=== PATIENT | female | born 1950 | race Caucasian/White ===

== ENCOUNTER 2018-11-09 07:08 | Day surgery (SDC) | payer MEDICARE, OTHER ==
[~2018-11-09 07:08] MED LIST: Bupivacaine 0.5% 30 ML SDV ONE
[2018-11-09] MEDS ORDERED: Sodium Chloride 0.9% 1,000 ML IV SCH (07:15)
[2018-11-09] MEDS ORDERED: fentaNYL 100 MCG/2 ML SDV ONE (07:29)
[2018-11-09] MEDS ORDERED: Midazolam 1 MG/ML 2 ML SDV ONE (07:29)
[2018-11-09] MEDS ORDERED: Propofol 200 MG/20 ML SDV ONE (07:29)
[2018-11-09] MEDS ORDERED: Lidocaine 0.5% 50 ML SDV ONE (07:31)
[2018-11-09] MEDS ORDERED: Ondansetron 4 MG/2 ML SDV ONE (07:42)
--- NOTE | 2018-11-09 23:54 | PCM.OPNOTE ---
- General Post-Op/Procedure Note Date of Surgery/Procedure: 11/09/18 Operative Procedure(s): Right 3rd finger trigger release (A-1 juan carlos) Findings: no tendon abnormality Pre Op Diagnosis: right 3rd finger trigger finger Post-Op Diagnosis: Same Anesthesia Technique: Regional Block ([place] block) Secondary Surgeon: Ike Jimenez Complications: None Condition: Good Free Text/Narrative:: Intake & Output 11/09/18 11/09/18 11/10/18 14:59 22:59 06:59 Intake Total 149 Balance 149 Indications: 67 year old right hand dominant female with seversl month hisstory of painful locking of right 3rd finger. Procedure: After adequate Britney block anesthesia a tyransfer incision was made inline with ths distal palmar flexion crease. Dissection carried down to the flexor tendons. The A-1 juan carlos was identified and a scissor was used to divide the juan carlos under direct visualization. Complete transection was confirmed and the tendons were inspected. No abnormalities were identified. The wound was irrigated and closed with 3-0 nylon in interrupted mattress fashion. A sterile dressing was applied. There were no complications and she was taken from the OR in stable condition.
== END 2018-11-09 11:35 | disposition home or self-care (01) ==
LOC: JP.SDS 07:08
PROVIDERS: ATTEND Specialist
DX: M65.331 Trigger finger, right middle finger (principal); I10 Essential (primary) hypertension; E11.9 Type 2 diabetes mellitus without complications; K21.9 Gastro-esophageal reflux disease without esophagitis; Z79.82 Long term (current) use of aspirin; Z79.84 Long term (current) use of oral hypoglycemic drugs; Z79.899 Other long term (current) drug therapy; Z88.5 Allergy status to narcotic agent; Z88.8 Allergy status to other drugs, medicaments and biological substances
CPT/HCPCS: 26055; J2250; J2405; J3010; J3490; J7030; J2704

== ENCOUNTER 2018-11-21 08:12 | Day surgery (SDC) | payer MEDICARE, OTHER ==
[2018-11-21] MEDS ORDERED: Sodium Chloride 0.9% 1,000 ML IV SCH (08:45)
[2018-11-21] MEDS ORDERED: Midazolam 1 MG/ML 2 ML SDV ONE (09:16)
[2018-11-21] MEDS ORDERED: Propofol 200 MG/20 ML SDV ONE (09:16)
[2018-11-21] MEDS ORDERED: fentaNYL 100 MCG/2 ML SDV ONE (09:16)
--- NOTE | 2018-11-21 10:53 | OR ---
DATE OF PROCEDURE: 11/21/2018 PROCEDURE: 1. EGD. 2. Cerda pH monitor placement. COMPLICATION: None. PRODUCTION HAND: None. FINDINGS: 1. Noted [place] wrap partially intact. 2. Hiatal hernia approximately 1 cm. ANESTHESIA: MAC. PREOPERATIVE DIAGNOSIS: Epigastric pain and dysphagia concerning for reflux disease. POSTOPERATIVE DIAGNOSIS: Epigastric pain and dysphagia concerning for reflux disease. RISKS: Risks, benefits, alternatives, and limitations including, but not limited to, infection, bleeding, and perforation were explained to the patient, who wished to proceed. PROCEDURE IN DETAIL: The patient was placed in left lateral decubitus position. The EGD scope was introduced and advanced atraumatically. This was advanced through the esophagus down into the duodenum. Within the duodenum itself, there was no evidence of duodenitis. No duodenal ulcers. The bulb was normal. In the stomach itself, there was no evidence of gastritis, ulceration, or any other abnormalities. On retroflex, the patient was noted to have a previous [place] wrap. This looks like it has unwrapped at time but still has a partial wrap to it. There was a small sliding hiatal hernia associated with this. The GE junction was inspected in white light and narrow band imaging. No concerns. No evidence of Brice's esophagus. This was measured to be at approximately 35 from the Z-line to the bite-block. The esophagus was inspected. The Cerda pH monitor was placed approximately 6 cm from the Z-line. This was placed in standard fashion by suction application waiting 30 seconds deploying, removing suction and removing the carrier. The EGD scope was reintroduced and the EGD scope showed good placement. The patient tolerated the procedure well. Henrique Tadeo MD /[id number]
[2018-11-21] MEDS ORDERED: Scopolamine 1.5 MG Transdermal Patch TOP ONE (11:19)
[2018-11-21] MEDS ORDERED: Ondansetron 4 MG Tab.DIS PO ONE (11:19)
== END 2018-11-21 12:29 | disposition home or self-care (01) ==
LOC: JP.SDS 08:12
PROVIDERS: ATTEND Surgery
DX: R10.13 Epigastric pain (principal); K21.9 Gastro-esophageal reflux disease without esophagitis; K44.9 Diaphragmatic hernia without obstruction or gangrene; I10 Essential (primary) hypertension; I25.10 Atherosclerotic heart disease of native coronary artery without angina pectoris; Z98.890 Other specified postprocedural states
CPT/HCPCS: 43235; A9270; J2250; J2704; J3010; J7030

== ENCOUNTER 2019-08-22 06:57 | Day surgery (SDC) | payer MEDICARE, OTHER ==
[2019-08-22] MEDS ORDERED: Lactated Ringers 1,000 ML IV SCH (07:30)
[2019-08-22] MEDS ORDERED: Propofol 200 MG/20 ML SDV ONE (08:25)
[2019-08-22] MEDS ORDERED: fentaNYL 100 MCG/2 ML SDV ONE (08:26)
[2019-08-22] MEDS ORDERED: Midazolam 1 MG/ML 2 ML SDV ONE (08:26)
[2019-08-22] MEDS ORDERED: Ondansetron 4 MG/2 ML SDV ONE (08:44)
--- NOTE | 2019-08-22 15:34 | OR ---
DATE OF PROCEDURE: 08/22/2019 SURGEON: Arthur Perea MD PREOPERATIVE DIAGNOSIS: Diarrhea POSTOPERATIVE DIAGNOSES: Diverticulosis, diarrhea. PROCEDURE: Colonoscopy to the cecum with random colon biopsies. ANESTHESIA: IV anesthesia with monitored anesthesia care. INDICATION: This 68-year-old white female is referred for a colonoscopy because of change in bowel habits manifested by diarrhea. She also noted some crampy discomfort. I counseled her for the procedure including risks and alternatives and she gave her informed consent to proceed. She says her last colonoscopic exam was done 5 years ago. PROCEDURE IN DETAIL: The patient was placed in the left lateral decubitus position. IV anesthesia was administered by the Anesthesia Service. Time-out was held. A rectal exam was performed, which was unremarkable. The flexible video Olympus colonoscope was introduced through her anus, up her rectum, out her colon all the way to the cecum. En route, we saw a few scattered left-sided diverticula. There was no bleeding or inflammation associated with any of them. Once the cecum was reached, the scope was slowly withdrawn examining the mucosa throughout. No additional mucosal abnormalities were noted. We did obtain random colonic biopsies throughout the entire colon. The scope was retroflexed in the rectum with the distal rectum appearing unremarkable. The scope was straightened and removed. She tolerated the procedure well. Arthur Perea MD /[id number]
== END 2019-08-22 10:15 | disposition home or self-care (01) ==
LOC: JP.SDS 06:57
PROVIDERS: ATTEND Surgery
DX: D12.6 Benign neoplasm of colon, unspecified (principal); K57.30 Diverticulosis of large intestine without perforation or abscess without bleeding; I25.10 Atherosclerotic heart disease of native coronary artery without angina pectoris; I10 Essential (primary) hypertension
CPT/HCPCS: 88305; 88341; 88342; J2250; J2405; J2704; J3010; J7120

== ENCOUNTER 2019-09-08 05:47 | Inpatient (IN) | payer MEDICARE, OTHER ==
[2019-09-08] MEDS ORDERED: Acetaminophen 500 MG Tab PO ONE (06:30)
[2019-09-08] MEDS ORDERED: Celecoxib 200 MG Cap PO ONE (06:30)
[2019-09-08] MEDS ORDERED: fentaNYL 250 MCG/5 ML SDV ONE (07:17)
[2019-09-08] MEDS ORDERED: Ondansetron 4 MG/2 ML SDV ONE (07:18)
[2019-09-08] MEDS ORDERED: Neostigmine Methylsulfate 1 MG/ML 5 ML Syringe ONE (07:18)
[2019-09-08] MEDS ORDERED: Rocuronium 50 MG/5 ML Vial ONE (07:18)
[2019-09-08] MEDS ORDERED: Dexamethasone 4 MG/ML SDV ONE (07:18)
[2019-09-08] MEDS ORDERED: Propofol 200 MG/20 ML SDV ONE (07:18)
[2019-09-08] MEDS ORDERED: Glycopyrrolate 0.2 MG/ML 5 ML MDV ONE (07:18)
[2019-09-08] MEDS ORDERED: cefOXitin 2 GM in Sodium Chloride 0.9% 50 ML IV ONE (07:30)
[2019-09-08] MEDS ORDERED: Droperidol 5 MG/2 ML SDV ONE (07:43)
[2019-09-08] MEDS ORDERED: Ketamine 500 MG/5 ML MDV IV SCH (07:45)
[2019-09-08] MEDS: Bupivacaine 0.5%/EPINEPHrine 1:200,000 50 ML MDV ONE ×2 (09:03→09:15)
[2019-09-08] MEDS ORDERED: Glucagon,Human Recombinant 1 MG Vial IM PRN (09:57)
[2019-09-08] MEDS ORDERED: Naloxone 0.4 MG/ML SDV IV PRN (09:57)
[2019-09-08] MEDS ORDERED: HYDROmorphone/Normal Saline 15 MG/30 ML PCA IV PRN (09:57)
[2019-09-08] MEDS ORDERED: Glucose Gel 15 GM in 37.5 GM Tube PO PRN (09:57)
[2019-09-08] MEDS ORDERED: 50% Dextrose in Water 50 ML Syringe IVPUSH PRN (09:57)
[2019-09-08] MEDS: Ondansetron 4 MG/2 ML SDV IVPUSH PRN ×2 (10:28→14:56)
[2019-09-08] MEDS: Dextrose 5%-Lactated Ringers 1,000 ML IV SCH (10:33)
[2019-09-08] MEDS: Metoclopramide 10 MG/2 ML SDV IV PRN ×2 (12:14→18:16)
[2019-09-08] MEDS ORDERED: Scopolamine 1.5 MG Transdermal Patch TOP SCH (12:15)
[2019-09-08] MEDS: metFORMIN 500 MG Tab PO SCH ×2 (12:56→17:04)
[2019-09-08] MEDS: Insulin Lispro 100 Unit/ML 3 ML KwikPen SUBCUT PRN ×3 (13:06→21:39)
[2019-09-08] MEDS: cefOXitin 2 GM in Sodium Chloride 0.9% 50 ML IV SCH ×2 (13:08→20:12)
[2019-09-08] MEDS ORDERED: LORazepam 2 MG/ML SDV IVPUSH PRN (19:50)
[2019-09-08] MEDS: Celecoxib 100 MG Cap PO SCH (20:14)
[2019-09-08] MEDS: Propranolol 80 MG Cap.ER PO SCH (20:14)
[2019-09-08] MEDS: Famotidine 20 MG Tab PO SCH (20:14)
[2019-09-09] MEDS: cefOXitin 2 GM in Sodium Chloride 0.9% 50 ML IV SCH ×4 (02:44→19:47)
[2019-09-09] MEDS: Metoclopramide 10 MG/2 ML SDV IV PRN (07:32)
[2019-09-09] MEDS: Dextrose 5%-Lactated Ringers 1,000 ML IV SCH ×2 (07:39→18:16)
[2019-09-09] MEDS: Insulin Lispro 100 Unit/ML 3 ML KwikPen SUBCUT PRN ×2 (07:42→12:16)
[2019-09-09] MEDS ORDERED: amLODIPine 5 MG Tab PO SCH ×2 (09:00→21:00)
[2019-09-09] MEDS ORDERED: atorvaSTATin 20 MG Tab PO SCH ×2 (09:00→21:00)
[2019-09-09] MEDS ORDERED: Aspirin 81 MG Tab.EC PO SCH ×2 (09:00→21:00)
[2019-09-09] MEDS: metFORMIN 500 MG Tab PO SCH ×2 (09:41→17:17)
[2019-09-09] MEDS: Bisacodyl 5 MG Tab PO SCH ×2 (09:43→20:00)
[2019-09-09] MEDS: Docusate Sodium 100 MG Cap PO SCH ×2 (09:43→20:00)
[2019-09-09] MEDS: Famotidine 20 MG Tab PO SCH ×2 (09:43→20:15)
[2019-09-09] MEDS: Celecoxib 100 MG Cap PO SCH ×2 (09:43→20:00)
[2019-09-09] MEDS: SCOPOLAMINE PATCH CHECK TOP SCH (09:44)
[2019-09-09] MEDS: Ondansetron 4 MG/2 ML SDV IVPUSH PRN (12:16)
[2019-09-09] MEDS: Acetaminophen/HYDROcodone 325-5 MG Tab PO PRN (19:57)
[2019-09-09] MEDS: Propranolol 80 MG Cap.ER PO SCH (20:00)
[2019-09-10] MEDS: cefOXitin 2 GM in Sodium Chloride 0.9% 50 ML IV SCH ×2 (02:41→07:36)
[2019-09-10] MEDS: Dextrose 5%-Lactated Ringers 1,000 ML IV SCH (07:15)
[2019-09-10] MEDS: metFORMIN 500 MG Tab PO SCH (08:06)
[2019-09-10] MEDS: Acetaminophen/HYDROcodone 325-5 MG Tab PO PRN (08:37)
[2019-09-10] MEDS: Celecoxib 100 MG Cap PO SCH (08:38)
[2019-09-10] MEDS: Docusate Sodium 100 MG Cap PO SCH (08:39)
[2019-09-10] MEDS: SCOPOLAMINE PATCH CHECK TOP SCH (08:39)
[2019-09-10] MEDS: Famotidine 20 MG Tab PO SCH (08:39)
[2019-09-10] MEDS: Bisacodyl 5 MG Tab PO SCH (08:39)
--- NOTE | 2019-09-10 08:54 | DISCH ---
ADMISSION DIAGNOSES: 1. Right upper quadrant abdominal pain. 2. Osteoporosis. 3. Impaired glucose function. 4. Atypical chest pain. 5. Coronary artery disease. 6. Gastroesophageal reflux disease with esophagitis. 7. Essential hypertension. 8. Dyslipidemia. 9. Osteoarthritis. DISCHARGE DIAGNOSES: Diagnostic laparoscopy with: 1. Cholecystectomy converted to mini laparotomy with near total omentectomy for chronic cholecystitis and sclerotic thickened omentum. Pathology report pending. Date of surgery: 09/08/2019. Surgeon: Enmanuel Gomez MD. HISTORY: Genoveva Claudio is a pleasant 68-year-old female with chronic constant right upper quadrant abdominal pain. After preoperative evaluation and discussion of possible risks and possible complications, she wished to proceed with surgical procedure. HOSPITAL COURSE: Genoveva had her surgery on 09/08/2019. She had no operative complications. On postoperative day #1, she was changed to inpatient due to pain control and changing from laparoscopic to laparotomy. Her vital signs were stable, her activity was good, and she was started on bowel stimulation. On postoperative day #2, she was able to be discharged to home. Vital signs were stable. Activity, she was walking 6 times a day. Oral intake 420, urine output 2825. JOVAN drain put out 55 mL of a light pink drainage. She was able to be discharged to home on postoperative day #2, without any complications. Pain was well managed and activity was good. OBJECTIVE: GENERAL: Genoveva Claudio is a 68-year-old female. She is alert and orientated. VITAL SIGNS: Height is 4 feet 11 inches, weight 128, 98,9, 77, 16, blood pressure is 133/69. HEENT: Negative. NECK: Supple. HEART: Regular rate and rhythm. LUNGS: Clear. ABDOMEN: Dressings dry and intact. JOVAN drain intact. EXTREMITIES: Without peripheral edema. DISPOSITION: Discharged to home. CONDITION: Stable and improving. FOLLOWUP: A followup appointment with Vero Garcia PA-C, on 09/18/2019 at 9 a.m. HOME MEDICATIONS: 1. [place] 5/325 mg 1 tablet every 6 hours p.r.n. pain, #28. 2. Aspirin 81 mg oral daily. 3. Calcium 600 mg oral twice daily. 4. Celebrex 100 mg oral twice daily. 5. Vitamin D3 2000 International Units oral daily. 6. Boniva 150 mg oral as directed. 7. Multivitamin 1 tablet oral daily. 8. Inderal LA 80 mg daily. 9. Zantac 150 mg oral twice daily. 10.Amlodipine 2.5 mg oral daily. 11.Lipitor 40 mg oral at bedtime. 12.Metformin 500 mg oral daily. DIET: Diabetic diet. Drink 8 to 10 glasses of water a day. ACTIVITY: No lifting greater than 10 pounds for 2 weeks. Walk at least 6 times daily inside your home. Driving: Do not drive for 1 week and while on pain medication. Shower/bathing: May shower. DISCHARGE INSTRUCTIONS: Notify provider if any fever, increased pain, swelling, redness, nausea, or vomiting. Wound incision care, keep site clean and dry. Wear abdominal binder for 2 weeks and as tolerated. Use incentive spirometer 10 times every hour while awake.
--- NOTE | 2019-09-10 13:05 | OR ---
DATE OF PROCEDURE: 09/08/2019 SURGEON: Enmanuel Gomez MD PREOPERATIVE DIAGNOSIS: Chronic cholecystitis. POSTOPERATIVE DIAGNOSES: 1. Chronic cholecystitis with gallbladder sludge. 2. Sclerotic, fibrotic, and thickened omentum of uncertain etiology. OPERATIVE PROCEDURES: Diagnostic laparoscopy with: 1. Cholecystectomy (75512). 2. Conversion to limited laparotomy with near-total omentectomy (17405). ANESTHESIA: General. INDICATION FOR PROCEDURE: A 68-year-old female presenting with a picture of right upper quadrant pain. This is becoming progressively worse. Ultrasound did show somewhat thickened gallbladder wall with the patient tender over the gallbladder and should undergo a cholecystectomy at this time. Potential risks of the procedure including bleeding, infection, injury to underlying viscera, problems with persistence of symptoms postoperatively were all reviewed, and the patient wishes to proceed. DETAILS OF PROCEDURE: The patient was taken to the operating room and placed in a supine position. After general endotracheal anesthesia was induced, the abdomen was prepped and draped. Transverse epigastric incision was made and carried down through the skin and subcutaneous tissue, and the peritoneal cavity was entered under direct vision with an Optiview trocar, inflated to 15 mmHg pressure with CO2. No underlying trocar insertion site injuries were seen. Following this, a 12-mm subumbilical trocar was placed, along with a 5- mm right subcostal trocar. Bilateral transversus abdominis plane blocks were then placed. The striking finding, in addition to somewhat edematous and distended gallbladder, was much of the omentum located in the epigastrium and right upper quadrant, was strikingly sclerotic and thickened and had more or less a diffuse white thickened and fibrotic consistency. There was no focal mass and otherwise there was no evidence of peritoneal seeding. The underlying transverse colon was unremarkable, and there was no evidence of any mesenteric panniculitis, i.e., small bowel and large bowel mesentry all appeared to be normal. Apart from the abnormal omental findings and the gallbladder edema, no additional abnormalities were evident with the general examination of the abdomen. At this point, the attention was taken to the gallbladder. The gallbladder was retracted anterolaterally and dissection began on the gallbladder neck and continued around the gallbladder neck/cystic duct junction. Once that area was well delineated, along with the adjacent cystic artery, both structures were clipped 3 times proximally and once distally, and gallbladder neck/cystic duct junction readily divided, and the gallbladder was dissected off the gallbladder bed using Harmonic scalpel and delivered through the epigastric trocar site. The patient was noted to have some gallbladder sludge in the lumen of the gallbladder and grossly evident cholesterolosis of the gallbladder mucosa. At this point, attention was taken to the omentum. It was felt that the patient's symptoms may in fact be primarily related to the omental findings, and we then proceeded with a near- total omentectomy. A 12-mm trocar was then placed in the left subcostal area to facilitate dissection. This was later opened up as a mini-laparotomy in order to deliver the omentum specimen. The omentum was then excised more or less flush with the transverse colon and greater curvature of the stomach using a combination of Harmonic scalpel and stapled dissection. All of the grossly evident disease omentum which amounted to 80% to 90% of the omental substance was removed. This was then taken out through the now small laparotomy in the left subcostal area and delivered from the field. Again, general exploration revealed no additional abnormalities. A Harshad-Vasques drain was then taken through the right lateral trocar site and placed in the area of the gallbladder bed. The incision in the left subcostal area was closed with 2 layers of #1 Vicryl stitch and the fascia at the 12 mm trocar sites were closed with 0 Vicryl stitch, and the skin with 4-0 Vicryl skin stitch, which was also used to fix the drain. The patient was taken to the recovery room in satisfactory condition. There were no evident complications. Enmanuel Gomez MD /[id number]
--- NOTE | 2019-09-10 13:11 | PN ---
DATE OF SERVICE: 09/09/2019 The patient has been afebrile with stable vital signs. She was somewhat nauseated overnight, this appears to be clearing, and she will begin taking food orally. The patient will need to be converted to an inpatient stay an extra day here to establish adequate oral intake and to confirm that the pain management is satisfactory when she switches to oral. She did have a significant operation with cholecystectomy with near-total omentectomy being completed as well for this sclerotic-appearing omentum. Otherwise, will maximize activity and work with pulmonary toilet, and then will switch over to oral pain medicine as tolerated today. Enmanuel Gomez MD /[id number]
== END 2019-09-10 09:30 | disposition home or self-care (01) | DRG 419 ==
LOC: JP.SDS 05:47 → JP.MS 09:55 → JP.SDS 09-09 07:44 → JP.MS 09-09 07:45
PROVIDERS: ADMIT Surgery; ATTEND Surgery
PROC: 0FT44ZZ Resection of Gallbladder, Percutaneous Endoscopic Approach (ICD-10-PCS; principal; 2019-09-09)
PROC: 0DBU0ZZ Excision of Omentum, Open Approach (ICD-10-PCS; 2019-09-09)
DX: K81.1 Chronic cholecystitis (principal); K66.8 Other specified disorders of peritoneum; Z53.31 Laparoscopic surgical procedure converted to open procedure; I25.10 Atherosclerotic heart disease of native coronary artery without angina pectoris; K21.9 Gastro-esophageal reflux disease without esophagitis; I10 Essential (primary) hypertension; E78.5 Hyperlipidemia, unspecified; Z79.84 Long term (current) use of oral hypoglycemic drugs; M19.90 Unspecified osteoarthritis, unspecified site; R32 Unspecified urinary incontinence; M81.0 Age-related osteoporosis without current pathological fracture; R73.02 Impaired glucose tolerance (oral); R07.89 Other chest pain; Z79.82 Long term (current) use of aspirin; Z79.899 Other long term (current) drug therapy
CPT/HCPCS: 36415 ×2; 47562; 49255; 80053; 82247; 82962 ×2; 83735; 84075; 84100; 85025; 85027; 94762; A9270 ×6; J0171; J0694 ×5; J1100 ×2; J1170; J1790; J1815; J2060; J2405 ×3; J2704; J2710; J2765 ×3; J2795; J3010; J3490 ×2; J7050 ×6; J7121 ×2

== ENCOUNTER 2019-11-26 07:05 | Day surgery (SDC) | payer MEDICARE, OTHER ==
[2019-11-26] MEDS ORDERED: Midazolam 1 MG/ML 2 ML SDV ONE (07:07)
[2019-11-26] MEDS ORDERED: fentaNYL 100 MCG/2 ML SDV ONE (07:07)
[2019-11-26] MEDS ORDERED: Propofol 200 MG/20 ML SDV ONE (07:07)
[2019-11-26] MEDS ORDERED: Dextrose 5%-Lactated Ringers 1,000 ML IV SCH (08:00)
[2019-11-26] MEDS ORDERED: Glycopyrrolate 0.2 MG/ML 2 ML SDV IVPUSH ONE (08:15)
--- NOTE | 2019-12-05 13:21 | OR ---
DATE OF PROCEDURE: 11/26/2019 SURGEON: Enmanuel Gomez MD PREOPERATIVE DIAGNOSIS: Mid abdominal pain. POSTOPERATIVE DIAGNOSIS: Mid abdominal pain associated with erosive antral gastritis and mild proximal duodenitis. OPERATIVE PROCEDURE: Esophagogastroduodenoscopy with antral biopsies for CLOtest. ANESTHESIA: IV sedation. INDICATION FOR PROCEDURE: A 68-year-old female presenting with some mid abdominal pain. She has also some right flank pain. She is status post laparoscopic procedure in August in which case some sclerotic omentum was removed along with a cholecystectomy. She did quite well for a period of time and now has redeveloped the pain. Again, this is located across the midabdomen, but also radiating somewhat toward the right flank and back. The plan is to proceed with upper GI endoscopy for evaluation of the stomach and duodenum to see if there is anything correctable in that area. Potential risks of the procedure including bleeding and perforation were discussed, and the patient wishes to proceed. DETAILS OF PROCEDURE: The patient was taken to the operating room and placed in a left lateral decubitus position. IV sedation was administered after which the upper GI endoscope was passed orally through the length of the esophagus into the stomach with retroflexion view of the fundus, and thereafter, through the pyloric channel to the junction of the 3rd and 4th portions of the duodenum. The findings included normal esophagus and EG junction. Within the stomach, there were some antral erosions present which were covered with some fibrinous exudate. As one passed through the pyloric channel and the duodenum, the duodenal bulb was involved with some patchy reddened and edematous mucosa, but without erosions or ulcers, and beyond that, the duodenal findings normalized. At this point, biopsies were obtained from the antrum and sent for CLOtest for H pylori. No bleeding from the biopsy sites was seen, and the procedure was then concluded. The patient is essentially allergic to all proton pump inhibitors. She has not presently been on any H2 blockers as she took herself off Zantac as it has been recalled. At this point, we will start her on Pepcid 40 mg daily. We will give Pepcid 40 mg IV in the recovery room to get things started and see her back in 2 weeks. If she continues to have the significant pain on the right side, the next step would probably be a laparoscopy or possible laparotomy to see if there is additional sclerotic omentum present as removal of the previously noted sclerotic omentum did result in a period she was asymptomatic. We will see her back in 2 weeks for recheck. Enmanuel Gomez MD /[id number]
== END 2019-11-26 10:21 | disposition home or self-care (01) ==
LOC: JP.SDS 07:05
PROVIDERS: ATTEND Surgery
DX: K29.80 Duodenitis without bleeding (principal); K29.70 Gastritis, unspecified, without bleeding; K25.9 Gastric ulcer, unspecified as acute or chronic, without hemorrhage or perforation; B96.81 Helicobacter pylori [H. pylori] as the cause of diseases classified elsewhere; I10 Essential (primary) hypertension; E78.5 Hyperlipidemia, unspecified; I25.10 Atherosclerotic heart disease of native coronary artery without angina pectoris; K21.9 Gastro-esophageal reflux disease without esophagitis; E11.9 Type 2 diabetes mellitus without complications
CPT/HCPCS: 43239; 87081; J2250; J2704; J3010; J3490; J7121

== ENCOUNTER 2019-12-10 06:51 | Inpatient (IN) | payer MEDICARE, OTHER ==
[~2019-12-10 06:51] MED LIST changes: -Bupivacaine 0.5% 30 ML SDV ONE; +Bupivacaine 0.5% 50 ML MDV ONE; +Lidocaine 1% with EPINEPHrine 1:100,000 50 ML MDV ONE; +Meropenem 500 MG SDV ONE
[2019-12-10] MEDS ORDERED: Celecoxib 200 MG Cap PO ONE (07:00)
[2019-12-10] MEDS ORDERED: Scopolamine 1.5 MG Transdermal Patch TOP SCH (07:00)
[2019-12-10] MEDS ORDERED: Acetaminophen 500 MG Tab PO ONE (07:00)
[2019-12-10] MEDS ORDERED: Dextrose 5%-Lactated Ringers 1,000 ML IV SCH (07:30)
[2019-12-10] MEDS ORDERED: cefOXitin 2 GM in Sodium Chloride 0.9% 50 ML IV ONE (07:30)
[2019-12-10] MEDS ORDERED: Ketamine 50 MG in Sodium Chloride 0.9% 49.5 ML IV SCH (08:30)
[2019-12-10] MEDS ORDERED: Ketamine 500 MG/5 ML MDV IV SCH (08:30)
[2019-12-10] MEDS ORDERED: Succinylcholine 200 MG/10 ML MDV ONE (08:55)
[2019-12-10] MEDS ORDERED: fentaNYL 250 MCG/5 ML SDV ONE ×2 (08:55→09:55)
[2019-12-10] MEDS ORDERED: Propofol 200 MG/20 ML SDV ONE (08:55)
[2019-12-10] MEDS ORDERED: Rocuronium 50 MG/5 ML Vial ONE (08:55)
[2019-12-10] MEDS ORDERED: Ondansetron 4 MG/2 ML SDV ONE (08:55)
[2019-12-10] MEDS ORDERED: Glycopyrrolate 0.2 MG/ML 5 ML MDV ONE (08:55)
[2019-12-10] MEDS ORDERED: Dexamethasone 4 MG/ML SDV ONE (08:55)
[2019-12-10] MEDS ORDERED: Neostigmine Methylsulfate 1 MG/ML 5 ML Syringe ONE (08:55)
[2019-12-10] MEDS ORDERED: Lactated Ringers 1,000 ML ONE (10:05)
[2019-12-10] MEDS ORDERED: Naloxone 0.4 MG/ML SDV IVPUSH PRN (10:21)
[2019-12-10] MEDS ORDERED: fentaNYL/Normal Saline 600 MCG/30 ML PCA Vial IV PRN (10:21)
[2019-12-10] MEDS ORDERED: Naloxone 0.4 MG/ML SDV IV PRN (10:27)
[2019-12-10] MEDS ORDERED: hydrOXYzine HCL 100 MG/2 ML SDV IM PRN (12:06)
[2019-12-10] MEDS ORDERED: Ondansetron 4 MG/2 ML SDV IVPUSH PRN (12:07)
[2019-12-10] MEDS ORDERED: Cyclobenzaprine 10 MG Tab PO PRN (12:07)
[2019-12-10] MEDS: cefOXitin 2 GM in Sodium Chloride 0.9% 50 ML IV SCH ×2 (14:18→20:28)
[2019-12-10] MEDS: Famotidine 20 MG/2 ML SDV IV SCH (14:22)
[2019-12-10] MEDS: SCOPOLAMINE PATCH CHECK TOP SCH (14:24)
[2019-12-10] MEDS: amLODIPine 5 MG Tab PO SCH (14:27)
[2019-12-10] MEDS: Docusate Sodium 100 MG Cap PO SCH ×2 (14:34→20:29)
[2019-12-10] MEDS: Acetaminophen 325 MG Tab PO SCH ×2 (14:34→20:29)
[2019-12-10] MEDS: Dextrose 5%-Lactated Ringers 1,000 ML IV SCH (17:19)
[2019-12-10] MEDS: Metoclopramide 10 MG/2 ML SDV IVPUSH SCH ×2 (17:29→23:36)
[2019-12-10] MEDS: Propranolol 80 MG Cap.ER PO SCH (20:30)
[2019-12-10] MEDS: Celecoxib 200 MG Cap PO SCH (20:30)
[2019-12-11] MEDS: Dextrose 5%-Lactated Ringers 1,000 ML IV SCH (00:18)
[2019-12-11] MEDS: Acetaminophen 325 MG Tab PO SCH ×4 (02:25→20:04)
[2019-12-11] MEDS: cefOXitin 2 GM in Sodium Chloride 0.9% 50 ML IV SCH ×2 (02:25→07:26)
[2019-12-11] MEDS: Metoclopramide 10 MG/2 ML SDV IVPUSH SCH ×4 (05:00→23:28)
[2019-12-11] MEDS: Lactated Ringers 1,000 ML IV SCH ×2 (07:20→17:33)
--- NOTE | 2019-12-11 08:27 | PN ---
DATE OF SERVICE: 12/11/2019 SUBJECTIVE: Genoveva's vital signs have been stable. Her pain has been controlled. She has not used any of her pain medication, has remained to be quite sleepy. She did have 2 doses of tranexamic acid for bleeding. Labs this morning, hemoglobin was 14, glucose 238, magnesium is 1.7. Oral intake, zero recorded. Urine output 3385 via Matthews catheter. JOVAN drain 1 put out 275 of a light pink drainage, and JOVAN drain put out 55. REVIEW OF SYSTEMS: Remainder of review of systems negative for any pertinent positives and negatives. OBJECTIVE: GENERAL: Genoveva Claudio is a pleasant 68-year-old female. VITAL SIGNS: TPR at 0300, 100.2, 85, 15, blood pressure 143/73. HEENT: Negative. NECK: Supple. HEART: Regular rate and rhythm. LUNGS: Clear. ABDOMEN: Dressing is dry and intact. JOVAN drains as above. EXTREMITIES: Without peripheral edema, and SCDs are on. ASSESSMENT: 1. Diagnostic laparoscopy. 2. Exploratory laparotomy with. a. Total omentectomy. b. Right colectomy. c. Resection of nodular omentum to right lobe of the liver. d. Repair of incarcerated incisional hernia. e. Placement of Interceed mesh. POSTOPERATIVE DIAGNOSES: 1. Recurrent sclerotic omentum adherent to transverse colon and gastric antrum. 2. Separate nodular lesion 1 cm to the right lobe of liver. 3. Incarcerated trocar incisional hernia. 4. Date of surgery, 12/10/2019. Surgeon, Enmanuel Gomez MD. PLAN: 1. Schedule and have consent signed for delayed primary closure with IV/local/TAP block, 12/12/2019, at 07:15. Surgeon: Enmanuel Gomez MD. N.p.o. after midnight. 2. Change IV to lactated Ringer 100 mL/h. 3. Full liquid diet. 4. Magnesium 2 g IV q.6 hours x72 hours. 5. N.p.o. after midnight. 6. Check CBC, phos, and CMP in a.m. 7. Matthews catheter will be left in for accurate intake and output. 8. Good pulmonary toilet. 9. We will evaluate p.r.n. or in a.m. Vero Garcia PA-C /[id number]
[2019-12-11] MEDS: Magnesium Sulfate/Water 2 GM in Premix Bag 1 BAG IV SCH ×3 (09:07→20:05)
[2019-12-11] MEDS: Celecoxib 200 MG Cap PO SCH ×2 (09:13→20:13)
[2019-12-11] MEDS: amLODIPine 5 MG Tab PO SCH (09:13)
[2019-12-11] MEDS: SCOPOLAMINE PATCH CHECK TOP SCH (09:14)
[2019-12-11] MEDS: Aspirin 81 MG Tab.EC PO SCH (09:14)
[2019-12-11] MEDS: Docusate Sodium 100 MG Cap PO SCH ×2 (09:14→20:04)
[2019-12-11] MEDS: Famotidine 20 MG/2 ML SDV IV SCH (13:41)
[2019-12-11] MEDS: Propranolol 80 MG Cap.ER PO SCH (20:04)
[2019-12-12] MEDS: Magnesium Sulfate/Water 2 GM in Premix Bag 1 BAG IV SCH ×4 (02:05→19:38)
[2019-12-12] MEDS: Acetaminophen 325 MG Tab PO SCH ×4 (02:06→20:36)
[2019-12-12] MEDS: Lactated Ringers 1,000 ML IV SCH (03:32)
[2019-12-12] MEDS: Metoclopramide 10 MG/2 ML SDV IVPUSH SCH ×4 (05:54→23:08)
[2019-12-12] MEDS ORDERED: Lidocaine 1% with EPINEPHrine 1:100,000 50 ML MDV ONE (06:35)
[2019-12-12] MEDS ORDERED: Bupivacaine 0.5% 50 ML MDV ONE (06:35)
[2019-12-12] MEDS ORDERED: Meropenem 500 MG SDV IV ONE (06:35)
[2019-12-12] MEDS ORDERED: Meropenem 500 MG SDV ONE (06:35)
[2019-12-12] MEDS ORDERED: Midazolam 1 MG/ML 2 ML SDV ONE (07:03)
[2019-12-12] MEDS ORDERED: fentaNYL 100 MCG/2 ML SDV ONE (07:03)
[2019-12-12] MEDS ORDERED: Propofol 200 MG/20 ML SDV ONE (07:03)
--- NOTE | 2019-12-12 07:46 | PN ---
DATE OF SERVICE: 12/12/2019 SUBJECTIVE: Genoveva is n.p.o. She will be having her delayed primary closure today. Pain has been controlled. She has been up, ambulating. Vital signs stable, afebrile. Oral intake 1250. Urine output 2800. LABORATORY DATA: Today, hemoglobin 11.7, potassium 3.5, phosphorus 1.7, glucose 135. OBJECTIVE: GENERAL: Genoveva Claudio is a pleasant 68-year-old female. VITAL SIGNS: TPR is 99.3, 76, 16, blood pressure 127/59. HEENT: Negative. NECK: Supple. HEART: Regular rate and rhythm. LUNGS: Clear. ABDOMEN: Dressings dry and intact. JOVAN drains have drained 115 and 30 of a serosanguineous drainage bilaterally. EXTREMITIES: Without peripheral edema. ASSESSMENT: 1. Diagnostic laparoscopy. 2. Exploratory laparotomy with: a. Total omentectomy .. b. Right colectomy. c. Resection of nodular omentum to right lobe of liver. d. Repair of incarcerated incisional hernia. e. Repair of Interceed mesh. POSTOPERATIVE DIAGNOSES: 1. Recurrent sclerotic omentum adherent to transverse colon and gastric antrum. 2. Separate nodular lesion 1 cm to the right lobe of liver. 3. Incarcerated trocar incisional hernia. 4. Date of surgery: 12/10/2019. Surgeon: Enmanuel Gomez MD. Orders to be written by Enmanuel Gomez MD after delayed primary closure. Matthews will be discontinued. JOVAN drains will be discontinued. She will be given K-Phos. Continue to use incentive spirometer. We will evaluate p.r.n. or in a.m. Vero Garcia PA-C /[id number]
[2019-12-12] MEDS ORDERED: Lactated Ringers 1,000 ML IV SCH (09:15)
[2019-12-12] MEDS: Bisacodyl 5 MG Tab PO SCH ×2 (10:32→20:37)
[2019-12-12] MEDS: amLODIPine 5 MG Tab PO SCH (10:32)
[2019-12-12] MEDS: Celecoxib 200 MG Cap PO SCH ×2 (10:32→20:36)
[2019-12-12] MEDS: Aspirin 81 MG Tab.EC PO SCH (10:32)
[2019-12-12] MEDS: Docusate Sodium 100 MG Cap PO SCH ×2 (10:32→20:37)
[2019-12-12] MEDS: SCOPOLAMINE PATCH CHECK TOP SCH (10:34)
[2019-12-12] MEDS: Potassium Phos in 0.9 % NaCl 15 MMOL in Premix Bag 1 BAG IV SCH ×6 (11:12→19:37)
[2019-12-12] MEDS: traMADol 50 MG Tab PO PRN ×3 (12:33→23:18)
[2019-12-12] MEDS: Famotidine 20 MG/2 ML SDV IV SCH (14:07)
--- NOTE | 2019-12-12 14:46 | PN ---
DATE OF SERVICE: 12/12/2019 The patient has been afebrile with stable vital signs. Pain control appears to be fairly good. She had the delayed primary closure along with TAP block today. We will continue the WIRE COATER for another day and then restart regular diet. Her urine output is quite adequate. We will back down on the IV rate. Her potassium and phosphate are marginally low, and these will be supplemented today. JOVAN drains and Matthews are coming out today. Recheck some labs in the morning and then continue to maximize activity and work with pulmonary toilet. We will continue with bowel stimulation. Enmanuel Gomez MD /[id number]
[2019-12-12] MEDS: Propranolol 80 MG Cap.ER PO SCH (20:36)
[2019-12-13] MEDS: Magnesium Sulfate/Water 2 GM in Premix Bag 1 BAG IV SCH ×2 (02:45→08:32)
[2019-12-13] MEDS: Acetaminophen 325 MG Tab PO SCH ×2 (02:45→08:32)
[2019-12-13] MEDS: Metoclopramide 10 MG/2 ML SDV IVPUSH SCH (05:01)
--- NOTE | 2019-12-13 07:56 | PN ---
DATE OF SERVICE: 12/13/2019 SUBJECTIVE: Genoveva just had a bowel movement. She has been having some cramping and nausea, which she thinks will improve after the bowel movement. Temperature max 99.8. She has been up, ambulating. Oral intake 1999. Urine output is 2360. Hemoglobin was 11.8. REVIEW OF SYSTEMS: Remainder of review of systems negative for any pertinent positives and negatives. OBJECTIVE: GENERAL: Genoveva Claudio is a pleasant 68-year-old female. She is alert and orientated. VITAL SIGNS: Temperature at 05:52, 99.8. The rest of the vitals are from 02:52, 74, 18, blood pressure 120/68. HEENT: Negative. NECK: Supple. HEART: Regular rate and rhythm. LUNGS: Clear. ABDOMEN: Aquacel dressing dry and intact. Abdominal binder is on. EXTREMITIES: Without peripheral edema. ASSESSMENT: 1. Diagnostic laparoscopy. 2. Exploratory laparotomy with: a. Total omentectomy. b. Right colectomy. c. Resection of nodular omentum to right lobe of liver. d. Repair of incarcerated incisional hernia. e. Repair of Interceed mesh. POSTOPERATIVE DIAGNOSES: 1. Recurrent sclerotic omentum adherent to transverse colon and gastric antrum. 2. Separate nodular lesion 1 cm to the right lobe of liver. 3. Incarcerated trocar incisional hernia. 4. Date of surgery: 12/10/2019. Surgeon: Enmanuel Gomez MD. PLAN: 1. Saline lock IV. 2. K-Phos 30 millimoles IV. 3. Continue use of IS and ambulation. 4. We will evaluate p.r.n. or in a.m. 5. Plan discharge in a.m. Vero Garcia PA-C /[id number]
[2019-12-13] MEDS: Aspirin 81 MG Tab.EC PO SCH (08:32)
[2019-12-13] MEDS: Docusate Sodium 100 MG Cap PO SCH (08:32)
[2019-12-13] MEDS: Bisacodyl 5 MG Tab PO SCH (08:33)
[2019-12-13] MEDS: SCOPOLAMINE PATCH CHECK TOP SCH (08:33)
[2019-12-13] MEDS: Celecoxib 200 MG Cap PO SCH (08:33)
[2019-12-13] MEDS: amLODIPine 5 MG Tab PO SCH (08:33)
[2019-12-13] MEDS ORDERED: Famotidine 20 MG Tab PO SCH (09:00)
[2019-12-13] MEDS ORDERED: Potassium Phos in 0.9 % NaCl 15 MMOL in Premix Bag 1 BAG IV SCH ×2 (09:00)
--- NOTE | 2019-12-14 22:27 | DISCH ---
ADMISSION DIAGNOSES: Persistent abdominal pain; hypertension, controlled; diabetes mellitus, controlled. DISCHARGE DIAGNOSES: 1. Diagnostic laparoscopy. 2. Exploratory laparotomy with: a. Total omentectomy. b. Right colectomy. c. Resection of nodular omentum to right lobe of the liver. 3. Repair of incarcerated incisional hernia. 4. Repair of Interceed mesh. POSTOPERATIVE DIAGNOSES: 1. Recurrent sclerotic omentum adherent to transverse colon and gastric antrum. 2. Separate nodular lesion 1 cm to the right lobe of the liver. 3. Incarcerated trocar incisional hernia. DATE OF SURGERY: 12/10/2019. Enmanuel Gomez MD. HISTORY: Genoveva Claudio is a pleasant 68-year-old female with chronic abdominal pain and prior omentectomy. After preoperative evaluation of chronic abdominal pain and discussion of the possible risks and complication, the patient wishes to proceed with surgical procedure. HOSPITAL COURSE: Genoveva had her surgery on 12/10/2019. She had no operative complications. On postoperative day #1, she was started on full liquid diet. Magnesium was replaced and labs were ordered for the morning. On 12/12/2019, Genoveva was stable, pain controlled, vital signs stable, and she had delayed primary closure. On 12/13/2019, vital signs were stable, ambulation was good, pain controlled. She had a bowel movement and was able to be discharged to home. PHYSICAL EXAMINATION: GENERAL: Genoveva Claudio is a 68-year-old female. VITAL SIGNS: Height is 4 feet 11.84 inches, weight is 126 pounds. TPR at 0700 on 12/13/2019, 98.8, 75, 16, blood pressure 127/68. HEENT: Negative. NECK: Supple. HEART: Regular rate and rhythm. LUNGS: Clear. ABDOMEN: Aquacel dressings on and abdominal binder is on. EXTREMITIES: Without peripheral edema. DISPOSITION: Discharged to home. CONDITION: Stable and improving. FOLLOWUP APPOINTMENTS: Followup with Enmanuel Gomez MD, on 12/26/2019 at 9 a.m. MEDICATIONS: New prescriptions: 1. Celebrex 200 mg p.o. b.i.d. #14. 2. Tramadol 50 mg q.6 hours #28 p.r.n. pain. 3. Zofran ODT 4 mg every 6 hours p.r.n. nausea #30. She is to resume home medications: 1. Norvasc 2.5 mg daily. 2. Aspirin 81 mg p.o. daily. 3. Atorvastatin. 4. Lipitor 40 mg at bedtime. 5. Calcium carbonate 600 mg p.o. b.i.d. 6. Vitamin D3 at 0.125 mcg/mL once daily. 7. Famotidine (Pepcid) 40 mg daily. 8. Boniva 150 mg oral as directed. 9. Multivitamin with minerals one daily. 10.Propranolol (Inderal LA) 80 mg at bedtime. DIET: Usual diet as tolerated drink 8 to 10 glasses of water a day. ACTIVITY: Walk at least 6 times daily inside your home. No lifting more than 10 pounds for 6 weeks. Driving: Do not drive for 1 week and while on narcotic pain medication. Shower/bathing: May shower. Wound/incision Care: Keep site clean and dry. Take off Aquacel dressing on Tuesday12/15/2019. Wear abdominal binder for 6 weeks if tolerated. DISCHARGE INSTRUCTIONS: Notify provider if any fever, increased pain, nausea, or vomiting and use incentive spirometer 10 times every hour while awake.
--- NOTE | 2019-12-16 13:03 | OR ---
DATE OF PROCEDURE: 12/12/2019 SURGEON: Enmanuel Gomez MD PREOPERATIVE DIAGNOSIS: Open abdominal incision. POSTOPERATIVE DIAGNOSIS: Open abdominal incision. PROCEDURE PERFORMED: Delayed primary closure of open abdominal incision. ANESTHESIA: Local plus IV sedation. INDICATION FOR PROCEDURE: A 68-year-old status post right colectomy. At that time, the skin and subcutaneous tissue were left open to avoid otherwise high-risk of wound infection and the plan is to proceed with delayed primary closure at this time. Potential risks of the procedure including bleeding and infection were reviewed, and the patient wishes to proceed. DETAILS OF PROCEDURE: The patient was taken to the operating room and placed in a semi- sitting position. IV sedation was administered, after which the operative dressing was taken down, the incision was found to be clean. The wound was then prepped and draped, anesthetized with 1% lidocaine mixed with Marcaine and irrigated with meropenem-containing saline solution. With ultrasound guidance, bilateral transversus abdominis plane blocks were then placed and the incision was then closed with two layers of 3-0 and 4-0 Vicryl stitch deep and rock for the skin. Dressing was applied. The patient was taken to the recovery room in satisfactory condition. Enmanuel Gomez MD /[id number]
--- NOTE | 2019-12-17 10:21 | OR ---
DATE OF PROCEDURE: 12/10/2019 SURGEON: Enmanuel Gomez MD PREOPERATIVE DIAGNOSIS: Right upper quadrant and flank pain likely associated with recurrent sclerotic omentum. POSTOPERATIVE DIAGNOSES: 1. 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 2. Separate nodular lesion (1 cm posterior to right lobe of liver). 3. Incarcerated trocar site incisional hernia. OPERATIVE PROCEDURES: 1. Diagnostic laparoscopy (67515). 2. Exploratory laparotomy with: a. Total omentectomy (52198). b. Right colectomy (22028). c. Resection of nodular lesion on the posterior aspect of right lobe of liver (44953). d. Repair of incarcerated incisional hernia (82027). e. Placement of Interceed mesh to limit recurrent adhesion formation between the pelvic and abdominal wall and the underlying viscera (98529). ANESTHESIA: General. [employer]: Vero Garcia PA-C INDICATIONS FOR PROCEDURE: The patient is status post a partial omentectomy, along with cholecystectomy in August. At that time, she had quite a bit of pain. In retrospect, this appeared to be primarily more related to the sclerotic omentum, rather than the gallbladder. The patient did well for several weeks and now has developed some persistent quite severe pain in the right upper quadrant and right flank area, and suspicion is that the sclerotic omentum has now spread to the remaining portion of the omentum on the right side of the abdomen. We did try a course of oral steroids, which were minimally helpful and were causing some untoward side effects. At this point, the plan will be to proceed with initial diagnostic laparoscopy for assessment of the pathology, and if feasible, laparoscopic omentectomy, assuming that problem is confirmed. Otherwise, open laparotomy may be required to satisfactorily complete the omentectomy. Plan would be to remove all of the omentum as much as possible, so as to avoid recurrent problems, assuming again that we reconfirm that there is additional sclerotic omentum that has developed. Potential risks of the procedure including bleeding, infection, injury to underlying viscera, possible need for bowel resection, as well as the possibility of cardiopulmonary, septic, or hemorrhagic complications leading to were discussed, and lastly the possibility of incomplete resolution of symptoms were gone over, and the patient wishes to proceed. DETAILS OF PROCEDURE: The patient was taken to the operating room, and after general endotracheal anesthesia was induced, was placed in a lithotomy position and a Matthews catheter inserted. The abdomen was then prepped and draped. Additionally in the area just right and slightly inferior to the umbilicus, a transverse incision was made and the peritoneal cavity entered under direct vision and inflated to 15 mmHg pressure with CO2. Laparoscope was then reinserted. No underlying trocar insertion site injuries were seen. The upper abdomen was then visualized. The patient was noted, as expected, to have some recurrent sclerotic omentum. Of note, this was densely adherent to the proximal transverse colon and to a lesser extent the ascending colon, and it was felt that, in order to obtain adequate removal of all of that omentum, a right colectomy would be required. Given this finding, the laparoscope was removed, and we then converted to an open laparotomy. After removal of the trocar, a midline incision from the xiphoid to the umbilicus was made and carried down through the skin, subcutaneous tissue, fascia and peritoneum for its length. Upon entering the peritoneal cavity, the area of sclerosis of the omentum was confirmed to be quite adherent to the area lateral to the right lobe of the liver, i.e. into the right upper quadrant and right flank peritoneum, accounting for the patient's symptoms in that area. This area was dissected free from the areas of adhesions. There was a separate nodular lesion around 1 cm posterior to the right lobe of liver, which was separately resected using electrocautery and rock. Of note, the omentum to the left of midline was in entirely normal appearance, however, I did elect to resect that as well. 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 At this point, then, the right colon was divided more or less just to the right of the middle colic vessels and the distal small bowel divided, both of these with JIMBO rock. The cecum and ascending colon were mobilized away from the retroperitoneal attachments, and the mesentery between the 2 divided portions of the bowel was divided with JIMBO mesenteric loads and the specimen delivered from the field. This then involved removal of all of the sclerotic omentum. Attention was then taken to removal of the omentum to the left of the midline. Initially, the omentum was divided off the main transverse colon and splenic flexure. This was then divided flush with the stomach with JIMBO rock, and then there were some adhesions between the omentum and the spleen, which were taken down and this omentum divided with JIMBO rock, and the main omentum was then delivered from the field. At this point, there was no discernible omentum of any significance left in the abdomen. The ileocolic anastomosis was then accomplished with 2 internal firings of the Endo-JIMBO 60 mm stapler. Common opening was then closed transversely with the JIMBO rock as well and the angles of anastomosis and mesenteric defect approximated with some 3-0 Vicryl stitch. At this point, no further problems were noted. Two Harshad-Vasques drains were placed, one running up over the right lobe of the liver and the other down towards the pelvic and the right paracolic gutter area. During initial incision, the patient was noted to have incarcerated trocar site hernia containing some preperitoneal fat. This hernia content had been excised and sent as a specimen. The patient had no omentum to cover up the abdominal and pelvic kennedy, so Interceed mesh was then placed underneath those surfaces. The midline fascia was then approximated with #2 Vicryl stitch, which included repair of the incisional hernia. The subcutaneous tissue was then packed open with Iodoform gauze for planned delayed primary closure in 48 hours. Prior to closure, bilateral transversus abdominis plane blocks were placed, and the incision was anesthetized with 1% lidocaine mixed with Marcaine and the patient taken to the recovery room in satisfactory condition. Physician hotel assistant general manager, Vero Garcia, played an essential role in assisting in this case helping to position the patient, retract structures as needed, as well as suturing and cutting sutures when indicated. Her presence improved patient safety and decreased operative time. Enmanuel Gomez MD /[id number]
== END 2019-12-13 11:02 | disposition home or self-care (01) | DRG 330 ==
LOC: JP.SDSSCHI 06:51 → JP.SDS 06:51 → EDSTATUS 09:10 → JP.MS 10:50
PROVIDERS: ADMIT Surgery; ATTEND Surgery
PROC: 0DTU0ZZ Resection of Omentum, Open Approach (ICD-10-PCS; principal; 2019-12-10)
PROC: 0DTF0ZZ Resection of Right Large Intestine, Open Approach (ICD-10-PCS; 2019-12-10)
PROC: 0FB10ZZ Excision of Right Lobe Liver, Open Approach (ICD-10-PCS; 2019-12-10)
PROC: 0WQF0ZZ Repair Abdominal Wall, Open Approach (ICD-10-PCS; 2019-12-10)
PROC: 3E0M05Z Introduction of Adhesion Barrier into Peritoneal Cavity, Open Approach (ICD-10-PCS; 2019-12-10)
DX: K66.0 Peritoneal adhesions (postprocedural) (postinfection) (principal); K43.0 Incisional hernia with obstruction, without gangrene; E87.0 Hyperosmolality and hypernatremia; K76.9 Liver disease, unspecified; E78.00 Pure hypercholesterolemia, unspecified; I10 Essential (primary) hypertension; M81.0 Age-related osteoporosis without current pathological fracture; K21.9 Gastro-esophageal reflux disease without esophagitis; D72.819 Decreased white blood cell count, unspecified; Z79.82 Long term (current) use of aspirin; Z79.899 Other long term (current) drug therapy; Z88.5 Allergy status to narcotic agent
CPT/HCPCS: 36415; 80053; 83735; 84100; 85025; 85027; 88302; 88305; 88307; 94762; A9270-GY; J0171; J0330; J0694; J1100; J2185; J2250; J2405; J2704; J2710; J2765; J2795; J3010; J3410; J3475; J3490; J7050; J7120; J7121

== ENCOUNTER 2019-12-15 00:17 | Inpatient (IN) | payer MEDICARE, OTHER ==
[2019-12-15] MEDS ORDERED: Lactated Ringers 1,000 ML IV ONE ×2 (01:03→02:25)
[2019-12-15] MEDS ORDERED: Ondansetron 4 MG/2 ML SDV IVPUSH ONE (01:04)
[2019-12-15] MEDS ORDERED: fentaNYL 100 MCG/2 ML SDV IVPUSH ONE (01:05)
--- NOTE | 2019-12-15 01:07 | EDM.PDOC ---
ED HPI GENERAL MEDICAL PROBLEM - General Chief Complaint: Abdominal Pain Stated Complaint: ADB PAIN Time Seen by Provider: 12/15/19 00:42 Source of Information: Reports: Patient History Limitations: Reports: No Limitations - History of Present Illness INITIAL COMMENTS - FREE TEXT/NARRATIVE: Patient presents from home describing increased abdominal pain since being discharged from the hospital on November following omentum adhesion surgery. She underwent a cholecystectomy in August and had had some abdominal pain since then. Her surgeon felt that it was due to adhesions and operated on November to remove the adherent tissue. The patient also thinks that part of her colon was removed. She did okay in the hospital and was discharged less than 48 hours ago. She has been using tramadol 25 mg up to 3 times a day for pain but has not had good pain relief with that. She does not tolerate opiates well and that was the reason for her choosing tramadol. After going home , she did not do any vigorous physical activity. Her pain gradually increased and is at its worst in the epigastric region all the way to the right flank and to a lesser extent in the left flank region. She has nausea but no vomiting secondary to prior [place]. She has had 5 or so diarrheal stools in the last 4 hours or so but feels bloated. Onset: Gradual Duration: Day(s): (1) Location: Reports: Abdomen Quality: Reports: Ache, Burning Severity: Moderate Improves with: Reports: None Worsens with: Reports: Movement Context: Reports: Other (Recent surgery.) Associated Symptoms: Reports: No Other Symptoms abd Pain Score (Numeric/FACES): 9 - Related Data Allergies Allergy/AdvReac Type Severity Reaction Status Date / Time codeine Allergy Rash Verified 12/15/19 00:39 esomeprazole magnesium AdvReac Headache; Verified 12/15/19 00:39 [From Nexium] nausea hydromorphone [From Dilaudid] AdvReac Nausea Verified 12/15/19 00:39 lansoprazole [From Prevacid] AdvReac Headache; Verified 12/15/19 00:39 Nausea morphine AdvReac Nausea Verified 12/15/19 00:39 omeprazole AdvReac Headache; Verified 12/15/19 00:39 Nausea pantoprazole sodium AdvReac Headache; Verified 12/15/19 00:39 [From Protonix] nausea rabeprazole [From Aciphex] AdvReac Nausea; Verified 12/15/19 00:39 Headache Home Meds: Home Meds Aspirin [Adult Low Dose Aspirin EC] 81 mg PO DAILY 12/24/13 [History] Calcium Carbonate [Calcium] 600 mg PO BID 12/24/13 [History] Multivitamin with Minerals [Multiple Vitamin] 1 tab PO DAILY 12/24/13 [History] Propranolol [Inderal LA] 80 mg PO BEDTIME 12/24/13 [History] Ibandronate [Boniva] 150 mg PO ASDIRECTED 11/09/18 [History] amLODIPine [Norvasc] 2.5 mg PO DAILY 11/09/18 [History] atorvaSTATin [Lipitor] 40 mg PO BEDTIME 11/09/18 [History] Cholecalciferol (Vitamin D3) [Vitamin D3] 2,000 unit PO DAILY 08/17/19 [History] Famotidine [Pepcid] 40 mg PO DAILY 11/22/19 [History] Celecoxib [CeleBREX] 200 mg PO BID #28 cap 12/13/19 [Rx] Ondansetron [Zofran ODT] 4 mg PO Q6H PRN #30 tab.dis 12/13/19 [Rx] Acetaminophen [Tylenol] 650 mg PO Q6H PRN 12/15/19 [History] traMADol [Ultram] 25 mg PO Q6H PRN 12/15/19 [History] Past Medical History HEENT History: Reports: Impaired Vision Cardiovascular History: Reports: High Cholesterol, Hypertension Respiratory History: Reports: None Gastrointestinal History: Reports: GERD, Hiatal Hernia Genitourinary History: Reports: None [employer] History: Reports: Musculoskeletal History: Reports: Other (See Below) Other Musculoskeletal History: right hand middle finger trigger finger Neurological History: Reports: Migraines Psychiatric History: Reports: None Endocrine/Metabolic History: Reports: Diabetes, Type II Hematologic History: Reports: None Immunologic History: Reports: None Oncologic (Cancer) History: Reports: None Dermatologic History: Reports: None - Infectious Disease History Infectious Disease History: Reports: Measles - Past Surgical History Head Surgeries/Procedures: Reports: None HEENT Surgical History: Reports: None Cardiovascular Surgical History: Reports: None Respiratory Surgical History: Reports: None GI Surgical History: Reports: Colonoscopy, EGD, Hernia, Abdominal, B[place] Fundoplication, Other (See Below) Other GI Surgeries/Procedures: omentumectomy Female Surgical History: Reports: Breast Biopsy, Cervical Conization Endocrine Surgical History: Reports: None Neurological Surgical History: Reports: Laminectomy Musculoskeletal Surgical History: Reports: None, Carpal Tunnel Dermatological Surgical History: Reports: Skin Biopsy Social & Family History - Family History Family Medical History: Noncontributory - Tobacco Use Smoking Status *Q: Never Smoker - Caffeine Use Caffeine Use: Reports: Soda, Tea - Recreational Drug Use Recreational Drug Use: No ED ROS GENERAL - Review of Systems Review Of Systems: See Below Constitutional: Reports: Weakness, Decreased Appetite. Denies: Fever, Chills Respiratory: Reports: No Symptoms Cardiovascular: Reports: No Symptoms GI/Abdominal: Reports: Abdominal Pain, Diarrhea, Nausea. Denies: Vomiting Skin: Reports: Other (Midline incision covered with dressing.) ED EXAM, GI/ABD - Physical Exam Exam: See Below Text/Narrative:: This is an uncomfortable appearing female lying on the bed in room 5 with hips and knees flexed. Exam Limited By: Other (Limited by pain.) General Appearance: Moderate Distress Throat/Mouth: Normal Inspection Respiratory/Chest: Lungs Clear Cardiovascular: Regular Rate, Rhythm GI/Abdominal Exam: No Organomegaly, Distended, Guarding, Tender, Abnormal Bowel Sounds (Decreased). No: Rigid Back Exam: Normal Inspection Extremities: Normal Inspection Course - Vital Signs Last Recorded V/S: Last Vital Signs Temp 36.9 C 12/15/19 03:04 Pulse 81 12/15/19 03:04 Resp 18 12/15/19 03:04 BP 140/71 12/15/19 03:04 Pulse Ox 97 12/15/19 03:04 - Orders/Labs/Meds Orders: Active Orders 24 hr Category Date Time Status Abdomen 1V Upright [CR] Stat Exams 12/15/19 01:06 Taken Sodium Chloride 0.9% [Saline Flush] Med 12/15/19 01:03 Active 10 ml FLUSH ASDIRECTED PRN Nasogastric Orogastric Tube Insertion [OM.PC] Routine Oth 12/15/19 02:06 Ordered Saline Lock Insert [OM.PC] Routine Oth 12/15/19 01:03 Ordered Medication Orders Fentanyl (Sublimaze) 25 - 50 mcg IVPUSH Q1H PRN PRN Reason: Pain Last Admin: 12/15/19 05:47 Dose: 50 mcg Admin: 12/15/19 03:10 Dose: 50 mcg Dextrose/Lactated Ringer's (Dextrose 5%-Lactated Ringers) 1,000 mls @ 100 mls/ hr IV ASDIRECTED TADEO Sodium Chloride (Normal Saline) 80 mls @ 3 mls/sec IV ASDIRECTED TADEO Last Admin: 12/15/19 05:57 Dose: 3 mls/sec Iopamidol (Isovue-300 (61%)) 100 ml IV . DIRECTED TADEO Last Admin: 12/15/19 05:57 Dose: 100 ml Ondansetron HCl (Zofran) 4 mg IVPUSH Q4H PRN PRN Reason: Nausea/Vomiting Sodium Chloride (Saline Flush) 10 ml FLUSH ASDIRECTED PRN PRN Reason: Keep Vein Open Last Admin: 12/15/19 05:57 Dose: 10 ml Admin: 12/15/19 01:23 Dose: 10 ml Labs: Laboratory Tests 12/15/19 12/15/19 Range/Units 01:15 01:15 WBC 8.5 (4.5-11.0) K/uL RBC 3.99 (3.30-5.50) M/uL Hgb 12.4 (12.0-15.0) g/dL Hct 37.5 (36.0-48.0) % MCV 94 (80-98) fL MCH 31 (27-31) pg MCHC 33 (32-36) % Plt Count 201 (150-400) K/uL Add Manual Diff Yes Neutrophils % (Manual) 88 H (36-66) % Band Neutrophils % 5 (5-11) % Lymphocytes % (Manual) 3 L (24-44) % Monocytes % (Manual) 4 (2-6) % Sodium 137 L (140-148) mmol/L Potassium 4.5 (3.6-5.2) mmol/L Chloride 103 (100-108) mmol/L Carbon Dioxide 22 (21-32) mmol/L Anion Gap 16.5 H (5.0-14.0) mmol/L BUN 10 (7-18) mg/dL Creatinine 0.6 (0.6-1.0) mg/dL Est Cr Clr Drug Dosing 63.56 mL/min Estimated GFR (MDRD) > 60 (>60) Glucose 133 H (74-106) mg/dL Calcium 8.6 (8.5-10.1) mg/dL Total Bilirubin 2.2 H D (0.2-1.0) mg/dL AST 43 H (15-37) U/L ALT 95 H (12-78) U/L Alkaline Phosphatase 223 H D (46-116) U/L Total Protein 6.5 (6.4-8.2) g/dL Albumin 2.7 L (3.4-5.0) g/dL Globulin 3.8 H (2.3-3.5) g/dL Albumin/Globulin Ratio 0.7 L (1.2-2.2) Lipase 31 L (73-393) U/L Meds: Medications Generic Name Dose Route Start Last Admin Trade Name Freq PRN Reason Stop Dose Admin Fentanyl 25 - 50 mcg 12/15/19 02:27 12/15/19 05:47 Sublimaze IVPUSH 50 mcg Q1H PRN Administration Pain Dextrose/Lactated Ringer's 1,000 mls @ 100 mls/hr 12/15/19 07:00 Dextrose 5%-Lactated Ringers IV ASDIRECTED TADEO Sodium Chloride 80 mls @ 3 mls/sec 12/15/19 05:45 12/15/19 05:57 Normal Saline IV 3 mls/sec ASDIRECTED TADEO Administration Iopamidol 100 ml 12/15/19 05:45 12/15/19 05:57 Isovue-300 (61%) IV 100 ml . DIRECTED TADEO Administration Ondansetron HCl 4 mg 12/15/19 02:27 Zofran IVPUSH Q4H PRN Nausea/Vomiting Sodium Chloride 10 ml 12/15/19 01:03 12/15/19 05:57 Saline Flush FLUSH 10 ml ASDIRECTED PRN Administration Keep Vein Open Discontinued Medications Generic Name Dose Route Start Last Admin Trade Name Freq PRN Reason Stop Dose Admin Fentanyl 50 mcg 12/15/19 01:05 12/15/19 01:16 Sublimaze IVPUSH 12/15/19 01:06 50 mcg ONETIME ONE Administration Lactated Ringer's 1,000 mls @ 500 mls/hr 12/15/19 01:03 12/15/19 01:14 Ringers, Lactated IV 12/15/19 03:02 500 mls/hr BOLUS ONE Administration Lactated Ringer's 1,000 mls @ 250 mls/hr 12/15/19 02:25 12/15/19 03:10 Ringers, Lactated IV 12/15/19 06:24 250 mls/hr BOLUS ONE Administration Lidocaine HCl 10 ml 12/15/19 02:06 12/15/19 02:16 Xylocaine 2% Jelly MUCMEM 12/15/19 02:07 10 ml ONETIME ONE Administration Ondansetron HCl 4 mg 12/15/19 01:04 12/15/19 01:17 Zofran IVPUSH 12/15/19 01:05 4 mg ONETIME ONE Administration - Re-Assessments/Exams Free Text/Narrative Re-Assessment/Exam: 12/15/19 01:20 Patient will be given 1 L of lactated Ringer's over 2 hours along with fentanyl 50 g and ondansetron 4 mg both as IV doses. We will get an upright abdomen plain film to look for any bowel distention. 12/15/19 01:53 The upright abdomen x-ray shows multiple air-fluid levels along with bowel distention. I reviewed her findings with Dr. Gomez, her surgeon, by telephone. She'll be admitted after NG tube placement to intermittent suction, continuation of IV fluids, fentanyl for pain. 12/15/19 02:09 Departure - Departure Time of Disposition: 02:10 Disposition: Admitted As Inpatient 65 Condition: Fair Clinical Impression: Small bowel obstruction - Discharge Information Sepsis Event Note - Evaluation Sepsis Screening Result: No Definite Risk - Focused Exam Vital Signs: Vital Signs Temp Pulse Resp BP Pulse Ox 12/15/19 01:24 78 16 142/71 H 90 L 12/15/19 00:32 36.6 C 77 20 147/76 H 98 Date Exam was Performed: 12/15/19 Time Exam was Performed: 06:38 - My Orders Last 24 Hours: My Active Orders 12/15/19 01:03 Sodium Chloride 0.9% [Saline Flush] 10 ml FLUSH ASDIRECTED PRN Saline Lock Insert [OM.PC] Routine 12/15/19 01:06 Abdomen 1V Upright [CR] Stat 12/15/19 02:06 Nasogastric Orogastric Tube Insertion [OM.PC] Routine - Assessment/Plan Last 24 Hours: My Active Orders 12/15/19 01:03 Sodium Chloride 0.9% [Saline Flush] 10 ml FLUSH ASDIRECTED PRN Saline Lock Insert [OM.PC] Routine 12/15/19 01:06 Abdomen 1V Upright [CR] Stat 12/15/19 02:06 Nasogastric Orogastric Tube Insertion [OM.PC] Routine
[2019-12-15] MEDS: Sodium Chloride 0.9% 10 ML Syringe FLUSH PRN ×2 (01:23→05:57)
[2019-12-15] MEDS ORDERED: Lidocaine 2% Jelly 10 ML Urojet MUCMEM ONE (02:06)
[2019-12-15] MEDS ORDERED: Ondansetron 4 MG/2 ML SDV IVPUSH PRN (02:27)
[2019-12-15] MEDS: fentaNYL 100 MCG/2 ML SDV IVPUSH PRN ×3 (03:10→07:46)
[2019-12-15] MEDS ORDERED: Iopamidol 612 MG/ML 100 ML Bottle IV SCH (05:45)
[2019-12-15] MEDS ORDERED: Sodium Chloride 0.9% 80 ML IV SCH (05:45)
--- NOTE | 2019-12-15 07:07 | CRLCT ---
INDICATION: Abdominal pain TECHNIQUE: CT abdomen and pelvis acquired with IV contrast. 100 mL of Isovue-300 administered. COMPARISON: 10/08/2019 FINDINGS: Lower chest: Mild subsegmental atelectasis. A nasogastric tube with the tip in the stomach. Liver: Unremarkable. Spleen: A well-demarcated nonenhancing area in the lateral aspect of the spleen consistent with a splenic infarct. A postsurgical traction injury is not excluded. Pancreas: Unremarkable. Gallbladder and bile ducts: Cholecystectomy. The previously noted cholecystectomy clips are not identified. Small fluid within the gallbladder fossa. Mild central biliary dilatation could be related to the postcholecystectomy state. Adrenal glands: A thickened, nodular left adrenal again seen. Kidneys: Bilateral renal parapelvic cysts and small parenchymal cysts again seen. GI tract: Interval postsurgical changes in the upper abdomen with right hemicolectomy and multiple bowel and mesenteric sutures. Post fundoplication changes again seen. Thickening of the posterior gastric antral wall. Apparent mild proximal duodenal wall thickening. A transverse duodenal diverticulum again seen. Multiple dilated fluid and gas-filled small bowel segments, consistent with bowel obstruction, extending to the level of the enterocolic anastomosis in the left upper abdomen. Swirling of the central mesentery noted. Mild wall thickening in some decompressed small bowel segments. Liquid stool in the left colon. Vascular structures: Atherosclerotic changes. 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 Mild prominence and asymmetrical opacification of the left gonadal vein which could represent unilateral pelvic congestion syndrome. Lymph nodes: Unremarkable. Miscellaneous: Small to moderate abdominal and pelvic free fluid. Mildly increased attenuation in the pelvic free fluid could represent blood products. Pneumoperitoneum. Abdominal wall skin rock. Pelvic Organs: A 2.1 x 1.9 x 2.4 cm ovoid heterogeneous high density lesion again seen in the proximal periurethral region on image 133, nonspecific. Small gas in the urinary bladder. No discrete uterine abnormality seen. Bones: No significant change. IMPRESSION: Postsurgical changes status post right hemicolectomy. Pneumoperitoneum could be residual postsurgical, however anastomotic leak or perforation cannot be excluded. Dilated fluid and gas-filled small bowel segments suggestive of mechanical obstruction, rather than postsurgical ileus, extending to the and enterocolic anastomosis. Swirling of the central mesentery could represent partial volvulus. Mild wall thickening of some decompressed small bowel segments suggestive of enteritis. Moderate free fluid. Mildly increased attenuation in the pelvic free fluid suggestive of blood products. A segmental infarct in the lateral spleen. Posterior gastric antral wall thickening and apparent mild wall thickening in the proximal duodenum could be reactive postsurgical or inflammatory. A 2.4 cm heterogeneous high attenuation mass in the proximal periurethral region, nonspecific. Recommend further urological evaluation. Small gas in the urinary bladder could be related to recent instrumentation. Correlate with urinalysis to exclude a UTI. The pertinent findings were discussed with Dr. Gomez, by phone, on 12/15/2019 at 6:55 a.m.. Dictated by Amrit Mendez MD @ 12/15/2019 7:06:27 AM Please note that all CT scans at this facility use dose modulation, iterative reconstruction, and/or weight-based dosing when appropriate to reduce radiation dose to as low as reasonably achievable. Dictated by: Amrit Mendez MD @ 12/15/2019 07:06:39 (Electronically Signed)
[2019-12-15] MEDS ORDERED: Benzocaine/Cetylpyridinium/Menthol Lozenge MUCMEM PRN (07:39)
[2019-12-15] MEDS ORDERED: Naloxone 0.4 MG/ML SDV IV PRN (07:42)
[2019-12-15] MEDS: Dextrose 5%-Lactated Ringers 1,000 ML IV SCH ×2 (07:52→16:13)
[2019-12-15] MEDS: fentaNYL/Normal Saline 600 MCG/30 ML PCA Vial IV PRN (08:50)
[2019-12-15] MEDS: Meropenem 500 MG in Sodium Chloride 0.9% 50 ML IV SCH ×3 (10:56→21:19)
[2019-12-15] MEDS: Famotidine 20 MG/2 ML SDV IV SCH ×2 (10:57→21:04)
[2019-12-15] MEDS ORDERED: Acetaminophen 1,000 MG in Premix Bag 1 BAG IV ONE (12:00)
[2019-12-15] MEDS ORDERED: Acetaminophen 650 MG Supp RECTAL PRN (18:00)
[2019-12-15] MEDS: Propranolol 80 MG Cap.ER PO SCH (21:04)
[2019-12-16] MEDS: Meropenem 500 MG in Sodium Chloride 0.9% 50 ML IV SCH ×4 (03:08→20:56)
[2019-12-16] MEDS: Dextrose 5%-Lactated Ringers 1,000 ML IV SCH ×2 (03:29→18:54)
[2019-12-16] MEDS ORDERED: Azithromycin 125 MG in Sodium Chloride 0.9% 100 ML IV SCH (09:00)
[2019-12-16] MEDS: Famotidine 20 MG/2 ML SDV IV SCH ×2 (09:41→20:56)
[2019-12-16] MEDS: Bisacodyl 10 MG Supp RECTAL SCH ×2 (09:51→15:36)
[2019-12-16] MEDS: Azithromycin 125 MG in Sodium Chloride 0.9% 100 ML IV SCH ×2 (11:15→22:00)
[2019-12-16] MEDS: Magnesium Sulfate/Water 2 GM in Premix Bag 1 BAG IV SCH ×3 (12:14→23:08)
--- NOTE | 2019-12-16 13:18 | PN ---
DATE OF SERVICE: 12/16/2019 The patient has been running temp in the 99 range. Vital signs have otherwise been stable. This was in fact low retention related to some atelectasis. Vital signs otherwise unremarkable. White count is 6.4. Otherwise, does not report passing any flatus as of yet. Abdominal x-ray shows quite a bit in the way of air in the small bowel, but there is clearly some air in the colon beyond the ileocolic anastomosis, so I think at this point the partial obstruction is opening up or postoperative ileus. The NG output has been relatively scant, so I will leave that in place for today. I would recheck some abdominal x-rays tomorrow as well as a chest x-ray. We will add Zithromax IV to augment GI tract motility, and we will begin dulcolax suppositories as well magnesium marginal level that will be supplemented today as well. Enmanuel Gomez MD /[id number]
[2019-12-16] MEDS: Propranolol 80 MG Cap.ER PO SCH (20:56)
[2019-12-16] MEDS: fentaNYL/Normal Saline 600 MCG/30 ML PCA Vial IV PRN (22:21)
[2019-12-17] MEDS: Meropenem 500 MG in Sodium Chloride 0.9% 50 ML IV SCH ×4 (03:15→20:18)
[2019-12-17] MEDS: Magnesium Sulfate/Water 2 GM in Premix Bag 1 BAG IV SCH ×4 (05:13→22:10)
[2019-12-17] MEDS: Azithromycin 125 MG in Sodium Chloride 0.9% 100 ML IV SCH ×2 (09:47→20:59)
[2019-12-17] MEDS: Potassium Phos in 0.9 % NaCl 15 MMOL in Premix Bag 1 BAG IV SCH ×4 (09:47→14:10)
--- NOTE | 2019-12-17 09:57 | PN ---
DATE OF SERVICE: 12/15/2019 The patient has been afebrile with stable vital signs. Complaining of some abdominal discomfort that is probably primarily incisional. The CT scan obtained early this morning showed some degree of possible obstruction at the ileocolic anastomosis versus ileus. There was some free intraperitoneal air, but this is probably postoperatively. As far as a free perforation, that would appear to be unlikely clinically. Her white count is normal and vital signs are completely normal as well and should likely be some residual air from the laparotomy. The plan will be to switch over to COPY CHIEF today, which would give a little bit better pain control. We will repeat abdominal x-ray tomorrow morning. I believe that there is some degree of localized infection at the anastomosis, and we will also started her on some meropenem. I will just leave the NG tube in place and maintain adequate IV hydration. Enmanuel Gomez MD /[id number]
[2019-12-17] MEDS: Famotidine 20 MG/2 ML SDV IV SCH ×2 (10:04→20:21)
--- NOTE | 2019-12-17 10:07 | CR ---
Abdomen 1V Upright CLINICAL HISTORY: Increased postoperative pain FINDINGS: Patient is status post recent abdominal surgery. There is some free intraperitoneal air. There is moderate small bowel distention with scattered air-fluid levels Impression: Recent abdominal surgery Moderate small bowel distention with scattered air-fluid levels. This likely represents postoperative ileus but distal small bowel obstruction is not excluded
--- NOTE | 2019-12-17 10:22 | CR ---
Abdomen 2V AP Flat Upright CLINICAL HISTORY: Postop SBO FINDINGS: NG tube has been placed. There is persistent distention of small bowel with scattered air-fluid levels. No significant gas is seen in the colon at this time. IMPRESSION: Persistent small bowel distention suggesting distal SBO NG tube has been placed
--- NOTE | 2019-12-17 10:57 | PN ---
DATE OF SERVICE: 12/17/2019 SUBJECTIVE: Genoveva was admitted for a postoperative ileus. Vital signs have been stable. Laboratories reveal a potassium of 3.5 and phosphorus 2.8, hemoglobin 9. She reports her pain is better. She had a large bowel movement. NG put out 50 mL. REVIEW OF SYSTEMS: Remainder of review of systems negative for any pertinent positives and negatives. OBJECTIVE: GENERAL: Genoveva Claudio is a pleasant 69-year-old female. She is alert and orientated. VITAL SIGNS: TPR 98.9, 82, 18, and blood pressure 120/62. HEENT: Negative. NECK: Supple. HEART: Regular rate and rhythm. LUNGS: Clear. ABDOMEN: Soft, minimally tender. EXTREMITIES: Without peripheral edema. ASSESSMENT: Postoperative ileus. PLAN: 1. Discontinue NG. 2. Full liquid diet starting at noon. 3. K-Phos 30 millimoles IV 1 time today. 4. Abdominal x-rays flat and upright at 0400 daily x4. 5. May shower. 6. We will evaluate p.r.n. or in a.m. Vero Garcia PA-C /[id number]
--- NOTE | 2019-12-17 11:24 | CR ---
CHEST: 2 view CLINICAL HISTORY:Fever COMPARISON:None FINDINGS: Patient has an NG tube in the stomach. There is patchy airspace disease in the right infrahilar region which appears to be subsegmental atelectasis. There is a left pleural effusion and left lower lobe airspace disease which may be atelectasis and/or some consolidation. Impression: Moderate left lower lobe density is felt to represent a combination of pleural effusion and airspace disease which may be atelectasis and or pneumonia Right infrahilar density is most likely some subsegmental atelectasis but, infiltrate cannot be excluded
--- NOTE | 2019-12-17 11:28 | CR ---
Abdomen 2V AP Flat Upright CLINICAL HISTORY: Ileus COMPARISON: 12/16/2019 FINDINGS: NG tube remains in place. There is persistent small bowel distention. This may be increased since prior study. There now appears to be some gas in the transverse colon. There is some air density seen under the right hemidiaphragm. This is also seen on the current chest. This may simply represent postoperative air or possibly some interposed bowel loop. IMPRESSION: Slight increase in small bowel distention with scattered air-fluid levels. There is now some air in the transverse colon. Bibasal airspace disease described on current chest x-ray Postop free intraperitoneal air or interposed bowel loops under the right hemidiaphragm
[2019-12-17] MEDS: Propranolol 80 MG Cap.ER PO SCH (20:22)
[2019-12-18] MEDS: Dextrose 5%-Lactated Ringers 1,000 ML IV SCH (02:17)
[2019-12-18] MEDS: Meropenem 500 MG in Sodium Chloride 0.9% 50 ML IV SCH ×2 (02:18→08:20)
[2019-12-18] MEDS: Magnesium Sulfate/Water 2 GM in Premix Bag 1 BAG IV SCH (04:40)
[2019-12-18] MEDS: Famotidine 20 MG/2 ML SDV IV SCH (08:23)
[2019-12-18] MEDS ORDERED: Azithromycin 250 MG Tab PO SCH (09:00)
--- NOTE | 2019-12-18 09:34 | DISCH ---
ADMISSION DIAGNOSES: 1. Postoperative ileus. 2. Status post laparotomy for sclerotic omentum. 3. Hypercholesterolemia. 4. Hypertension. 5. Osteoporosis. 6. Diabetes, type 2. 7. Migraine headaches. DISCHARGE DIAGNOSES: Postoperative ileus, resolved. HISTORY: Genoveva Claudio is a pleasant 69-year-old female, who had a diagnostic laparoscopy turned to exploratory laparotomy with total omentectomy, right colectomy, resection of a nodular lesion on the posterior aspect of right lobe of the liver, repair of incarcerated incisional hernia and placement of Interceed mesh to limit recurrent adhesive formation between the pelvic and abdominal wall and underlying viscera. Date of surgery was 12/10/2019. She was discharged on 12/14/2019, after having a bowel movement and vital signs were stable. She was tolerating a full liquid diet, and she was up independently. She presented back through the emergency room with severe abdominal pain, nausea, vomiting, and an abdominal x-ray in the emergency room showed moderate small bowel distention with scattered air-fluid levels representing postop ileus, but distal small bowel obstruction is not excluded. She was admitted to the hospital n.p.o. with an NG. A CT scan was also obtained and impression did show dilated, fluid and gas-filled small bowel segments suggestive of mechanical obstruction. She remained to be afebrile. Vital signs were stable, white count normal, and she was started on a TRANSFER COORDINATOR for pain control. On 12/16/2019, temperature was in the 99s. Vital signs were otherwise stable. She did have atelectasis in the lungs. Abdominal x-ray continued to show quite a bit of air in the small bowel. She was started on Zithromax IV to augment GI tract motility and started on Dulcolax suppositories. Magnesium IV replaced due to low magnesium level. On 12/17/2019, the abdominal x-ray showed improvement. NG was discontinued. She was started on a full liquid diet at noon approximately 5 hours after NG was discontinued, and she tolerated that well. K-Phos was replaced. Pain was much less. She looked more comfortable, and on 12/18/2019, Genoveva was able to be discharged to home. Vital signs were stable. Temperature max was 100.4 on 12/17/2019 at 1900. Her last temperature was 97.6. LAB VALUES: White count 11.3, hemoglobin is 9.4. Glucose is 157, alkaline phosphatase is down to 296, total protein 5.3, albumin 2.6. REVIEW OF SYSTEMS: HEENT: Negative. NECK: Negative. CHEST: No chest pain, shortness of breath, fast or irregular heartbeat. LUNGS: No cough. ABDOMEN: Pain is 0 to 1 on a pain scale of 1 to 10. Passing flatus. Had large bowel movement. : No UTI signs and symptoms. EXTREMITIES: No joint pain or swelling. SKIN: No rash. NEUROLOGIC: No headache, dizziness, loss of coordination, but does feel weak. PSYCHIATRIC: Mood and affect appropriate. PHYSICAL EXAMINATION: GENERAL: Genoveva Claudio is a 69-year-old female. VIAL SIGNS: Height is 4 feet, 11.84 inches. Weight is 126 pounds. TPR is 97.6, 78, 16. Blood pressure 145/71. HEENT: Negative. NECK: Supple. HEART: Regular rate and rhythm. LUNGS: Clear. ABDOMEN: Thorofare midline. Soft, minimally tender in all 4 quadrants. Abdominal binder has been on. EXTREMITIES: Without peripheral edema. DISPOSITION: Discharged to home. CONDITION: Stable and improving. FOLLOWUP: Followup appointment with Vero Garcia PA-C, on Tuesday12/21/2019 at 9:00 a.m. NEW PRESCRIPTIONS: Zithromax 250 mg oral daily, #5. HOME MEDICATIONS: To resume; 1. Tylenol 650 mg every 6 hours p.r.n. pain. 2. Aspirin 81 mg daily. 3. Calcium carbonate 600 mg oral twice daily. 4. Celebrex 200 mg oral twice daily, use until gone. 5. Vitamin D3 2000 International Units daily. 6. Pepcid 40 mg oral daily. 7. Boniva 150 mg oral as directed. 8. Multivitamin 1 tablet oral daily. 9. Zofran ODT 4 mg every 6 hours. 10.Propranolol 80 mg oral at bedtime. 11.Norvasc 2.5 mg oral daily. 12.Lipitor 40 mg oral at bedtime. 13.Tramadol 25 mg oral q.6 hours. DIET: Full liquid diet for 1 week. Drink 8 to 10 glasses of water a day. ACTIVITY: No lifting greater than 10 pounds for 5 weeks. Other activity, walk at least 6 times daily inside your home. Shower/bathing, may shower. Keep operative site clean and dry. Wear abdominal binder as tolerated for 5 more weeks. DISCHARGE INSTRUCTIONS: Notify provider if any fever, increased pain, nausea, or vomiting. Other instructions; use incentive spirometer 10 times every hour while awake. Total time of discharge, greater than 10 minutes.
--- NOTE | 2019-12-18 10:14 | CR ---
Abdomen 2V AP Flat Upright CLINICAL HISTORY: Postoperative ileus FINDINGS: There is moderate diffuse small bowel distention with scattered air-fluid levels. Distention has increased slightly since prior study. There is some free air which is likely postoperative. There is some gas in the transverse colon and rectum.There is persistent left lower lobe airspace disease and left effusion. IMPRESSION: Slight increase in small bowel distention. Persistent left lower lobe atelectasis and/or consolidation with left pleural effusion
== END 2019-12-18 11:04 | disposition home or self-care (01) | DRG 394 ==
LOC: JP.ED 00:17 → JP.MS 02:13
PROVIDERS: ADMIT Surgery; ATTEND Surgery
DX: K56.609 Unspecified intestinal obstruction, unspecified as to partial versus complete obstruction (principal); K91.89 Other postprocedural complications and disorders of digestive system; K56.7 Ileus, unspecified; I10 Essential (primary) hypertension; E78.5 Hyperlipidemia, unspecified; K44.9 Diaphragmatic hernia without obstruction or gangrene; K21.9 Gastro-esophageal reflux disease without esophagitis; Z90.49 Acquired absence of other specified parts of digestive tract; Z98.890 Other specified postprocedural states; Z88.5 Allergy status to narcotic agent; Z88.8 Allergy status to other drugs, medicaments and biological substances; G43.909 Migraine, unspecified, not intractable, without status migrainosus; E78.00 Pure hypercholesterolemia, unspecified; H54.7 Unspecified visual loss; Z79.82 Long term (current) use of aspirin; M89.00 Algoneurodystrophy, unspecified site; E11.9 Type 2 diabetes mellitus without complications; Z79.899 Other long term (current) drug therapy
CPT/HCPCS: 36415; 74018 ×2; 80053; 83690; 85025; 96361; 96374; 96375; 99284; 99285; J2405; J3010; J7120; 71046; 71046-26; 74019; 74019-26; 74177; 83735; 84100; 85027; 94762; A9270-GY; J0131; J0456; J2185; J3475; J3490; J7050; J7121; P9047; Q9967

== ENCOUNTER 2020-07-17 21:52 | Emergency (ER) | payer MEDICARE, OTHER ==
[2020-07-17] MEDS ORDERED: Ketorolac 30 MG/ML SDV IM ONE (23:00)
--- NOTE | 2020-07-17 23:07 | EDM.PDOC ---
ED HPI GENERAL MEDICAL PROBLEM - General Chief Complaint: Lower Extremity Injury/Pain Stated Complaint: HIP PAIN ON LEFT SIDE Time Seen by Provider: 07/17/20 22:40 Source of Information: Reports: Patient, RN Notes Reviewed History Limitations: Reports: No Limitations - History of Present Illness INITIAL COMMENTS - FREE TEXT/NARRATIVE: 6-year-old female presents emergency department today with complaint of left hip pain she has been dealing with this for some time she is currently being evaluated by orthopedics for hip replacement underwent MRI today pain control has been switched to hydrocodone 1 tablet every 8 hours she states initially it helps but then it wears off. She takes Celebrex and Tylenol in between left hip pain Pain Score (Numeric/FACES): 10 - Related Data Allergies Allergy/AdvReac Type Severity Reaction Status Date / Time codeine Allergy Rash Verified 07/17/20 22:24 esomeprazole magnesium AdvReac Headache; Verified 07/17/20 22:24 [From Nexium] nausea hydromorphone [From Dilaudid] AdvReac Nausea Verified 07/17/20 22:24 lansoprazole [From Prevacid] AdvReac Headache; Verified 07/17/20 22:24 Nausea morphine AdvReac Nausea Verified 07/17/20 22:24 omeprazole AdvReac Headache; Verified 07/17/20 22:24 Nausea pantoprazole sodium AdvReac Headache; Verified 07/17/20 22:24 [From Protonix] nausea rabeprazole [From Aciphex] AdvReac Nausea; Verified 07/17/20 22:24 Headache Home Meds: Home Meds Aspirin [Adult Low Dose Aspirin EC] 81 mg PO BEDTIME 12/24/13 [History] Calcium Carbonate [Calcium] 600 mg PO BID 12/24/13 [History] Multivitamin with Minerals [Multiple Vitamin] 1 tab PO DAILY 12/24/13 [History] Propranolol [Inderal LA] 80 mg PO BEDTIME 12/24/13 [History] Ibandronate [Boniva] 150 mg PO ASDIRECTED 11/09/18 [History] amLODIPine [Norvasc] 2.5 mg PO BEDTIME 11/09/18 [History] atorvaSTATin [Lipitor] 40 mg PO BEDTIME 11/09/18 [History] Cholecalciferol (Vitamin D3) [Vitamin D3] 2,000 unit PO DAILY 08/17/19 [History] Famotidine [Pepcid] 40 mg PO BID 11/22/19 [History] Celecoxib [CeleBREX] 200 mg PO BID #28 cap 12/13/19 [Rx] Ondansetron [Zofran ODT] 4 mg PO Q6H PRN #30 tab.dis 12/13/19 [Rx] Acetaminophen [Tylenol] 650 mg PO Q6H PRN 12/15/19 [History] Hydrocodone/Acetaminophen [Hydrocodon-Acetaminophen 5-325] 1 tab PO Q8H 07/17/20 [History] Past Medical History HEENT History: Reports: Impaired Vision Cardiovascular History: Reports: High Cholesterol, Hypertension Gastrointestinal History: Reports: GERD, Hiatal Hernia MEDICAL TRANSCRIPTION EDITOR History: Reports: Musculoskeletal History: Reports: Osteoarthritis, Other (See Below) Other Musculoskeletal History: right hand middle finger trigger finger. in need of a left hip replacement, dr batista Neurological History: Reports: Migraines Endocrine/Metabolic History: Reports: Diabetes, Type II - Infectious Disease History Infectious Disease History: Reports: Measles, Mumps - Past Surgical History Head Surgeries/Procedures: Reports: None HEENT Surgical History: Reports: None Cardiovascular Surgical History: Reports: None Respiratory Surgical History: Reports: None GI Surgical History: Reports: Appendectomy, Cholecystectomy, Colonoscopy, EGD, Hernia, Abdominal, [place] Fundoplication, Other (See Below) Other GI Surgeries/Procedures: omentumectomy Female Surgical History: Reports: Breast Biopsy, Cervical Conization Endocrine Surgical History: Reports: None Neurological Surgical History: Reports: Laminectomy Musculoskeletal Surgical History: Reports: None, Carpal Tunnel Oncologic Surgical History: Reports: Biopsy of Breast Dermatological Surgical History: Reports: Skin Biopsy Social & Family History - Family History Family Medical History: Noncontributory - Tobacco Use Tobacco Use Status *Q: Never Tobacco User - Caffeine Use Caffeine Use: Reports: Soda, Tea Review of Systems - Review of Systems Review Of Systems: See Below Musculoskeletal: Reports: Joint Pain (Hip pain) ED EXAM, GENERAL - Physical Exam Exam: See Below Free Text/Narrative:: Examination of the left hip she is tender to palpation anywhere around the joint she has tenderness with both flexion extension and rotation of the hip Exam Limited By: No Limitations General Appearance: Alert, WD/WN, No Apparent Distress Course - Vital Signs Last Recorded V/S: Last Vital Signs Temp 99.9 F 07/17/20 22:38 Pulse 104 H 07/17/20 22:38 Resp 21 H 07/17/20 22:38 BP 146/93 H 07/17/20 22:38 Pulse Ox 96 07/17/20 22:38 - Orders/Labs/Meds Meds: Medications Discontinued Medications Generic Name Dose Route Start Last Admin Trade Name Cameron PRN Reason Stop Dose Admin Ketorolac Tromethamine 30 mg 07/17/20 23:00 07/17/20 23:15 Toradol IM 07/17/20 23:01 30 mg ONETIME ONE Administration Departure - Departure Time of Disposition: 23:53 Disposition: Home, Self-Care 01 Condition: Fair Clinical Impression: Left hip pain - Discharge Information Instructions: Hip Pain Referrals: PCP,None [Primary Care Provider] - Forms: ED Department Discharge Additional Instructions: Try ibuprofen for baseline pain control, use Percocet as needed for breakthrough pain, please call orthopedics tomorrow for further evaluation and treatment Sepsis Event Note (ED) - Evaluation Sepsis Screening Result: No Definite Risk - Focused Exam Vital Signs: Vital Signs Temp Pulse Resp BP Pulse Ox 07/17/20 22:38 99.9 F 104 H 21 H 146/93 H 96 07/17/20 22:37 99.9 F 104 H 21 H 146/93 H 96 - Assessment/Plan Plan: Assessment Acuity = acute Site and laterality = left hip pain Etiology = probable osteoarthritis and degenerative joint disease Manifestations = none Location of injury = Home Lab values = none Plan Good relief with Toradol 30 mg, prescription written for oxycodone 5/325 1 tab p.o. every 4 hours as needed total #20 she will contact orthopedics tomorrow for further evaluation This note was dictated using [employer] recognition software please call with any questions on syntax or grammar.
== END 2020-07-18 00:46 | disposition home or self-care (01) ==
LOC: JP.ED 21:52
DX: M25.552 Pain in left hip (principal); E78.00 Pure hypercholesterolemia, unspecified; I10 Essential (primary) hypertension; K21.9 Gastro-esophageal reflux disease without esophagitis; M19.90 Unspecified osteoarthritis, unspecified site; E11.9 Type 2 diabetes mellitus without complications; Z88.5 Allergy status to narcotic agent; Z88.8 Allergy status to other drugs, medicaments and biological substances; Z79.82 Long term (current) use of aspirin; Z79.899 Other long term (current) drug therapy
CPT/HCPCS: 96372; 99283; J1885

== ENCOUNTER 2020-08-04 14:58 | Inpatient (IN) | payer MEDICARE, OTHER ==
[2020-08-04] MEDS ORDERED: Magnesium Hydroxide 400 MG/5 ML Susp 30 ML Cup PO PRN (16:14)
[2020-08-04] MEDS ORDERED: Polyethylene Glycol 3350 Powder 17 GM Packet PO PRN (16:14)
[2020-08-04] MEDS ORDERED: Sodium Chloride 0.9% 10 ML Syringe FLUSH PRN (16:21)
--- NOTE | 2020-08-04 16:22 | PCM.HP.2 ---
H&P History of Present Illness - General Date of Service: 08/04/20 Admit Problem/Dx: Admission Diagnosis/Problem Admission Diagnosis/Problem Pathologic fracture Source of Information: Patient, Family, Provider History Limitations: Reports: No Limitations - History of Present Illness Initial Comments - Free Text/Narative: CC: My hip hurts so bad HPI: Genoveva presents to the hospital as a direct admission from the clinic. She has been struggling with severe left hip pain for several weeks. The pain is so bad that she cannot function and requested admission to the hospital for pain control. She describes several weeks of progressive pain in the left hip area. This is a achy and throbbing pain with some sharp shooting pain when she tries to move. Pain is severe with any sort of activity. She is up able to get the pain down to a bearable level if she lays still long enough but then has a return of severe pain with any movement. The pain does not radiate from the left hip area. She has been taking up to 8 tabs of oxycodone daily with only minimal improvement. Pain has steadily been getting worse. She does report some constipation with all of her pain meds. She has fair amount of nausea and has to take ondansetron prior to taking any of her pain pills just so she can keep them down. She does not feel short of breath. She has not had any fevers. She has lost 25 pounds or so since last November. She has had progression of weakness and fatigue. She is not able to function at home because of her severe pain. She did have a recent work-up including CT scans of both hips as well as a CT scan of the chest abdomen and pelvis. She has a lytic lesion on the right pelvis as well as a lytic lesion in the left pelvis involving the acetabulum with pathologic fracture. She has multiple lung nodules noted. No obvious primary cancer is noted but metastatic cancer is suspected. She did have a bone marrow biopsy but does not have any results yet. - Related Data Allergies/Adverse Reactions: Allergies Allergy/AdvReac Type Severity Reaction Status Date / Time codeine Allergy Rash Verified 07/17/20 22:24 esomeprazole magnesium AdvReac Headache; Verified 07/17/20 22:24 [From Nexium] nausea hydromorphone [From Dilaudid] AdvReac Nausea Verified 07/17/20 22:24 lansoprazole [From Prevacid] AdvReac Headache; Verified 07/17/20 22:24 Nausea morphine AdvReac Nausea Verified 07/17/20 22:24 omeprazole AdvReac Headache; Verified 07/17/20 22:24 Nausea pantoprazole sodium AdvReac Headache; Verified 07/17/20 22:24 [From Protonix] nausea rabeprazole [From Aciphex] AdvReac Nausea; Verified 07/17/20 22:24 Headache Home Medications: Home Meds Aspirin [Adult Low Dose Aspirin EC] 81 mg PO BEDTIME 12/24/13 [History] Calcium Carbonate [Calcium] 600 mg PO BID 12/24/13 [History] Multivitamin with Minerals [Multiple Vitamin] 1 tab PO DAILY 12/24/13 [History] Propranolol [Inderal LA] 80 mg PO BEDTIME 12/24/13 [History] Ibandronate [Boniva] 150 mg PO ASDIRECTED 11/09/18 [History] amLODIPine [Norvasc] 2.5 mg PO BEDTIME 11/09/18 [History] atorvaSTATin [Lipitor] 40 mg PO BEDTIME 11/09/18 [History] Cholecalciferol (Vitamin D3) [Vitamin D3] 2,000 unit PO DAILY 08/17/19 [History] Famotidine [Pepcid] 40 mg PO BID 11/22/19 [History] Celecoxib [CeleBREX] 100 mg PO BID 08/04/20 [History] oxyCODONE HCl/Acetaminophen [Oxycodon-Acetaminophen 7.5-300] 10 - 500 mg PO Q3H 08/04/20 [History] Past Medical History HEENT History: Reports: Impaired Vision Cardiovascular History: Reports: High Cholesterol, Hypertension Respiratory History: Reports: None Gastrointestinal History: Reports: GERD, Hiatal Hernia Genitourinary History: Reports: None 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 in need of a left hip replacement, dr batista Neurological History: Reports: Migraines Psychiatric History: Reports: None Endocrine/Metabolic History: Reports: Diabetes, Type II Hematologic History: Reports: None Immunologic History: Reports: None Oncologic (Cancer) History: Reports: None Dermatologic History: Reports: None - Infectious Disease History Infectious Disease History: Reports: Measles, Mumps - Past Surgical History Head Surgeries/Procedures: Reports: None HEENT Surgical History: Reports: None Cardiovascular Surgical History: Reports: None Respiratory Surgical History: Reports: None GI Surgical History: Reports: Appendectomy, Cholecystectomy, Colonoscopy, EGD, Hernia, Abdominal, [place] Fundoplication, Other (See Below) Other GI Surgeries/Procedures: omentumectomy Female Surgical History: Reports: Breast Biopsy, Cervical Conization Endocrine Surgical History: Reports: None Neurological Surgical History: Reports: Laminectomy Musculoskeletal Surgical History: Reports: None, Carpal Tunnel Oncologic Surgical History: Reports: Biopsy of Breast Dermatological Surgical History: Reports: Skin Biopsy Social & Family History - Family History Family Medical History: No Pertinent Family History - Caffeine Use Caffeine Use: Reports: Soda, Tea - Alcohol Use Alcohol Use History: No H&P Review of Systems - Review of Systems: Review Of Systems: See Below Free Text/Narrative: A complete 12 point review of systems was obtained. Pertinent positives and negatives are noted in the history of present illness. All other systems were reviewed and were negative except as noted. Exam - Exam Exam: See Below - Vital Signs Vital Signs: Last Vital Signs Temp 36.7 C 08/04/20 15:47 Pulse 86 08/04/20 15:47 Resp 18 08/04/20 15:47 BP 135/75 08/04/20 15:47 Pulse Ox 98 08/04/20 15:47 Weight: 49.442 kg - Exam Quality Assessment: No: Supplemental Oxygen General: Alert, Oriented, Cooperative, Mild Distress HEENT: Conjunctiva Clear. No: Mucosa Moist & [place] (dry) Neck: Supple, Trachea Midline. No: Lymphadenopathy Lungs: Clear to Auscultation, Normal Respiratory Effort Cardiovascular: Regular Rhythm, Tachycardia. No: Systolic Murmur GI/Abdominal Exam: Normal Bowel Sounds, Soft, No Distention, Tender (Left side and left lower quadrant) Extremities: No Pedal Edema, Other (Tender to palpation over the greater trochanter area of the left hip.). No: Increased Warmth Peripheral Pulses: 2+: Dorsalis Pedis (L), Dorsalis Pedis (R) Skin: Warm, Dry. No: Rash Neuro Extensive - Mental Status: Alert, Oriented x3, Nl Response to Commands Neuro Extensive - Motor, Sensory, Reflexes: No: Dysarthria, Abnormal Motor, Tremor Psychiatric: Alert, Normal Affect - Patient Data Result Diagrams: 08/04/20 16:36 08/04/20 16:36 Sepsis Event Note - Focused Exam Vital Signs: Vital Signs Temp Pulse Resp BP Pulse Ox 08/04/20 15:47 36.7 C 86 18 135/75 98 *Q Meaningful Use (ADM) - VTE Risk Assess *Q Each Risk Factor Represents 1 Point: None Total Score 1 Point Risk Factors: 0 Each Risk Factor Represents 2 Points: Age 60 - 74 Years, Malignancy (present or previous) Total Score 2 Point Risk Factors: 4 Each Risk Factor Represents 3 Points: None Total Score 3 Point Risk Factors: 0 Each Risk Factor Represents 5 Points: None Total Score 5 Point Risk Factors: 0 Venous Thromboembolism Risk Factor Score *Q: 4 - Problem List (1) Pathologic fracture of acetabulum SNOMED Code(s): 451161955, 291694023 ICD Code: M84.454A - PATHOLOGICAL FRACTURE, PELVIS, INIT ENCNTR FOR FRACTURE Status: Acute Current Visit: Yes Qualifiers: Encounter type: initial encounter Laterality: left Qualified Code(s): M84.454A - Pathological fracture, pelvis, initial encounter for fracture (2) Lung nodule, multiple Status: Acute Current Visit: Yes (3) Dehydration SNOMED Code(s): 44850488 ICD Code: E86.0 - DEHYDRATION Status: Acute Current Visit: Yes (4) Hypokalemia SNOMED Code(s): 90926979 ICD Code: E87.6 - HYPOKALEMIA Status: Acute Current Visit: Yes Problem List Initiated/Reviewed/Updated: Yes Orders Last 24hrs: Active Orders 24 hr Category Date Time Status Patient Status [ADT] Routine ADT 08/04/20 16:14 Ordered Antiembolic Devices [RC] .Routine Care 08/04/20 16:14 Ordered Intake and Output [RC] QSHIFT Care 08/04/20 16:14 Ordered Notify Provider Vital Signs [RC] ASDIRECTED Care 08/04/20 16:14 Ordered Oxygen Therapy [RC] PRN Care 08/04/20 16:14 Ordered Peripheral IV Care [RC] . DIRECTED Care 08/04/20 16:21 Ordered Up With Assistance [RC] ASDIRECTED Care 08/04/20 16:14 Ordered VTE/DVT Education [RC] Per Unit Routine Care 08/04/20 16:14 Ordered Vital Signs [RC] Q4H Care 08/04/20 16:14 Ordered Regular Diet [DIET] Diet 08/04/20 Dinner Ordered CBC WITH AUTO DIFF [HEME] Routine Lab 08/04/20 16:14 Ordered COMPREHENSIVE METABOLIC PN,CMP [CHEM] Routine Lab 08/04/20 16:14 Ordered Acetaminophen [TylenoL] Med 08/04/20 16:14 Ordered 650 mg PO Q4H PRN Aspirin [Halfprin] Med 08/04/20 21:00 Ordered 81 mg PO BEDTIME Calcium Carbonate [Calcium] Med 08/04/20 21:00 Ordered 600 mg PO BID Celecoxib [CeleBREX] Med 08/04/20 21:00 Ordered 100 mg PO BID Cholecalciferol (Vitamin D3) [Vitamin D3] Med 08/05/20 09:00 Ordered 2,000 unit PO DAILY Docusate Sodium/Sennosides [Senna Plus] Med 08/04/20 16:14 Ordered 1 tab PO BID PRN Famotidine [Pepcid] Med 08/04/20 21:00 Ordered 40 mg PO BID LORazepam [Ativan] Med 08/04/20 16:14 Ordered 0.5 mg IVPUSH Q4H PRN Magnesium Hydroxide [Milk of Magnesia] Med 08/04/20 16:14 Ordered 30 ml PO Q12H PRN Methadone Med 08/04/20 16:30 Ordered 10 mg PO TID Ondansetron [Zofran ODT] Med 08/04/20 16:14 Ordered 4 mg PO Q6H PRN Ondansetron [Zofran] Med 08/04/20 16:14 Ordered 4 mg IV Q6H PRN Propranolol [Inderal LA] Med 08/04/20 21:00 Ordered 80 mg PO BEDTIME Sodium Chloride 0.9% @ 125 MLS/HR (1000ml) Med 08/04/20 16:15 Ordered Sodium Chloride 0.9% [Normal Saline] 1,000 ml IV ASDIRECTED Sodium Chloride 0.9% [Saline Flush] Med 08/04/20 16:21 Ordered 10 ml FLUSH ASDIRECTED PRN amLODIPine [Norvasc] Med 08/04/20 21:00 Ordered 2.5 mg PO BEDTIME atorvaSTATin [Lipitor] Med 08/04/20 21:00 Ordered 40 mg PO BEDTIME fentaNYL [Sublimaze] Med 08/04/20 16:14 Ordered 25 mcg IVPUSH Q2H PRN oxyCODONE Med 08/04/20 16:14 Ordered 10 mg PO Q4H PRN polyethylene glycoL 3350 [MiraLAX] Med 08/04/20 16:14 Ordered 17 gm PO DAILY PRN Peripheral IV Insertion Adult [OM.PC] Routine Oth 08/04/20 16:21 Ordered Sequential Compression Device [OM.PC] Routine Oth 08/04/20 16:14 Ordered Resuscitation Status Routine Resus Stat 08/04/20 16:14 Ordered Assessment/Plan Comment:: ASSESSMENT AND PLAN - Pathologic fracture of left acetabulum-severe pain. Large lytic lesion noted in this area. Similar lesion noted on the right but no pathologic fracture yet. Not able to function at home despite very aggressive pain management measures. Widely metastatic cancer suspected with lung nodules as well as the bone metastases but the primary cancer is not obviously identified as of yet. Bone marrow biopsy results are pending. -Trial of methadone 10 mg 3 times a day -Continue oxycodone for breakthrough pain -Follow-up with [facility] orthopedic team reviewing her case tomorrow -Physical therapy -Partial weightbearing as tolerated -Outpatient oncology follow-up Dehydration and mild hypokalemia-poor intake in recent days secondary to pain and nausea. -IV fluids -Supplement potassium -Symptomatic management of nausea Maintenance issues - - DVT prophylaxis -SCDs - GI prophylaxis -H2 radha - Nutrition -regular - Matthews catheter -not indicated CODE STATUS -full Admission justification -this patient will be admitted for inpatient services and is medically appropriate meeting medical necessity for inpatient admission as outlined in my documentation. I reasonably expect the patient will require inpatient services that span a period time over 2 midnights. I reasonably expect this patient to be discharged or transferred within 96 hours [facility]. Disposition -I would anticipate discharge home after the hospital stay Primary care physician - Nanci Mena M.D. - Mortality Measure Prognosis:: Poor
[2020-08-04] MEDS: Sodium Chloride 0.9% 1,000 ML IV SCH (16:51)
[2020-08-04] MEDS: Ondansetron 4 MG/2 ML SDV IV PRN (16:52)
[2020-08-04] MEDS: Methadone 10 MG Tab PO SCH ×2 (16:56→21:03)
[2020-08-04] MEDS: LORazepam 2 MG/ML SDV IVPUSH PRN (16:59)
[2020-08-04] MEDS: fentaNYL 100 MCG/2 ML SDV IVPUSH PRN ×3 (17:08→21:35)
[2020-08-04] MEDS ORDERED: Potassium Chloride 20 MEQ, Lidocaine 1% 2 ML in Sodium Chloride 0.9% 100 ML IV SCH (17:45)
[2020-08-04] MEDS: oxyCODONE 5 MG Tab PO PRN ×2 (18:45→23:55)
[2020-08-04] MEDS: Acetaminophen 325 MG Tab PO PRN (18:46)
[2020-08-04] MEDS: Potassium Chloride 20 MEQ in Premix Bag 1 BAG IV SCH ×2 (18:48→20:56)
[2020-08-04] MEDS: Celecoxib 100 MG Cap PO SCH (21:03)
[2020-08-04] MEDS: atorvaSTATin 20 MG Tab PO SCH (21:04)
[2020-08-04] MEDS: amLODIPine 5 MG Tab PO SCH (21:04)
[2020-08-04] MEDS: Aspirin 81 MG Tab.EC PO SCH (21:04)
[2020-08-04] MEDS: Propranolol 80 MG Cap.ER PO SCH (21:04)
[2020-08-04] MEDS: Famotidine 20 MG Tab PO SCH (21:05)
[2020-08-04] MEDS: Calcium Carbonate 500 MG Tab.Chew PO SCH (21:05)
[2020-08-05] MEDS: Sodium Chloride 0.9% 1,000 ML IV SCH ×2 (00:54→08:54)
[2020-08-05] MEDS: fentaNYL 100 MCG/2 ML SDV IVPUSH PRN (03:10)
[2020-08-05] MEDS: oxyCODONE 5 MG Tab PO PRN (07:43)
[2020-08-05] MEDS: Acetaminophen 325 MG Tab PO PRN (07:44)
[2020-08-05] MEDS: Ondansetron 4 MG/2 ML SDV IV PRN (07:51)
[2020-08-05] MEDS: Methadone 10 MG Tab PO SCH (08:55)
[2020-08-05] MEDS: Calcium Carbonate 500 MG Tab.Chew PO SCH ×2 (08:56→21:57)
[2020-08-05] MEDS: Famotidine 20 MG Tab PO SCH ×2 (08:56→21:57)
[2020-08-05] MEDS: Cholecalciferol (Vitamin D3) 25 MCG Tab PO SCH (08:56)
[2020-08-05] MEDS: Celecoxib 100 MG Cap PO SCH ×2 (08:56→21:57)
[2020-08-05] MEDS: LORazepam 2 MG/ML SDV IVPUSH PRN (11:05)
--- NOTE | 2020-08-05 12:12 | PCM.PN ---
- General Info Date of Service: 08/05/20 Subjective Update: There were no acute events overnight. She says her pain is a little better today but still reports her pain is moderately severe. She is moving a little better today. Pain is still mostly located in the left hip area. Still has some nausea and has not had very good intake. No complaints of shortness of breath. No fevers. She is able to do some pivot transferring at the bedside. No good bowel movement as of yet. - Patient Data Vitals - Most Recent: Last Vital Signs Temp 35.8 C L 08/05/20 12:05 Pulse 64 08/05/20 12:05 Resp 16 08/05/20 12:05 BP 109/59 L 08/05/20 12:05 Pulse Ox 96 08/05/20 12:05 Weight - Most Recent: 49.442 kg I&O - Last 24 Hours: Intake & Output 08/04/20 08/05/20 08/05/20 22:59 06:59 14:59 Intake Total 250 1534 Balance 250 1534 Lab Results Last 24 Hours: Laboratory Results - last 24 hr 08/04/20 08/04/20 Range/Units 16:36 16:36 WBC 12.5 H (4.5-11.0) K/uL RBC 3.66 (3.30-5.50) M/uL Hgb 10.1 L (12.0-15.0) g/dL Hct 33.0 L (36.0-48.0) % MCV 90 (80-98) fL MCH 28 (27-31) pg MCHC 31 L (32-36) % Plt Count 432 H (150-400) K/uL Neut % (Auto) 86 H (36-66) % Lymph % (Auto) 7 L (24-44) % [place] % (Auto) 7 H (2-6) % Eos % (Auto) 1 L (2-4) % Baso % (Auto) 0 (0-1) % Sodium 138 L (140-148) mmol/L Potassium 3.2 L (3.6-5.2) mmol/L Chloride 100 (100-108) mmol/L Carbon Dioxide 30 (21-32) mmol/L Anion Gap 11.2 (5.0-14.0) mmol/L BUN 8 (7-18) mg/dL Creatinine 0.7 (0.6-1.0) mg/dL Est Cr Clr Drug Dosing 53.71 mL/min Estimated GFR (MDRD) > 60 (>60) Glucose 137 H (74-106) mg/dL Calcium 9.9 D (8.5-10.1) mg/dL Total Bilirubin 0.4 D (0.2-1.0) mg/dL AST 19 (15-37) U/L ALT 31 (12-78) U/L Alkaline Phosphatase 187 H (46-116) U/L Total Protein 6.4 (6.4-8.2) g/dL Albumin 1.8 L (3.4-5.0) g/dL Globulin 4.6 H (2.3-3.5) g/dL Albumin/Globulin Ratio 0.4 L (1.2-2.2) Med Orders - Current: Current Medications Acetaminophen (Tylenol) 650 mg PO Q4H PRN PRN Reason: Pain (Mild 1-3)/fever Last Admin: 08/05/20 07:44 Dose: 650 mg Documented by: Amlodipine Besylate (Norvasc) 2.5 mg PO BEDTIME [facility] Last Admin: 08/04/20 21:04 Dose: 2.5 mg Documented by: Aspirin (Halfprin) 81 mg PO BEDTIME [facility] Last Admin: 08/04/20 21:04 Dose: 81 mg Documented by: Atorvastatin Calcium (Lipitor) 40 mg PO BEDTIME [facility] Last Admin: 08/04/20 21:04 Dose: 40 mg Documented by: Calcium Carbonate/Glycine (Tums) 500 mg PO BID [facility] Last Admin: 08/05/20 08:56 Dose: 500 mg Documented by: Celecoxib (Celebrex) 100 mg PO BID [facility] Last Admin: 08/05/20 08:56 Dose: 100 mg Documented by: Cholecalciferol (Vitamin D3) 50 mcg PO DAILY [facility] Last Admin: 08/05/20 08:56 Dose: 50 mcg Documented by: Famotidine (Pepcid) 40 mg PO BID [facility] Last Admin: 08/05/20 08:56 Dose: 40 mg Documented by: Fentanyl (Sublimaze) 25 mcg IVPUSH Q2H PRN PRN Reason: Pain (severe 7-10) Last Admin: 08/05/20 03:10 Dose: 25 mcg Documented by: Sodium Chloride (Normal Saline) 1,000 mls @ 125 mls/hr IV ASDIRECTED [facility] Last Admin: 08/05/20 08:54 Dose: 125 mls/hr Documented by: Lorazepam (Ativan) 0.5 mg IVPUSH Q4H PRN PRN Reason: Nausea/Vomiting Last Admin: 08/05/20 11:05 Dose: 0.5 mg Documented by: Magnesium Hydroxide (Milk Of Magnesia) 30 ml PO Q12H PRN PRN Reason: Constipation Methadone HCl (Methadone) 10 mg PO TID [facility] Last Admin: 08/05/20 08:55 Dose: 10 mg Documented by: Ondansetron HCl (Zofran) 4 mg IV Q6H PRN PRN Reason: Nausea/Vomiting Last Admin: 08/05/20 07:51 Dose: 4 mg Documented by: Ondansetron HCl (Zofran Odt) 4 mg PO Q6H PRN PRN Reason: Nausea able to take PO Oxycodone HCl (Oxycodone) 10 mg PO Q4H PRN PRN Reason: Pain (moderate 4-6) Last Admin: 08/05/20 07:43 Dose: 10 mg Documented by: Polyethylene Glycol (Miralax) 17 gm PO DAILY PRN PRN Reason: Constipation Propranolol HCl (Inderal La) 80 mg PO BEDTIME [facility] Last Admin: 08/04/20 21:04 Dose: 80 mg Documented by: Senna/Docusate Sodium (Senna Plus) 1 tab PO BID PRN PRN Reason: Constipation Sodium Chloride (Saline Flush) 10 ml FLUSH ASDIRECTED PRN PRN Reason: Keep Vein Open Discontinued Medications Potassium Chloride 20 meq/ (Premix) 100 mls @ 50 mls/hr IV Q2H [facility] Stop: 08/04/20 21:59 Last Admin: 08/04/20 20:56 Dose: 50 mls/hr Documented by: Lidocaine HCl (Xylocaine-Mpf 1%) 2 ml INJECT ONETIME PRN PRN Reason: Other Last Admin: 08/04/20 18:48 Dose: 2 ml Documented by: Lidocaine HCl (Xylocaine-Mpf 1%) Confirm Administered Dose 5 ml .ROUTE .STK-MED ONE Stop: 08/04/20 20:53 Last Admin: 08/04/20 20:59 Dose: 5 ml Documented by: - Exam Quality Assessment: No: Supplemental Oxygen General: Alert, Oriented, Cooperative, No Acute Distress, Sedated (Mild) Lungs: Normal Respiratory Effort Cardiovascular: Regular Rate, Regular Rhythm GI/Abdominal Exam: Soft, No Distention Extremities: No Pedal Edema Skin: Warm, Dry Psy/Mental Status: Alert, Normal Affect Sepsis Event Note - Evaluation Sepsis Screening Result: No Definite Risk - Focused Exam Vital Signs: Vital Signs Temp Pulse Resp BP Pulse Ox 08/05/20 12:05 35.8 C L 64 16 109/59 L 96 08/05/20 11:00 36.3 C 71 16 132/76 94 L 08/05/20 07:31 37.2 C 80 18 116/65 96 08/05/20 03:00 37.0 C 85 18 124/65 96 - Problem List & Annotations (1) Pathologic fracture of acetabulum SNOMED Code(s): 922172858, 323575516 Code(s): M84.454A - PATHOLOGICAL FRACTURE, PELVIS, INIT ENCNTR FOR FRACTURE Status: Acute Current Visit: Yes Qualifiers: Encounter type: initial encounter Laterality: left Qualified Code(s): M84.454A - Pathological fracture, pelvis, initial encounter for fracture (2) Lung nodule, multiple Status: Acute Current Visit: Yes (3) Dehydration SNOMED Code(s): 76655274 Code(s): E86.0 - DEHYDRATION Status: Acute Current Visit: Yes (4) Hypokalemia SNOMED Code(s): 90807143 Code(s): E87.6 - HYPOKALEMIA Status: Acute Current Visit: Yes - Problem List Review Problem List Initiated/Reviewed/Updated: Yes - My Orders Last 24 Hours: My Active Orders 08/04/20 16:14 Patient Status [ADT] Routine Antiembolic Devices [RC] .Routine Intake and Output [RC] QSHIFT Notify Provider Vital Signs [RC] ASDIRECTED Oxygen Therapy [RC] PRN Up With Assistance [RC] ASDIRECTED VTE/DVT Education [RC] Per Unit Routine Vital Signs [RC] Q4H Acetaminophen [TylenoL] 650 mg PO Q4H PRN Docusate Sodium/Sennosides [Senna Plus] 1 tab PO BID PRN LORazepam [Ativan] 0.5 mg IVPUSH Q4H PRN Magnesium Hydroxide [Milk of Magnesia] 30 ml PO Q12H PRN Ondansetron [Zofran ODT] 4 mg PO Q6H PRN Ondansetron [Zofran] 4 mg IV Q6H PRN fentaNYL [Sublimaze] 25 mcg IVPUSH Q2H PRN oxyCODONE 10 mg PO Q4H PRN polyethylene glycoL 3350 [MiraLAX] 17 gm PO DAILY PRN Sequential Compression Device [OM.PC] Routine Resuscitation Status Routine 08/04/20 16:21 Peripheral IV Care [RC] . DIRECTED Sodium Chloride 0.9% [Saline Flush] 10 ml FLUSH ASDIRECTED PRN Peripheral IV Insertion Adult [OM.PC] Routine 08/04/20 Dinner Regular Diet [DIET] 08/04/20 21:00 Aspirin [Halfprin] 81 mg PO BEDTIME Calcium Carbonate [Tums] 500 mg PO BID Celecoxib [CeleBREX] 100 mg PO BID Famotidine [Pepcid] 40 mg PO BID Propranolol [Inderal LA] 80 mg PO BEDTIME amLODIPine [Norvasc] 2.5 mg PO BEDTIME atorvaSTATin [Lipitor] 40 mg PO BEDTIME 08/05/20 09:00 Cholecalciferol (Vitamin D3) [Vitamin D3] 50 mcg PO DAILY 08/05/20 12:11 Prochlorperazine [Compazine] 10 mg PO Q6H PRN Convert IV to Saline Lock [OM.PC] Routine 08/05/20 14:00 Methadone 12.5 mg PO TID - Plan Plan:: ASSESSMENT AND PLAN - Pathologic fracture of left acetabulum-severe pain. Large lytic lesion noted in this area. Similar lesion noted on the right but no pathologic fracture yet. Pain seems to be a little better controlled today but still suboptimally controlled. Doing a little better with pivot transfers today. She continues to rate her pain at moderately severe. -Trial of methadone 12.5 mg 3 times a day -Continue oxycodone for breakthrough pain -Follow-up with [facility] [place] orthopedic team reviewing her case as time allows -Physical therapy -Partial weightbearing as tolerated -Outpatient oncology follow-up Dehydration and mild hypokalemia-improved with hydration. -Saline lock IV -Symptomatic management of nausea Maintenance issues - - DVT prophylaxis -SCDs - GI prophylaxis -H2 radha - Nutrition -regular Disposition -I would anticipate discharge home after the hospital stay Primary care physician - Nanci Mena M.D.
[2020-08-05] MEDS: Methadone 5 MG Tab PO SCH ×2 (16:14→22:03)
[2020-08-05] MEDS: atorvaSTATin 20 MG Tab PO SCH (21:57)
[2020-08-05] MEDS: Aspirin 81 MG Tab.EC PO SCH (21:57)
[2020-08-05] MEDS: amLODIPine 5 MG Tab PO SCH (21:58)
[2020-08-05] MEDS: Propranolol 80 MG Cap.ER PO SCH (22:02)
[2020-08-06] MEDS: Ondansetron 4 MG Tab.DIS PO PRN (04:58)
[2020-08-06] MEDS: Prochlorperazine 10 MG Tab PO PRN (07:27)
[2020-08-06] MEDS: LORazepam 2 MG/ML SDV IVPUSH PRN (09:01)
[2020-08-06] MEDS: Scopolamine 1.5 MG Transdermal Patch TRDERM SCH (10:12)
[2020-08-06] MEDS: Cholecalciferol (Vitamin D3) 25 MCG Tab PO SCH (10:13)
[2020-08-06] MEDS: Calcium Carbonate 500 MG Tab.Chew PO SCH ×2 (10:13→22:42)
[2020-08-06] MEDS: Famotidine 20 MG Tab PO SCH ×2 (10:13→22:25)
[2020-08-06] MEDS: Methadone 5 MG Tab PO SCH (10:43)
[2020-08-06] MEDS: Celecoxib 100 MG Cap PO SCH ×2 (10:44→23:11)
[2020-08-06] MEDS: Dextrose 5%-Lact Ringers w/KCl 1,000 ML IV SCH (15:34)
--- NOTE | 2020-08-06 15:36 | PCM.PN ---
- General Info Date of Service: 08/06/20 Subjective Update: Pain control seems a little better today. She is able to bear partial weight for only a short while on the left leg. Still having a fair amount of nausea, especially in the morning and lunchtime. Intake has been fairly poor. Family is adamant that she be transferred down to the [facility] for further work-up and treatment. Functional Status: Reports: Pain Controlled - Patient Data Vitals - Most Recent: Last Vital Signs Temp 36.3 C 08/06/20 12:00 Pulse 82 08/06/20 12:00 Resp 20 08/06/20 12:00 BP 128/62 08/06/20 12:00 Pulse Ox 97 08/06/20 12:00 Weight - Most Recent: 49.442 kg I&O - Last 24 Hours: Intake & Output 08/06/20 08/06/20 08/06/20 06:59 14:59 22:59 Intake Total 1384 Balance 1384 Med Orders - Current: Current Medications Acetaminophen (Tylenol) 650 mg PO Q4H PRN PRN Reason: Pain (Mild 1-3)/fever Last Admin: 08/05/20 07:44 Dose: 650 mg Documented by: Amlodipine Besylate (Norvasc) 2.5 mg PO BEDTIME [facility] Last Admin: 08/05/20 21:58 Dose: 2.5 mg Documented by: Aspirin (Halfprin) 81 mg PO BEDTIME [facility] Last Admin: 08/05/20 21:57 Dose: 81 mg Documented by: Atorvastatin Calcium (Lipitor) 40 mg PO BEDTIME [facility] Last Admin: 08/05/20 21:57 Dose: 40 mg Documented by: Calcium Carbonate/Glycine (Tums) 500 mg PO BID [facility] Last Admin: 08/06/20 10:13 Dose: 500 mg Documented by: Celecoxib (Celebrex) 100 mg PO BID [facility] Last Admin: 08/06/20 10:44 Dose: 100 mg Documented by: Cholecalciferol (Vitamin D3) 50 mcg PO DAILY [facility] Last Admin: 08/06/20 10:13 Dose: 50 mcg Documented by: Famotidine (Pepcid) 40 mg PO BID [facility] Last Admin: 08/06/20 10:13 Dose: 40 mg Documented by: Fentanyl (Sublimaze) 25 mcg IVPUSH Q2H PRN PRN Reason: Pain (severe 7-10) Last Admin: 08/05/20 03:10 Dose: 25 mcg Documented by: Potassium Cl/Dextrose/Lact Ringer's (D5 Lr With 20 Meq Kcl) 1,000 mls @ 100 mls/hr IV ASDIRECTED [facility] Magnesium Hydroxide (Milk Of Magnesia) 30 ml PO Q12H PRN PRN Reason: Constipation Methadone HCl 10 mg/ Methadone (HCl 2.5 mg) 12.5 mg PO TID [facility] Verify Scop Patch 0 each TOP DAILY [facility] Ondansetron HCl (Zofran) 4 mg IV Q6H PRN PRN Reason: Nausea/Vomiting Last Admin: 08/05/20 07:51 Dose: 4 mg Documented by: Ondansetron HCl (Zofran Odt) 4 mg PO Q6H PRN PRN Reason: Nausea able to take PO Last Admin: 08/06/20 04:58 Dose: 4 mg Documented by: Oxycodone HCl (Oxycodone) 10 mg PO Q4H PRN PRN Reason: Pain (moderate 4-6) Last Admin: 08/05/20 07:43 Dose: 10 mg Documented by: Polyethylene Glycol (Miralax) 17 gm PO DAILY PRN PRN Reason: Constipation Prochlorperazine Maleate (Compazine) 10 mg PO Q6H PRN PRN Reason: Nausea/Vomiting Last Admin: 08/06/20 07:27 Dose: 10 mg Documented by: Propranolol HCl (Inderal La) 80 mg PO BEDTIME [facility] Last Admin: 08/05/20 22:02 Dose: 80 mg Documented by: Scopolamine (Transderm-Scop) 1.5 mg TRDERM Q72H [facility] Last Admin: 08/06/20 10:12 Dose: 1.5 mg Documented by: Senna/Docusate Sodium (Senna Plus) 1 tab PO BID PRN PRN Reason: Constipation Sodium Chloride (Saline Flush) 10 ml FLUSH ASDIRECTED PRN PRN Reason: Keep Vein Open Discontinued Medications Sodium Chloride (Normal Saline) 1,000 mls @ 125 mls/hr IV ASDIRECTED [facility] Last Admin: 08/05/20 08:54 Dose: 125 mls/hr Documented by: Potassium Chloride 20 meq/ (Premix) 100 mls @ 50 mls/hr IV Q2H [facility] Stop: 08/04/20 21:59 Last Admin: 08/04/20 20:56 Dose: 50 mls/hr Documented by: Lidocaine HCl (Xylocaine-Mpf 1%) 2 ml INJECT ONETIME PRN PRN Reason: Other Last Admin: 08/04/20 18:48 Dose: 2 ml Documented by: Lidocaine HCl (Xylocaine-Mpf 1%) Confirm Administered Dose 5 ml .ROUTE .STK-MED ONE Stop: 08/04/20 20:53 Last Admin: 08/04/20 20:59 Dose: 5 ml Documented by: Lorazepam (Ativan) 0.5 mg IVPUSH Q4H PRN PRN Reason: Nausea/Vomiting Last Admin: 08/06/20 09:01 Dose: 0.5 mg Documented by: Methadone HCl (Methadone) 10 mg PO TID [facility] Last Admin: 08/05/20 08:55 Dose: 10 mg Documented by: Methadone HCl (Methadone) 12.5 mg PO TID [facility] Last Admin: 08/06/20 10:43 Dose: 12.5 mg Documented by: - Exam Quality Assessment: No: Supplemental Oxygen General: Alert, Oriented, Cooperative, No Acute Distress, Sedated Lungs: Normal Respiratory Effort Cardiovascular: Regular Rate, Regular Rhythm GI/Abdominal Exam: Soft, No Distention Skin: Warm, Dry Psy/Mental Status: Alert, Normal Affect Sepsis Event Note - Evaluation Sepsis Screening Result: No Definite Risk - Focused Exam Vital Signs: Vital Signs Temp Pulse Resp BP Pulse Ox 08/06/20 12:00 36.3 C 82 20 128/62 97 08/06/20 07:28 36.3 C 87 20 147/66 H 93 L 08/06/20 04:00 36.8 C 86 16 153/89 H 95 - Problem List & Annotations (1) Pathologic fracture of acetabulum SNOMED Code(s): 213291515, 642230823 Code(s): M84.454A - PATHOLOGICAL FRACTURE, PELVIS, INIT ENCNTR FOR FRACTURE Status: Acute Current Visit: Yes Qualifiers: Encounter type: initial encounter Laterality: left Qualified Code(s): M84.454A - Pathological fracture, pelvis, initial encounter for fracture (2) Lung nodule, multiple Status: Acute Current Visit: Yes (3) Dehydration SNOMED Code(s): 62585037 Code(s): E86.0 - DEHYDRATION Status: Acute Current Visit: Yes (4) Hypokalemia SNOMED Code(s): 78967776 Code(s): E87.6 - HYPOKALEMIA Status: Acute Current Visit: Yes - Problem List Review Problem List Initiated/Reviewed/Updated: Yes - My Orders Last 24 Hours: My Active Orders 08/06/20 10:00 Scopolamine [Transderm-Scop] 1.5 mg TRDERM Q72H 08/06/20 14:00 Methadone 12.5 mg PO TID 08/06/20 14:30 Dextrose 5%-Lact Ringers w/KCl [D5 LR with 20 mEq KCl] 1,000 ml IV ASDIRECTED 08/07/20 05:00 BASIC METABOLIC PANEL,BMP [CHEM] Timed CBC W/O DIFF,HEMOGRAM [HEME] Timed (1) 08/07/20 09:00 Non-Formulary Medication [NF Drug] 0 each TOP DAILY - Plan Plan:: ASSESSMENT AND PLAN - Pathologic fracture of left acetabulum-severe pain. Large lytic lesion noted in this area. Similar lesion noted on the right but no pathologic fracture yet. Pain control seems a little better today but she still rates her pain at severe despite being quite sleepy. Minimal weightbearing possible at this time. 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 Bone marrow biopsy was completed last week but results are still pending. She is experiencing significant nausea and intake has been quite poor. She has significant pain as discussed above. Family would like her to be transferred to the [facility] for expedited work-up and additional management. Dehydration and mild hypokalemia-improved with hydration. Intake still poor so ongoing to restart fluids today. Scopolamine patch placed today. -Gentle IV fluids overnight -Recheck potassium in the morning -Symptomatic management of nausea Maintenance issues - - DVT prophylaxis -SCDs - GI prophylaxis -H2 radha - Nutrition -regular Disposition -I would anticipate discharge home versus transfer to the [facility] after the hospital stay Primary care physician - Nanci Mena M.D.
[2020-08-06] MEDS: METHADONE PO SCH ×4 (15:38→22:27)
[2020-08-06] MEDS: Aspirin 81 MG Tab.EC PO SCH (22:25)
[2020-08-06] MEDS: atorvaSTATin 20 MG Tab PO SCH (22:25)
[2020-08-06] MEDS: amLODIPine 5 MG Tab PO SCH (22:29)
[2020-08-06] MEDS: Propranolol 80 MG Cap.ER PO SCH (23:11)
[2020-08-07] MEDS: Dextrose 5%-Lact Ringers w/KCl 1,000 ML IV SCH ×3 (01:40→21:44)
[2020-08-07] MEDS: VERIFY SCOP PATCH TOP SCH (10:05)
[2020-08-07] MEDS: Calcium Carbonate 500 MG Tab.Chew PO SCH ×2 (10:12→21:47)
[2020-08-07] MEDS: Famotidine 20 MG Tab PO SCH ×2 (10:13→21:47)
[2020-08-07] MEDS: Cholecalciferol (Vitamin D3) 25 MCG Tab PO SCH (10:14)
[2020-08-07] MEDS: Celecoxib 100 MG Cap PO SCH ×2 (10:22→21:49)
[2020-08-07] MEDS ORDERED: Methadone 10 MG Tab PO SCH (14:00)
--- NOTE | 2020-08-07 15:28 | PCM.PN ---
- General Info Date of Service: 08/07/20 Subjective Update: No acute events overnight. Patient was a little lethargic again today. Still has some nausea. Intake has been quite poor. She is moving a little better. She is able to get from the bed to the bedside commode. She is comfortable at rest. I did talk to the oncology folks at the [facility] and they felt that she would be more appropriate for outpatient management with the significant number of Covid cases at their hospital. Functional Status: Reports: Pain Controlled - Patient Data Vitals - Most Recent: Last Vital Signs Temp 35.9 C L 08/07/20 15:16 Pulse 77 08/07/20 15:16 Resp 16 08/07/20 15:16 BP 126/72 08/07/20 15:16 Pulse Ox 97 08/07/20 15:16 Weight - Most Recent: 49.442 kg I&O - Last 24 Hours: Intake & Output 08/07/20 08/07/20 08/07/20 06:59 14:59 22:59 Intake Total 255 Output Total 625 1060 Balance -625 -890 Lab Results Last 24 Hours: Laboratory Results - last 24 hr 08/07/20 08/07/20 Range/Units 05:10 05:10 WBC 7.6 (4.5-11.0) K/uL RBC 3.50 (3.30-5.50) M/uL Hgb 9.4 L (12.0-15.0) g/dL Hct 31.8 L (36.0-48.0) % MCV 91 (80-98) fL MCH 27 (27-31) pg MCHC 30 L (32-36) % Plt Count 424 H (150-400) K/uL Sodium 135 L (140-148) mmol/L Potassium 3.9 (3.6-5.2) mmol/L Chloride 100 (100-108) mmol/L Carbon Dioxide 32 (21-32) mmol/L Anion Gap 6.9 (5.0-14.0) mmol/L BUN 4 L (7-18) mg/dL Creatinine 0.5 L (0.6-1.0) mg/dL Est Cr Clr Drug Dosing 75.20 mL/min Estimated GFR (MDRD) > 60 (>60) Glucose 190 H (74-106) mg/dL Calcium 9.8 (8.5-10.1) mg/dL Med Orders - Current: Current Medications Acetaminophen (Tylenol) 650 mg PO Q4H PRN PRN Reason: Pain (Mild 1-3)/fever Last Admin: 08/05/20 07:44 Dose: 650 mg Documented by: Amlodipine Besylate (Norvasc) 2.5 mg PO BEDTIME [facility] Last Admin: 08/06/20 22:29 Dose: 2.5 mg Documented by: Aspirin (Halfprin) 81 mg PO BEDTIME [facility] Last Admin: 08/06/20 22:25 Dose: 81 mg Documented by: Atorvastatin Calcium (Lipitor) 40 mg PO BEDTIME [facility] Last Admin: 08/06/20 22:25 Dose: 40 mg Documented by: Calcium Carbonate/Glycine (Tums) 500 mg PO BID [facility] Last Admin: 08/07/20 10:12 Dose: 500 mg Documented by: Celecoxib (Celebrex) 100 mg PO BID [facility] Last Admin: 08/07/20 10:22 Dose: 100 mg Documented by: Cholecalciferol (Vitamin D3) 50 mcg PO DAILY [facility] Last Admin: 08/07/20 10:14 Dose: 50 mcg Documented by: Famotidine (Pepcid) 40 mg PO BID [facility] Last Admin: 08/07/20 10:13 Dose: 40 mg Documented by: Fentanyl (Sublimaze) 25 mcg IVPUSH Q2H PRN PRN Reason: Pain (severe 7-10) Last Admin: 08/05/20 03:10 Dose: 25 mcg Documented by: Potassium Cl/Dextrose/Lact Ringer's (D5 Lr With 20 Meq Kcl) 1,000 mls @ 100 mls/hr IV ASDIRECTED [facility] Last Admin: 08/07/20 12:04 Dose: 100 mls/hr Documented by: Magnesium Hydroxide (Milk Of Magnesia) 30 ml PO Q12H PRN PRN Reason: Constipation Methadone HCl (Methadone) 10 mg PO TID [facility] Last Admin: 08/07/20 15:13 Dose: 10 mg Documented by: Verify Scop Patch 0 each TOP DAILY [facility] Last Admin: 08/07/20 10:05 Dose: Not Given Documented by: Ondansetron HCl (Zofran) 4 mg IV Q6H PRN PRN Reason: Nausea/Vomiting Last Admin: 08/05/20 07:51 Dose: 4 mg Documented by: Ondansetron HCl (Zofran Odt) 4 mg PO Q6H PRN PRN Reason: Nausea able to take PO Last Admin: 08/06/20 04:58 Dose: 4 mg Documented by: Oxycodone HCl (Oxycodone) 10 mg PO Q4H PRN PRN Reason: Pain (moderate 4-6) Last Admin: 08/05/20 07:43 Dose: 10 mg Documented by: Polyethylene Glycol (Miralax) 17 gm PO DAILY PRN PRN Reason: Constipation Prochlorperazine Maleate (Compazine) 10 mg PO Q6H PRN PRN Reason: Nausea/Vomiting Last Admin: 08/06/20 07:27 Dose: 10 mg Documented by: Propranolol HCl (Inderal La) 80 mg PO BEDTIME [facility] Last Admin: 08/06/20 23:11 Dose: 80 mg Documented by: Scopolamine (Transderm-Scop) 1.5 mg TRDERM Q72H [facility] Last Admin: 08/06/20 10:12 Dose: 1.5 mg Documented by: Senna/Docusate Sodium (Senna Plus) 1 tab PO BID PRN PRN Reason: Constipation Sodium Chloride (Saline Flush) 10 ml FLUSH ASDIRECTED PRN PRN Reason: Keep Vein Open Discontinued Medications Sodium Chloride (Normal Saline) 1,000 mls @ 125 mls/hr IV ASDIRECTED [facility] Last Admin: 08/05/20 08:54 Dose: 125 mls/hr Documented by: Potassium Chloride 20 meq/ (Premix) 100 mls @ 50 mls/hr IV Q2H [facility] Stop: 08/04/20 21:59 Last Admin: 08/04/20 20:56 Dose: 50 mls/hr Documented by: Lidocaine HCl (Xylocaine-Mpf 1%) 2 ml INJECT ONETIME PRN PRN Reason: Other Last Admin: 08/04/20 18:48 Dose: 2 ml Documented by: Lidocaine HCl (Xylocaine-Mpf 1%) Confirm Administered Dose 5 ml .ROUTE .STK-MED ONE Stop: 08/04/20 20:53 Last Admin: 08/04/20 20:59 Dose: 5 ml Documented by: Lorazepam (Ativan) 0.5 mg IVPUSH Q4H PRN PRN Reason: Nausea/Vomiting Last Admin: 08/06/20 09:01 Dose: 0.5 mg Documented by: Methadone HCl (Methadone) 10 mg PO TID [facility] Last Admin: 08/05/20 08:55 Dose: 10 mg Documented by: Methadone HCl (Methadone) 12.5 mg PO TID [facility] Last Admin: 08/06/20 10:43 Dose: 12.5 mg Documented by: Methadone HCl 10 mg/ Methadone (HCl 2.5 mg) 12.5 mg PO TID [facility] Last Admin: 08/06/20 22:27 Dose: 12.5 mg Documented by: - Exam Quality Assessment: Supplemental Oxygen General: Alert, Oriented, Cooperative, No Acute Distress, Sedated Lungs: Normal Respiratory Effort Cardiovascular: Regular Rate, Regular Rhythm GI/Abdominal Exam: Soft, No Distention Extremities: No Pedal Edema Psy/Mental Status: Alert Sepsis Event Note - Evaluation Sepsis Screening Result: No Definite Risk - Focused Exam Vital Signs: Vital Signs Temp Pulse Resp BP BP Pulse Ox 08/07/20 15:16 35.9 C L 77 16 126/72 97 08/07/20 13:28 98 08/07/20 10:46 35.9 C L 61 106/45 L 95 08/07/20 08:15 7 L 90 L 08/07/20 07:42 93 L 08/07/20 07:30 7 L 96 08/07/20 07:00 36.4 C 74 91/61 94 L - Problem List & Annotations (1) Pathologic fracture of acetabulum SNOMED Code(s): 710029659, 593922390 Code(s): M84.454A - PATHOLOGICAL FRACTURE, PELVIS, INIT ENCNTR FOR FRACTURE Status: Acute Current Visit: Yes Qualifiers: Encounter type: initial encounter Laterality: left Qualified Code(s): M84.454A - Pathological fracture, pelvis, initial encounter for fracture (2) Lung nodule, multiple Status: Acute Current Visit: Yes (3) Dehydration SNOMED Code(s): 15357336 Code(s): E86.0 - DEHYDRATION Status: Acute Current Visit: Yes (4) Hypokalemia SNOMED Code(s): 58569208 Code(s): E87.6 - HYPOKALEMIA Status: Acute Current Visit: Yes - Problem List Review Problem List Initiated/Reviewed/Updated: Yes - My Orders Last 24 Hours: My Active Orders 08/06/20 14:30 Dextrose 5%-Lact Ringers w/KCl [D5 LR with 20 mEq KCl] 1,000 ml IV ASDIRECTED 08/07/20 09:00 Non-Formulary Medication [NF Drug] 0 each TOP DAILY 08/07/20 14:00 Methadone 10 mg PO TID 08/07/20 14:32 Consult to Dietary [Consult to Women'S Studies Professor] [CONS] Routine - Plan Plan:: ASSESSMENT AND PLAN - Pathologic fracture of left acetabulum-severe pain. Large lytic lesion noted in this area. Similar lesion noted on the right but no pathologic fracture yet. Pain control seems acceptable but she is a little bit somnolent. 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 -Outpatient follow-up Dehydration and mild hypokalemia-improved with hydration. Intake still poor and she is receiving IV fluids. -Continue gentle IV fluids overnight -Recheck potassium in the morning -Symptomatic management of nausea Maintenance issues - - DVT prophylaxis -SCDs - GI prophylaxis -H2 radha - Nutrition -regular Disposition -I would anticipate discharge home after the hospital stay Primary care physician - Nanci Mena M.D.
[2020-08-07] MEDS ORDERED: Saliva Substitute Oral Spray 120 ML Bottle MUCMEM PRN (16:08)
[2020-08-07] MEDS: amLODIPine 5 MG Tab PO SCH (21:47)
[2020-08-07] MEDS: atorvaSTATin 20 MG Tab PO SCH (21:48)
[2020-08-07] MEDS: Aspirin 81 MG Tab.EC PO SCH (21:49)
[2020-08-07] MEDS: Propranolol 80 MG Cap.ER PO SCH (21:49)
[2020-08-07] MEDS: Methadone 5 MG Tab PO SCH (21:52)
--- NOTE | 2020-08-08 04:18 | PCM.SN.2 ---
- Free Text/Narrative Note: time: 0400 call from Nursing staff 2nd floor. O: Mrs. Claudio had a fall getting out of bed. She does not have any injuries and does not appear to be in any distress A: fall in hospital room P: assisted back to bed, no injuries noted. advise to continue present plan of care.
[2020-08-08] MEDS: Dextrose 5%-Lact Ringers w/KCl 1,000 ML IV SCH (07:49)
[2020-08-08] MEDS: Famotidine 20 MG Tab PO SCH ×2 (09:02→20:28)
[2020-08-08] MEDS: Celecoxib 100 MG Cap PO SCH ×2 (09:03→20:27)
[2020-08-08] MEDS: Cholecalciferol (Vitamin D3) 25 MCG Tab PO SCH (09:03)
[2020-08-08] MEDS: Calcium Carbonate 500 MG Tab.Chew PO SCH ×2 (09:04→20:28)
[2020-08-08] MEDS: Ondansetron 4 MG Tab.DIS PO PRN (09:04)
[2020-08-08] MEDS: Methadone 5 MG Tab PO SCH ×3 (09:05→20:27)
[2020-08-08] MEDS: VERIFY SCOP PATCH TOP SCH (09:10)
[2020-08-08] MEDS: Prochlorperazine 10 MG Tab PO PRN (09:51)
--- NOTE | 2020-08-08 10:05 | CR ---
CHEST: Portable 08/08/2020 at 9:42 AM CLINICAL HISTORY:Hypoxia COMPARISON:CT chest 07/21/2020 FINDINGS: There are scattered nodular densities in both lung hoover which are seen on prior CT. Heart size and pulmonary vascularity is normal. There are atherosclerotic changes in the aorta. IMPRESSION: Known multiple pulmonary nodules No acute cardiopulmonary process
--- NOTE | 2020-08-08 11:51 | CT ---
Head wo Cont CLINICAL HISTORY: Delirium COMPARISON: None TECHNIQUE: Transverse scans were obtained from the base of the skull through the vertex without IV contrast on a multislice, multidetector CT scanner. Auto dosage reduction and iterative reconstruction techniques employed. FINDINGS: No focal abnormal parenchymal density is identified.. There is no mass effect, hemorrhage, or extraaxial collection. The basal cisterns and sulci over the convexities are mildly prominent. The ventricles are normal for age. There is some low-attenuation areas in the periventricular region. IMPRESSION: Mild age-related atrophy. Mild chronic ischemic microvascular changes No acute intracranial findings
[2020-08-08] MEDS ORDERED: Promethazine 25 MG Tab PO PRN (13:21)
--- NOTE | 2020-08-08 13:23 | PCM.PN ---
- General Info Date of Service: 08/08/20 Subjective Update: There were no acute events overnight. She is a little bit sleepy this morning but is able to wake up to chat. She is mildly confused. She does report that her pain is under better control and she has been moving a little better. She continues to have nausea though this is a little better today. Appetite has been very poor. She has not had any fevers. Functional Status: Reports: Pain Controlled - Review of Systems General: Denies: Fever Gastrointestinal: Reports: Nausea Neurological: Reports: Confusion - Patient Data Vitals - Most Recent: Last Vital Signs Temp 36.2 C 08/08/20 12:03 Pulse 80 08/08/20 12:03 Resp 16 08/08/20 12:03 BP 122/69 08/08/20 12:03 Pulse Ox 98 08/08/20 12:03 Weight - Most Recent: 49.442 kg I&O - Last 24 Hours: Intake & Output 08/07/20 08/08/20 08/08/20 22:59 06:59 14:59 Intake Total 200 300 50 Output Total 1650 Balance 200 -1350 50 Med Orders - Current: Current Medications Acetaminophen (Tylenol) 650 mg PO Q4H PRN PRN Reason: Pain (Mild 1-3)/fever Last Admin: 08/05/20 07:44 Dose: 650 mg Documented by: Amlodipine Besylate (Norvasc) 2.5 mg PO BEDTIME [facility] Last Admin: 08/07/20 21:47 Dose: 2.5 mg Documented by: Aspirin (Halfprin) 81 mg PO BEDTIME [facility] Last Admin: 08/07/20 21:49 Dose: 81 mg Documented by: Atorvastatin Calcium (Lipitor) 40 mg PO BEDTIME [facility] Last Admin: 08/07/20 21:48 Dose: 40 mg Documented by: Calcium Carbonate/Glycine (Tums) 500 mg PO BID [facility] Last Admin: 08/08/20 09:04 Dose: 500 mg Documented by: Celecoxib (Celebrex) 100 mg PO BID [facility] Last Admin: 08/08/20 09:03 Dose: 100 mg Documented by: Cholecalciferol (Vitamin D3) 50 mcg PO DAILY [facility] Last Admin: 08/08/20 09:03 Dose: 50 mcg Documented by: Famotidine (Pepcid) 40 mg PO BID [facility] Last Admin: 08/08/20 09:02 Dose: 40 mg Documented by: Fentanyl (Sublimaze) 25 mcg IVPUSH Q2H PRN PRN Reason: Pain (severe 7-10) Last Admin: 08/05/20 03:10 Dose: 25 mcg Documented by: Potassium Cl/Dextrose/Lact Ringer's (D5 Lr With 20 Meq Kcl) 1,000 mls @ 50 mls/hr IV ASDIRECTED [facility] Magnesium Hydroxide (Milk Of Magnesia) 30 ml PO Q12H PRN PRN Reason: Constipation Methadone HCl (Methadone) 5 mg PO TID [facility] Last Admin: 08/08/20 09:05 Dose: 5 mg Documented by: Verify Scop Patch 0 each TOP DAILY [facility] Last Admin: 08/08/20 09:10 Dose: Not Given Documented by: Ondansetron HCl (Zofran) 4 mg IV Q6H PRN PRN Reason: Nausea/Vomiting Last Admin: 08/05/20 07:51 Dose: 4 mg Documented by: Ondansetron HCl (Zofran Odt) 4 mg PO Q4H PRN PRN Reason: Nausea able to take PO Oxycodone HCl (Oxycodone) 10 mg PO Q4H PRN PRN Reason: Pain (moderate 4-6) Last Admin: 08/05/20 07:43 Dose: 10 mg Documented by: Polyethylene Glycol (Miralax) 17 gm PO DAILY PRN PRN Reason: Constipation Prochlorperazine Maleate (Compazine) 10 mg PO Q6H PRN PRN Reason: Nausea/Vomiting Last Admin: 08/08/20 09:51 Dose: 10 mg Documented by: Promethazine HCl (Phenergan) 25 mg PO Q4H PRN PRN Reason: Nausea/Vomiting Propranolol HCl (Inderal La) 80 mg PO BEDTIME [facility] Last Admin: 08/07/20 21:49 Dose: 80 mg Documented by: Saliva Substitute (Harman-Stir Oral Walden) 0 ml MUCMEM ASDIRECTED PRN PRN Reason: DRY MOUTH Senna/Docusate Sodium (Senna Plus) 1 tab PO BID PRN PRN Reason: Constipation Last Admin: 08/08/20 09:51 Dose: 1 tab Documented by: Sodium Chloride (Saline Flush) 10 ml FLUSH ASDIRECTED PRN PRN Reason: Keep Vein Open Discontinued Medications Sodium Chloride (Normal Saline) 1,000 mls @ 125 mls/hr IV ASDIRECTED [facility] Last Admin: 08/05/20 08:54 Dose: 125 mls/hr Documented by: Potassium Chloride 20 meq/ (Premix) 100 mls @ 50 mls/hr IV Q2H [facility] Stop: 08/04/20 21:59 Last Admin: 08/04/20 20:56 Dose: 50 mls/hr Documented by: Potassium Cl/Dextrose/Lact Ringer's (D5 Lr With 20 Meq Kcl) 1,000 mls @ 100 mls/hr IV ASDIRECTED [facility] Last Admin: 08/08/20 07:49 Dose: 100 mls/hr Documented by: Lidocaine HCl (Xylocaine-Mpf 1%) 2 ml INJECT ONETIME PRN PRN Reason: Other Last Admin: 08/04/20 18:48 Dose: 2 ml Documented by: Lidocaine HCl (Xylocaine-Mpf 1%) Confirm Administered Dose 5 ml .ROUTE .STK-MED ONE Stop: 08/04/20 20:53 Last Admin: 08/04/20 20:59 Dose: 5 ml Documented by: Lorazepam (Ativan) 0.5 mg IVPUSH Q4H PRN PRN Reason: Nausea/Vomiting Last Admin: 08/06/20 09:01 Dose: 0.5 mg Documented by: Methadone HCl (Methadone) 10 mg PO TID [facility] Last Admin: 08/05/20 08:55 Dose: 10 mg Documented by: Methadone HCl (Methadone) 12.5 mg PO TID [facility] Last Admin: 08/06/20 10:43 Dose: 12.5 mg Documented by: Methadone HCl 10 mg/ Methadone (HCl 2.5 mg) 12.5 mg PO TID [facility] Last Admin: 08/06/20 22:27 Dose: 12.5 mg Documented by: Methadone HCl (Methadone) 10 mg PO TID [facility] Last Admin: 08/07/20 15:13 Dose: 10 mg Documented by: Ondansetron HCl (Zofran Odt) 4 mg PO Q6H PRN PRN Reason: Nausea able to take PO Last Admin: 08/08/20 09:04 Dose: 4 mg Documented by: Scopolamine (Transderm-Scop) 1.5 mg TRDERM Q72H [facility] Last Admin: 08/06/20 10:12 Dose: 1.5 mg Documented by: - Exam Quality Assessment: Supplemental Oxygen General: Alert, Cooperative, No Acute Distress, Sedated HEENT: Pupils Equal Lungs: Clear to Auscultation, Normal Respiratory Effort, Decreased Breath Sounds (diminished at the bases) Cardiovascular: Regular Rate, Regular Rhythm GI/Abdominal Exam: Soft, No Distention Extremities: No Pedal Edema. No: Increased Warmth Skin: Warm, Dry Psy/Mental Status: Alert, Normal Affect Sepsis Event Note - Evaluation Sepsis Screening Result: No Definite Risk - Focused Exam Vital Signs: Vital Signs Temp Pulse Resp BP BP Pulse Ox 08/08/20 12:03 36.2 C 80 16 122/69 98 08/08/20 09:44 36.1 C 78 15 130/64 100 08/08/20 07:16 36.1 C 82 16 131/72 97 08/08/20 03:00 36 C L 72 16 119/64 97 - Problem List & Annotations (1) Pathologic fracture of acetabulum SNOMED Code(s): 774485152, 296842022 Code(s): M84.454A - PATHOLOGICAL FRACTURE, PELVIS, INIT ENCNTR FOR FRACTURE Status: Acute Current Visit: Yes Qualifiers: Encounter type: initial encounter Laterality: left Qualified Code(s): M84.454A - Pathological fracture, pelvis, initial encounter for fracture (2) Lung nodule, multiple Status: Acute Current Visit: Yes (3) Dehydration SNOMED Code(s): 42966429 Code(s): E86.0 - DEHYDRATION Status: Acute Current Visit: Yes (4) Hypokalemia SNOMED Code(s): 65776633 Code(s): E87.6 - HYPOKALEMIA Status: Acute Current Visit: Yes - Problem List Review Problem List Initiated/Reviewed/Updated: Yes - My Orders Last 24 Hours: My Active Orders 08/07/20 14:32 Consult to Dietary [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 Large lytic lesion noted in this area. Similar lesion noted on the right but no pathologic fracture yet. Pain control acceptable but pain meds seem to make her a little bit somnolent. -Decrease methadone to 5 mg 3 times a day -Continue oxycodone for breakthrough pain -Continue Toradol -Physical therapy -Partial weightbearing as tolerated -Outpatient orthopedic and oncology follow-up Malignancy with lung nodules and metastases to the bone-no obvious source at this time. 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 -Outpatient follow-up at the [facility] Dehydration and mild hypokalemia-improved with hydration. Intake still poor and she is receiving IV fluids. Persistent but somewhat improved nausea. I am worried the scopolamine patch is making her confused. -Continue gentle IV fluids with decrease in the rate -Discontinue scopolamine patch -Symptomatic management of nausea Maintenance issues - - DVT prophylaxis -SCDs - GI prophylaxis -H2 radha - Nutrition -regular Disposition -I would anticipate discharge home after the hospital stay Primary care physician - Nanci Mena M.D. Face to Face Encounter 08/08/20 I believe that Genoveva would benefit from a hospital bed. This would allow for her to make changes in her position that she is not able to achieve with a regular bed. These position changes will help to alleviate pain from her pathologic left hip fracture. Allowing her to have the head of the bed elevated to 30 degrees or more would help to reduce aspiration with her persistent nausea. The hospital bed would also help her to transfer more safely between her hospital bed and a wheelchair. She is currently requiring a wheelchair to get around because of her fracture and severe left hip pain. She will need this hospital bed for the remainder of her life. Jeff Mena MD
[2020-08-08] MEDS ORDERED: Ondansetron 4 MG Tab.DIS PO PRN (13:30)
[2020-08-08] MEDS ORDERED: Dextrose 5%-Lact Ringers w/KCl 1,000 ML IV SCH (13:30)
[2020-08-08] MEDS ORDERED: Dexamethasone 4 MG/ML SDV IVPUSH ONE (16:00)
[2020-08-08] MEDS: Aspirin 81 MG Tab.EC PO SCH (20:27)
[2020-08-08] MEDS: atorvaSTATin 20 MG Tab PO SCH (20:27)
[2020-08-08] MEDS: Propranolol 80 MG Cap.ER PO SCH (20:27)
[2020-08-08] MEDS: amLODIPine 5 MG Tab PO SCH (20:27)
[2020-08-09] MEDS: Famotidine 20 MG Tab PO SCH ×2 (08:37→20:45)
[2020-08-09] MEDS: Cholecalciferol (Vitamin D3) 25 MCG Tab PO SCH (08:37)
[2020-08-09] MEDS: Celecoxib 100 MG Cap PO SCH ×2 (08:37→20:45)
[2020-08-09] MEDS: Calcium Carbonate 500 MG Tab.Chew PO SCH ×2 (08:37→20:45)
[2020-08-09] MEDS: VERIFY SCOP PATCH TOP SCH (09:10)
--- NOTE | 2020-08-09 11:52 | PCM.PN ---
- General Info Date of Service: 08/09/20 Subjective Update: No acute events overnight though at one point the patient was quite somnolent. She is more alert and interactive today. She has been up in the chair. She had her best breakfast so far during the hospital stay. She reports that her pain is fairly well controlled. She still has what she describes as moderate nausea but has not had any vomiting. She continues to require supplemental oxygen with her shallow breathing. She has not had any methadone since yesterday morning. Functional Status: Reports: Pain Controlled, Tolerating Diet - Review of Systems Pulmonary: Reports: Shortness of Breath Gastrointestinal: Reports: Nausea - Patient Data Vitals - Most Recent: Last Vital Signs Temp 36.3 C 08/09/20 11:25 Pulse 92 08/09/20 11:25 Resp 18 08/09/20 11:25 BP 127/68 08/09/20 11:25 Pulse Ox 94 L 08/09/20 11:25 Weight - Most Recent: 49.442 kg I&O - Last 24 Hours: Intake & Output 08/08/20 08/09/20 08/09/20 22:59 06:59 14:59 Intake Total 1853 852 250 Output Total 400 400 550 Balance 1453 452 -300 Lab Results Last 24 Hours: Laboratory Results - last 24 hr 08/09/20 Range/Units 04:10 Sodium 136 L (140-148) mmol/L Potassium 4.5 (3.6-5.2) mmol/L Chloride 99 L (100-108) mmol/L Carbon Dioxide 32 (21-32) mmol/L Anion Gap 9.5 (5.0-14.0) mmol/L BUN 8 D (7-18) mg/dL Creatinine 0.6 (0.6-1.0) mg/dL Est Cr Clr Drug Dosing 62.67 mL/min Estimated GFR (MDRD) > 60 (>60) Glucose 200 H (74-106) mg/dL Calcium 10.4 H (8.5-10.1) mg/dL Magnesium 1.8 (1.8-2.4) mg/dL Med Orders - Current: Current Medications Acetaminophen (Tylenol) 650 mg PO Q4H PRN PRN Reason: Pain (Mild 1-3)/fever Last Admin: 08/05/20 07:44 Dose: 650 mg Documented by: Amlodipine Besylate (Norvasc) 2.5 mg PO BEDTIME [facility] Last Admin: 08/08/20 20:27 Dose: Not Given Documented by: Aspirin (Halfprin) 81 mg PO BEDTIME [facility] Last Admin: 08/08/20 20:27 Dose: Not Given Documented by: Atorvastatin Calcium (Lipitor) 40 mg PO BEDTIME [facility] Last Admin: 08/08/20 20:27 Dose: Not Given Documented by: Calcium Carbonate/Glycine (Tums) 500 mg PO BID [facility] Last Admin: 08/09/20 08:37 Dose: 500 mg Documented by: Celecoxib (Celebrex) 100 mg PO BID [facility] Last Admin: 08/09/20 08:37 Dose: 100 mg Documented by: Cholecalciferol (Vitamin D3) 50 mcg PO DAILY [facility] Last Admin: 08/09/20 08:37 Dose: 50 mcg Documented by: Famotidine (Pepcid) 40 mg PO BID [facility] Last Admin: 08/09/20 08:37 Dose: 40 mg Documented by: Fentanyl (Sublimaze) 25 mcg IVPUSH Q2H PRN PRN Reason: Pain (severe 7-10) Last Admin: 08/05/20 03:10 Dose: 25 mcg Documented by: Potassium Cl/Dextrose/Lact Ringer's (D5 Lr With 20 Meq Kcl) 1,000 mls @ 50 mls/hr IV ASDIRECTED [facility] Last Admin: 08/08/20 18:30 Dose: 50 mls/hr Documented by: Magnesium Hydroxide (Milk Of Magnesia) 30 ml PO Q12H PRN PRN Reason: Constipation Verify Scop Patch 0 each TOP DAILY [facility] Last Admin: 08/08/20 09:10 Dose: Not Given Documented by: Ondansetron HCl (Zofran) 4 mg IV Q6H PRN PRN Reason: Nausea/Vomiting Last Admin: 08/05/20 07:51 Dose: 4 mg Documented by: Ondansetron HCl (Zofran Odt) 4 mg PO Q4H PRN PRN Reason: Nausea able to take PO Last Admin: 08/08/20 13:47 Dose: 4 mg Documented by: Oxycodone HCl (Oxycodone) 10 mg PO Q4H PRN PRN Reason: Pain (moderate 4-6) Last Admin: 08/05/20 07:43 Dose: 10 mg Documented by: Polyethylene Glycol (Miralax) 17 gm PO DAILY PRN PRN Reason: Constipation Prochlorperazine Maleate (Compazine) 10 mg PO Q6H PRN PRN Reason: Nausea/Vomiting Last Admin: 08/08/20 09:51 Dose: 10 mg Documented by: Promethazine HCl (Phenergan) 25 mg PO Q4H PRN PRN Reason: Nausea/Vomiting Propranolol HCl (Inderal La) 80 mg PO BEDTIME [facility] Last Admin: 08/08/20 20:27 Dose: Not Given Documented by: Saliva Substitute (Harman-Stir Oral Ferriday) 0 ml MUCMEM ASDIRECTED PRN PRN Reason: DRY MOUTH Senna/Docusate Sodium (Senna Plus) 1 tab PO BID PRN PRN Reason: Constipation Last Admin: 08/08/20 09:51 Dose: 1 tab Documented by: Sodium Chloride (Saline Flush) 10 ml FLUSH ASDIRECTED PRN PRN Reason: Keep Vein Open Discontinued Medications Dexamethasone (Decadron) 4 mg IVPUSH ONETIME ONE Stop: 08/08/20 16:01 Last Admin: 08/08/20 17:28 Dose: 4 mg Documented by: Sodium Chloride (Normal Saline) 1,000 mls @ 125 mls/hr IV ASDIRECTED [facility] Last Admin: 08/05/20 08:54 Dose: 125 mls/hr Documented by: Potassium Chloride 20 meq/ (Premix) 100 mls @ 50 mls/hr IV Q2H [facility] Stop: 08/04/20 21:59 Last Admin: 08/04/20 20:56 Dose: 50 mls/hr Documented by: Potassium Cl/Dextrose/Lact Ringer's (D5 Lr With 20 Meq Kcl) 1,000 mls @ 100 mls/hr IV ASDIRECTED [facility] Last Admin: 08/08/20 07:49 Dose: 100 mls/hr Documented by: Lidocaine HCl (Xylocaine-Mpf 1%) 2 ml INJECT ONETIME PRN PRN Reason: Other Last Admin: 08/04/20 18:48 Dose: 2 ml Documented by: Lidocaine HCl (Xylocaine-Mpf 1%) Confirm Administered Dose 5 ml .ROUTE .STK-MED ONE Stop: 08/04/20 20:53 Last Admin: 08/04/20 20:59 Dose: 5 ml Documented by: Lorazepam (Ativan) 0.5 mg IVPUSH Q4H PRN PRN Reason: Nausea/Vomiting Last Admin: 08/06/20 09:01 Dose: 0.5 mg Documented by: Methadone HCl (Methadone) 10 mg PO TID [facility] Last Admin: 08/05/20 08:55 Dose: 10 mg Documented by: Methadone HCl (Methadone) 12.5 mg PO TID [facility] Last Admin: 08/06/20 10:43 Dose: 12.5 mg Documented by: Methadone HCl 10 mg/ Methadone (HCl 2.5 mg) 12.5 mg PO TID [facility] Last Admin: 08/06/20 22:27 Dose: 12.5 mg Documented by: Methadone HCl (Methadone) 10 mg PO TID [facility] Last Admin: 08/07/20 15:13 Dose: 10 mg Documented by: Methadone HCl (Methadone) 5 mg PO TID [facility] Last Admin: 08/08/20 20:27 Dose: Not Given Documented by: Ondansetron HCl (Zofran Odt) 4 mg PO Q6H PRN PRN Reason: Nausea able to take PO Last Admin: 08/08/20 09:04 Dose: 4 mg Documented by: Scopolamine (Transderm-Scop) 1.5 mg TRDERM Q72H [facility] Last Admin: 08/06/20 10:12 Dose: 1.5 mg Documented by: - Exam Quality Assessment: Supplemental Oxygen General: Alert, Cooperative, No Acute Distress Lungs: Normal Respiratory Effort, Decreased Breath Sounds (mild both bases). No: Crackles Cardiovascular: Regular Rate, Regular Rhythm GI/Abdominal Exam: Normal Bowel Sounds, Soft, No Distention Extremities: No Pedal Edema. No: Increased Warmth Skin: Warm, Dry Psy/Mental Status: Alert, Normal Affect Sepsis Event Note - Evaluation Sepsis Screening Result: No Definite Risk - Focused Exam Vital Signs: Vital Signs Temp Pulse Resp BP BP Pulse Ox 08/09/20 11:25 36.3 C 92 18 127/68 94 L 08/09/20 07:29 96 08/09/20 07:18 36.0 C L 85 16 142/66 H 97 08/09/20 03:00 35.5 C L 88 18 158/77 H 98 08/09/20 00:46 94 L - Problem List & Annotations (1) Pathologic fracture of acetabulum SNOMED Code(s): 318950324, 048200537 Code(s): M84.454A - PATHOLOGICAL FRACTURE, PELVIS, INIT ENCNTR FOR FRACTURE Status: Acute Current Visit: Yes Qualifiers: Encounter type: initial encounter Laterality: left Qualified Code(s): M84.454A - Pathological fracture, pelvis, initial encounter for fracture (2) Lung nodule, multiple Status: Acute Current Visit: Yes (3) Dehydration SNOMED Code(s): 82059523 Code(s): E86.0 - DEHYDRATION Status: Acute Current Visit: Yes (4) Hypokalemia SNOMED Code(s): 75743989 Code(s): E87.6 - HYPOKALEMIA Status: Acute Current Visit: Yes - Problem List Review Problem List Initiated/Reviewed/Updated: Yes - My Orders Last 24 Hours: My Active Orders 08/08/20 13:21 Promethazine [Phenergan] 25 mg PO Q4H PRN 08/08/20 13:30 Dextrose 5%-Lact Ringers w/KCl [D5 LR with 20 mEq KCl] 1,000 ml IV ASDIRECTED Ondansetron [Zofran ODT] 4 mg PO Q4H PRN 08/09/20 11:51 Convert IV to Saline Lock [OM.PC] Routine 08/09/20 12:00 dexAMETHasone 4 mg PO DAILY fentaNYL [Duragesic] 12 mcg TRDERM Q72H - Plan Plan:: ASSESSMENT AND PLAN - Pathologic fracture of left acetabulum-severe pain. Large lytic lesion noted in this area. Similar lesion noted on the right but no pathologic fracture yet. Pain control acceptable. Less somnolent today. -Trial of low-dose fentanyl patch -Dexamethasone 4 mg daily -Continue oxycodone for breakthrough pain -Continue Celebrex -Physical therapy -Partial weightbearing as tolerated -Outpatient orthopedic and oncology follow-up Malignancy with lung nodules and metastases to the bone-no obvious source at this time. 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 -Outpatient follow[facility]up at [facility] Dehydration and mild hypokalemia-improved with hydration. Intake is a little better today. Still having some nausea. Potassium level is better. -Saline lock IV -Trial of dexamethasone to help with the nausea -Symptomatic management of nausea Maintenance issues - - DVT prophylaxis -SCDs - GI prophylaxis -H2 radha - Nutrition -regular Disposition -I would anticipate discharge home after the hospital stay Primary care physician - Nanci Mena M.D.
[2020-08-09] MEDS ORDERED: fentaNYL 12 MCG/HR Transdermal Patch TRDERM SCH (13:00)
[2020-08-09] MEDS: oxyCODONE 5 MG Tab PO PRN (13:36)
[2020-08-09] MEDS: Dexamethasone 2 MG Tab PO SCH (14:36)
[2020-08-09] MEDS: fentaNYL 100 MCG/2 ML SDV IVPUSH PRN ×2 (16:12→19:35)
[2020-08-09] MEDS: atorvaSTATin 20 MG Tab PO SCH (20:45)
[2020-08-09] MEDS: amLODIPine 5 MG Tab PO SCH (20:45)
[2020-08-09] MEDS: Aspirin 81 MG Tab.EC PO SCH (20:46)
[2020-08-09] MEDS: Propranolol 80 MG Cap.ER PO SCH (20:46)
[2020-08-10] MEDS: Celecoxib 100 MG Cap PO SCH ×2 (09:08→20:38)
[2020-08-10] MEDS: Famotidine 20 MG Tab PO SCH ×2 (09:08→20:38)
[2020-08-10] MEDS: Cholecalciferol (Vitamin D3) 25 MCG Tab PO SCH (09:08)
[2020-08-10] MEDS: Dexamethasone 2 MG Tab PO SCH (09:08)
[2020-08-10] MEDS: Calcium Carbonate 500 MG Tab.Chew PO SCH ×2 (09:08→20:38)
[2020-08-10] MEDS: VERIFY SCOP PATCH TOP SCH (09:12)
[2020-08-10] MEDS ORDERED: Scopolamine 1.5 MG Transdermal Patch TRDERM SCH (09:45)
[2020-08-10] MEDS: Scopolamine 1.5 MG Transdermal Patch TRDERM SCH (10:55)
--- NOTE | 2020-08-10 11:21 | PCM.PN ---
- General Info Date of Service: 08/10/20 Subjective Update: No acute events overnight. Feeling better today. Nausea is better. Pain is better. She is able to get from the bed to the commode without significant difficulty. She has been eating better in the past 2 days then she has in the past couple weeks. No fevers. Overall feeling better. Off oxygen. Functional Status: Reports: Pain Controlled, Tolerating Diet - Review of Systems General: Denies: Fever - Patient Data Vitals - Most Recent: Last Vital Signs Temp 36.3 C 08/10/20 07:29 Pulse 79 08/10/20 07:29 Resp 16 08/10/20 07:29 BP 123/69 08/10/20 07:29 Pulse Ox 96 08/10/20 07:29 Weight - Most Recent: 49.442 kg I&O - Last 24 Hours: Intake & Output 08/09/20 08/10/20 08/10/20 22:59 06:59 14:59 Intake Total 480 240 Output Total 500 100 Balance -20 140 Med Orders - Current: Current Medications Acetaminophen (Tylenol) 650 mg PO Q4H PRN PRN Reason: Pain (Mild 1-3)/fever Last Admin: 08/05/20 07:44 Dose: 650 mg Documented by: Amlodipine Besylate (Norvasc) 2.5 mg PO BEDTIME [facility] Last Admin: 08/09/20 20:45 Dose: 2.5 mg Documented by: Aspirin (Halfprin) 81 mg PO BEDTIME [facility] Last Admin: 08/09/20 20:46 Dose: 81 mg Documented by: Atorvastatin Calcium (Lipitor) 40 mg PO BEDTIME [facility] Last Admin: 08/09/20 20:45 Dose: 40 mg Documented by: Calcium Carbonate/Glycine (Tums) 500 mg PO BID [facility] Last Admin: 08/10/20 09:08 Dose: 500 mg Documented by: Celecoxib (Celebrex) 100 mg PO BID [facility] Last Admin: 08/10/20 09:08 Dose: 100 mg Documented by: Cholecalciferol (Vitamin D3) 50 mcg PO DAILY [facility] Last Admin: 08/10/20 09:08 Dose: 50 mcg Documented by: Dexamethasone (Dexamethasone) 4 mg PO DAILY [facility] Last Admin: 08/10/20 09:08 Dose: 4 mg Documented by: Famotidine (Pepcid) 40 mg PO BID [facility] Last Admin: 08/10/20 09:08 Dose: 40 mg Documented by: Fentanyl (Sublimaze) 25 mcg IVPUSH Q2H PRN PRN Reason: Pain (severe 7-10) Last Admin: 08/09/20 19:35 Dose: 25 mcg Documented by: Fentanyl (Duragesic) 12 mcg TRDERM Q72H [facility] Last Admin: 08/09/20 14:27 Dose: 12 mcg Documented by: Magnesium Hydroxide (Milk Of Magnesia) 30 ml PO Q12H PRN PRN Reason: Constipation Ondansetron HCl (Zofran) 4 mg IV Q6H PRN PRN Reason: Nausea/Vomiting Last Admin: 08/05/20 07:51 Dose: 4 mg Documented by: Ondansetron HCl (Zofran Odt) 4 mg PO Q4H PRN PRN Reason: Nausea able to take PO Last Admin: 08/08/20 13:47 Dose: 4 mg Documented by: Oxycodone HCl (Oxycodone) 10 mg PO Q4H PRN PRN Reason: Pain (moderate 4-6) Last Admin: 08/09/20 13:36 Dose: 10 mg Documented by: Polyethylene Glycol (Miralax) 17 gm PO DAILY PRN PRN Reason: Constipation Prochlorperazine Maleate (Compazine) 10 mg PO Q6H PRN PRN Reason: Nausea/Vomiting Last Admin: 08/08/20 09:51 Dose: 10 mg Documented by: Promethazine HCl (Phenergan) 25 mg PO Q4H PRN PRN Reason: Nausea/Vomiting Propranolol HCl (Inderal La) 80 mg PO BEDTIME [facility] Last Admin: 08/09/20 20:46 Dose: 80 mg Documented by: Saliva Substitute (Harman-Stir Oral Arboles) 0 ml MUCMEM ASDIRECTED PRN PRN Reason: DRY MOUTH Senna/Docusate Sodium (Senna Plus) 1 tab PO BID PRN PRN Reason: Constipation Last Admin: 08/08/20 09:51 Dose: 1 tab Documented by: Sodium Chloride (Saline Flush) 10 ml FLUSH ASDIRECTED PRN PRN Reason: Keep Vein Open Discontinued Medications Dexamethasone (Decadron) 4 mg IVPUSH ONETIME ONE Stop: 08/08/20 16:01 Last Admin: 08/08/20 17:28 Dose: 4 mg Documented by: Sodium Chloride (Normal Saline) 1,000 mls @ 125 mls/hr IV ASDIRECTED [facility] Last Admin: 08/05/20 08:54 Dose: 125 mls/hr Documented by: Potassium Chloride 20 meq/ (Premix) 100 mls @ 50 mls/hr IV Q2H [facility] Stop: 08/04/20 21:59 Last Admin: 08/04/20 20:56 Dose: 50 mls/hr Documented by: Potassium Cl/Dextrose/Lact Ringer's (D5 Lr With 20 Meq Kcl) 1,000 mls @ 100 mls/hr IV ASDIRECTED [facility] Last Admin: 08/08/20 07:49 Dose: 100 mls/hr Documented by: Potassium Cl/Dextrose/Lact Ringer's (D5 Lr With 20 Meq Kcl) 1,000 mls @ 50 mls/hr IV ASDIRECTED [facility] Last Admin: 08/08/20 18:30 Dose: 50 mls/hr Documented by: Lidocaine HCl (Xylocaine-Mpf 1%) 2 ml INJECT ONETIME PRN PRN Reason: Other Last Admin: 08/04/20 18:48 Dose: 2 ml Documented by: Lidocaine HCl (Xylocaine-Mpf 1%) Confirm Administered Dose 5 ml .ROUTE .STK-MED ONE Stop: 08/04/20 20:53 Last Admin: 08/04/20 20:59 Dose: 5 ml Documented by: Lorazepam (Ativan) 0.5 mg IVPUSH Q4H PRN PRN Reason: Nausea/Vomiting Last Admin: 08/06/20 09:01 Dose: 0.5 mg Documented by: Methadone HCl (Methadone) 10 mg PO TID [facility] Last Admin: 08/05/20 08:55 Dose: 10 mg Documented by: Methadone HCl (Methadone) 12.5 mg PO TID [facility] Last Admin: 08/06/20 10:43 Dose: 12.5 mg Documented by: Methadone HCl 10 mg/ Methadone (HCl 2.5 mg) 12.5 mg PO TID [facility] Last Admin: 08/06/20 22:27 Dose: 12.5 mg Documented by: Methadone HCl (Methadone) 10 mg PO TID [facility] Last Admin: 08/07/20 15:13 Dose: 10 mg Documented by: Methadone HCl (Methadone) 5 mg PO TID [facility] Last Admin: 11/20/20 20:27 Dose: Not Given Documented by: Verify Scop Patch 0 each TOP DAILY [facility] Stop: 08/10/20 09:30 Last Admin: 08/10/20 09:12 Dose: Not Given Documented by: Ondansetron HCl (Zofran Odt) 4 mg PO Q6H PRN PRN Reason: Nausea able to take PO Last Admin: 08/08/20 09:04 Dose: 4 mg Documented by: Scopolamine (Transderm-Scop) 1.5 mg TRDERM Q72H [facility] Stop: 08/10/20 09:30 Last Admin: 08/10/20 10:55 Dose: Not Given Documented by: Scopolamine (Transderm-Scop) 1.5 mg TRDERM Q72H [facility] - Exam Quality Assessment: No: Supplemental Oxygen General: Alert, Oriented, Cooperative, No Acute Distress Lungs: Normal Respiratory Effort Cardiovascular: Regular Rate, Regular Rhythm GI/Abdominal Exam: Soft, No Distention Extremities: No Pedal Edema Psy/Mental Status: Alert, Normal Affect Sepsis Event Note - Evaluation Sepsis Screening Result: No Definite Risk - Focused Exam Vital Signs: Vital Signs Temp Pulse Resp BP Pulse Ox 08/10/20 07:29 36.3 C 79 16 123/69 96 08/10/20 03:24 36.2 C 84 16 132/76 92 L - Problem List & Annotations (1) Pathologic fracture of acetabulum SNOMED Code(s): 957960533, 413508800 Code(s): M84.454A - PATHOLOGICAL FRACTURE, PELVIS, INIT ENCNTR FOR FRACTURE Status: Acute Current Visit: Yes Qualifiers: Encounter type: initial encounter Laterality: left Qualified Code(s): M84.454A - Pathological fracture, pelvis, initial encounter for fracture (2) Lung nodule, multiple Status: Acute Current Visit: Yes (3) Dehydration SNOMED Code(s): 84916702 Code(s): E86.0 - DEHYDRATION Status: Acute Current Visit: Yes (4) Hypokalemia SNOMED Code(s): 93741472 Code(s): E87.6 - HYPOKALEMIA Status: Acute Current Visit: Yes - Problem List Review Problem List Initiated/Reviewed/Updated: Yes - My Orders Last 24 Hours: My Active Orders 08/09/20 11:51 Convert IV to Saline Lock [OM.PC] Routine 08/09/20 13:00 fentaNYL [Duragesic] 12 mcg TRDERM Q72H 08/09/20 14:00 dexAMETHasone 4 mg PO DAILY 08/11/20 05:00 BASIC METABOLIC PANEL,BMP [CHEM] Timed CBC W/O DIFF,HEMOGRAM [HEME] Timed (1) - Plan Plan:: ASSESSMENT AND PLAN - Pathologic fracture of left acetabulum-severe pain. Large lytic lesion noted in this area. Similar lesion noted on the right but no pathologic fracture yet. Pain control acceptable. Doing well today. 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 -Outpatient follow-up at the [facility] Dehydration and mild hypokalemia-improved with hydration. Intake has improved quite a bit in the past 48 hours. -Saline lock IV -Trial of dexamethasone to help with the nausea -Symptomatic management of nausea Maintenance issues - - DVT prophylaxis -SCDs - GI prophylaxis -H2 radha - Nutrition -regular Disposition -I would anticipate discharge home after the hospital stay. The hospital bed is on order and will be arriving on Tuesday. Primary care physician - Nanci Mena M.D.
[2020-08-10] MEDS: atorvaSTATin 20 MG Tab PO SCH (20:38)
[2020-08-10] MEDS: amLODIPine 5 MG Tab PO SCH (20:38)
[2020-08-10] MEDS: Aspirin 81 MG Tab.EC PO SCH (20:38)
[2020-08-10] MEDS: Propranolol 80 MG Cap.ER PO SCH (20:39)
[2020-08-11] MEDS: Acetaminophen 325 MG Tab PO PRN (04:28)
[2020-08-11] MEDS: Dexamethasone 2 MG Tab PO SCH (08:03)
[2020-08-11] MEDS: Cholecalciferol (Vitamin D3) 25 MCG Tab PO SCH (08:03)
[2020-08-11] MEDS: Calcium Carbonate 500 MG Tab.Chew PO SCH (08:04)
[2020-08-11] MEDS: Famotidine 20 MG Tab PO SCH (08:04)
[2020-08-11] MEDS: Celecoxib 100 MG Cap PO SCH (08:04)
[2020-08-11] MEDS ORDERED: VERIFY SCOP PATCH TOP SCH (09:00)
--- NOTE | 2020-08-11 14:24 | PCM.DCSUM1 ---
Discharge Summary - Hospital Course Brief History: Ms. Claudio is a 69-year-old woman who was admitted by Dr. Mena with severe hip pain secondary to a pathologic fracture, with underlying poorly differentiated carcinoma, origin unknown. - Discharge Data Discharge Date: 08/11/20 Discharge Disposition: Home, Self-Care 01 Condition: Poor - Referral to Home Health Primary Care Physician: Ashley Lobato CNM - Discharge Diagnosis/Problem(s) (1) Carcinoma SNOMED Code(s): 836959472, 582026638 ICD Code: C80.1 - MALIGNANT (PRIMARY) NEOPLASM, UNSPECIFIED Status: Acute Priority: High Current Visit: Yes (2) Pathologic fracture of acetabulum SNOMED Code(s): 794672144, 352174263 ICD Code: M84.454A - PATHOLOGICAL FRACTURE, PELVIS, INIT ENCNTR FOR FRACTURE Status: Acute Current Visit: Yes Qualifiers: Encounter type: initial encounter Laterality: left Qualified Code(s): M84.454A - Pathological fracture, pelvis, initial encounter for fracture (3) Dehydration SNOMED Code(s): 18319598 ICD Code: E86.0 - DEHYDRATION Status: Acute Current Visit: Yes (4) Hypokalemia SNOMED Code(s): 94509532 ICD Code: E87.6 - HYPOKALEMIA Status: Acute Current Visit: Yes - Patient Summary/Data Consults: Consultations 08/07/20 14:32 Consult to Dietary [Consult to [place]] [CONS] Routine Comment: Physician Instructions: Quantity: Reason for Consult: ca with mets Special Instructions: no appetite, n/v- would like protein shakes 08/11/20 10:40 PT Evaluation and Treatment [CONS] Routine Please Evaluate and Treat. PT Reason for Consult: Strengthening Pending Discharge: Yes Discharge Disposition: Home Special Instructions: Dr. Ramos would like okay from PT to discharge to home This query below is only for informational purposes and is not editable. Admission Diagnosis/Problem: Pathologic fracture Hospital Course: Ms. Claudio presented to the hospital as a direct admission from the clinic. She had been struggling with severe left hip pain for several weeks. The pain is so bad that she cannot function and requested admission to the hospital for pain control. She describes several weeks of progressive pain in the left hip area. The pain does not radiate from the left hip area. She has been taking up to 8 tabs of oxycodone daily with only minimal improvement. Pain has steadily been getting worse. She does report some constipation with all of her pain meds. She has fair amount of nausea and has to take ondansetron prior to taking any of her pain pills just so she can keep them down. She is not able to function at home because of her severe pain. She did have a recent work-up including CT scans of both hips as well as a CT scan of the chest abdomen and pelvis. She has a lytic lesion on the right pelvis as well as a lytic lesion in the left pelvis involving the acetabulum with pathologic fracture. She has multiple lung nodules noted. No obvious primary cancer is noted but metastatic cancer is suspected. Bone marrow biopsy had been obtained as an outpatient and showed poorly differentiated carcinoma, primary unknown. She was admitted to the hospital and given IV fluids for hydration. She was given a trial of methadone but became overly sedated with this and so it was discontinued. She was then given a trial of fentanyl patch 12 mcg which worked well to control her pain and she was able to ambulate fairly independently with use of a walker by the time of discharge. [facility] in [place] had been contacted concerning a possible transfer for further evaluation and management. Because of the current pandemic they had no available hospital beds but recommended that an outpatient appointment with oncology be established. The arrangement of that appointment is still pending at the time of this discharge. She will be discharged home with fentanyl patch and oxycodone for ongoing pain control. Activity will be as tolerated and she will resume her usual diet. Follow-up appointment will be scheduled with her primary care provider in 1 to 2 weeks. - Patient Instructions Diet: Usual Diet as Tolerated Activity: As Tolerated Other/Special Instructions: [facility] in [facility] will contact the patient to schedule outpatient appointment in oncology. - Discharge Plan *PRESCRIPTION DRUG MONITORING PROGRAM REVIEWED*: Not Applicable *COPY OF PRESCRIPTION DRUG MONITORING REPORT IN PATIENT SULAIMAN: Not Applicable Prescriptions/Med Rec: fentaNYL [Duragesic] 12 mcg TRDERM Q72H #10 patch oxyCODONE 10 mg PO Q4H #60 tab Home Medications: Home Meds Aspirin [Adult Low Dose Aspirin EC] 81 mg PO BEDTIME 12/24/13 [History] Calcium Carbonate [Calcium] 600 mg PO BID 12/24/13 [History] Multivitamin with Minerals [Multiple Vitamin] 1 tab PO DAILY 12/24/13 [History] Propranolol [Inderal LA] 80 mg PO BEDTIME 12/24/13 [History] Ibandronate [Boniva] 150 mg PO ASDIRECTED 11/09/18 [History] amLODIPine [Norvasc] 2.5 mg PO BEDTIME 11/09/18 [History] atorvaSTATin [Lipitor] 40 mg PO BEDTIME 11/09/18 [History] Cholecalciferol (Vitamin D3) [Vitamin D3] 2,000 unit PO DAILY 08/17/19 [History] Famotidine [Pepcid] 40 mg PO BID 11/22/19 [History] Celecoxib [CeleBREX] 100 mg PO BID 08/04/20 [History] fentaNYL [Duragesic] 12 mcg TRDERM Q72H #10 patch 08/11/20 [Rx] oxyCODONE 10 mg PO Q4H #60 tab 08/11/20 [Rx] Patient Handouts: Oxycodone tablets or capsules, Fentanyl skin patch Referrals: Ashley Lobato CNM [Primary Care Provider] - 08/20/20 1:30 pm (Please arrive 15 minutes early to register for your appointment.) - Discharge Summary/Plan Comment DC Time >30 min.: No - Patient Data Vitals - Most Recent: Last Vital Signs Temp 97.4 F 08/11/20 11:00 Pulse 74 08/11/20 11:00 Resp 16 08/11/20 11:00 BP 117/60 08/11/20 11:00 Pulse Ox 93 L 08/11/20 11:00 Weight - Most Recent: 109 lb 0.015 oz I&O - Last 24 hours: Intake & Output 08/10/20 08/11/20 08/11/20 22:59 06:59 14:59 Intake Total 800 800 680 Balance 800 800 680 Lab Results - Last 24 hrs: Laboratory Results - last 24 hr 08/11/20 08/11/20 Range/Units 04:00 04:00 WBC 6.5 (4.5-11.0) K/uL RBC 3.52 (3.30-5.50) M/uL Hgb 9.5 L (12.0-15.0) g/dL Hct 31.6 L (36.0-48.0) % MCV 90 (80-98) fL MCH 27 (27-31) pg MCHC 30 L (32-36) % Plt Count 497 H (150-400) K/uL Sodium 136 L (140-148) mmol/L Potassium 4.1 (3.6-5.2) mmol/L Chloride 99 L (100-108) mmol/L Carbon Dioxide 32 (21-32) mmol/L Anion Gap 9.1 (5.0-14.0) mmol/L BUN 11 (7-18) mg/dL Creatinine 0.6 (0.6-1.0) mg/dL Est Cr Clr Drug Dosing 62.67 mL/min Estimated GFR (MDRD) > 60 (>60) Glucose 134 H (74-106) mg/dL Calcium 9.9 (8.5-10.1) mg/dL Med Orders - Current: Current Medications Acetaminophen (Tylenol) 650 mg PO Q4H PRN PRN Reason: Pain (Mild 1-3)/fever Last Admin: 08/11/20 04:28 Dose: 650 mg Documented by: Amlodipine Besylate (Norvasc) 2.5 mg PO BEDTIME [facility] Last Admin: 08/10/20 20:38 Dose: 2.5 mg Documented by: Aspirin (Halfprin) 81 mg PO BEDTIME [facility] Last Admin: 08/10/20 20:38 Dose: 81 mg Documented by: Atorvastatin Calcium (Lipitor) 40 mg PO BEDTIME [facility] Last Admin: 08/10/20 20:38 Dose: 40 mg Documented by: Calcium Carbonate/Glycine (Tums) 500 mg PO BID [facility] Last Admin: 08/11/20 08:04 Dose: 500 mg Documented by: Celecoxib (Celebrex) 100 mg PO BID [facility] Last Admin: 08/11/20 08:04 Dose: 100 mg Documented by: Cholecalciferol (Vitamin D3) 50 mcg PO DAILY [facility] Last Admin: 08/11/20 08:03 Dose: 50 mcg Documented by: Dexamethasone (Dexamethasone) 4 mg PO DAILY [facility] Last Admin: 08/11/20 08:03 Dose: 4 mg Documented by: Famotidine (Pepcid) 40 mg PO BID [facility] Last Admin: 08/11/20 08:04 Dose: 40 mg Documented by: Fentanyl (Sublimaze) 25 mcg IVPUSH Q2H PRN PRN Reason: Pain (severe 7-10) Last Admin: 08/09/20 19:35 Dose: 25 mcg Documented by: Fentanyl (Duragesic) 12 mcg TRDERM Q72H [facility] Last Admin: 08/09/20 14:27 Dose: 12 mcg Documented by: Magnesium Hydroxide (Milk Of Magnesia) 30 ml PO Q12H PRN PRN Reason: Constipation Last Admin: 08/11/20 09:54 Dose: 30 ml Documented by: Ondansetron HCl (Zofran) 4 mg IV Q6H PRN PRN Reason: Nausea/Vomiting Last Admin: 08/05/20 07:51 Dose: 4 mg Documented by: Ondansetron HCl (Zofran Odt) 4 mg PO Q4H PRN PRN Reason: Nausea able to take PO Last Admin: 08/08/20 13:47 Dose: 4 mg Documented by: Oxycodone HCl (Oxycodone) 10 mg PO Q4H PRN PRN Reason: Pain (moderate 4-6) Last Admin: 08/09/20 13:36 Dose: 10 mg Documented by: Polyethylene Glycol (Miralax) 17 gm PO DAILY PRN PRN Reason: Constipation Prochlorperazine Maleate (Compazine) 10 mg PO Q6H PRN PRN Reason: Nausea/Vomiting Last Admin: 08/08/20 09:51 Dose: 10 mg Documented by: Promethazine HCl (Phenergan) 25 mg PO Q4H PRN PRN Reason: Nausea/Vomiting Propranolol HCl (Inderal La) 80 mg PO BEDTIME [facility] Last Admin: 08/10/20 20:39 Dose: 80 mg Documented by: Saliva Substitute (Harman-Stir Oral Ryegate) 0 ml MUCMEM ASDIRECTED PRN PRN Reason: DRY MOUTH Senna/Docusate Sodium (Senna Plus) 1 tab PO BID PRN PRN Reason: Constipation Last Admin: 08/08/20 09:51 Dose: 1 tab Documented by: Sodium Chloride (Saline Flush) 10 ml FLUSH ASDIRECTED PRN PRN Reason: Keep Vein Open Discontinued Medications Dexamethasone (Decadron) 4 mg IVPUSH ONETIME ONE Stop: 08/08/20 16:01 Last Admin: 08/08/20 17:28 Dose: 4 mg Documented by: Sodium Chloride (Normal Saline) 1,000 mls @ 125 mls/hr IV ASDIRECTED [facility] Last Admin: 08/05/20 08:54 Dose: 125 mls/hr Documented by: Potassium Chloride 20 meq/ (Premix) 100 mls @ 50 mls/hr IV Q2H [facility] Stop: 08/04/20 21:59 Last Admin: 08/04/20 20:56 Dose: 50 mls/hr Documented by: Potassium Cl/Dextrose/Lact Ringer's (D5 Lr With 20 Meq Kcl) 1,000 mls @ 100 mls/hr IV ASDIRECTED [facility] Last Admin: 08/08/20 07:49 Dose: 100 mls/hr Documented by: Potassium Cl/Dextrose/Lact Ringer's (D5 Lr With 20 Meq Kcl) 1,000 mls @ 50 mls/hr IV ASDIRECTED [facility] Last Admin: 08/08/20 18:30 Dose: 50 mls/hr Documented by: Lidocaine HCl (Xylocaine-Mpf 1%) 2 ml INJECT ONETIME PRN PRN Reason: Other Last Admin: 08/04/20 18:48 Dose: 2 ml Documented by: Lidocaine HCl (Xylocaine-Mpf 1%) Confirm Administered Dose 5 ml .ROUTE .STK-MED ONE Stop: 08/04/20 20:53 Last Admin: 08/04/20 20:59 Dose: 5 ml Documented by: Lorazepam (Ativan) 0.5 mg IVPUSH Q4H PRN PRN Reason: Nausea/Vomiting Last Admin: 08/06/20 09:01 Dose: 0.5 mg Documented by: Methadone HCl (Methadone) 10 mg PO TID [facility] Last Admin: 08/05/20 08:55 Dose: 10 mg Documented by: Methadone HCl (Methadone) 12.5 mg PO TID [facility] Last Admin: 08/06/20 10:43 Dose: 12.5 mg Documented by: Methadone HCl 10 mg/ Methadone (HCl 2.5 mg) 12.5 mg PO TID [facility] Last Admin: 08/06/20 22:27 Dose: 12.5 mg Documented by: Methadone HCl (Methadone) 10 mg PO TID [facility] Last Admin: 08/07/20 15:13 Dose: 10 mg Documented by: Methadone HCl (Methadone) 5 mg PO TID [facility] Last Admin: 08/08/20 20:27 Dose: Not Given Documented by: Verify Scop Patch 0 each TOP DAILY [facility] Stop: 08/10/20 09:30 Last Admin: 08/10/20 09:12 Dose: Not Given Documented by: Ondansetron HCl (Zofran Odt) 4 mg PO Q6H PRN PRN Reason: Nausea able to take PO Last Admin: 08/08/20 09:04 Dose: 4 mg Documented by: Scopolamine (Transderm-Scop) 1.5 mg TRDERM Q72H [facility] Stop: 08/10/20 09:30 Last Admin: 08/10/20 10:55 Dose: Not Given Documented by: Scopolamine (Transderm-Scop) 1.5 mg TRDERM Q72H [facility] - Exam Quality Assessment: Reports: DVT Prophylaxis General: Reports: Alert, Oriented, Cooperative, Mild Distress Lungs: Reports: Clear to Auscultation, Normal Respiratory Effort Cardiovascular: Reports: Regular Rate, Regular Rhythm, No Murmurs GI/Abdominal Exam: Soft, Non-Tender, No Organomegaly, No Distention
== END 2020-08-11 15:15 | disposition home or self-care (01) | DRG 543 ==
LOC: JP.MS 14:58
PROVIDERS: ADMIT Internal Medicine; ATTEND Internal Medicine
DX: M84.454A Pathological fracture, pelvis, initial encounter for fracture (principal); C79.52 Secondary malignant neoplasm of bone marrow; E86.0 Dehydration; E87.6 Hypokalemia; R91.1 Solitary pulmonary nodule; C80.1 Malignant (primary) neoplasm, unspecified; H54.7 Unspecified visual loss; E78.00 Pure hypercholesterolemia, unspecified; I10 Essential (primary) hypertension; K21.9 Gastro-esophageal reflux disease without esophagitis; M19.90 Unspecified osteoarthritis, unspecified site; K44.9 Diaphragmatic hernia without obstruction or gangrene; E11.9 Type 2 diabetes mellitus without complications; Z88.5 Allergy status to narcotic agent; Z88.8 Allergy status to other drugs, medicaments and biological substances; Z79.82 Long term (current) use of aspirin; Z79.899 Other long term (current) drug therapy; Z90.49 Acquired absence of other specified parts of digestive tract
CPT/HCPCS: 36415; 70450; 70450-26; 71045; 71045-26; 80048; 80053; 83735; 85025; 85027; 94762; 99222; 99231; 99232; 99238; A9270-GY; J1100; J2001; J2060; J2405; J3010; J3480; J7030; J8540; Q0164

== ENCOUNTER 2020-08-18 22:45 | Emergency (ER) | payer MEDICARE, OTHER ==
[2020-08-18] MEDS ORDERED: Ketorolac 30 MG/ML SDV IVPUSH ONE (23:06)
[2020-08-18] MEDS ORDERED: HYDROmorphone 0.5 MG/0.5 ML Syringe IVPUSH ONE (23:06)
[2020-08-18] MEDS ORDERED: Dexamethasone 4 MG/ML SDV IVPUSH ONE (23:09)
[2020-08-18] MEDS ORDERED: Ondansetron 4 MG/2 ML SDV IVPUSH ONE (23:18)
--- NOTE | 2020-08-19 00:15 | EDM.PDOC ---
ED HPI GENERAL MEDICAL PROBLEM - General Chief Complaint: General Stated Complaint: MEDICAL Time Seen by Provider: 08/18/20 23:25 Source of Information: Reports: Patient, Family History Limitations: Reports: No Limitations - History of Present Illness INITIAL COMMENTS - FREE TEXT/NARRATIVE: 69-year-old female with metastatic cancer is having significant pain again in her hips and pelvis area. She was hospitalized for 5 days for pain control, discharged and was doing well but now has slowly regressed. She is on fentanyl and oxycodone. No fevers or chills. Is especially difficult when she tries to stand or move. Onset: Gradual - Related Data Allergies Allergy/AdvReac Type Severity Reaction Status Date / Time codeine Allergy Rash Verified 08/18/20 23:15 morphine AdvReac Severe Anaphylactic Verified 08/18/20 23:15 Shock esomeprazole magnesium AdvReac Headache; Verified 08/18/20 23:15 [From Nexium] nausea hydromorphone [From Dilaudid] AdvReac Nausea Verified 08/18/20 23:15 lansoprazole [From Prevacid] AdvReac Headache; Verified 08/18/20 23:15 Nausea omeprazole AdvReac Headache; Verified 08/18/20 23:15 Nausea pantoprazole sodium AdvReac Headache; Verified 08/18/20 23:15 [From Protonix] nausea rabeprazole [From Aciphex] AdvReac Nausea; Verified 08/18/20 23:15 Headache Home Meds: Home Meds Aspirin [Adult Low Dose Aspirin EC] 81 mg PO BEDTIME 12/24/13 [History] Calcium Carbonate [Calcium] 600 mg PO BID 12/24/13 [History] Multivitamin with Minerals [Multiple Vitamin] 1 tab PO DAILY 12/24/13 [History] Propranolol [Inderal LA] 80 mg PO BEDTIME 12/24/13 [History] Ibandronate [Boniva] 150 mg PO ASDIRECTED 11/09/18 [History] amLODIPine [Norvasc] 2.5 mg PO BEDTIME 11/09/18 [History] atorvaSTATin [Lipitor] 40 mg PO BEDTIME 11/09/18 [History] Cholecalciferol (Vitamin D3) [Vitamin D3] 2,000 unit PO DAILY 08/17/19 [History] Famotidine [Pepcid] 40 mg PO BID 11/22/19 [History] Celecoxib [CeleBREX] 100 mg PO BID 08/04/20 [History] fentaNYL [Duragesic] 25 mcg TRDERM Q72H 08/18/20 [History] oxyCODONE 10 mg PO Q3H 08/18/20 [History] Past Medical History HEENT History: Reports: Impaired Vision Cardiovascular History: Reports: High Cholesterol, Hypertension Respiratory History: Reports: None Gastrointestinal History: Reports: GERD, Hiatal Hernia Genitourinary History: Reports: None 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 in need of a left hip replacement, dr batista Neurological History: Reports: Migraines Psychiatric History: Reports: None Endocrine/Metabolic History: Reports: Diabetes, Type II Hematologic History: Reports: None Immunologic History: Reports: None Oncologic (Cancer) History: Reports: None, Other (See Below) Other Oncologic History: pt has been told she has cancer but they do not know where yet Dermatologic History: Reports: None - Infectious Disease History Infectious Disease History: Reports: Measles, Mumps - Past Surgical History Head Surgeries/Procedures: Reports: None HEENT Surgical History: Reports: None Cardiovascular Surgical History: Reports: None Respiratory Surgical History: Reports: None GI Surgical History: Reports: Appendectomy, Cholecystectomy, Colonoscopy, EGD, Hernia, Abdominal, Bismark Fundoplication, Other (See Below) Other GI Surgeries/Procedures: omentumectomy Female Surgical History: Reports: Breast Biopsy, Cervical Conization Endocrine Surgical History: Reports: None Neurological Surgical History: Reports: Laminectomy Musculoskeletal Surgical History: Reports: None, Carpal Tunnel Oncologic Surgical History: Reports: Biopsy of Breast Dermatological Surgical History: Reports: Skin Biopsy Social & Family History - Family History Family Medical History: No Pertinent Family History - Tobacco Use Tobacco Use Status *Q: Never Tobacco User - Caffeine Use Caffeine Use: Reports: Soda, Tea ED ROS GENERAL - Review of Systems Review Of Systems: See Below Constitutional: Denies: Fever, Chills Respiratory: Denies: Shortness of Breath Cardiovascular: Denies: Chest Pain GI/Abdominal: Reports: Constipation, Nausea. Denies: Abdominal Pain, Vomiting Musculoskeletal: Reports: Back Pain, Leg Pain, Other (Left hip pain) Skin: Reports: Pallor Neurological: Denies: Paresthesia ED EXAM, GENERAL - Physical Exam Exam: See Below Exam Limited By: No Limitations General Appearance: Alert, Mild Distress Head: Atraumatic Neck: Supple, Non-Tender Respiratory/Chest: Lungs Clear Extremities: Other (Extremely tender when bearing weight on the left hip or with internal or external rotation passively) Neurological: Alert, Oriented Course - Vital Signs Last Recorded V/S: Last Vital Signs Temp 98.7 F 08/18/20 23:33 Pulse 111 H 08/18/20 23:33 Resp 16 08/18/20 23:33 BP 142/71 H 08/18/20 23:33 Pulse Ox 92 L 08/18/20 23:33 - Orders/Labs/Meds Meds: Medications Discontinued Medications Generic Name Dose Route Start Last Admin Trade Name Cameron PRN Reason Stop Dose Admin Dexamethasone 4 mg 08/18/20 23:09 08/18/20 23:25 Decadron IVPUSH 08/18/20 23:10 4 mg ONETIME ONE Administration Hydromorphone HCl 0.5 mg 08/18/20 23:06 08/18/20 23:25 Dilaudid IVPUSH 08/18/20 23:07 0.5 mg ONETIME ONE Administration Ketorolac Tromethamine 30 mg 08/18/20 23:06 08/18/20 23:25 Toradol IVPUSH 08/18/20 23:07 30 mg ONETIME ONE Administration Ondansetron HCl 4 mg 08/18/20 23:18 08/18/20 23:25 Zofran IVPUSH 08/18/20 23:19 4 mg ONETIME ONE Administration - Re-Assessments/Exams Free Text/Narrative Re-Assessment/Exam: 08/19/20 05:38 An IV was started, patient was given 6 mg of Decadron, 30 mg of IV Toradol and 0.5 mg of IV Dilaudid. This was followed by 4 mg of IV Zofran after she became somewhat nauseated. Within 30 minutes the pain was markedly improved, she was able to move with little pain and stand with moderate discomfort. She was discharged home with 10 additional doses of Toradol. Departure - Departure Time of Disposition: 00:39 Disposition: Home, Self-Care 01 Clinical Impression: Hip pain, left, Carcinoma Pathologic fracture of acetabulum Qualifiers: Encounter type: subsequent encounter Laterality: left - Discharge Information Instructions: Musculoskeletal Pain Referrals: Ashley Lobato CNM [Primary Care Provider] - Forms: ED Department Discharge Care Plan Goals: Continue your current pain medications, adding a ketorolac every 6 hours for the next 3 to 4 days. Return if not improving satisfactorily. Sepsis Event Note (ED) - Evaluation Sepsis Screening Result: No Definite Risk - Focused Exam Vital Signs: Vital Signs Temp Pulse Resp BP Pulse Ox 08/18/20 23:33 98.7 F 111 H 16 142/71 H 92 L 08/18/20 23:09 98.7 F 111 H 16 142/71 H 92 L
== END 2020-08-19 00:39 | disposition home or self-care (01) ==
LOC: JP.ED 22:45
DX: M25.552 Pain in left hip (principal); C80.1 Malignant (primary) neoplasm, unspecified; M84.459A Pathological fracture, hip, unspecified, initial encounter for fracture; E11.9 Type 2 diabetes mellitus without complications; E78.00 Pure hypercholesterolemia, unspecified; I10 Essential (primary) hypertension; K21.9 Gastro-esophageal reflux disease without esophagitis; M19.90 Unspecified osteoarthritis, unspecified site; Z88.5 Allergy status to narcotic agent; Z88.8 Allergy status to other drugs, medicaments and biological substances; Z79.82 Long term (current) use of aspirin; Z79.899 Other long term (current) drug therapy
CPT/HCPCS: 96374; 96375; 99283; J1100; J1170; J1885; J2405

== ENCOUNTER 2020-08-20 22:30 | Emergency (ER) | payer MEDICARE, OTHER ==
[2020-08-20] MEDS ORDERED: Dexamethasone 4 MG/ML SDV IVPUSH ONE (22:53)
[2020-08-20] MEDS ORDERED: HYDROmorphone 0.5 MG/0.5 ML Syringe IVPUSH ONE (22:53)
[2020-08-20] MEDS ORDERED: Ondansetron 4 MG/2 ML SDV IVPUSH ONE (22:53)
[2020-08-20] MEDS ORDERED: Ketorolac 30 MG/ML SDV IVPUSH ONE (22:53)
--- NOTE | 2020-08-20 23:23 | EDM.PDOC ---
ED HPI GENERAL MEDICAL PROBLEM - General Chief Complaint: Lower Extremity Injury/Pain Stated Complaint: LT HIP PAIN Time Seen by Provider: 08/20/20 23:00 Source of Information: Reports: Patient, Family History Limitations: Reports: No Limitations - History of Present Illness INITIAL COMMENTS - FREE TEXT/NARRATIVE: 69-year-old female with intractable pain due to metastatic cancer to the pelvis. I saw her 2 nights ago when she responded for 24 to 48 hours with IV steroid, Toradol, and IV Dilaudid and was given some oral Toradol. She seemed better for 36 hours but the last 12 hours has been extremely painful again. Toradol is no longer helping. Her feels he cannot care for her at home anymore and would like to consider transferring her to oncology. They are hoping they can get their care in [place] instead of having to go down to [place] which she has an outpatient appointment set up for in 1 week. Onset: Gradual Duration: Week(s): (Several weeks of symptoms) Associated Symptoms: Reports: Malaise, Weakness. Denies: Nausea/Vomiting, Shortness of Breath left hip Pain Score (Numeric/FACES): 10 - Related Data Allergies Allergy/AdvReac Type Severity Reaction Status Date / Time codeine Allergy Rash Verified 08/20/20 22:43 morphine AdvReac Severe Anaphylactic Verified 08/20/20 22:43 Shock esomeprazole magnesium AdvReac Headache; Verified 08/20/20 22:43 [From Nexium] nausea hydromorphone [From Dilaudid] AdvReac Nausea Verified 08/20/20 22:43 lansoprazole [From Prevacid] AdvReac Headache; Verified 08/20/20 22:43 Nausea omeprazole AdvReac Headache; Verified 08/20/20 22:43 Nausea pantoprazole sodium AdvReac Headache; Verified 08/20/20 22:43 [From Protonix] nausea rabeprazole [From Aciphex] AdvReac Nausea; Verified 08/20/20 22:43 Headache Home Meds: Home Meds Aspirin [Adult Low Dose Aspirin EC] 81 mg PO BEDTIME 12/24/13 [History] Calcium Carbonate [Calcium] 600 mg PO BID 12/24/13 [History] Multivitamin with Minerals [Multiple Vitamin] 1 tab PO DAILY 12/24/13 [History] Propranolol [Inderal LA] 80 mg PO BEDTIME 12/24/13 [History] Ibandronate [Boniva] 150 mg PO ASDIRECTED 11/09/18 [History] amLODIPine [Norvasc] 2.5 mg PO BEDTIME 11/09/18 [History] atorvaSTATin [Lipitor] 40 mg PO BEDTIME 11/09/18 [History] Cholecalciferol (Vitamin D3) [Vitamin D3] 2,000 unit PO DAILY 08/17/19 [History] Famotidine [Pepcid] 40 mg PO BID 11/22/19 [History] Celecoxib [CeleBREX] 100 mg PO BID 08/04/20 [History] fentaNYL [Duragesic] 25 mcg TRDERM Q72H 08/18/20 [History] oxyCODONE 10 mg PO Q3H 08/18/20 [History] Past Medical History HEENT History: Reports: Impaired Vision Cardiovascular History: Reports: High Cholesterol, Hypertension Respiratory History: Reports: None Gastrointestinal History: Reports: GERD, Hiatal Hernia Genitourinary History: Reports: None 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 in need of a left hip replacement, dr batista Neurological History: Reports: Migraines Psychiatric History: Reports: None Endocrine/Metabolic History: Reports: Diabetes, Type II Hematologic History: Reports: None Immunologic History: Reports: None Oncologic (Cancer) History: Reports: Bone, Other (See Below) Other Oncologic History: pt has been told she has cancer but they do not know where yet Dermatologic History: Reports: None - Infectious Disease History Infectious Disease History: Reports: Measles, Mumps - Past Surgical History Head Surgeries/Procedures: Reports: None HEENT Surgical History: Reports: None Cardiovascular Surgical History: Reports: None GI Surgical History: Reports: Appendectomy, Cholecystectomy, Colonoscopy, EGD, Hernia, Abdominal, Bismark Fundoplication, Other (See Below) Other GI Surgeries/Procedures: omentumectomy Female Surgical History: Reports: Breast Biopsy, Cervical Conization Endocrine Surgical History: Reports: None Neurological Surgical History: Reports: Laminectomy Musculoskeletal Surgical History: Reports: None, Carpal Tunnel Oncologic Surgical History: Reports: Biopsy of Breast Dermatological Surgical History: Reports: Skin Biopsy Social & Family History - Family History Family Medical History: No Pertinent Family History - Tobacco Use Tobacco Use Status *Q: Never Tobacco User - Caffeine Use Caffeine Use: Reports: Soda - Recreational Drug Use Recreational Drug Use: No Review of Systems - Review of Systems Review Of Systems: See Below Constitutional: Denies: Fever Respiratory: Denies: Shortness of Breath Cardiovascular: Denies: Chest Pain Musculoskeletal: Reports: Back Pain, Other (Bilateral pelvic pain especially on the left side) Skin: Reports: Pallor ED EXAM, GENERAL - Physical Exam Exam: See Below Exam Limited By: No Limitations General Appearance: Alert, Moderate Distress (Tearful, very uncomfortable) Head: Atraumatic Neck: Supple, Non-Tender Respiratory/Chest: Lungs Clear Extremities: Other (Any passive range of motion of her the lower extremities at the hips, especially on the left side is exquisitely painful) Neurological: Alert, Oriented Psychiatric: Anxious Skin Exam: Warm, Dry Course - Vital Signs Last Recorded V/S: Last Vital Signs Temp 98.8 F 08/20/20 23:41 Pulse 119 H 08/20/20 23:41 Resp 16 08/20/20 23:41 BP 129/71 08/20/20 23:41 Pulse Ox 95 08/20/20 23:41 - Orders/Labs/Meds Meds: Medications Discontinued Medications Generic Name Dose Route Start Last Admin Trade Name Frankieq PRN Reason Stop Dose Admin Dexamethasone 6 mg 08/20/20 22:53 08/20/20 23:03 Decadron IVPUSH 08/20/20 22:54 6 mg ONETIME ONE Administration Hydromorphone HCl 0.5 mg 08/20/20 22:53 08/20/20 22:58 Dilaudid IVPUSH 08/20/20 22:54 0.5 mg ONETIME ONE Administration Ketorolac Tromethamine 30 mg 08/20/20 22:53 08/20/20 22:59 Toradol IVPUSH 08/20/20 22:54 30 mg ONETIME ONE Administration Ondansetron HCl 4 mg 08/20/20 22:53 08/20/20 23:01 Zofran IVPUSH 08/20/20 22:54 4 mg ONETIME ONE Administration - Re-Assessments/Exams Free Text/Narrative Re-Assessment/Exam: 08/20/20 23:21 And IV was started, IV treatment was repeated with 0.5 of Dilaudid, 6 of Decadron, 30 of Toradol and 4 of Zofran. I placed a call to [facility] in [place] and Dr. Christopher Lai kindly accepted the patient for inpatient control of intractable pain and oncology consultation for further treatment. Departure - Departure Time of Disposition: 23:39 Disposition: DC/Tfer to Other 70 Clinical Impression: Metastatic cancer to pelvis, Intractable pain - Discharge Information Referrals: Ashley Lobato CNM [Primary Care Provider] - Forms: ED Department Discharge Care Plan Goals: Patient is to going to be transferred to [facility] for oncology consultation and symptom control of metastatic cancer to the pelvis. Previous imaging done here will be pushed through to [place] if not already sent. Sepsis Event Note (ED) - Evaluation Sepsis Screening Result: No Definite Risk - Focused Exam Vital Signs: Vital Signs Temp Pulse Resp BP Pulse Ox 08/20/20 23:41 98.8 F 119 H 16 129/71 95 08/20/20 22:38 98.4 F 126 H 20 151/83 H 97 08/20/20 22:36 98.4 F 126 H 20 151/83 H 97
== END 2020-08-20 23:52 | disposition other institution (70) ==
LOC: JP.ED 22:30
DX: C76.3 Malignant neoplasm of pelvis (principal); I10 Essential (primary) hypertension; E78.00 Pure hypercholesterolemia, unspecified; E11.9 Type 2 diabetes mellitus without complications; K21.9 Gastro-esophageal reflux disease without esophagitis; Z90.49 Acquired absence of other specified parts of digestive tract; Z88.5 Allergy status to narcotic agent; Z88.8 Allergy status to other drugs, medicaments and biological substances; Z79.82 Long term (current) use of aspirin; Z79.899 Other long term (current) drug therapy
CPT/HCPCS: 96374; 96375; 99285; J1100; J1170; J1885; J2405

== ENCOUNTER 2020-09-05 07:33 | Day surgery (SDC) | payer MEDICARE, OTHER ==
[~2020-09-05 07:33] MED LIST changes: -Meropenem 500 MG SDV ONE
[2020-09-05] MEDS ORDERED: fentaNYL 100 MCG/2 ML SDV ONE (07:39)
[2020-09-05] MEDS ORDERED: Midazolam 1 MG/ML 2 ML SDV ONE (07:39)
[2020-09-05] MEDS ORDERED: Propofol 200 MG/20 ML SDV ONE (07:39)
[2020-09-05] MEDS ORDERED: Sodium Chloride 0.9% 1,000 ML IV SCH (08:00)
--- NOTE | 2020-09-05 11:22 | CR ---
CHEST: Portable 09/05/2020 at 10:08 AM CLINICAL HISTORY:Port-A-Cath insertion COMPARISON:08/08/2020 FINDINGS: There is been placement of a left subclavian [id number] catheter. The tip is at the junction of the superior vena cava and brachycephalic vein. There is a paucity of lung markings in both apices but, no pleural line. The heart size and pulmonary vascular normal. No infiltrates or effusions seen. IMPRESSION: Placement of a left subclavian [id number] catheter No acute cardiopulmonary process
--- NOTE | 2020-09-05 13:21 | OR ---
DATE OF PROCEDURE: 09/05/2020 SURGEON: Henrique Tadeo MD PROCEDURE PERFORMED: Port-A-Cath placement, left subclavian vein. COMPLICATIONS: None. LOW VOLTAGE TECHNICIAN: None. ANESTHESIA: MAC/local. RISKS: Risks, benefits, alternatives, and limitations including, but not limited to infection, bleeding, seroma, hematoma, pneumothorax, injury to vessels, and other risks not listed here were explained to the patient and family, and they wished to proceed. PROCEDURE IN DETAIL: The patient was placed in supine position. The left subclavian vein was accessed on the 1st pass. This was then exchanged for a 35,000th wire, which was then exchanged for a sheath. Subsequently, a dilator. A micropuncture needle kit had been used primarily. This had been exchanged for the standard sheath and wire. The tubing was then introduced in the superior vena cava. This was then cut to size. Of note, this was performed through the dilator, which was then split away. This was then sutured into place in 3 locations. Checked the Marquis needle again. Good flush, good return. The wound was closed with 3-0 Vicryl and 4-0 Vicryl in interrupted running fashion. The patient tolerated the procedure well. Henrique Tadeo MD /[id number]
== END 2020-09-05 11:45 | disposition home or self-care (01) ==
LOC: JP.SDS 07:33
PROVIDERS: ATTEND Surgery
DX: C79.51 Secondary malignant neoplasm of bone (principal); C80.1 Malignant (primary) neoplasm, unspecified; I10 Essential (primary) hypertension; Z01.812 Encounter for preprocedural laboratory examination; Z20.828 Contact with and (suspected) exposure to other viral communicable diseases
CPT/HCPCS: 36561; 71045; 77001; C1788; C1894; J0690; J1642; J2250; J2704; J3010; J3490; J7030; J7060; U0002

== ENCOUNTER 2021-04-28 14:25 | Emergency (ER) | payer MEDICARE, OTHER ==
[2021-04-28] MEDS ORDERED: Sodium Chloride 0.9% 1,000 ML IV SCH (15:30)
--- NOTE | 2021-04-28 15:30 | EDM.PDOC ---
<Arcaeli Dominguez - Last Filed: 04/28/21 17:05> ED HPI GENERAL MEDICAL PROBLEM - General Chief Complaint: Gastrointestinal Problem Stated Complaint: NAUSEA, DEHYDRATION Time Seen by Provider: 04/28/21 15:20 Source of Information: Reports: Patient History Limitations: Reports: No Limitations - History of Present Illness INITIAL COMMENTS - FREE TEXT/NARRATIVE: 70 year old female with history of carcinoma arrives with due to nausea and vomiting. She reports that she was diagnosed with cancer in June 2020 and has had 6 rounds of chemo and 1 round of radiation up until October 2020. Has not had chemo since October, was doing well, had a follow up with oncology on March 25 2021 and was determined that she is "stable". Patient reports that she has struggled with nausea intermittently since cancer diagnosis but woke this AM with uncontrolled nausea and vomiting. Attempted oral Zofran at home without relief. She is feeling weak. Denies hematemesis, black stool, abdominal pain, fever, cough, shortness of breath, chest pain or other symptoms. She is having a "scope" May 05 to assess for mets in her upper GI tract. . Onset: Today Onset Date: 04/28/21 Duration: Hour(s): Location: Reports: Abdomen Quality: Reports: Other (nausea) Severity: Moderate Improves with: Reports: Eating, Movement Worsens with: Reports: None Context: Reports: Other (chronic but worse since waking this AM) Associated Symptoms: Reports: Nausea/Vomiting, Weakness. Denies: Chest Pain, Cough, Diaphoresis, Fever/Chills, Headaches - Related Data Allergies Allergy/AdvReac Type Severity Reaction Status Date / Time codeine Allergy Rash Verified 04/28/21 14:52 morphine AdvReac Severe Anaphylactic Verified 04/28/21 14:52 Shock esomeprazole magnesium AdvReac Headache; Verified 04/28/21 14:52 [From Nexium] nausea hydromorphone [From Dilaudid] AdvReac Nausea Verified 04/28/21 14:52 lansoprazole [From Prevacid] AdvReac Headache; Verified 04/28/21 14:52 Nausea omeprazole AdvReac Headache; Verified 04/28/21 14:52 Nausea pantoprazole sodium AdvReac Headache; Verified 04/28/21 14:52 [From Protonix] nausea rabeprazole [From Aciphex] AdvReac Nausea; Verified 04/28/21 14:52 Headache Home Meds: Home Meds Calcium Carbonate [Calcium] 600 mg PO BID 12/24/13 [History] Multivitamin with Minerals [Multiple Vitamin] 1 tab PO DAILY 12/24/13 [History] Propranolol [Inderal LA] 80 mg PO BEDTIME 12/24/13 [History] amLODIPine [Norvasc] 2.5 mg PO BEDTIME 11/09/18 [History] atorvaSTATin [Lipitor] 40 mg PO BEDTIME 11/09/18 [History] Cholecalciferol (Vitamin D3) [Vitamin D3] 2,000 unit PO DAILY 08/17/19 [History] Famotidine [Pepcid] 40 mg PO BID 11/22/19 [History] fentaNYL [Duragesic] 100 mcg TRDERM Q72H 08/18/20 [History] oxyCODONE 15 mg PO Q6H PRN 08/18/20 [History] Ketorolac [Toradol] 10 mg PO Q4H PRN 09/03/20 [History] Ondansetron [Zofran ODT] 4 mg PO Q8H PRN 09/03/20 [History] metFORMIN [Glucophage] 500 mg PO BIDMEALS 09/03/20 [History] Past Medical History HEENT History: Reports: Impaired Vision Cardiovascular History: Reports: High Cholesterol, Hypertension Respiratory History: Reports: None Gastrointestinal History: Reports: GERD, Hiatal Hernia Genitourinary History: Reports: None SENIOR SOUS CHEF History: Reports: Musculoskeletal History: Reports: Osteoarthritis, Other (See Below) Other Musculoskeletal History: right hand middle finger trigger finger. in need of a left hip replacement, dr batista Neurological History: Reports: Migraines Psychiatric History: Reports: None Endocrine/Metabolic History: Reports: Diabetes, Type II Hematologic History: Reports: None Immunologic History: Reports: None Oncologic (Cancer) History: Reports: Bone, Lung, Other (See Below) Other Oncologic History: pt has been told she has cancer but they do not know where yet Dermatologic History: Reports: None - Infectious Disease History Infectious Disease History: Reports: Chicken Pox, Measles, Mumps - Past Surgical History Head Surgeries/Procedures: Reports: None HEENT Surgical History: Reports: None Cardiovascular Surgical History: Reports: None Respiratory Surgical History: Reports: None GI Surgical History: Reports: Appendectomy, Cholecystectomy, Colonoscopy, EGD, Hernia, Abdominal, Bismark Fundoplication, Other (See Below) Other GI Surgeries/Procedures: omentumectomy Female Surgical History: Reports: Breast Biopsy, Cervical Conization Endocrine Surgical History: Reports: None Neurological Surgical History: Reports: Laminectomy Musculoskeletal Surgical History: Reports: None, Carpal Tunnel Oncologic Surgical History: Reports: Biopsy of Breast Dermatological Surgical History: Reports: Skin Biopsy Social & Family History - Family History Family Medical History: No Pertinent Family History - Tobacco Use Tobacco Use Status *Q: Never Tobacco User Second Hand Smoke Exposure: No - Caffeine Use Caffeine Use: Reports: Soda, Tea - Recreational Drug Use Recreational Drug Use: No ED ROS GENERAL - Review of Systems Review Of Systems: See Below Constitutional: Reports: Weakness, Fatigue, Decreased Appetite. Denies: Fever, Weight Gain HEENT: Reports: No Symptoms Respiratory: Denies: Shortness of Breath, Wheezing, Cough Cardiovascular: Denies: Chest Pain, Edema, Palpitations, Syncope Endocrine: Reports: No Symptoms GI/Abdominal: Reports: Nausea, Vomiting. Denies: Abdominal Pain, Diarrhea, Hematemesis, Hematochezia : Reports: No Symptoms. Denies: Flank Pain, Frequency, Hematuria Musculoskeletal: Reports: No Symptoms Skin: Reports: No Symptoms Neurological: Reports: No Symptoms. Denies: Confusion, Dizziness, Headache, Numbness, Tremors, Weakness Psychiatric: Reports: No Symptoms Hematologic/Lymphatic: Reports: No Symptoms Immunologic: Reports: No Symptoms ED EXAM, GI/ABD - Physical Exam Exam: See Below Text/Narrative:: Genoveva is a pale, frail appearing female resting on cart with at the bedside. She is tremulous and has difficulty speaking due to her being so nauseous. She is alert and oriented. skin is warm and dry. Respirations are regular and non labored. abdomen is non tender, non distended. She has clear lung sounds. No pedal edema or other obvious abnormalities on exam. Mucous membranes are moist. Exam Limited By: No Limitations General Appearance: Alert, WD/WN, Mild Distress Ears: Normal External Exam Nose: Normal Inspection, No Blood Throat/Mouth: Normal Inspection, Normal Teeth Head: Atraumatic ( ) Neck: Normal Inspection, Non-Tender Respiratory/Chest: No Respiratory Distress, Lungs Clear, Normal Breath Sounds, Chest Non-Tender. No: Respiratory Distress, Wheezing Cardiovascular: Normal Peripheral Pulses, No Edema GI/Abdominal Exam: Normal Bowel Sounds, Soft, Non-Tender (Female) Exam: Deferred Rectal (Female) Exam: Deferred Back Exam: Normal Inspection, Full Range of Motion Extremities: Normal Inspection, Normal Range of Motion, Non-Tender Neurological: Alert, Oriented, Normal Cognition, Normal Gait. No: Confused, Disoriented, Unresponsive Psychiatric: Normal Affect, Normal Mood Skin Exam: Warm, Dry, Intact, No Rash Lymphatic: No Adenopathy Course - Vital Signs Text/Narrative:: Port accessed and CBC, CMP, fluids and droperidol ordered. Patient and family member agree with plan of care. - Re-Assessments/Exams Free Text/Narrative Re-Assessment/Exam: 04/28/21 16:09 Patient reports mild relief with first dose of droperidol. Second dose ordered. Departure - Departure Disposition: Home, Self-Care 01 Condition: Good Clinical Impression: Vomiting - Discharge Information Instructions: Nausea and Vomiting, Adult, [id number] Referrals: Ashley Lobato CNM [Primary Care Provider] - Forms: ED Department Discharge Care Plan Goals: All of your lab work today came back appearing stable. Please use the Zofran prescription that goes under your tongue for your nausea. Attend your planned appointment for you scope and return to the ER if you develop more uncontrolled vomiting, fever, increased weakness, chest pain, shortness of breath, or any other concerning symptoms. Try to stay hydrated with small amounts of oral fluids and advance diet as tolerated. Sepsis Event Note (ED) - Evaluation Sepsis Screening Result: No Definite Risk <Reji Martinez - Last Filed: 04/28/21 18:53> Course - Vital Signs Last Recorded V/S: Last Vital Signs Temp 96.4 F L 04/28/21 14:55 Pulse 70 04/28/21 14:55 Resp 17 04/28/21 14:55 BP 148/71 H 04/28/21 14:55 Pulse Ox 100 04/28/21 14:55 - Orders/Labs/Meds Labs: Laboratory Tests 04/28/21 04/28/21 04/28/21 Range/Units 15:28 15:28 15:28 WBC 9.9 (4.5-11.0) K/uL RBC 4.34 (3.30-5.50) M/uL Hgb 13.3 D (12.0-15.0) g/dL Hct 39.9 (36.0-48.0) % MCV 92 (80-98) fL MCH 31 (27-31) pg MCHC 33 (32-36) % Plt Count 243 (150-400) K/uL Neut % (Auto) 83.2 H (36-66) % Lymph % (Auto) 14.6 L (24-44) % [place] % (Auto) 2.1 (2-6) % Eos % (Auto) 0.0 L (2-4) % Baso % (Auto) 0.1 (0-1) % Sodium 137 L (140-148) mmol/L Potassium 3.7 (3.6-5.2) mmol/L Chloride 99 L (100-108) mmol/L Carbon Dioxide 20 L (21-32) mmol/L Anion Gap 21.7 H (5.0-14.0) mmol/L BUN 11 (7-18) mg/dL Creatinine 0.9 (0.6-1.0) mg/dL Est Cr Clr Drug Dosing 41.18 mL/min Estimated GFR (MDRD) > 60 (>60) Glucose 252 H (74-106) mg/dL Calcium 9.4 (8.5-10.1) mg/dL Total Bilirubin 0.9 D (0.2-1.0) mg/dL AST 18 (15-37) U/L ALT 25 (12-78) U/L Alkaline Phosphatase 74 (46-116) U/L Total Protein 7.4 (6.4-8.2) g/dL Albumin 3.7 (3.4-5.0) g/dL Globulin 3.7 H (2.3-3.5) g/dL Albumin/Globulin Ratio 1.0 L (1.2-2.2) Lipase 30 L (73-393) U/L Meds: Medications Discontinued Medications Generic Name Dose Route Start Last Admin Trade Name Freq PRN Reason Stop Dose Admin Droperidol 1.25 mg 04/28/21 15:24 04/28/21 15:42 Droperidol 5 Mg/2 Ml Sdv IVPUSH 04/28/21 15:25 1.25 mg ONETIME ONE Administration Droperidol 1.25 mg 04/28/21 16:08 04/28/21 16:17 Droperidol 5 Mg/2 Ml Sdv IVPUSH 04/28/21 16:09 1.25 mg ONETIME ONE Administration Heparin Sodium (Porcine) 300 units 04/28/21 17:39 04/28/21 18:14 Heparin Sodium 100 Units/Ml 5 Ml Syringe FLUSH 300 units ASDIRECTED PRN Administration port flush Sodium Chloride 1,000 mls @ 999 mls/hr 04/28/21 15:30 04/28/21 15:44 Normal Saline IV 999 mls/hr ASDIRECTED TADEO Administration Departure - Departure Time of Disposition: 17:48 Sepsis Event Note (ED) - Focused Exam Vital Signs: Vital Signs Temp Pulse Resp BP Pulse Ox 04/28/21 14:55 96.4 F L 70 17 148/71 H 100 04/28/21 14:54 96.4 F L 70 17 148/71 H 100 Attestation - Student - Attestation Statement Attestation Statement: I personally performed or re-performed the physical examination and medical decision making. I have verified all student documentation or findings, including history, physical exam and/or medical decision making.
== END 2021-04-28 18:15 | disposition home or self-care (01) ==
LOC: JP.ED 14:25
DX: R11.2 Nausea with vomiting, unspecified (principal); E78.00 Pure hypercholesterolemia, unspecified; I10 Essential (primary) hypertension; K21.9 Gastro-esophageal reflux disease without esophagitis; M19.90 Unspecified osteoarthritis, unspecified site; E11.9 Type 2 diabetes mellitus without complications; Z88.5 Allergy status to narcotic agent; Z88.8 Allergy status to other drugs, medicaments and biological substances; Z79.899 Other long term (current) drug therapy
CPT/HCPCS: 36415; 80053; 83690; 85025; 96374; 96376; 99284; J1642; J1790; J7030

== ENCOUNTER 2021-04-29 12:23 | Inpatient (IN) | payer MEDICARE, OTHER ==
[2021-04-29] MEDS ORDERED: Sodium Chloride 0.9% 1,000 ML IV SCH (13:00)
--- NOTE | 2021-04-29 13:02 | EDM.PDOC ---
ED HPI GENERAL MEDICAL PROBLEM - General Chief Complaint: Gastrointestinal Problem Stated Complaint: NAUSEA,VOMITING Time Seen by Provider: 04/29/21 12:45 Source of Information: Reports: Patient, Family History Limitations: Reports: No Limitations - History of Present Illness INITIAL COMMENTS - FREE TEXT/NARRATIVE: 70-year-old female was in yesterday with intractable nausea and vomiting, actually responded fairly well to IV droperidol 2 separate doses and IV fluids. She was discharged with sublingual Zofran, she had a reasonable evening last night but this morning after awakening she got dizzy and lightheaded and again developed nausea and vomiting and is worse than yesterday. He tried several doses of sublingual Zofran and it did not work so he brought her in. Duration: Day(s): (Several days of nausea and vomiting) Associated Symptoms: Reports: Malaise, Nausea/Vomiting, Weakness. Denies: Chest Pain, Cough Abdomen Pain Score (Numeric/FACES): 0 - Related Data Allergies Allergy/AdvReac Type Severity Reaction Status Date / Time carboplatin Allergy Muscle Verified 04/29/21 07:35 Aches codeine Allergy Rash Verified 04/28/21 14:52 morphine AdvReac Severe Anaphylactic Verified 04/28/21 14:52 Shock esomeprazole magnesium AdvReac Headache; Verified 04/28/21 14:52 [From Nexium] nausea hydromorphone [From Dilaudid] AdvReac Nausea Verified 04/28/21 14:52 lansoprazole [From Prevacid] AdvReac Headache; Verified 04/28/21 14:52 Nausea omeprazole AdvReac Headache; Verified 04/28/21 14:52 Nausea pantoprazole sodium AdvReac Headache; Verified 04/28/21 14:52 [From Protonix] nausea rabeprazole [From Aciphex] AdvReac Nausea; Verified 04/28/21 14:52 Headache Home Meds: Home Meds Calcium Carbonate [Calcium] 600 mg PO BID 12/24/13 [History] Multivitamin with Minerals [Multiple Vitamin] 1 tab PO DAILY 12/24/13 [History] Propranolol [Inderal LA] 80 mg PO BEDTIME 12/24/13 [History] amLODIPine [Norvasc] 2.5 mg PO BEDTIME 11/09/18 [History] atorvaSTATin [Lipitor] 40 mg PO BEDTIME 11/09/18 [History] Cholecalciferol (Vitamin D3) [Vitamin D3] 2,000 unit PO DAILY 08/17/19 [History] Famotidine [Pepcid] 40 mg PO BID 11/22/19 [History] fentaNYL [Duragesic] 100 mcg TRDERM Q72H 08/18/20 [History] oxyCODONE 15 mg PO Q6H PRN 08/18/20 [History] Ondansetron [Zofran ODT] 4 mg PO Q8H PRN 09/03/20 [History] metFORMIN [Glucophage] 500 mg PO BIDMEALS 09/03/20 [History] Prochlorperazine [Compazine] 10 mg PO Q6H PRN 04/29/21 [History] Sertraline HCl 25 mg PO DAILY 04/29/21 [History] Past Medical History HEENT History: Reports: Impaired Vision Cardiovascular History: Reports: High Cholesterol, Hypertension Respiratory History: Reports: None Gastrointestinal History: Reports: GERD, Hiatal Hernia Genitourinary History: Reports: None [employer] History: Reports: Musculoskeletal History: Reports: Osteoarthritis, Other (See Below) Other Musculoskeletal History: right hand middle finger trigger finger. in need of a left hip replacement, dr batista Neurological History: Reports: Migraines Psychiatric History: Reports: None Endocrine/Metabolic History: Reports: Diabetes, Type II Hematologic History: Reports: None Immunologic History: Reports: None Oncologic (Cancer) History: Reports: Bone, Lung, Other (See Below) Other Oncologic History: pt has been told she has cancer but they do not know where yet Dermatologic History: Reports: None - Infectious Disease History Infectious Disease History: Reports: Chicken Pox, Measles, Mumps - Past Surgical History Head Surgeries/Procedures: Reports: None HEENT Surgical History: Reports: None Cardiovascular Surgical History: Reports: None Respiratory Surgical History: Reports: None GI Surgical History: Reports: Appendectomy, Cholecystectomy, Colonoscopy, EGD, Hernia, Abdominal, Bismark Fundoplication, Other (See Below) Other GI Surgeries/Procedures: omentumectomy Female Surgical History: Reports: Breast Biopsy, Cervical Conization Endocrine Surgical History: Reports: None Neurological Surgical History: Reports: Laminectomy Musculoskeletal Surgical History: Reports: None, Carpal Tunnel Oncologic Surgical History: Reports: Biopsy of Breast Dermatological Surgical History: Reports: Skin Biopsy Social & Family History - Family History Family Medical History: No Pertinent Family History - Tobacco Use Tobacco Use Status *Q: Never Tobacco User - Caffeine Use Caffeine Use: Reports: None - Recreational Drug Use Recreational Drug Use: No ED ROS GENERAL - Review of Systems Review Of Systems: See Below Constitutional: Reports: Malaise, Decreased Appetite. Denies: Fever, Chills HEENT: Denies: Vision Change Respiratory: Denies: Shortness of Breath Endocrine: Reports: Fatigue GI/Abdominal: Reports: Nausea, Vomiting. Denies: Diarrhea Musculoskeletal: Reports: Other (Known metastatic bone cancer) Skin: Denies: Pallor Neurological: Denies: Headache ED EXAM, GI/ABD - Physical Exam Exam: See Below Exam Limited By: No Limitations General Appearance: Alert, Anxious, Mild Distress, Other (Looks very uncomfortable, persistent emesis) Eyes: Bilateral: Normal Appearance (No jaundice, hydration appears normal) Head: Atraumatic Respiratory/Chest: No Respiratory Distress, Lungs Clear, Other (Port is in place in the upper chest) Cardiovascular: Regular Rate, Rhythm. No: Tachycardia GI/Abdominal Exam: Soft Neurological: Alert, Oriented Psychiatric: Flat Affect Skin Exam: Warm, Dry Course - Vital Signs Last Recorded V/S: Last Vital Signs Temp 99.3 F 04/29/21 15:46 Pulse 74 04/29/21 15:46 Resp 16 04/29/21 15:46 BP 154/74 H 04/29/21 15:46 Pulse Ox 100 04/29/21 15:46 - Orders/Labs/Meds Orders: Active Orders 24 hr Category Date Time Status Scopolamine [Transderm-Scop] Med 04/29/21 15:00 Active 1.5 mg TRDERM Q72H Sodium Chloride 0.9% [Saline Flush] Med 04/29/21 13:08 Active 10 ml FLUSH ONETIME PRN Medication Orders Acetaminophen (Acetaminophen 325 Mg Tab) 650 mg PO Q4H PRN PRN Reason: Pain (Mild 1-3)/fever Droperidol (Droperidol 5 Mg/2 Ml Sdv) 1.25 mg IVPUSH Q6H PRN PRN Reason: Nausea/Vomiting Famotidine (Famotidine 20 Mg/2 Ml Sdv) 20 mg IVPUSH BID TADEO Fentanyl (Fentanyl 25 Mcg/Hr Transdermal Patch) 25 mcg TRDERM Q72H TADEO Hydromorphone HCl (Hydromorphone 1 Mg/Ml Syringe) 0.5 mg IVPUSH Q2H PRN PRN Reason: Pain (severe 7-10) Sodium Chloride (Normal Saline) 1,000 mls @ 125 mls/hr IV ASDIRECTED [facility] Potassium Chloride 20 meq/Lidocaine HCl 2 ml/ Sodium Chloride 112 mls @ 50 mls/hr IV Q2H [facility] Stop: 04/29/21 20:29 Last Admin: 04/29/21 17:12 Dose: 50 mls/hr Documented by: CHLOE Insulin Human Lispro (Insulin Lispro 100 Unit/Ml 3 Ml Kwikpen) 0 unit SUBCUT QIDACANDBED [facility]; Protocol Last Admin: 04/29/21 17:11 Dose: 2 units Documented by: CHLOE Cosigned by: SAMY Lorazepam (Lorazepam 2 Mg/Ml Sdv) 0.5 mg IVPUSH Q4H PRN PRN Reason: Nausea/Vomiting Melatonin (Melatonin 3 Mg Tab) 9 mg PO BEDTIME PRN PRN Reason: Sleep Metoclopramide HCl (Metoclopramide 10 Mg/2 Ml Sdv) 10 mg IVPUSH Q8H PRN PRN Reason: Nausea/Vomiting Last Admin: 04/29/21 16:12 Dose: 10 mg Documented by: CHLOE Ondansetron HCl (Ondansetron 4 Mg/2 Ml Sdv) 4 mg IV Q6H PRN PRN Reason: Nausea/Vomiting Ondansetron HCl (Ondansetron 4 Mg Tab.Dis) 4 mg PO Q6H PRN PRN Reason: Nausea able to take PO Oxycodone HCl (Oxycodone 5 Mg Tab) 7.5 mg PO Q4H PRN PRN Reason: Pain (moderate 4-6) Prochlorperazine Maleate (Prochlorperazine 10 Mg Tab) 10 mg PO Q6H PRN PRN Reason: Nausea Propranolol HCl (Propranolol 80 Mg Cap.Er) 80 mg PO BEDTIME [facility] Scopolamine (Scopolamine 1.5 Mg Transdermal Patch) 1.5 mg TRDERM Q72H [facility] Last Admin: 04/29/21 14:56 Dose: 1.5 mg Documented by: LUIS Senna/Docusate Sodium (Docusate Sodium/Sennosides 50-8.6 Mg Tab) 1 tab PO BID PRN PRN Reason: Constipation Sertraline HCl (Sertraline 25 Mg Tab) 25 mg PO DAILY TADEO Sodium Chloride (Sodium Chloride 0.9% 10 Ml Syringe) 10 ml FLUSH ONETIME PRN PRN Reason: PER RADIOLOGY PROTOCOL Last Admin: 04/29/21 13:37 Dose: 10 ml Documented by: ANDREW Labs: Laboratory Tests 04/29/21 04/29/21 Range/Units 12:55 12:55 WBC 13.1 H (4.5-11.0) K/uL RBC 4.40 (3.30-5.50) M/uL Hgb 13.7 (12.0-15.0) g/dL Hct 40.1 (36.0-48.0) % MCV 91 (80-98) fL MCH 31 (27-31) pg MCHC 34 (32-36) % Plt Count 253 (150-400) K/uL Neut % (Auto) 84.2 H (36-66) % Lymph % (Auto) 11.2 L (24-44) % [place] % (Auto) 4.5 (2-6) % Eos % (Auto) 0.0 L (2-4) % Baso % (Auto) 0.1 (0-1) % Sodium 139 L (140-148) mmol/L Potassium 3.3 L (3.6-5.2) mmol/L Chloride 99 L (100-108) mmol/L Carbon Dioxide 21 (21-32) mmol/L Anion Gap 22.3 H (5.0-14.0) mmol/L BUN 13 (7-18) mg/dL Creatinine 1.1 H (0.6-1.0) mg/dL Est Cr Clr Drug Dosing 33.69 mL/min Estimated GFR (MDRD) 49 L (>60) Glucose 219 H (74-106) mg/dL Calcium 9.4 (8.5-10.1) mg/dL Meds: Medications Generic Name Dose Route Start Last Admin Trade Name Freq PRN Reason Stop Dose Admin Acetaminophen 650 mg 04/29/21 15:51 Acetaminophen 325 Mg Tab PO Q4H PRN Pain (Mild 1-3)/fever Droperidol 1.25 mg 04/29/21 15:51 Droperidol 5 Mg/2 Ml Sdv IVPUSH Q6H PRN Nausea/Vomiting Famotidine 20 mg 04/29/21 21:00 Famotidine 20 Mg/2 Ml Sdv IVPUSH BID [facility] Fentanyl 25 mcg 04/30/21 21:00 Fentanyl 25 Mcg/Hr Transdermal Patch TRDERM Q72H [facility] Hydromorphone HCl 0.5 mg 04/29/21 15:51 Hydromorphone 1 Mg/Ml Syringe IVPUSH Q2H PRN Pain (severe 7-10) Sodium Chloride 1,000 mls @ 125 mls/hr 04/29/21 15:51 Normal Saline IV ASDIRECTED [facility] Potassium Chloride 20 meq/ 112 mls @ 50 mls/hr 04/29/21 16:30 04/29/21 17:12 Lidocaine HCl 2 ml/ Sodium IV 04/29/21 20:29 50 mls/hr Chloride Q2H TADEO Administration Insulin Human Lispro 0 unit 04/29/21 17:00 04/29/21 17:11 Insulin Lispro 100 Unit/Ml 3 Ml Kwikpen SUBCUT 2 units QIDACANDBED [facility] Administration Protocol Lorazepam 0.5 mg 04/29/21 15:51 Lorazepam 2 Mg/Ml Sdv IVPUSH Q4H PRN Nausea/Vomiting Melatonin 9 mg 04/29/21 15:51 Melatonin 3 Mg Tab PO BEDTIME PRN Sleep Metoclopramide HCl 10 mg 04/29/21 15:51 04/29/21 16:12 Metoclopramide 10 Mg/2 Ml Sdv IVPUSH 10 mg Q8H PRN Administration Nausea/Vomiting Ondansetron HCl 4 mg 04/29/21 15:51 Ondansetron 4 Mg/2 Ml Sdv IV Q6H PRN Nausea/Vomiting Ondansetron HCl 4 mg 04/29/21 15:51 Ondansetron 4 Mg Tab.Dis PO Q6H PRN Nausea able to take PO Oxycodone HCl 7.5 mg 04/29/21 15:51 Oxycodone 5 Mg Tab PO Q4H PRN Pain (moderate 4-6) Prochlorperazine Maleate 10 mg 04/29/21 15:51 Prochlorperazine 10 Mg Tab PO Q6H PRN Nausea Propranolol HCl 80 mg 04/29/21 21:00 Propranolol 80 Mg Cap.Er PO BEDTIME TADEO Scopolamine 1.5 mg 04/29/21 15:00 04/29/21 14:56 Scopolamine 1.5 Mg Transdermal Patch TRDERM 1.5 mg Q72H TADEO Administration Senna/Docusate Sodium 1 tab 04/29/21 15:51 Docusate Sodium/Sennosides 50-8.6 Mg Tab PO BID PRN Constipation Sertraline HCl 25 mg 04/30/21 09:00 Sertraline 25 Mg Tab PO DAILY TADEO Sodium Chloride 10 ml 04/29/21 13:08 04/29/21 13:37 Sodium Chloride 0.9% 10 Ml Syringe FLUSH 10 ml ONETIME PRN Administration PER RADIOLOGY PROTOCOL Discontinued Medications Generic Name Dose Route Start Last Admin Trade Name Freq PRN Reason Stop Dose Admin Droperidol 1.25 mg 04/29/21 12:47 04/29/21 12:54 Droperidol 5 Mg/2 Ml Sdv IVPUSH 04/29/21 12:48 1.25 mg ONETIME ONE Administration Sodium Chloride 1,000 mls @ 999 mls/hr 04/29/21 13:00 04/29/21 13:45 Normal Saline IV 999 mls/hr ASDIRECTED TADEO Administration Sodium Chloride 70 mls @ 3 mls/sec 04/29/21 13:08 04/29/21 13:37 Normal Saline IV 04/29/21 13:09 3 mls/sec ONETIME ONE Administration Iopamidol 74 ml 04/29/21 13:08 04/29/21 13:37 Iopamidol 612 Mg/Ml 100 Ml Bottle IV 74 ml . DIRECTED PRN Administration RADIOLOGY EXAM Lorazepam 0.5 mg 04/29/21 14:52 04/29/21 14:57 Lorazepam 2 Mg/Ml Sdv IVPUSH 04/29/21 14:53 0.5 mg ONETIME ONE Administration - Re-Assessments/Exams Free Text/Narrative Re-Assessment/Exam: 04/29/21 13:05 Patient was given 1.25 mg of IV droperidol and a liter bolus of normal saline started. CT of the abdomen pelvis with IV contrast was ordered. 04/29/21 18:23 Droperidol again helped the patient's nausea, she felt somewhat better after the IV bolus and CT of the abdomen and pelvis was nonspecific and labs were stable. She was admitted to the hospitalist service for intractable nausea and vomiting. Departure - Departure Time of Disposition: 15:35 Disposition: Admitted As Inpatient 65 Condition: Fair Clinical Impression: Intractable nausea and vomiting, Metastatic malignant neoplasm of unknown primary site - Discharge Information Sepsis Event Note (ED) - Focused Exam Vital Signs: Vital Signs Temp Pulse Resp BP Pulse Ox 04/29/21 13:29 98.2 F 77 22 H 161/81 H 100 04/29/21 12:38 98.2 F 77 22 H 161/81 H 100 - My Orders Last 24 Hours: My Active Orders 04/29/21 13:08 Sodium Chloride 0.9% [Saline Flush] 10 ml FLUSH ONETIME PRN - Assessment/Plan Last 24 Hours: My Active Orders 04/29/21 13:08 Sodium Chloride 0.9% [Saline Flush] 10 ml FLUSH ONETIME PRN
[2021-04-29] MEDS ORDERED: Sodium Chloride 0.9% 10 ML Syringe FLUSH PRN (13:08)
[2021-04-29] MEDS ORDERED: Iopamidol 612 MG/ML 100 ML Bottle IV PRN (13:08)
--- NOTE | 2021-04-29 14:14 | CT ---
Abdomen Pelvis w Cont CLINICAL HISTORY: Nausea and vomiting COMPARISON: 2019. TECHNIQUE: Transverse scans were obtained from the base of the lungs to the pubic symphysis following oral contrast and IV infusion of contrast.Auto dosage reduction and iterative reconstructiontechniques employed. FINDINGS: The lung bases show some pleural parenchymal scarring. There is a hiatal hernia. The liver shows no mass or biliary dilatation. The gallbladder is not identified. The spleen has a normal size and shape. The pancreas shows no mass or inflammatory change. The left adrenal gland is enlarged and has increased in size since the 2019 study. The kidneys contain multiple parapelvic cysts bilaterally. There is no stones or hydronephrosis. The ureters have a normal course and caliber is seen. The bladder has a normal contour. The uterus is to the left of midline. It is a postmenopausal appearance. The aorta shows atheromatous plaque without aneurysm. There is no suspicious retroperitoneal adenopathy. The small intestinal configuration is nonspecific. There is gas and feces throughout the colon. There is some mild sclerosis in the left ilium above the acetabulum. IMPRESSION: Enlargement of the left adrenal gland since prior study is suspicious for metastatic disease There is mottled sclerosis in the left ilium above the acetabulum suspect for metastasis
[2021-04-29] MEDS ORDERED: LORazepam 2 MG/ML SDV IVPUSH ONE (14:52)
[2021-04-29] MEDS: Scopolamine 1.5 MG Transdermal Patch TRDERM SCH (14:56)
--- NOTE | 2021-04-29 15:09 | PCM.HP.2 ---
H&P History of Present Illness - General Date of Service: 04/29/21 Admit Problem/Dx: Admission Diagnosis/Problem Admission Diagnosis/Problem Nausea and vomiting in adult patient Source of Information: Patient, Family, Provider History Limitations: Reports: No Limitations - History of Present Illness Initial Comments - Free Text/Narative: CC: I keep throwing up HPI: Genoveva presents to the emergency room today with persistent nausea as well as vomiting. She had recent dose escalations of antiemetics and was seen in the emergency room yesterday and received additional antiemetic therapy. Despite these adjustments she has had ongoing nausea with vomiting. She has not been able to keep down any food or fluid in 24 hours. She reports very mild upper abdominal discomfort that she does not call pain. Emesis is greenish fluid. She has not had any fevers. She has loose bowel movements but has not had what she would call diarrhea. She does not feel short of breath and does not have any urinary symptoms such as dysuria or increased urinary frequency. Her chronic pain in the left hip is stable. No obvious sick contacts though she does report that her daughter had a fever and "the flu" today. She is getting worse despite several attempts at outpatient management. She was last seen in oncology 1 week ago. Last chemotherapy was several months ago. Work-up in the emergency room included laboratory studies and a CT scan of the abdomen and pelvis. There is evidence for dehydration, hypokalemia and mild leukocytosis. CT scan did not show any acute pathology. She will be admitted for symptomatic management as well as upper endoscopy. - Related Data Allergies/Adverse Reactions: Allergies Allergy/AdvReac Type Severity Reaction Status Date / Time carboplatin Allergy Muscle Verified 04/29/21 07:35 Aches codeine Allergy Rash Verified 04/28/21 14:52 morphine AdvReac Severe Anaphylactic Verified 04/28/21 14:52 Shock esomeprazole magnesium AdvReac Headache; Verified 04/28/21 14:52 [From Nexium] nausea hydromorphone [From Dilaudid] AdvReac Nausea Verified 04/28/21 14:52 lansoprazole [From Prevacid] AdvReac Headache; Verified 04/28/21 14:52 Nausea omeprazole AdvReac Headache; Verified 04/28/21 14:52 Nausea pantoprazole sodium AdvReac Headache; Verified 04/28/21 14:52 [From Protonix] nausea rabeprazole [From Aciphex] AdvReac Nausea; Verified 04/28/21 14:52 Headache Home Medications: Home Meds Calcium Carbonate [Calcium] 600 mg PO BID 12/24/13 [History] Multivitamin with Minerals [Multiple Vitamin] 1 tab PO DAILY 12/24/13 [History] Propranolol [Inderal LA] 80 mg PO BEDTIME 12/24/13 [History] amLODIPine [Norvasc] 2.5 mg PO BEDTIME 11/09/18 [History] atorvaSTATin [Lipitor] 40 mg PO BEDTIME 11/09/18 [History] Cholecalciferol (Vitamin D3) [Vitamin D3] 2,000 unit PO DAILY 08/17/19 [History] Famotidine [Pepcid] 40 mg PO BID 11/22/19 [History] fentaNYL [Duragesic] 100 mcg TRDERM Q72H 08/18/20 [History] oxyCODONE 15 mg PO Q6H PRN 08/18/20 [History] Ondansetron [Zofran ODT] 4 mg PO Q8H PRN 09/03/20 [History] metFORMIN [Glucophage] 500 mg PO BIDMEALS 09/03/20 [History] Prochlorperazine [Compazine] 10 mg PO Q6H PRN 04/29/21 [History] Sertraline HCl 25 mg PO DAILY 04/29/21 [History] Past Medical History HEENT History: Reports: Impaired Vision Cardiovascular History: Reports: High Cholesterol, Hypertension Respiratory History: Reports: None Gastrointestinal History: Reports: GERD, Hiatal Hernia Genitourinary History: Reports: None [employer] History: Reports: Musculoskeletal History: Reports: Osteoarthritis, Other (See Below) Other Musculoskeletal History: right hand middle finger trigger finger. in need of a left hip replacement, dr batista Neurological History: Reports: Migraines Psychiatric History: Reports: None Endocrine/Metabolic History: Reports: Diabetes, Type II Hematologic History: Reports: None Immunologic History: Reports: None Oncologic (Cancer) History: Reports: Bone, Lung, Other (See Below) Other Oncologic History: pt has been told she has cancer but they do not know where yet Dermatologic History: Reports: None - Infectious Disease History Infectious Disease History: Reports: Chicken Pox, Measles, Mumps - Past Surgical History Head Surgeries/Procedures: Reports: None HEENT Surgical History: Reports: None Cardiovascular Surgical History: Reports: None Respiratory Surgical History: Reports: None GI Surgical History: Reports: Appendectomy, Cholecystectomy, Colonoscopy, EGD, Hernia, Abdominal, [place] Fundoplication, Other (See Below) Other GI Surgeries/Procedures: omentumectomy Female Surgical History: Reports: Breast Biopsy, Cervical Conization Endocrine Surgical History: Reports: None Neurological Surgical History: Reports: Laminectomy Musculoskeletal Surgical History: Reports: None, Carpal Tunnel Oncologic Surgical History: Reports: Biopsy of Breast Dermatological Surgical History: Reports: Skin Biopsy Social & Family History - Family History Family Medical History: No Pertinent Family History - Tobacco Use Tobacco Use Status *Q: Never Tobacco User - Caffeine Use Caffeine Use: Reports: None - Alcohol Use Alcohol Use History: No - Recreational Drug Use Recreational Drug Use: No H&P Review of Systems - Review of Systems: Review Of Systems: See Below Free Text/Narrative: A complete 12 point review of systems was obtained. Pertinent positives and negatives are noted in the history of present illness. All other systems were reviewed and were negative except as noted. Exam - Exam Exam: See Below - Vital Signs Vital Signs: Last Vital Signs Temp 36.8 C 04/29/21 13:29 Pulse 83 04/29/21 15:07 Resp 22 H 04/29/21 13:29 BP 159/78 H 04/29/21 15:07 Pulse Ox 98 04/29/21 15:07 Weight: 49 kg - Exam Quality Assessment: No: Supplemental Oxygen General: Alert, Oriented, Cooperative, Mild Distress, Other (Actively vomiting in the emergency room) HEENT: Conjunctiva Clear. No: Mucosa Moist & Car[place] (Dry), Scleral Icterus Neck: Supple, Trachea Midline Lungs: Clear to Auscultation, Normal Respiratory Effort Cardiovascular: Regular Rate, Regular Rhythm. No: Systolic Murmur GI/Abdominal Exam: Soft, No Distention, Tender (Mild epigastric). No: Normal Bowel Sounds (Hypoactive) Back Exam: Normal Inspection, Full Range of Motion Extremities: No Pedal Edema. No: Increased Warmth Peripheral Pulses: 1+: Dorsalis Pedis (L), Dorsalis Pedis (R) Skin: Warm, Dry Neuro Extensive - Mental Status: Alert, Oriented x3, Nl Response to Commands Neuro Extensive - Motor, Sensory, Reflexes: Tremor (Right hand). No: Dysarthria, Abnormal Motor Psychiatric: Alert, Normal Affect - Patient Data Lab Results Last 24 hrs: Laboratory Results - last 24 hr 04/29/21 04/29/21 Range/Units 12:55 12:55 WBC 13.1 H (4.5-11.0) K/uL RBC 4.40 (3.30-5.50) M/uL Hgb 13.7 (12.0-15.0) g/dL Hct 40.1 (36.0-48.0) % MCV 91 (80-98) fL MCH 31 (27-31) pg MCHC 34 (32-36) % Plt Count 253 (150-400) K/uL Neut % (Auto) 84.2 H (36-66) % Lymph % (Auto) 11.2 L (24-44) % Pepin % (Auto) 4.5 (2-6) % Eos % (Auto) 0.0 L (2-4) % Baso % (Auto) 0.1 (0-1) % Sodium 139 L (140-148) mmol/L Potassium 3.3 L (3.6-5.2) mmol/L Chloride 99 L (100-108) mmol/L Carbon Dioxide 21 (21-32) mmol/L Anion Gap 22.3 H (5.0-14.0) mmol/L BUN 13 (7-18) mg/dL Creatinine 1.1 H (0.6-1.0) mg/dL Est Cr Clr Drug Dosing 33.69 mL/min Estimated GFR (MDRD) 49 L (>60) Glucose 219 H (74-106) mg/dL Calcium 9.4 (8.5-10.1) mg/dL Result Diagrams: 04/29/21 12:55 04/29/21 12:55 Imaging Impressions Last 24 hrs: CT scan of the abdomen and pelvis-these images were personally reviewed and the radiologist interpretation is noted-no evidence for obstruction and there are no obvious masses noted though the left adrenal gland is larger in size than on most recent imaging and is concerning for metastatic disease. Gallbladder surgically absent. She does have a few kidney cysts. There is some mottled sclerosis around the left acetabulum in the area of the known metastatic lesion. Sepsis Event Note - Evaluation Sepsis Screening Result: No Definite Risk - Focused Exam Vital Signs: Vital Signs Temp Pulse Resp BP Pulse Ox 04/29/21 15:07 83 159/78 H 98 04/29/21 13:29 36.8 C 77 22 H 161/81 H 100 04/29/21 12:38 36.8 C 77 22 H 161/81 H 100 *Q Meaningful Use (ADM) - VTE Risk Assess *Q Each Risk Factor Represents 1 Point: Minor Surgery Planned Total Score 1 Point Risk Factors: 1 Each Risk Factor Represents 2 Points: Age 60 - 74 Years, Malignancy (present or previous) Total Score 2 Point Risk Factors: 4 Each Risk Factor Represents 3 Points: None Total Score 3 Point Risk Factors: 0 Each Risk Factor Represents 5 Points: None Total Score 5 Point Risk Factors: 0 Venous Thromboembolism Risk Factor Score *Q: 5 - Problem List (1) Intractable nausea and vomiting SNOMED Code(s): 191278084 ICD Code: R11.2 - NAUSEA WITH VOMITING, UNSPECIFIED Status: Acute Current Visit: Yes (2) Dehydration SNOMED Code(s): 89655268 ICD Code: E86.0 - DEHYDRATION Status: Acute Current Visit: No (3) Hypokalemia SNOMED Code(s): 60749700 ICD Code: E87.6 - HYPOKALEMIA Status: Acute Current Visit: No (4) Metastatic malignant neoplasm of unknown primary site SNOMED Code(s): 134979027 ICD Code: C79.9 - SECONDARY MALIGNANT NEOPLASM OF UNSPECIFIED SITE; C80.1 - MALIGNANT (PRIMARY) NEOPLASM, UNSPECIFIED Status: Chronic Current Visit: Yes Problem Details: Unknown primary with metastases to the lung and multiple bony sites Problem List Initiated/Reviewed/Updated: Yes Orders Last 24hrs: Active Orders 24 hr Category Date Time Status Patient Status Manage Transfer [TRANSFER] Routine ADT 04/29/21 14:54 Ordered Scopolamine [Transderm-Scop] Med 04/29/21 15:00 Active 1.5 mg TRDERM Q72H Sodium Chloride 0.9% [Normal Saline] 1,000 ml Med 04/29/21 13:00 Active IV ASDIRECTED Sodium Chloride 0.9% [Saline Flush] Med 04/29/21 13:08 Active 10 ml FLUSH ONETIME PRN Resuscitation Status Routine Resus Stat 04/29/21 14:57 Ordered Medication Orders Sodium Chloride (Normal Saline) 1,000 mls @ 999 mls/hr IV ASDIRECTED TADEO Last Admin: 04/29/21 13:45 Dose: 999 mls/hr Documented by: LUIS Scopolamine (Scopolamine 1.5 Mg Transdermal Patch) 1.5 mg TRDERM Q72H [facility] Last Admin: 04/29/21 14:56 Dose: 1.5 mg Documented by: LUIS Sodium Chloride (Sodium Chloride 0.9% 10 Ml Syringe) 10 ml FLUSH ONETIME PRN PRN Reason: PER RADIOLOGY PROTOCOL Last Admin: 04/29/21 13:37 Dose: 10 ml Documented by: ANDREW Assessment/Plan Comment:: ASSESSMENT AND PLAN - Intractable nausea with vomiting-worsening despite several attempts for outpatient management. Unable to keep anything down. There is evidence for moderate dehydration as well as hypokalemia. Exact cause for this nausea and vomiting is unclear. Patient has had intermittent difficulties over the last several months but nothing this severe. CT scan did not show obvious cause. Could be mechanical outlet obstruction versus less likely a viral gastritis versus other? -Symptomatic management of pain and nausea -IV fluids for hydration -EGD in the morning Metastatic cancer with unknown primary-metastases to multiple bone sites as well as the lung. Most recent chemotherapy was in October, 6 months ago. Most recent follow-up was about 1 week ago. -Outpatient oncology follow-up Type 2 diabetes mellitus-normally takes Metformin. Will place this on hold till she is able to take oral medications. -Sliding scale insulin -Hold Metformin Maintenance issues - -DVT prophylaxis-mechanical -GI prophylaxis-H2 radha -Nutrition-nothing by mouth with ice chips -Matthews catheter-not indicated CODE STATUS -full code Admission justification -this patient will be admitted for inpatient services and is medically appropriate meeting medical necessity for inpatient admission as outlined in my documentation. I reasonably expect the patient will require inpatient services that span a period time over 2 midnights. I reasonably expect this patient to be discharged or transferred within 96 hours [facility] Worsening despite treatment attempts as an outpatient. Disposition -I anticipate discharge home after the hospital stay Primary care physician -Dr. Gila Mena M.D. - Mortality Measure Prognosis:: Poor
[2021-04-29] MEDS ORDERED: Melatonin 3 MG Tab PO PRN (15:51)
[2021-04-29] MEDS ORDERED: Acetaminophen 325 MG Tab PO PRN (15:51)
[2021-04-29] MEDS ORDERED: Ondansetron 4 MG/2 ML SDV IV PRN (15:51)
[2021-04-29] MEDS: Metoclopramide 10 MG/2 ML SDV IVPUSH PRN (16:12)
[2021-04-29] MEDS: Insulin Lispro 100 Unit/ML 3 ML KwikPen SUBCUT SCH ×2 (17:11→21:23)
[2021-04-29] MEDS: Potassium Chloride 20 MEQ, Lidocaine 1% 2 ML in Sodium Chloride 0.9% 100 ML IV SCH ×2 (17:12→19:28)
[2021-04-29] MEDS: Ondansetron 4 MG Tab.DIS PO PRN (19:37)
[2021-04-29] MEDS: Prochlorperazine 10 MG Tab PO PRN (20:21)
[2021-04-29] MEDS: Famotidine 20 MG/2 ML SDV IVPUSH SCH (20:22)
[2021-04-29] MEDS: LORazepam 2 MG/ML SDV IVPUSH PRN (21:33)
[2021-04-29] MEDS: Propranolol 80 MG Cap.ER PO SCH (21:36)
[2021-04-29] MEDS: Sodium Chloride 0.9% 1,000 ML IV SCH (23:27)
[2021-04-30] MEDS: Ondansetron 4 MG Tab.DIS PO PRN ×2 (03:48→15:38)
[2021-04-30] MEDS: Prochlorperazine 10 MG Tab PO PRN (03:48)
[2021-04-30] MEDS: Metoclopramide 10 MG/2 ML SDV IVPUSH PRN ×2 (06:45→23:46)
[2021-04-30] MEDS: Sodium Chloride 0.9% 1,000 ML IV SCH ×4 (06:46→21:20)
--- NOTE | 2021-04-30 08:04 | PCM.CONS ---
H&P History of Present Illness - General Date of Service: 04/30/21 Admit Problem/Dx: Admission Diagnosis/Problem Admission Diagnosis/Problem Nausea and vomiting in adult patient Source of Information: Patient - History of Present Illness Initial Comments - Free Text/Narative: Genoveva states that she has had severe nausea and vomiting for several day and nothing is helping. Improves with: Reports: None Worsens with: Reports: None Associated Symptoms: Reports: Malaise, Nausea/Vomiting, Weakness Abdomen Pain Score (Numeric/FACES): 0 - Related Data Allergies/Adverse Reactions: Allergies Allergy/AdvReac Type Severity Reaction Status Date / Time carboplatin Allergy Muscle Verified 04/29/21 07:35 Aches codeine Allergy Rash Verified 04/28/21 14:52 morphine AdvReac Severe Anaphylactic Verified 04/28/21 14:52 Shock esomeprazole magnesium AdvReac Headache; Verified 04/28/21 14:52 [From Nexium] nausea hydromorphone [From Dilaudid] AdvReac Nausea Verified 04/28/21 14:52 lansoprazole [From Prevacid] AdvReac Headache; Verified 04/28/21 14:52 Nausea omeprazole AdvReac Headache; Verified 04/28/21 14:52 Nausea pantoprazole sodium AdvReac Headache; Verified 04/28/21 14:52 [From Protonix] nausea rabeprazole [From Aciphex] AdvReac Nausea; Verified 04/28/21 14:52 Headache Home Medications: Home Meds Calcium Carbonate [Calcium] 600 mg PO BID 12/24/13 [History] Multivitamin with Minerals [Multiple Vitamin] 1 tab PO DAILY 12/24/13 [History] Propranolol [Inderal LA] 80 mg PO BEDTIME 12/24/13 [History] amLODIPine [Norvasc] 2.5 mg PO BEDTIME 11/09/18 [History] atorvaSTATin [Lipitor] 40 mg PO BEDTIME 11/09/18 [History] Cholecalciferol (Vitamin D3) [Vitamin D3] 2,000 unit PO DAILY 08/17/19 [History] Famotidine [Pepcid] 40 mg PO BID 11/22/19 [History] fentaNYL [Duragesic] 100 mcg TRDERM Q72H 08/18/20 [History] oxyCODONE 15 mg PO Q6H PRN 08/18/20 [History] Ondansetron [Zofran ODT] 4 mg PO Q8H PRN 09/03/20 [History] metFORMIN [Glucophage] 500 mg PO BIDMEALS 09/03/20 [History] Prochlorperazine [Compazine] 10 mg PO Q6H PRN 04/29/21 [History] Sertraline HCl 25 mg PO DAILY 04/29/21 [History] Past Medical History HEENT History: Reports: Impaired Vision Cardiovascular History: Reports: High Cholesterol, Hypertension Respiratory History: Reports: None Gastrointestinal History: Reports: GERD, Hiatal Hernia Genitourinary History: Reports: None [employer] History: Reports: Musculoskeletal History: Reports: Osteoarthritis, Other (See Below) Other Musculoskeletal History: right hand middle finger trigger finger. in need of a left hip replacement, dr batista Neurological History: Reports: Migraines Psychiatric History: Reports: None Endocrine/Metabolic History: Reports: Diabetes, Type II Hematologic History: Reports: None Immunologic History: Reports: None Oncologic (Cancer) History: Reports: Bone, Lung, Other (See Below) Other Oncologic History: pt has been told she has cancer but they do not know where yet Dermatologic History: Reports: None - Infectious Disease History Infectious Disease History: Reports: Chicken Pox, Measles, Mumps - Past Surgical History Head Surgeries/Procedures: Reports: None HEENT Surgical History: Reports: None Cardiovascular Surgical History: Reports: None Respiratory Surgical History: Reports: None GI Surgical History: Reports: Appendectomy, Cholecystectomy, Colonoscopy, EGD, Hernia, Abdominal, [place] Fundoplication, Other (See Below) Other GI Surgeries/Procedures: omentumectomy Female Surgical History: Reports: Breast Biopsy, Cervical Conization Endocrine Surgical History: Reports: None Neurological Surgical History: Reports: Laminectomy Musculoskeletal Surgical History: Reports: None, Carpal Tunnel, Other (See Below) Other Musculoskeletal Surgeries/Procedures:: left hip CA Oncologic Surgical History: Reports: Biopsy of Breast Dermatological Surgical History: Reports: Skin Biopsy Social & Family History - Family History Family Medical History: No Pertinent Family History - Tobacco Use Tobacco Use Status *Q: Never Tobacco User Second Hand Smoke Exposure: No - Caffeine Use Caffeine Use: Reports: Soda, Tea - Recreational Drug Use Recreational Drug Use: No H&P Review of Systems - Review of Systems: Review Of Systems: See Below General: Reports: Malaise, Weakness, Fatigue, Decreased Appetite, Weight Loss HEENT: Reports: No Symptoms Pulmonary: Reports: No Symptoms Cardiovascular: Reports: No Symptoms Gastrointestinal: Reports: Decreased Appetite, Nausea, Vomiting Genitourinary: Reports: No Symptoms Musculoskeletal: Reports: No Symptoms Skin: Reports: No Symptoms Psychiatric: Reports: No Symptoms Neurological: Reports: No Symptoms Hematologic/Lymphatic: Reports: No Symptoms Immunologic: Reports: No Symptoms Exam - Exam Exam: See Below - Vital Signs Vital Signs: Last Vital Signs Temp 99.1 F 04/30/21 03:51 Pulse 78 04/30/21 03:51 Resp 16 04/30/21 03:51 BP 145/75 H 04/30/21 03:51 Pulse Ox 99 04/30/21 03:51 Weight: 110 lb 3.698 oz - Exam Quality Assessment: DVT Prophylaxis General: Severe Distress HEENT: Hearing Intact Neck: Supple, Trachea Midline Lungs: Clear to Auscultation, Normal Respiratory Effort Cardiovascular: Regular Rate, Regular Rhythm GI/Abdominal Exam: Other (difficult to exam patient is very nauseated ) (Female) Exam: Deferred Rectal (Female) Exam: Deferred Back Exam: Normal Inspection Extremities: Normal Inspection Skin: Warm, Dry, Intact Neurological: Cranial Nerves Intact, Normal Speech Neuro Extensive - Mental Status: Alert, Oriented x3, Normal Mood/Affect, Normal Cognition, Memory Intact Neuro Extensive - Motor, Sensory, Reflexes: CN II-XII Intact Psychiatric: Labile Mood - Patient Data Lab Results Last 24 hrs: Laboratory Results - last 24 hr 04/29/21 04/29/21 04/29/21 Range/Units 12:55 12:55 16:19 WBC 13.1 H (4.5-11.0) K/uL RBC 4.40 (3.30-5.50) M/uL Hgb 13.7 (12.0-15.0) g/dL Hct 40.1 (36.0-48.0) % MCV 91 (80-98) fL MCH 31 (27-31) pg MCHC 34 (32-36) % Plt Count 253 (150-400) K/uL Neut % (Auto) 84.2 H (36-66) % Lymph % (Auto) 11.2 L (24-44) % [place] % (Auto) 4.5 (2-6) % Eos % (Auto) 0.0 L (2-4) % Baso % (Auto) 0.1 (0-1) % Sodium 139 L (140-148) mmol/L Potassium 3.3 L (3.6-5.2) mmol/L Chloride 99 L (100-108) mmol/L Carbon Dioxide 21 (21-32) mmol/L Anion Gap 22.3 H (5.0-14.0) mmol/L BUN 13 (7-18) mg/dL Creatinine 1.1 H (0.6-1.0) mg/dL Est Cr Clr Drug Dosing 33.69 mL/min Estimated GFR (MDRD) 49 L (>60) Glucose 219 H (74-106) mg/dL POC Glucose 170 H (74-106) mg/dL Calcium 9.4 (8.5-10.1) mg/dL Magnesium (1.8-2.4) mg/dL SARS-CoV-2 RNA (SUSAN) (NEGATIVE) 04/29/21 04/29/21 04/30/21 Range/Units 17:22 21:00 05:05 WBC 13.4 H (4.5-11.0) K/uL RBC 4.11 (3.30-5.50) M/uL Hgb 12.6 (12.0-15.0) g/dL Hct 37.7 (36.0-48.0) % MCV 92 (80-98) fL MCH 31 (27-31) pg MCHC 33 (32-36) % Plt Count 231 (150-400) K/uL Neut % (Auto) (36-66) % Lymph % (Auto) (24-44) % [place] % (Auto) (2-6) % Eos % (Auto) (2-4) % Baso % (Auto) (0-1) % Sodium (140-148) mmol/L Potassium (3.6-5.2) mmol/L Chloride (100-108) mmol/L Carbon Dioxide (21-32) mmol/L Anion Gap (5.0-14.0) mmol/L BUN (7-18) mg/dL Creatinine (0.6-1.0) mg/dL Est Cr Clr Drug Dosing mL/min Estimated GFR (MDRD) (>60) Glucose (74-106) mg/dL POC Glucose 130 H (74-106) mg/dL Calcium (8.5-10.1) mg/dL Magnesium (1.8-2.4) mg/dL SARS-CoV-2 RNA (SUSAN) Negative (NEGATIVE) 04/30/21 04/30/21 Range/Units 05:05 07:30 WBC (4.5-11.0) K/uL RBC (3.30-5.50) M/uL Hgb (12.0-15.0) g/dL Hct (36.0-48.0) % MCV (80-98) fL MCH (27-31) pg MCHC (32-36) % Plt Count (150-400) K/uL Neut % (Auto) (36-66) % Lymph % (Auto) (24-44) % [place] % (Auto) (2-6) % Eos % (Auto) (2-4) % Baso % (Auto) (0-1) % Sodium 137 L (140-148) mmol/L Potassium 3.4 L (3.6-5.2) mmol/L Chloride 100 (100-108) mmol/L Carbon Dioxide 21 (21-32) mmol/L Anion Gap 19.4 H (5.0-14.0) mmol/L BUN 9 (7-18) mg/dL Creatinine 0.8 (0.6-1.0) mg/dL Est Cr Clr Drug Dosing 46.33 mL/min Estimated GFR (MDRD) > 60 (>60) Glucose 150 H (74-106) mg/dL POC Glucose 139 H (74-106) mg/dL Calcium 8.1 L (8.5-10.1) mg/dL Magnesium 1.7 L (1.8-2.4) mg/dL SARS-CoV-2 RNA (SUSAN) (NEGATIVE) Result Diagrams: 04/30/21 05:05 04/30/21 05:05 Sepsis Event Note - Evaluation Sepsis Screening Result: No Definite Risk - Focused Exam Vital Signs: Vital Signs Temp Pulse Resp BP Pulse Ox 04/30/21 03:51 99.1 F 78 16 145/75 H 99 04/29/21 23:52 99.7 F 83 16 144/64 H 100 Consult PN Assessment/Plan Procedures: Procedures ASSAY ALKALINE PHOSPHATASE (09/09/19) ASSAY OF CREATININE (04/13/21) ASSAY OF LIPASE (12/15/19) ASSAY OF MAGNESIUM (08/04/20) ASSAY OF PHOSPHORUS (12/15/19) BILIRUBIN TOTAL (09/09/19) BLOOD TRANSFUSION SERVICE (09/09/20) BLOOD TYPING SEROLOGIC ABO (09/09/20) BLOOD TYPING SEROLOGIC RH(D) (09/09/20) BONE IMAGING WHOLE BODY (04/17/21) BREAST TOMOSYNTHESIS BI (05/19/20) CARDIOVASCULAR STRESS TEST (05/26/16) CARDIOVASCULAR STRESS TEST (05/26/16) COLONOSCOPY AND BIOPSY (08/22/19) COMP SCREEN MAMMOGRAM ADD-ON (04/13/16) COMPATIBILITY TEST ANTIGLOB (09/09/20) COMPATIBILITY TEST SPIN (09/09/20) COMPLETE CBC AUTOMATED (08/04/20) COMPLETE CBC W/AUTO DIFF WBC (08/04/20) COMPREHEN METABOLIC PANEL (11/18/20) CT ABD & PELV W/CONTRAST (11/13/20) CT HEAD/BRAIN W/O DYE (08/04/20) CT LOWER EXTREMITY W/O DYE (07/21/20) CT THORAX DX C+ (04/13/21) CULTURE SCREEN ONLY (11/26/19) DRAIN/INJ JOINT/BURSA W/O US (06/09/20) ECHO EXAM OF ABDOMEN (09/04/19) EGD BIOPSY SINGLE/MULTIPLE (11/26/19) EGD DIAGNOSTIC BRUSH WASH (11/21/18) EMERGENCY DEPT VISIT (08/20/20) EMERGENCY DEPT VISIT (08/18/20) EMERGENCY DEPT VISIT (12/15/19) EMERGENCY DEPT VISIT (12/15/19) FLUOROGUIDE FOR VEIN DEVICE (09/05/20) GLUCOSE BLOOD TEST (09/09/19) HT MUSCLE IMAGE SPECT MULT (05/26/16) HYDRATE IV INFUSION ADD-ON (12/15/19) INCISE FINGER TENDON SHEATH (11/09/18) INSERT TUNNELED CV CATH (09/05/20) LAPAROSCOPIC CHOLECYSTECTOMY (09/09/19) MEASURE BLOOD OXYGEN LEVEL (08/04/20) METABOLIC PANEL TOTAL CA (08/04/20) MRI BRAIN STEM W/O & W/DYE (04/15/21) NEEDLE LOCALIZATION BY XRAY (06/09/20) RBC ANTIBODY SCREEN (09/09/20) REMOVAL OF OMENTUM (09/09/19) ROUTINE VENIPUNCTURE (04/13/21) SCR MAMMO BI INCL CAD (05/19/20) THER/PROPH/DIAG INJ IV PUSH (08/20/20) THER/PROPH/DIAG INJ SC/IM (07/17/20) TISSUE EXAM BY PATHOLOGIST (09/09/19) TISSUE EXAM BY PATHOLOGIST (09/09/19) TTE W/DOPPLER COMPLETE (08/26/16) TX/PRO/DX INJ NEW DRUG ADDON (08/20/20) X-RAY EXAM ABDOMEN 1 VIEW (12/15/19) X-RAY EXAM ABDOMEN 2 VIEWS (12/15/19) X-RAY EXAM CHEST 1 VIEW (09/05/20) X-RAY EXAM CHEST 2 VIEWS (12/15/19) Problem List Initiated/Reviewed/Updated: Yes My Orders Last 24 Hours: My Active Orders 04/30/21 07:38 Verify Patient Consent Obtain [RC] ASDIRECTED Plan: Assessment: Nausea and Vomiting Plan: Scheduled EGD with possible biopsies with IV/Local Sedation - 04/30/2021 Case to Follow Enmanuel Gomez MD Thank you for this consultation Vero Bangura 04/30/2021
[2021-04-30] MEDS: Sertraline 25 MG Tab PO SCH (08:12)
[2021-04-30] MEDS: Insulin Lispro 100 Unit/ML 3 ML KwikPen SUBCUT SCH ×4 (08:12→21:20)
[2021-04-30] MEDS: Famotidine 20 MG/2 ML SDV IVPUSH SCH (08:54)
[2021-04-30] MEDS ORDERED: Magnesium Sulfate/Water 2 GM in Premix Bag 1 BAG IV ONE (09:00)
--- NOTE | 2021-04-30 09:38 | PCM.PN ---
- General Info Date of Service: 04/30/21 Subjective Update: No acute events overnight. Patient does not report abdominal pain today but continues to have nausea. She does feel her nausea is less intense than yesterday but does persist. No vomiting since last night. No fevers. White count is mildly elevated but stable. Potassium still slightly low. EGD showed erosive gastritis. Functional Status: Reports: Pain Controlled - Review of Systems General: Reports: Weakness. Denies: Fever Gastrointestinal: Reports: Nausea. Denies: Abdominal Pain - Patient Data Vitals - Most Recent: Last Vital Signs Temp 36.6 C 04/30/21 07:00 Pulse 71 04/30/21 07:00 Resp 16 04/30/21 07:00 BP 154/78 H 04/30/21 07:00 Pulse Ox 98 04/30/21 07:00 Weight - Most Recent: 50 kg I&O - Last 24 Hours: Intake & Output 04/29/21 04/30/21 04/30/21 22:59 06:59 14:59 Intake Total 100 Output Total 700 1450 600 Balance -600 -1450 -600 Lab Results Last 24 Hours: Laboratory Results - last 24 hr 04/29/21 04/29/21 04/29/21 Range/Units 12:55 12:55 16:19 WBC 13.1 H (4.5-11.0) K/uL RBC 4.40 (3.30-5.50) M/uL Hgb 13.7 (12.0-15.0) g/dL Hct 40.1 (36.0-48.0) % MCV 91 (80-98) fL MCH 31 (27-31) pg MCHC 34 (32-36) % Plt Count 253 (150-400) K/uL Neut % (Auto) 84.2 H (36-66) % Lymph % (Auto) 11.2 L (24-44) % [place] % (Auto) 4.5 (2-6) % Eos % (Auto) 0.0 L (2-4) % Baso % (Auto) 0.1 (0-1) % Sodium 139 L (140-148) mmol/L Potassium 3.3 L (3.6-5.2) mmol/L Chloride 99 L (100-108) mmol/L Carbon Dioxide 21 (21-32) mmol/L Anion Gap 22.3 H (5.0-14.0) mmol/L BUN 13 (7-18) mg/dL Creatinine 1.1 H (0.6-1.0) mg/dL Est Cr Clr Drug Dosing 33.69 mL/min Estimated GFR (MDRD) 49 L (>60) Glucose 219 H (74-106) mg/dL POC Glucose 170 H (74-106) mg/dL Calcium 9.4 (8.5-10.1) mg/dL Magnesium (1.8-2.4) mg/dL SARS-CoV-2 RNA (SUSAN) (NEGATIVE) 04/29/21 04/29/21 04/30/21 Range/Units 17:22 21:00 05:05 WBC 13.4 H (4.5-11.0) K/uL RBC 4.11 (3.30-5.50) M/uL Hgb 12.6 (12.0-15.0) g/dL Hct 37.7 (36.0-48.0) % MCV 92 (80-98) fL MCH 31 (27-31) pg MCHC 33 (32-36) % Plt Count 231 (150-400) K/uL Neut % (Auto) (36-66) % Lymph % (Auto) (24-44) % [place] % (Auto) (2-6) % Eos % (Auto) (2-4) % Baso % (Auto) (0-1) % Sodium (140-148) mmol/L Potassium (3.6-5.2) mmol/L Chloride (100-108) mmol/L Carbon Dioxide (21-32) mmol/L Anion Gap (5.0-14.0) mmol/L BUN (7-18) mg/dL Creatinine (0.6-1.0) mg/dL Est Cr Clr Drug Dosing mL/min Estimated GFR (MDRD) (>60) Glucose (74-106) mg/dL POC Glucose 130 H (74-106) mg/dL Calcium (8.5-10.1) mg/dL Magnesium (1.8-2.4) mg/dL SARS-CoV-2 RNA (SUSAN) Negative (NEGATIVE) 04/30/21 04/30/21 Range/Units 05:05 07:30 WBC (4.5-11.0) K/uL RBC (3.30-5.50) M/uL Hgb (12.0-15.0) g/dL Hct (36.0-48.0) % MCV (80-98) fL MCH (27-31) pg MCHC (32-36) % Plt Count (150-400) K/uL Neut % (Auto) (36-66) % Lymph % (Auto) (24-44) % [place] % (Auto) (2-6) % Eos % (Auto) (2-4) % Baso % (Auto) (0-1) % Sodium 137 L (140-148) mmol/L Potassium 3.4 L (3.6-5.2) mmol/L Chloride 100 (100-108) mmol/L Carbon Dioxide 21 (21-32) mmol/L Anion Gap 19.4 H (5.0-14.0) mmol/L BUN 9 (7-18) mg/dL Creatinine 0.8 (0.6-1.0) mg/dL Est Cr Clr Drug Dosing 46.33 mL/min Estimated GFR (MDRD) > 60 (>60) Glucose 150 H (74-106) mg/dL POC Glucose 139 H (74-106) mg/dL Calcium 8.1 L (8.5-10.1) mg/dL Magnesium 1.7 L (1.8-2.4) mg/dL SARS-CoV-2 RNA (SUSAN) (NEGATIVE) Med Orders - Current: Current Medications Acetaminophen (Acetaminophen 325 Mg Tab) 650 mg PO Q4H PRN PRN Reason: Pain (Mild 1-3)/fever Droperidol (Droperidol 5 Mg/2 Ml Sdv) 1.25 mg IVPUSH Q6H PRN PRN Reason: Nausea/Vomiting Famotidine (Famotidine 20 Mg/2 Ml Sdv) 20 mg IVPUSH BID PENDING SALE TO [facility] Last Admin: 04/30/21 08:54 Dose: 20 mg Documented by: Fentanyl (Fentanyl 25 Mcg/Hr Transdermal Patch) 25 mcg TRDERM Q72H PENDING SALE TO [facility] Hydromorphone HCl (Hydromorphone 1 Mg/Ml Syringe) 0.5 mg IVPUSH Q2H PRN PRN Reason: Pain (severe 7-10) Sodium Chloride (Normal Saline) 1,000 mls @ 125 mls/hr IV ASDIRECTED PENDING SALE TO [facility] Last Admin: 04/30/21 08:53 Dose: 125 mls/hr Documented by: Potassium Chloride 20 meq/Lidocaine HCl 2 ml/ Sodium Chloride 112 mls @ 56 mls/hr IV Q2H PENDING SALE TO [facility] Stop: 04/30/21 12:59 Magnesium Sulfate 2 gm/ Premix 50 mls @ 25 mls/hr IV ONETIME ONE Stop: 04/30/21 10:59 Last Admin: 04/30/21 08:53 Dose: 25 mls/hr Documented by: Insulin Human Lispro (Insulin Lispro 100 Unit/Ml 3 Ml Kwikpen) 0 unit SUBCUT QIDACANDBED PENDING SALE TO [facility]; Protocol Last Admin: 04/30/21 08:12 Dose: Not Given Documented by: Lorazepam (Lorazepam 2 Mg/Ml Sdv) 0.5 mg IVPUSH Q4H PRN PRN Reason: Nausea/Vomiting Last Admin: 04/29/21 21:33 Dose: 0.5 mg Documented by: Melatonin (Melatonin 3 Mg Tab) 9 mg PO BEDTIME PRN PRN Reason: Sleep Metoclopramide HCl (Metoclopramide 10 Mg/2 Ml Sdv) 10 mg IVPUSH Q8H PRN PRN Reason: Nausea/Vomiting Last Admin: 04/30/21 06:45 Dose: 10 mg Documented by: Ondansetron HCl (Ondansetron 4 Mg/2 Ml Sdv) 4 mg IV Q6H PRN PRN Reason: Nausea/Vomiting Ondansetron HCl (Ondansetron 4 Mg Tab.Dis) 4 mg PO Q6H PRN PRN Reason: Nausea able to take PO Last Admin: 04/30/21 03:48 Dose: 4 mg Documented by: Oxycodone HCl (Oxycodone 5 Mg Tab) 7.5 mg PO Q4H PRN PRN Reason: Pain (moderate 4-6) Prochlorperazine Maleate (Prochlorperazine 10 Mg Tab) 10 mg PO Q6H PRN PRN Reason: Nausea Last Admin: 04/30/21 03:48 Dose: 10 mg Documented by: Propranolol HCl (Propranolol 80 Mg Cap.Er) 80 mg PO BEDTIME PENDING SALE TO [facility] Last Admin: 04/29/21 21:36 Dose: 80 mg Documented by: Scopolamine (Scopolamine 1.5 Mg Transdermal Patch) 1.5 mg TRDERM Q72H PENDING SALE TO [facility] Last Admin: 04/29/21 14:56 Dose: 1.5 mg Documented by: Senna/Docusate Sodium (Docusate Sodium/Sennosides 50-8.6 Mg Tab) 1 tab PO BID PRN PRN Reason: Constipation Sertraline HCl (Sertraline 25 Mg Tab) 25 mg PO DAILY PENDING SALE TO [facility] Last Admin: 04/30/21 08:12 Dose: Not Given Documented by: Sodium Chloride (Sodium Chloride 0.9% 10 Ml Syringe) 10 ml FLUSH ONETIME PRN PRN Reason: PER RADIOLOGY PROTOCOL Last Admin: 04/29/21 13:37 Dose: 10 ml Documented by: Discontinued Medications Droperidol (Droperidol 5 Mg/2 Ml Sdv) 1.25 mg IVPUSH ONETIME ONE Stop: 04/29/21 12:48 Last Admin: 04/29/21 12:54 Dose: 1.25 mg Documented by: Sodium Chloride (Normal Saline) 1,000 mls @ 999 mls/hr IV ASDIRECTED PENDING SALE TO [facility] Last Admin: 04/29/21 13:45 Dose: 999 mls/hr Documented by: Sodium Chloride (Normal Saline) 70 mls @ 3 mls/sec IV ONETIME ONE Stop: 04/29/21 13:09 Last Admin: 04/29/21 13:37 Dose: 3 mls/sec Documented by: Potassium Chloride 20 meq/Lidocaine HCl 2 ml/ Sodium Chloride 112 mls @ 50 mls/hr IV Q2H PENDING SALE TO [facility] Stop: 04/29/21 20:29 Last Admin: 04/29/21 19:28 Dose: 50 mls/hr Documented by: Iopamidol (Iopamidol 612 Mg/Ml 100 Ml Bottle) 74 ml IV . DIRECTED PRN PRN Reason: RADIOLOGY EXAM Last Admin: 04/29/21 13:37 Dose: 74 ml Documented by: Lorazepam (Lorazepam 2 Mg/Ml Sdv) 0.5 mg IVPUSH ONETIME ONE Stop: 04/29/21 14:53 Last Admin: 04/29/21 14:57 Dose: 0.5 mg Documented by: - Exam Quality Assessment: No: Supplemental Oxygen General: Alert, Oriented, Cooperative, No Acute Distress Lungs: Normal Respiratory Effort Cardiovascular: Regular Rate, Regular Rhythm GI/Abdominal Exam: Soft, No Distention Extremities: No Pedal Edema Psy/Mental Status: Alert, Normal Affect - Patient Data Lab Results Last 24 hrs: Laboratory Results - last 24 hr 04/29/21 04/29/21 04/29/21 Range/Units 12:55 12:55 16:19 WBC 13.1 H (4.5-11.0) K/uL RBC 4.40 (3.30-5.50) M/uL Hgb 13.7 (12.0-15.0) g/dL Hct 40.1 (36.0-48.0) % MCV 91 (80-98) fL MCH 31 (27-31) pg MCHC 34 (32-36) % Plt Count 253 (150-400) K/uL Neut % (Auto) 84.2 H (36-66) % Lymph % (Auto) 11.2 L (24-44) % [place] % (Auto) 4.5 (2-6) % Eos % (Auto) 0.0 L (2-4) % Baso % (Auto) 0.1 (0-1) % Sodium 139 L (140-148) mmol/L Potassium 3.3 L (3.6-5.2) mmol/L Chloride 99 L (100-108) mmol/L Carbon Dioxide 21 (21-32) mmol/L Anion Gap 22.3 H (5.0-14.0) mmol/L BUN 13 (7-18) mg/dL Creatinine 1.1 H (0.6-1.0) mg/dL Est Cr Clr Drug Dosing 33.69 mL/min Estimated GFR (MDRD) 49 L (>60) Glucose 219 H (74-106) mg/dL POC Glucose 170 H (74-106) mg/dL Calcium 9.4 (8.5-10.1) mg/dL Magnesium (1.8-2.4) mg/dL SARS-CoV-2 RNA (SUSAN) (NEGATIVE) 04/29/21 04/29/21 04/30/21 Range/Units 17:22 21:00 05:05 WBC 13.4 H (4.5-11.0) K/uL RBC 4.11 (3.30-5.50) M/uL Hgb 12.6 (12.0-15.0) g/dL Hct 37.7 (36.0-48.0) % MCV 92 (80-98) fL MCH 31 (27-31) pg MCHC 33 (32-36) % Plt Count 231 (150-400) K/uL Neut % (Auto) (36-66) % Lymph % (Auto) (24-44) % [place] % (Auto) (2-6) % Eos % (Auto) (2-4) % Baso % (Auto) (0-1) % Sodium (140-148) mmol/L Potassium (3.6-5.2) mmol/L Chloride (100-108) mmol/L Carbon Dioxide (21-32) mmol/L Anion Gap (5.0-14.0) mmol/L BUN (7-18) mg/dL Creatinine (0.6-1.0) mg/dL Est Cr Clr Drug Dosing mL/min Estimated GFR (MDRD) (>60) Glucose (74-106) mg/dL POC Glucose 130 H (74-106) mg/dL Calcium (8.5-10.1) mg/dL Magnesium (1.8-2.4) mg/dL SARS-CoV-2 RNA (SUSAN) Negative (NEGATIVE) 04/30/21 04/30/21 Range/Units 05:05 07:30 WBC (4.5-11.0) K/uL RBC (3.30-5.50) M/uL Hgb (12.0-15.0) g/dL Hct (36.0-48.0) % MCV (80-98) fL MCH (27-31) pg MCHC (32-36) % Plt Count (150-400) K/uL Neut % (Auto) (36-66) % Lymph % (Auto) (24-44) % [place] % (Auto) (2-6) % Eos % (Auto) (2-4) % Baso % (Auto) (0-1) % Sodium 137 L (140-148) mmol/L Potassium 3.4 L (3.6-5.2) mmol/L Chloride 100 (100-108) mmol/L Carbon Dioxide 21 (21-32) mmol/L Anion Gap 19.4 H (5.0-14.0) mmol/L BUN 9 (7-18) mg/dL Creatinine 0.8 (0.6-1.0) mg/dL Est Cr Clr Drug Dosing 46.33 mL/min Estimated GFR (MDRD) > 60 (>60) Glucose 150 H (74-106) mg/dL POC Glucose 139 H (74-106) mg/dL Calcium 8.1 L (8.5-10.1) mg/dL Magnesium 1.7 L (1.8-2.4) mg/dL SARS-CoV-2 RNA (SUSAN) (NEGATIVE) Result Diagrams: 04/30/21 05:05 04/30/21 05:05 Sepsis Event Note - Evaluation Sepsis Screening Result: No Definite Risk - Focused Exam Vital Signs: Vital Signs Temp Pulse Resp BP Pulse Ox 04/30/21 07:00 36.6 C 71 16 154/78 H 98 04/30/21 03:51 37.3 C 78 16 145/75 H 99 04/29/21 23:52 37.6 C 83 16 144/64 H 100 - Problem List & Annotations (1) Intractable nausea and vomiting SNOMED Code(s): 932760741 Code(s): R11.2 - NAUSEA WITH VOMITING, UNSPECIFIED Status: Acute Current Visit: Yes (2) Metastatic malignant neoplasm of unknown primary site SNOMED Code(s): 765203186 Code(s): C79.9 - SECONDARY MALIGNANT NEOPLASM OF UNSPECIFIED SITE; C80.1 - MALIGNANT (PRIMARY) NEOPLASM, UNSPECIFIED Status: Chronic Current Visit: Yes Annotation/Comment:: Unknown primary with metastases to the lung and multiple bony sites - Problem List Review Problem List Initiated/Reviewed/Updated: Yes - My Orders Last 24 Hours: My Active Orders 04/29/21 14:57 Resuscitation Status Routine 04/29/21 15:00 Scopolamine [Transderm-Scop] 1.5 mg TRDERM Q72H 04/29/21 15:51 Acetaminophen [TylenoL] 650 mg PO Q4H PRN Docusate Sodium/Sennosides [Senna Plus] 1 tab PO BID PRN HYDROmorphone [Dilaudid] 0.5 mg IVPUSH Q2H PRN LORazepam [Ativan] 0.5 mg IVPUSH Q4H PRN Melatonin 9 mg PO BEDTIME PRN Metoclopramide [Reglan] 10 mg IVPUSH Q8H PRN Ondansetron [Zofran ODT] 4 mg PO Q6H PRN Ondansetron [Zofran] 4 mg IV Q6H PRN Prochlorperazine [Compazine] 10 mg PO Q6H PRN Sodium Chloride 0.9% [Normal Saline] 1,000 ml IV ASDIRECTED droperidoL [Inapsine] 1.25 mg IVPUSH Q6H PRN oxyCODONE 7.5 mg PO Q4H PRN 04/29/21 15:51 Patient Status [ADT] Routine Antiembolic Devices [RC] .Routine Communication Order [RC] PRN Communication Order [RC] PRN Diabetes Education [RC] Click to Edit Intake and Output [RC] QSHIFT Notify Provider Consults [RC] ASDIRECTED Notify Provider Vital Signs [RC] ASDIRECTED Notify Provider [RC] PRN Oxygen Therapy [RC] PRN Up With Assistance [RC] ASDIRECTED VTE/DVT Education [RC] Per Unit Routine Vital Signs [RC] Q4H Consult to Physician [CONS] Routine Sequential Compression Device [OM.PC] Routine 04/29/21 Dinner Nothing per Oral Now Diet [DIET] Insulin Lispro [HumaLOG] See Protocol SUBCUT QIDACANDBED 04/29/21 21:00 Famotidine [Pepcid] 20 mg IVPUSH BID Propranolol [Inderal LA] 80 mg PO BEDTIME 04/30/21 09:00 Magnesium Sulfate/Water [Magnesium Sulfate in Water 2 GM/50 ML] 2 gm Premix Bag 1 bag IV ONETIME Potassium Chloride 20 meq Lidocaine 1% [Xylocaine 1%] 2 ml Sodium Chloride 0.9% [Normal Saline] 100 ml IV Q2H Sertraline [Zoloft] 25 mg PO DAILY 04/30/21 11:30 GLUCOSE POC LAB TO COLLECT JPM [POC] QIDACANDBED 04/30/21 16:30 GLUCOSE POC LAB TO COLLECT JPM [POC] QIDACANDBED 04/30/21 21:00 GLUCOSE POC LAB TO COLLECT JPM [POC] QIDACANDBED fentaNYL [Duragesic] 25 mcg TRDERM Q72H 05/01/21 05:00 BASIC METABOLIC PANEL,BMP [CHEM] Timed CBC W/O DIFF,HEMOGRAM [HEME] Timed (1) 05/01/21 07:30 GLUCOSE POC LAB TO COLLECT JPM [POC] QIDACANDBED 05/01/21 11:30 GLUCOSE POC LAB TO COLLECT JPM [POC] QIDACANDBED 05/01/21 16:30 GLUCOSE POC LAB TO COLLECT JPM [POC] QIDACANDBED 05/01/21 21:00 GLUCOSE POC LAB TO COLLECT JPM [POC] QIDACANDBED 05/02/21 07:30 GLUCOSE POC LAB TO COLLECT JPM [POC] QIDACANDBED 05/02/21 11:30 GLUCOSE POC LAB TO COLLECT JPM [POC] QIDACANDBED 05/02/21 16:30 GLUCOSE POC LAB TO COLLECT JPM [POC] QIDACANDBED 05/02/21 21:00 GLUCOSE POC LAB TO COLLECT JPM [POC] QIDACANDBED 05/03/21 07:30 GLUCOSE POC LAB TO COLLECT JPM [POC] QIDACANDBED 05/03/21 11:30 GLUCOSE POC LAB TO COLLECT JPM [POC] QIDACANDBED 05/03/21 16:30 GLUCOSE POC LAB TO COLLECT JPM [POC] QIDACANDBED 05/03/21 21:00 GLUCOSE POC LAB TO COLLECT JPM [POC] QIDACANDBED 05/04/21 07:30 GLUCOSE POC LAB TO COLLECT JPM [POC] QIDACANDBED 05/04/21 11:30 GLUCOSE POC LAB TO COLLECT JPM [POC] QIDACANDBED 05/04/21 16:30 GLUCOSE POC LAB TO COLLECT JPM [POC] QIDACANDBED 05/04/21 21:00 GLUCOSE POC LAB TO COLLECT JPM [POC] QIDACANDBED - Plan Plan:: ASSESSMENT AND PLAN - Intractable nausea with vomiting-worsening despite several attempts for outpatient management. EGD showed erosive gastritis. CLOtest is pending. CT did not show anything concerning. Still nauseated but no significant pain. She has an allergy to esomeprazole. 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 Most recent chemotherapy was in October, 6 months ago. Most recent follow-up was about 1 week ago. -Outpatient oncology follow-up Type 2 diabetes mellitus-plan to restart Metformin in the morning. -Sliding scale insulin -Restart Metformin tomorrow morning Maintenance issues - -DVT prophylaxis-mechanical -GI prophylaxis-H2 radha -Nutrition-nothing by mouth with ice chips Disposition -I anticipate discharge home after the hospital stay Primary care physician -Dr. Gila Mena M.D.
[2021-04-30] MEDS ORDERED: Propofol 200 MG/20 ML SDV ONE (09:51)
[2021-04-30] MEDS ORDERED: Midazolam 1 MG/ML 2 ML SDV ONE (09:51)
[2021-04-30] MEDS ORDERED: fentaNYL 100 MCG/2 ML SDV ONE (09:51)
[2021-04-30] MEDS: Potassium Chloride 20 MEQ, Lidocaine 1% 2 ML in Sodium Chloride 0.9% 100 ML IV SCH ×2 (10:39→12:46)
[2021-04-30] MEDS: Sucralfate 1 GM Tab PO SCH ×2 (16:28→20:07)
[2021-04-30] MEDS: Pantoprazole 40 MG Vial IVPUSH SCH (16:28)
[2021-04-30] MEDS: oxyCODONE 5 MG Tab PO PRN (17:38)
[2021-04-30] MEDS: HYDROmorphone 1 MG/ML Syringe IVPUSH PRN (18:33)
[2021-04-30] MEDS: fentaNYL 25 MCG/HR Transdermal Patch TRDERM SCH (21:22)
[2021-04-30] MEDS: Propranolol 80 MG Cap.ER PO SCH (21:25)
[2021-04-30] MEDS: Ondansetron 4 MG/2 ML SDV IV PRN (22:27)
[2021-05-01] MEDS: LORazepam 2 MG/ML SDV IVPUSH PRN ×5 (00:21→21:59)
[2021-05-01] MEDS: Pantoprazole 40 MG Vial IVPUSH SCH (04:40)
[2021-05-01] MEDS: Sodium Chloride 0.9% 1,000 ML IV SCH (05:21)
[2021-05-01] MEDS: Insulin Lispro 100 Unit/ML 3 ML KwikPen SUBCUT SCH ×4 (07:58→21:02)
[2021-05-01] MEDS ORDERED: metFORMIN 500 MG Tab PO SCH (08:00)
[2021-05-01] MEDS: Sucralfate 1 GM Tab PO SCH ×4 (08:10→20:27)
[2021-05-01] MEDS: Prochlorperazine 10 MG Tab PO PRN ×2 (08:10→16:19)
[2021-05-01] MEDS: Sertraline 25 MG Tab PO SCH (08:11)
[2021-05-01] MEDS ORDERED: Potassium Chloride 20 MEQ Tab.ER PO ONE (09:00)
--- NOTE | 2021-05-01 09:26 | PCM.PN ---
- General Info Date of Service: 05/01/21 Subjective Update: No acute events overnight. EGD yesterday showed erosive gastritis. Patient does not report abdominal pain. She continues to have nausea which waxes and wanes. Unable to eat much of anything. No fevers. Feels tired and weak. CLOtest was negative. Blood sugars have been well controlled. - Review of Systems General: Denies: Fever Gastrointestinal: Reports: Nausea - Patient Data Vitals - Most Recent: Last Vital Signs Temp 36.8 C 05/01/21 08:00 Pulse 79 05/01/21 08:00 Resp 14 05/01/21 08:00 BP 174/88 H 05/01/21 08:00 Pulse Ox 100 05/01/21 08:00 Weight - Most Recent: 50 kg I&O - Last 24 Hours: Intake & Output 04/30/21 05/01/21 05/01/21 22:59 06:59 14:59 Intake Total 1333 1634 Output Total 1950 1275 650 Balance -617 359 -650 Lab Results Last 24 Hours: Laboratory Results - last 24 hr 04/30/21 04/30/21 04/30/21 Range/Units 11:31 16:14 21:09 WBC (4.5-11.0) K/uL RBC (3.30-5.50) M/uL Hgb (12.0-15.0) g/dL Hct (36.0-48.0) % MCV (80-98) fL MCH (27-31) pg MCHC (32-36) % Plt Count (150-400) K/uL Sodium (140-148) mmol/L Potassium (3.6-5.2) mmol/L Chloride (100-108) mmol/L Carbon Dioxide (21-32) mmol/L Anion Gap (5.0-14.0) mmol/L BUN (7-18) mg/dL Creatinine (0.6-1.0) mg/dL Est Cr Clr Drug Dosing mL/min Estimated GFR (MDRD) (>60) Glucose (74-106) mg/dL POC Glucose 141 H 146 H 118 H (74-106) mg/dL Calcium (8.5-10.1) mg/dL 05/01/21 05/01/21 05/01/21 Range/Units 04:24 04:24 07:27 WBC 9.1 (4.5-11.0) K/uL RBC 4.31 (3.30-5.50) M/uL Hgb 13.0 (12.0-15.0) g/dL Hct 39.0 (36.0-48.0) % MCV 91 (80-98) fL MCH 30 (27-31) pg MCHC 33 (32-36) % Plt Count 208 (150-400) K/uL Sodium 137 L (140-148) mmol/L Potassium 3.2 L (3.6-5.2) mmol/L Chloride 100 (100-108) mmol/L Carbon Dioxide 24 (21-32) mmol/L Anion Gap 16.2 H (5.0-14.0) mmol/L BUN 8 (7-18) mg/dL Creatinine 0.7 (0.6-1.0) mg/dL Est Cr Clr Drug Dosing 52.95 mL/min Estimated GFR (MDRD) > 60 (>60) Glucose 140 H (74-106) mg/dL POC Glucose 117 H (74-106) mg/dL Calcium 7.7 L (8.5-10.1) mg/dL Med Orders - Current: Current Medications Acetaminophen (Acetaminophen 325 Mg Tab) 650 mg PO Q4H PRN PRN Reason: Pain (Mild 1-3)/fever Droperidol (Droperidol 5 Mg/2 Ml Sdv) 1.25 mg IVPUSH Q6H PRN PRN Reason: Nausea/Vomiting Fentanyl (Fentanyl 25 Mcg/Hr Transdermal Patch) 25 mcg TRDERM Q72H [facility] Last Admin: 04/30/21 21:22 Dose: 25 mcg Documented by: Hydromorphone HCl (Hydromorphone 1 Mg/Ml Syringe) 0.5 mg IVPUSH Q2H PRN PRN Reason: Pain (severe 7-10) Last Admin: 04/30/21 18:33 Dose: 0.5 mg Documented by: Potassium Chloride 20 meq/Lidocaine HCl 2 ml/ Sodium Chloride 112 mls @ 56 mls/hr IV Q2H [facility] Stop: 05/01/21 11:59 Insulin Human Lispro (Insulin Lispro 100 Unit/Ml 3 Ml Kwikpen) 0 unit SUBCUT QIDACANDBED [facility]; Protocol Last Admin: 05/01/21 07:58 Dose: Not Given Documented by: Lorazepam (Lorazepam 2 Mg/Ml Sdv) 0.5 mg IVPUSH Q4H PRN PRN Reason: Nausea/Vomiting Last Admin: 05/01/21 04:46 Dose: 0.5 mg Documented by: Melatonin (Melatonin 3 Mg Tab) 9 mg PO BEDTIME PRN PRN Reason: Sleep Metoclopramide HCl (Metoclopramide 10 Mg/2 Ml Sdv) 10 mg IVPUSH Q6H PRN PRN Reason: Nausea/Vomiting Last Admin: 04/30/21 23:46 Dose: 10 mg Documented by: Ondansetron HCl (Ondansetron 4 Mg Tab.Dis) 4 mg PO Q6H PRN PRN Reason: Nausea able to take PO Last Admin: 04/30/21 15:38 Dose: 4 mg Documented by: Ondansetron HCl (Ondansetron 4 Mg/2 Ml Sdv) 8 mg IV Q6H PRN PRN Reason: Nausea/Vomiting Last Admin: 04/30/21 22:27 Dose: 8 mg Documented by: Oxycodone HCl (Oxycodone 5 Mg Tab) 7.5 mg PO Q4H PRN PRN Reason: Pain (moderate 4-6) Last Admin: 04/30/21 17:38 Dose: 7.5 mg Documented by: Pantoprazole Sodium (Pantoprazole 40 Mg Tab.Cr) 40 mg PO BIDAC [facility] Prochlorperazine Maleate (Prochlorperazine 10 Mg Tab) 10 mg PO Q6H PRN PRN Reason: Nausea Last Admin: 05/01/21 08:10 Dose: 10 mg Documented by: Propranolol HCl (Propranolol 80 Mg Cap.Er) 80 mg PO BEDTIME [facility] Last Admin: 04/30/21 21:25 Dose: 80 mg Documented by: Scopolamine (Scopolamine 1.5 Mg Transdermal Patch) 1.5 mg TRDERM Q72H [facility] Last Admin: 04/29/21 14:56 Dose: 1.5 mg Documented by: Senna/Docusate Sodium (Docusate Sodium/Sennosides 50-8.6 Mg Tab) 1 tab PO BID PRN PRN Reason: Constipation Sertraline HCl (Sertraline 25 Mg Tab) 25 mg PO DAILY [facility] Last Admin: 05/01/21 08:11 Dose: 25 mg Documented by: Sodium Chloride (Sodium Chloride 0.9% 10 Ml Syringe) 10 ml FLUSH ONETIME PRN PRN Reason: PER RADIOLOGY PROTOCOL Last Admin: 04/29/21 13:37 Dose: 10 ml Documented by: Sucralfate (Sucralfate 1 Gm Tab) 1 gm PO QIDACANDBED [facility] Last Admin: 05/01/21 08:10 Dose: 1 gm Documented by: Discontinued Medications Droperidol (Droperidol 5 Mg/2 Ml Sdv) 1.25 mg IVPUSH ONETIME ONE Stop: 04/29/21 12:48 Last Admin: 04/29/21 12:54 Dose: 1.25 mg Documented by: Famotidine (Famotidine 20 Mg/2 Ml Sdv) 20 mg IVPUSH BID [facility] Last Admin: 04/30/21 08:54 Dose: 20 mg Documented by: Fentanyl (Fentanyl 100 Mcg/2 Ml Sdv) Confirm Administered Dose 100 mcg .ROUTE .STK-MED ONE Stop: 04/30/21 09:52 Sodium Chloride (Normal Saline) 1,000 mls @ 999 mls/hr IV ASDIRECTED [facility] Last Admin: 04/29/21 13:45 Dose: 999 mls/hr Documented by: Sodium Chloride (Normal Saline) 70 mls @ 3 mls/sec IV ONETIME ONE Stop: 04/29/21 13:09 Last Admin: 04/29/21 13:37 Dose: 3 mls/sec Documented by: Sodium Chloride (Normal Saline) 1,000 mls @ 125 mls/hr IV ASDIRECTED [facility] Last Admin: 05/01/21 05:21 Dose: 125 mls/hr Documented by: Potassium Chloride 20 meq/Lidocaine HCl 2 ml/ Sodium Chloride 112 mls @ 50 mls/hr IV Q2H [facility] Stop: 04/29/21 20:29 Last Admin: 04/29/21 19:28 Dose: 50 mls/hr Documented by: Potassium Chloride 20 meq/Lidocaine HCl 2 ml/ Sodium Chloride 112 mls @ 56 mls/hr IV Q2H [facility] Stop: 04/30/21 12:59 Last Admin: 04/30/21 12:46 Dose: 56 mls/hr Documented by: Magnesium Sulfate 2 gm/ Premix 50 mls @ 25 mls/hr IV ONETIME ONE Stop: 04/30/21 10:59 Last Admin: 04/30/21 08:53 Dose: 25 mls/hr Documented by: Iopamidol (Iopamidol 612 Mg/Ml 100 Ml Bottle) 74 ml IV . DIRECTED PRN PRN Reason: RADIOLOGY EXAM Last Admin: 04/29/21 13:37 Dose: 74 ml Documented by: Lorazepam (Lorazepam 2 Mg/Ml Sdv) 0.5 mg IVPUSH ONETIME ONE Stop: 04/29/21 14:53 Last Admin: 04/29/21 14:57 Dose: 0.5 mg Documented by: Metformin HCl (Metformin 500 Mg Tab) 500 mg PO BIDMEALS [facility] Last Admin: 05/01/21 08:11 Dose: 500 mg Documented by: Metoclopramide HCl (Metoclopramide 10 Mg/2 Ml Sdv) 10 mg IVPUSH Q8H PRN PRN Reason: Nausea/Vomiting Last Admin: 04/30/21 06:45 Dose: 10 mg Documented by: Midazolam HCl (Midazolam 1 Mg/Ml 2 Ml Sdv) Confirm Administered Dose 2 mg .ROUTE .STK-MED ONE Stop: 04/30/21 09:52 Ondansetron HCl (Ondansetron 4 Mg/2 Ml Sdv) 4 mg IV Q6H PRN PRN Reason: Nausea/Vomiting Pantoprazole Sodium (Pantoprazole 40 Mg Vial) 40 mg IVPUSH Q12H [facility] Stop: 05/01/21 05:01 Last Admin: 05/01/21 04:40 Dose: 40 mg Documented by: Potassium Chloride (Potassium Chloride 20 Meq Tab.Er) 40 meq PO ONETIME ONE Stop: 05/01/21 09:01 Last Admin: 05/01/21 08:13 Dose: 40 meq Documented by: Propofol (Propofol 200 Mg/20 Ml Sdv) Confirm Administered Dose 200 mg .ROUTE .STK-MED ONE Stop: 04/30/21 09:52 - Exam Quality Assessment: No: Supplemental Oxygen General: Alert, Cooperative, Lethargic, Other (looks tired ) Lungs: Normal Respiratory Effort GI/Abdominal Exam: Soft, No Distention Extremities: No Pedal Edema Psy/Mental Status: Alert. No: Agitated - Patient Data Lab Results Last 24 hrs: Laboratory Results - last 24 hr 04/30/21 04/30/21 04/30/21 Range/Units 11:31 16:14 21:09 WBC (4.5-11.0) K/uL RBC (3.30-5.50) M/uL Hgb (12.0-15.0) g/dL Hct (36.0-48.0) % MCV (80-98) fL MCH (27-31) pg MCHC (32-36) % Plt Count (150-400) K/uL Sodium (140-148) mmol/L Potassium (3.6-5.2) mmol/L Chloride (100-108) mmol/L Carbon Dioxide (21-32) mmol/L Anion Gap (5.0-14.0) mmol/L BUN (7-18) mg/dL Creatinine (0.6-1.0) mg/dL Est Cr Clr Drug Dosing mL/min Estimated GFR (MDRD) (>60) Glucose (74-106) mg/dL POC Glucose 141 H 146 H 118 H (74-106) mg/dL Calcium (8.5-10.1) mg/dL 05/01/21 05/01/21 05/01/21 Range/Units 04:24 04:24 07:27 WBC 9.1 (4.5-11.0) K/uL RBC 4.31 (3.30-5.50) M/uL Hgb 13.0 (12.0-15.0) g/dL Hct 39.0 (36.0-48.0) % MCV 91 (80-98) fL MCH 30 (27-31) pg MCHC 33 (32-36) % Plt Count 208 (150-400) K/uL Sodium 137 L (140-148) mmol/L Potassium 3.2 L (3.6-5.2) mmol/L Chloride 100 (100-108) mmol/L Carbon Dioxide 24 (21-32) mmol/L Anion Gap 16.2 H (5.0-14.0) mmol/L BUN 8 (7-18) mg/dL Creatinine 0.7 (0.6-1.0) mg/dL Est Cr Clr Drug Dosing 52.95 mL/min Estimated GFR (MDRD) > 60 (>60) Glucose 140 H (74-106) mg/dL POC Glucose 117 H (74-106) mg/dL Calcium 7.7 L (8.5-10.1) mg/dL Result Diagrams: 05/01/21 04:24 05/01/21 04:24 Sepsis Event Note - Evaluation Sepsis Screening Result: No Definite Risk - Focused Exam Vital Signs: Vital Signs Temp Pulse Resp BP Pulse Ox 05/01/21 08:00 36.8 C 79 14 174/88 H 100 05/01/21 04:33 37.0 C 70 18 153/77 H 99 04/30/21 23:00 37.1 C 79 16 160/83 H 100 - Problem List & Annotations (1) Intractable nausea and vomiting SNOMED Code(s): 577062045 Code(s): R11.2 - NAUSEA WITH VOMITING, UNSPECIFIED Status: Acute Current Visit: Yes (2) Metastatic malignant neoplasm of unknown primary site SNOMED Code(s): 305728703 Code(s): C79.9 - SECONDARY MALIGNANT NEOPLASM OF UNSPECIFIED SITE; C80.1 - MALIGNANT (PRIMARY) NEOPLASM, UNSPECIFIED Status: Chronic Current Visit: Yes Annotation/Comment:: Unknown primary with metastases to the lung and multiple bony sites - Problem List Review Problem List Initiated/Reviewed/Updated: Yes - My Orders Last 24 Hours: My Active Orders 04/30/21 09:00 Sertraline [Zoloft] 25 mg PO DAILY 04/30/21 14:04 Ondansetron [Zofran] 8 mg IV Q6H PRN 04/30/21 15:00 Metoclopramide [Reglan] 10 mg IVPUSH Q6H PRN 04/30/21 21:00 fentaNYL [Duragesic] 25 mcg TRDERM Q72H 05/01/21 09:30 Sodium Chloride 0.45% with KCl 20 mEq @ 75 mL/Hr (1000 mL) Sodium Chloride 0.45% with KCl [1/2 NS with 20 mEq KCl] 1,000 ml IV ASDIRECTED dexAMETHasone [Decadron] 4 mg IVPUSH Q12H 05/01/21 10:00 Potassium Chloride 20 meq Lidocaine 1% [Xylocaine 1%] 2 ml Sodium Chloride 0.9% [Normal Saline] 100 ml IV Q2H 05/01/21 11:30 GLUCOSE POC LAB TO COLLECT JPM [POC] QIDACANDBED 05/01/21 16:00 POTASSIUM,K [CHEM] Timed 05/01/21 16:30 GLUCOSE POC LAB TO COLLECT JPM [POC] QIDACANDBED Pantoprazole [ProTONIX] 40 mg PO BIDAC 05/01/21 21:00 GLUCOSE POC LAB TO COLLECT JPM [POC] QIDACANDBED 05/02/21 05:00 BASIC METABOLIC PANEL,BMP [CHEM] Timed CBC W/O DIFF,HEMOGRAM [HEME] Timed (1) 05/02/21 07:30 GLUCOSE POC LAB TO COLLECT JPM [POC] QIDACANDBED 05/02/21 11:30 GLUCOSE POC LAB TO COLLECT JPM [POC] QIDACANDBED 05/02/21 16:30 GLUCOSE POC LAB TO COLLECT JPM [POC] QIDACANDBED 05/02/21 21:00 GLUCOSE POC LAB TO COLLECT JPM [POC] QIDACANDBED 05/03/21 07:30 GLUCOSE POC LAB TO COLLECT JPM [POC] QIDACANDBED 05/03/21 11:30 GLUCOSE POC LAB TO COLLECT JPM [POC] QIDACANDBED 05/03/21 16:30 GLUCOSE POC LAB TO COLLECT JPM [POC] QIDACANDBED 05/03/21 21:00 GLUCOSE POC LAB TO COLLECT JPM [POC] QIDACANDBED 05/04/21 07:30 GLUCOSE POC LAB TO COLLECT JPM [POC] QIDACANDBED 05/04/21 11:30 GLUCOSE POC LAB TO COLLECT JPM [POC] QIDACANDBED 05/04/21 16:30 GLUCOSE POC LAB TO COLLECT JPM [POC] QIDACANDBED 05/04/21 21:00 GLUCOSE POC LAB TO COLLECT JPM [POC] QIDACANDBED - Plan Plan:: ASSESSMENT AND PLAN - Intractable nausea with vomiting-worsening despite several attempts for outpatient management. EGD showed erosive gastritis. CLOtest negative. Symptoms wax and wane but still have not been optimally controlled. -Discontinuing Metformin -Trial of dexamethasone -Continue PPI and Carafate -Symptomatic management of pain and nausea -IV fluids for hydration Hypokalemia-potassium level remains low despite supplementation. -40 mEq by mouth and 20 through the IV this morning -Recheck this afternoon -Add potassium to her IV fluids Metastatic cancer with unknown primary-metastases to multiple bone sites as well as the lung. Most recent chemotherapy was in October, 6 months ago. Most recent follow-up was about 1 week ago. -Outpatient oncology follow-up Type 2 diabetes mellitus-discontinuing Metformin with small possibility that it may be contributing to her nausea. -Sliding scale insulin -Discontinue Metformin Maintenance issues - -DVT prophylaxis-mechanical -GI prophylaxis-H2 radha -Nutrition-diet as tolerated Disposition -I anticipate discharge home after the hospital stay Primary care physician -Dr. Gila Mena M.D.
[2021-05-01] MEDS ORDERED: Potassium Chloride 20 MEQ, Lidocaine 1% 2 ML in Sodium Chloride 0.9% 100 ML IV SCH (10:00)
[2021-05-01] MEDS: HYDROmorphone 1 MG/ML Syringe IVPUSH PRN (10:38)
[2021-05-01] MEDS: Dexamethasone 4 MG/ML SDV IVPUSH SCH ×2 (10:51→22:42)
[2021-05-01] MEDS: Ondansetron 4 MG Tab.DIS PO PRN ×2 (12:01→18:43)
[2021-05-01] MEDS: Sodium Chloride 0.45% with KCl 1,000 ML IV SCH (12:44)
[2021-05-01] MEDS: Pantoprazole 40 MG Tab.CR PO SCH (16:19)
[2021-05-01] MEDS: Metoclopramide 10 MG/2 ML SDV IVPUSH PRN (16:42)
[2021-05-01] MEDS: Propranolol 80 MG Cap.ER PO SCH (20:29)
[2021-05-02] MEDS: oxyCODONE 5 MG Tab PO PRN ×2 (00:40→20:12)
[2021-05-02] MEDS: Sodium Chloride 0.45% with KCl 1,000 ML IV SCH ×2 (04:21→18:05)
[2021-05-02] MEDS: Ondansetron 4 MG/2 ML SDV IV PRN (07:54)
[2021-05-02] MEDS: Sucralfate 1 GM Tab PO SCH ×4 (08:03→20:14)
[2021-05-02] MEDS: Pantoprazole 40 MG Tab.CR PO SCH ×2 (08:03→17:00)
[2021-05-02] MEDS: Insulin Lispro 100 Unit/ML 3 ML KwikPen SUBCUT SCH ×4 (08:31→21:55)
[2021-05-02] MEDS: Sertraline 25 MG Tab PO SCH (08:32)
[2021-05-02] MEDS: LORazepam 2 MG/ML SDV IVPUSH PRN ×3 (08:37→20:11)
--- NOTE | 2021-05-02 09:35 | PCM.PN ---
- General Info Date of Service: 05/02/21 Subjective Update: There were no acute events overnight. Patient thinks that her nausea is a little better today but is still relatively constant. She has some mild upper abdominal pain. She has mild left hip pain which is tolerable. She has been able to take in small quantities of food intermittently. She has not had any vomiting. Intake overall has still been very poor. No fevers. Lorazepam seems to be providing the most relief for her nausea. Functional Status: Reports: Pain Controlled - Review of Systems General: Denies: Fever Gastrointestinal: Reports: Abdominal Pain, Nausea - Patient Data Vitals - Most Recent: Last Vital Signs Temp 36.2 C 05/02/21 07:22 Pulse 77 05/02/21 07:22 Resp 18 05/02/21 07:22 BP 165/85 H 05/02/21 07:22 Pulse Ox 97 05/02/21 07:22 Weight - Most Recent: 50 kg I&O - Last 24 Hours: Intake & Output 05/01/21 05/02/21 05/02/21 22:59 06:59 14:59 Intake Total 2395 1034 240 Output Total 1150 900 600 Balance 1245 134 -360 Lab Results Last 24 Hours: Laboratory Results - last 24 hr 05/01/21 05/01/21 05/01/21 Range/Units 11:38 16:18 16:22 WBC (4.5-11.0) K/uL RBC (3.30-5.50) M/uL Hgb (12.0-15.0) g/dL Hct (36.0-48.0) % MCV (80-98) fL MCH (27-31) pg MCHC (32-36) % Plt Count (150-400) K/uL Sodium (140-148) mmol/L Potassium 4.4 (3.6-5.2) mmol/L Chloride (100-108) mmol/L Carbon Dioxide (21-32) mmol/L Anion Gap (5.0-14.0) mmol/L BUN (7-18) mg/dL Creatinine (0.6-1.0) mg/dL Est Cr Clr Drug Dosing mL/min Estimated GFR (MDRD) (>60) Glucose (74-106) mg/dL POC Glucose 125 H 172 H (74-106) mg/dL Calcium (8.5-10.1) mg/dL 05/01/21 05/02/21 05/02/21 Range/Units 20:57 04:15 04:15 WBC 8.0 (4.5-11.0) K/uL RBC 4.60 (3.30-5.50) M/uL Hgb 14.0 (12.0-15.0) g/dL Hct 41.3 (36.0-48.0) % MCV 90 (80-98) fL MCH 30 (27-31) pg MCHC 34 (32-36) % Plt Count 253 (150-400) K/uL Sodium 135 L (140-148) mmol/L Potassium 4.1 (3.6-5.2) mmol/L Chloride 98 L (100-108) mmol/L Carbon Dioxide 23 (21-32) mmol/L Anion Gap 18.1 H (5.0-14.0) mmol/L BUN 8 (7-18) mg/dL Creatinine 0.7 (0.6-1.0) mg/dL Est Cr Clr Drug Dosing 52.95 mL/min Estimated GFR (MDRD) > 60 (>60) Glucose 179 H (74-106) mg/dL POC Glucose 151 H (74-106) mg/dL Calcium 8.2 L (8.5-10.1) mg/dL 05/02/21 Range/Units 07:30 WBC (4.5-11.0) K/uL RBC (3.30-5.50) M/uL Hgb (12.0-15.0) g/dL Hct (36.0-48.0) % MCV (80-98) fL MCH (27-31) pg MCHC (32-36) % Plt Count (150-400) K/uL Sodium (140-148) mmol/L Potassium (3.6-5.2) mmol/L Chloride (100-108) mmol/L Carbon Dioxide (21-32) mmol/L Anion Gap (5.0-14.0) mmol/L BUN (7-18) mg/dL Creatinine (0.6-1.0) mg/dL Est Cr Clr Drug Dosing mL/min Estimated GFR (MDRD) (>60) Glucose (74-106) mg/dL POC Glucose 152 H (74-106) mg/dL Calcium (8.5-10.1) mg/dL Shane Results Last 24 Hours: Microbiology 04/30/21 11:56 CLOtest - Final Stomach NEGATIVE CLOTEST REFERENCE RANGE: NEGATIVE Med Orders - Current: Current Medications Acetaminophen (Acetaminophen 325 Mg Tab) 650 mg PO Q4H PRN PRN Reason: Pain (Mild 1-3)/fever Dexamethasone (Dexamethasone 4 Mg/Ml Sdv) 4 mg IVPUSH Q12H [facility] Last Admin: 05/01/21 22:42 Dose: 4 mg Documented by: Dronabinol (Dronabinol 2.5 Mg Cap) 2.5 mg PO BID [facility] Droperidol (Droperidol 5 Mg/2 Ml Sdv) 2.5 mg IVPUSH Q6H PRN PRN Reason: Nausea/Vomiting Fentanyl (Fentanyl 25 Mcg/Hr Transdermal Patch) 25 mcg TRDERM Q72H [facility] Last Admin: 04/30/21 21:22 Dose: 25 mcg Documented by: Hydromorphone HCl (Hydromorphone 1 Mg/Ml Syringe) 0.5 mg IVPUSH Q2H PRN PRN Reason: Pain (severe 7-10) Last Admin: 05/01/21 10:38 Dose: 0.5 mg Documented by: Potassium Chloride/Sodium Chloride (1/2 Ns With 20 Meq Kcl) 1,000 mls @ 75 mls/hr IV ASDIRECTED [facility] Last Admin: 05/02/21 04:21 Dose: 75 mls/hr Documented by: Insulin Human Lispro (Insulin Lispro 100 Unit/Ml 3 Ml Kwikpen) 0 unit SUBCUT QIDACANDBED [facility]; Protocol Last Admin: 05/02/21 08:31 Dose: 2 units Documented by: Lorazepam (Lorazepam 2 Mg/Ml Sdv) 0.5 mg IVPUSH Q4H PRN PRN Reason: Nausea/Vomiting Last Admin: 05/02/21 08:37 Dose: 0.5 mg Documented by: Melatonin (Melatonin 3 Mg Tab) 9 mg PO BEDTIME PRN PRN Reason: Sleep Verify Fentanyl (Patch) 0 each TOP BID [facility] Verify Scop Patch 0 each TOP DAILY [facility] Ondansetron HCl (Ondansetron 4 Mg Tab.Dis) 4 mg PO Q6H PRN PRN Reason: Nausea able to take PO Last Admin: 05/01/21 18:43 Dose: 4 mg Documented by: Ondansetron HCl (Ondansetron 4 Mg/2 Ml Sdv) 8 mg IV Q6H PRN PRN Reason: Nausea/Vomiting Last Admin: 05/02/21 07:54 Dose: 8 mg Documented by: Oxycodone HCl (Oxycodone 5 Mg Tab) 7.5 mg PO Q4H PRN PRN Reason: Pain (moderate 4-6) Last Admin: 05/02/21 00:40 Dose: 7.5 mg Documented by: Pantoprazole Sodium (Pantoprazole 40 Mg Tab.Cr) 40 mg PO BIDAC [facility] Last Admin: 05/02/21 08:03 Dose: 40 mg Documented by: Prochlorperazine Maleate (Prochlorperazine 10 Mg Tab) 10 mg PO Q6H PRN PRN Reason: Nausea Last Admin: 05/01/21 16:19 Dose: 10 mg Documented by: Propranolol HCl (Propranolol 80 Mg Cap.Er) 80 mg PO BEDTIME [facility] Last Admin: 05/01/21 20:29 Dose: 80 mg Documented by: Scopolamine (Scopolamine 1.5 Mg Transdermal Patch) 1.5 mg TRDERM Q72H [facility] Last Admin: 04/29/21 14:56 Dose: 1.5 mg Documented by: Senna/Docusate Sodium (Docusate Sodium/Sennosides 50-8.6 Mg Tab) 1 tab PO BID PRN PRN Reason: Constipation Last Admin: 05/01/21 20:29 Dose: 1 tab Documented by: Sertraline HCl (Sertraline 25 Mg Tab) 25 mg PO DAILY [facility] Last Admin: 05/02/21 08:32 Dose: 25 mg Documented by: Sodium Chloride (Sodium Chloride 0.9% 10 Ml Syringe) 10 ml FLUSH ONETIME PRN PRN Reason: PER RADIOLOGY PROTOCOL Last Admin: 04/29/21 13:37 Dose: 10 ml Documented by: Sucralfate (Sucralfate 1 Gm Tab) 1 gm PO QIDACANDBED [facility] Last Admin: 05/02/21 08:03 Dose: 1 gm Documented by: Discontinued Medications Droperidol (Droperidol 5 Mg/2 Ml Sdv) 1.25 mg IVPUSH ONETIME ONE Stop: 04/29/21 12:48 Last Admin: 04/29/21 12:54 Dose: 1.25 mg Documented by: Droperidol (Droperidol 5 Mg/2 Ml Sdv) 1.25 mg IVPUSH Q6H PRN PRN Reason: Nausea/Vomiting Last Admin: 05/01/21 21:07 Dose: 1.25 mg Documented by: Famotidine (Famotidine 20 Mg/2 Ml Sdv) 20 mg IVPUSH BID [facility] Last Admin: 04/30/21 08:54 Dose: 20 mg Documented by: Fentanyl (Fentanyl 100 Mcg/2 Ml Sdv) Confirm Administered Dose 100 mcg .ROUTE .STK-MED ONE Stop: 04/30/21 09:52 Sodium Chloride (Normal Saline) 1,000 mls @ 999 mls/hr IV ASDIRECTED [facility] Last Admin: 04/29/21 13:45 Dose: 999 mls/hr Documented by: Sodium Chloride (Normal Saline) 70 mls @ 3 mls/sec IV ONETIME ONE Stop: 04/29/21 13:09 Last Admin: 04/29/21 13:37 Dose: 3 mls/sec Documented by: Sodium Chloride (Normal Saline) 1,000 mls @ 125 mls/hr IV ASDIRECTED [facility] Last Admin: 05/01/21 05:21 Dose: 125 mls/hr Documented by: Potassium Chloride 20 meq/Lidocaine HCl 2 ml/ Sodium Chloride 112 mls @ 50 mls/hr IV Q2H [facility] Stop: 04/29/21 20:29 Last Admin: 04/29/21 19:28 Dose: 50 mls/hr Documented by: Potassium Chloride 20 meq/Lidocaine HCl 2 ml/ Sodium Chloride 112 mls @ 56 mls/hr IV Q2H [facility] Stop: 04/30/21 12:59 Last Admin: 04/30/21 12:46 Dose: 56 mls/hr Documented by: Magnesium Sulfate 2 gm/ Premix 50 mls @ 25 mls/hr IV ONETIME ONE Stop: 04/30/21 10:59 Last Admin: 04/30/21 08:53 Dose: 25 mls/hr Documented by: Potassium Chloride 20 meq/Lidocaine HCl 2 ml/ Sodium Chloride 112 mls @ 56 mls/hr IV Q2H [facility] Stop: 05/01/21 11:59 Last Admin: 05/01/21 10:50 Dose: 56 mls/hr Documented by: Iopamidol (Iopamidol 612 Mg/Ml 100 Ml Bottle) 74 ml IV . DIRECTED PRN PRN Reason: RADIOLOGY EXAM Last Admin: 04/29/21 13:37 Dose: 74 ml Documented by: Lorazepam (Lorazepam 2 Mg/Ml Sdv) 0.5 mg IVPUSH ONETIME ONE Stop: 04/29/21 14:53 Last Admin: 04/29/21 14:57 Dose: 0.5 mg Documented by: Metformin HCl (Metformin 500 Mg Tab) 500 mg PO BIDMEALS [facility] Last Admin: 05/01/21 08:11 Dose: 500 mg Documented by: Metoclopramide HCl (Metoclopramide 10 Mg/2 Ml Sdv) 10 mg IVPUSH Q8H PRN PRN Reason: Nausea/Vomiting Last Admin: 04/30/21 06:45 Dose: 10 mg Documented by: Metoclopramide HCl (Metoclopramide 10 Mg/2 Ml Sdv) 10 mg IVPUSH Q6H PRN PRN Reason: Nausea/Vomiting Last Admin: 05/01/21 16:42 Dose: 10 mg Documented by: Midazolam HCl (Midazolam 1 Mg/Ml 2 Ml Sdv) Confirm Administered Dose 2 mg .ROUTE .STK-MED ONE Stop: 04/30/21 09:52 Ondansetron HCl (Ondansetron 4 Mg/2 Ml Sdv) 4 mg IV Q6H PRN PRN Reason: Nausea/Vomiting Pantoprazole Sodium (Pantoprazole 40 Mg Vial) 40 mg IVPUSH Q12H [facility] Stop: 05/01/21 05:01 Last Admin: 05/01/21 04:40 Dose: 40 mg Documented by: Potassium Chloride (Potassium Chloride 20 Meq Tab.Er) 40 meq PO ONETIME ONE Stop: 05/01/21 09:01 Last Admin: 05/01/21 08:13 Dose: 40 meq Documented by: Propofol (Propofol 200 Mg/20 Ml Sdv) Confirm Administered Dose 200 mg .ROUTE .STK-MED ONE Stop: 04/30/21 09:52 - Exam Quality Assessment: No: Supplemental Oxygen General: Alert, Oriented, Cooperative, No Acute Distress HEENT: Pupils Equal Lungs: Normal Respiratory Effort GI/Abdominal Exam: Soft, No Distention Extremities: No Pedal Edema Psy/Mental Status: Alert, Normal Affect - Patient Data Lab Results Last 24 hrs: Laboratory Results - last 24 hr 05/01/21 05/01/21 05/01/21 Range/Units 11:38 16:18 16:22 WBC (4.5-11.0) K/uL RBC (3.30-5.50) M/uL Hgb (12.0-15.0) g/dL Hct (36.0-48.0) % MCV (80-98) fL MCH (27-31) pg MCHC (32-36) % Plt Count (150-400) K/uL Sodium (140-148) mmol/L Potassium 4.4 (3.6-5.2) mmol/L Chloride (100-108) mmol/L Carbon Dioxide (21-32) mmol/L Anion Gap (5.0-14.0) mmol/L BUN (7-18) mg/dL Creatinine (0.6-1.0) mg/dL Est Cr Clr Drug Dosing mL/min Estimated GFR (MDRD) (>60) Glucose (74-106) mg/dL POC Glucose 125 H 172 H (74-106) mg/dL Calcium (8.5-10.1) mg/dL 05/01/21 05/02/21 05/02/21 Range/Units 20:57 04:15 04:15 WBC 8.0 (4.5-11.0) K/uL RBC 4.60 (3.30-5.50) M/uL Hgb 14.0 (12.0-15.0) g/dL Hct 41.3 (36.0-48.0) % MCV 90 (80-98) fL MCH 30 (27-31) pg MCHC 34 (32-36) % Plt Count 253 (150-400) K/uL Sodium 135 L (140-148) mmol/L Potassium 4.1 (3.6-5.2) mmol/L Chloride 98 L (100-108) mmol/L Carbon Dioxide 23 (21-32) mmol/L Anion Gap 18.1 H (5.0-14.0) mmol/L BUN 8 (7-18) mg/dL Creatinine 0.7 (0.6-1.0) mg/dL Est Cr Clr Drug Dosing 52.95 mL/min Estimated GFR (MDRD) > 60 (>60) Glucose 179 H (74-106) mg/dL POC Glucose 151 H (74-106) mg/dL Calcium 8.2 L (8.5-10.1) mg/dL 05/02/21 Range/Units 07:30 WBC (4.5-11.0) K/uL RBC (3.30-5.50) M/uL Hgb (12.0-15.0) g/dL Hct (36.0-48.0) % MCV (80-98) fL MCH (27-31) pg MCHC (32-36) % Plt Count (150-400) K/uL Sodium (140-148) mmol/L Potassium (3.6-5.2) mmol/L Chloride (100-108) mmol/L Carbon Dioxide (21-32) mmol/L Anion Gap (5.0-14.0) mmol/L BUN (7-18) mg/dL Creatinine (0.6-1.0) mg/dL Est Cr Clr Drug Dosing mL/min Estimated GFR (MDRD) (>60) Glucose (74-106) mg/dL POC Glucose 152 H (74-106) mg/dL Calcium (8.5-10.1) mg/dL Result Diagrams: 05/02/21 04:15 05/02/21 04:15 Shane Results Last 24 hrs: Microbiology 04/30/21 11:56 CLOtest - Final Stomach NEGATIVE CLOTEST REFERENCE RANGE: NEGATIVE Sepsis Event Note - Evaluation Sepsis Screening Result: No Definite Risk - Focused Exam Vital Signs: Vital Signs Temp Temp Pulse Resp BP Pulse Ox 05/02/21 07:22 36.2 C 77 18 165/85 H 97 05/02/21 03:26 36.5 C 78 16 162/89 H 96 05/01/21 22:29 36.5 C 77 16 159/83 H 98 - Problem List & Annotations (1) Intractable nausea and vomiting SNOMED Code(s): 780968854 Code(s): R11.2 - NAUSEA WITH VOMITING, UNSPECIFIED Status: Acute Current Visit: Yes (2) Metastatic malignant neoplasm of unknown primary site SNOMED Code(s): 220013371 Code(s): C79.9 - SECONDARY MALIGNANT NEOPLASM OF UNSPECIFIED SITE; C80.1 - MALIGNANT (PRIMARY) NEOPLASM, UNSPECIFIED Status: Chronic Current Visit: Yes Annotation/Comment:: Unknown primary with metastases to the lung and multiple bony sites - Problem List Review Problem List Initiated/Reviewed/Updated: Yes - My Orders Last 24 Hours: My Active Orders 05/01/21 09:30 Sodium Chloride 0.45% with KCl [1/2 NS with 20 mEq KCl] 1,000 ml IV ASDIRECTED 05/01/21 10:00 dexAMETHasone [Decadron] 4 mg IVPUSH Q12H 05/01/21 16:30 Pantoprazole [ProTONIX] 40 mg PO BIDAC 05/02/21 09:30 dronabinoL [Marinol] 2.5 mg PO BID 05/02/21 09:30 droperidoL [Inapsine] 2.5 mg IVPUSH Q6H PRN 05/02/21 10:00 Non-Formulary Medication [NF Drug] 0 each TOP BID Non-Formulary Medication [NF Drug] 0 each TOP DAILY 05/02/21 11:30 GLUCOSE POC LAB TO COLLECT JPM [POC] QIDACANDBED 05/02/21 16:30 GLUCOSE POC LAB TO COLLECT JPM [POC] QIDACANDBED 05/02/21 21:00 GLUCOSE POC LAB TO COLLECT JPM [POC] QIDACANDBED 05/03/21 05:00 BASIC METABOLIC PANEL,BMP [CHEM] Timed 05/03/21 07:30 GLUCOSE POC LAB TO COLLECT JPM [POC] QIDACANDBED 05/03/21 11:30 GLUCOSE POC LAB TO COLLECT JPM [POC] QIDACANDBED 05/03/21 16:30 GLUCOSE POC LAB TO COLLECT JPM [POC] QIDACANDBED 05/03/21 21:00 GLUCOSE POC LAB TO COLLECT JPM [POC] QIDACANDBED 05/04/21 07:30 GLUCOSE POC LAB TO COLLECT JPM [POC] QIDACANDBED 05/04/21 11:30 GLUCOSE POC LAB TO COLLECT JPM [POC] QIDACANDBED 05/04/21 16:30 GLUCOSE POC LAB TO COLLECT JPM [POC] QIDACANDBED 05/04/21 21:00 GLUCOSE POC LAB TO COLLECT JPM [POC] QIDACANDBED - Plan Plan:: ASSESSMENT AND PLAN - Intractable nausea with vomiting-worsening despite several attempts for o utpatient management. EGD showed erosive gastritis. CLOtest negative. Symptoms slightly better so far today. Intake overall is still quite poor. Pathology pending. -Discontinuing Metformin -Continue dexamethasone -Add dronabinol twice daily -Continue PPI and Carafate -Symptomatic management of pain and nausea -Continue gentle IV fluids for hydration until oral intake improves Hypokalemia-potassium level normalized since yesterday. 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 Most recent chemotherapy was in October, 6 months ago. Most recent follow-up was in early April. No chemotherapy planned at this time. -Outpatient oncology follow-up Type 2 diabetes mellitus-discontinuing Metformin with small possibility that it may be contributing to her nausea. -Sliding scale insulin -Discontinue Metformin Maintenance issues - -DVT prophylaxis-mechanical -GI prophylaxis-H2 radha -Nutrition-diet as tolerated Disposition -I anticipate discharge home after the hospital stay Primary care physician -Dr. Gila Mena M.D.
[2021-05-02] MEDS ORDERED: HYDROmorphone 0.5 MG/0.5 ML Syringe IVPUSH PRN (09:55)
[2021-05-02] MEDS: Dexamethasone 4 MG/ML SDV IVPUSH SCH ×2 (10:20→23:31)
[2021-05-02] MEDS: Dronabinol 2.5 MG Cap PO SCH ×2 (10:20→20:23)
[2021-05-02] MEDS: VERIFY SCOP PATCH TOP SCH (10:21)
[2021-05-02] MEDS: VERIFY FENTANYL PATCH TOP SCH ×2 (10:21→20:15)
[2021-05-02] MEDS: Scopolamine 1.5 MG Transdermal Patch TRDERM SCH (15:15)
[2021-05-02] MEDS: Ondansetron 4 MG Tab.DIS PO PRN (16:59)
[2021-05-02] MEDS: Propranolol 80 MG Cap.ER PO SCH (20:14)
[2021-05-03] MEDS: LORazepam 2 MG/ML SDV IVPUSH PRN (05:04)
[2021-05-03] MEDS: Sodium Chloride 0.45% with KCl 1,000 ML IV SCH (08:05)
[2021-05-03] MEDS: Sertraline 25 MG Tab PO SCH (08:08)
[2021-05-03] MEDS: Insulin Lispro 100 Unit/ML 3 ML KwikPen SUBCUT SCH ×4 (08:08→21:06)
[2021-05-03] MEDS: Pantoprazole 40 MG Tab.CR PO SCH ×2 (08:08→16:43)
[2021-05-03] MEDS: Sucralfate 1 GM Tab PO SCH ×4 (08:08→21:03)
[2021-05-03] MEDS: VERIFY FENTANYL PATCH TOP SCH ×2 (08:09→21:12)
[2021-05-03] MEDS: VERIFY SCOP PATCH TOP SCH (08:09)
[2021-05-03] MEDS: Dronabinol 2.5 MG Cap PO SCH ×2 (08:12→21:03)
--- NOTE | 2021-05-03 10:51 | PCM.PN ---
- General Info Date of Service: 05/03/21 Subjective Update: No acute events overnight. Patient thinks that her nausea has settled down some compared to yesterday. She was able to eat 100% of her breakfast today. She di d get nauseated walking to the bathroom shortly thereafter but did not vomit. She reports 4 out of 10 pain in her left hip which is about normal. She has mild epigastric abdominal discomfort. Blood sugars have been well controlled. Potassium level remains normal. She does have nearly constant nausea but thinks it is better today than it has been for several days. Functional Status: Reports: Pain Controlled, Tolerating Diet - Review of Systems Gastrointestinal: Reports: Nausea - Patient Data Vitals - Most Recent: Last Vital Signs Temp 36.1 C 05/03/21 08:03 Pulse 64 05/03/21 08:03 Resp 14 05/03/21 08:03 BP 108/62 05/03/21 08:03 Pulse Ox 100 05/03/21 08:03 Weight - Most Recent: 50 kg I&O - Last 24 Hours: Intake & Output 05/02/21 05/03/21 05/03/21 22:59 06:59 14:59 Intake Total 1067 1425 530 Output Total 1300 600 500 Balance -233 825 30 Lab Results Last 24 Hours: Laboratory Results - last 24 hr 05/02/21 05/02/21 05/02/21 Range/Units 11:20 16:33 21:35 Sodium (140-148) mmol/L Potassium (3.6-5.2) mmol/L Chloride (100-108) mmol/L Carbon Dioxide (21-32) mmol/L Anion Gap (5.0-14.0) mmol/L BUN (7-18) mg/dL Creatinine (0.6-1.0) mg/dL Est Cr Clr Drug Dosing mL/min Estimated GFR (MDRD) (>60) Glucose (74-106) mg/dL POC Glucose 127 H 191 H 120 H (74-106) mg/dL Calcium (8.5-10.1) mg/dL 05/03/21 05/03/21 Range/Units 04:25 07:21 Sodium 137 L (140-148) mmol/L Potassium 4.5 (3.6-5.2) mmol/L Chloride 103 (100-108) mmol/L Carbon Dioxide 23 (21-32) mmol/L Anion Gap 15.5 H (5.0-14.0) mmol/L BUN 13 D (7-18) mg/dL Creatinine 0.8 (0.6-1.0) mg/dL Est Cr Clr Drug Dosing 46.33 mL/min Estimated GFR (MDRD) > 60 (>60) Glucose 161 H (74-106) mg/dL POC Glucose 152 H (74-106) mg/dL Calcium 7.7 L (8.5-10.1) mg/dL Med Orders - Current: Current Medications Acetaminophen (Acetaminophen 325 Mg Tab) 650 mg PO Q4H PRN PRN Reason: Pain (Mild 1-3)/fever Dexamethasone (Dexamethasone 4 Mg/Ml Sdv) 4 mg IVPUSH Q12H [facility] Last Admin: 05/02/21 23:31 Dose: 4 mg Documented by: Dronabinol (Dronabinol 2.5 Mg Cap) 2.5 mg PO BID [facility] Last Admin: 05/03/21 08:12 Dose: 2.5 mg Documented by: Droperidol (Droperidol 5 Mg/2 Ml Sdv) 2.5 mg IVPUSH Q6H PRN PRN Reason: Nausea/Vomiting Fentanyl (Fentanyl 25 Mcg/Hr Transdermal Patch) 25 mcg TRDERM Q72H [facility] Last Admin: 04/30/21 21:22 Dose: 25 mcg Documented by: Hydromorphone HCl (Hydromorphone 0.5 Mg/0.5 Ml Syringe) 0.5 mg IVPUSH Q2H PRN PRN Reason: Pain (severe 7-10) Insulin Human Lispro (Insulin Lispro 100 Unit/Ml 3 Ml Kwikpen) 0 unit SUBCUT QIDACANDBED [facility]; Protocol Last Admin: 05/03/21 08:08 Dose: 2 units Documented by: Lorazepam (Lorazepam 2 Mg/Ml Sdv) 0.5 mg IVPUSH Q4H PRN PRN Reason: Nausea/Vomiting Last Admin: 05/03/21 05:04 Dose: 0.5 mg Documented by: Melatonin (Melatonin 3 Mg Tab) 9 mg PO BEDTIME PRN PRN Reason: Sleep Verify Fentanyl (Patch) 0 each TOP BID [facility] Last Admin: 05/03/21 08:09 Dose: Not Given Documented by: Verify Scop Patch 0 each TOP DAILY [facility] Last Admin: 05/03/21 08:09 Dose: Not Given Documented by: Ondansetron HCl (Ondansetron 4 Mg Tab.Dis) 4 mg PO Q6H PRN PRN Reason: Nausea able to take PO Last Admin: 05/02/21 16:59 Dose: 4 mg Documented by: Ondansetron HCl (Ondansetron 4 Mg/2 Ml Sdv) 8 mg IV Q6H PRN PRN Reason: Nausea/Vomiting Last Admin: 05/02/21 07:54 Dose: 8 mg Documented by: Oxycodone HCl (Oxycodone 5 Mg Tab) 7.5 mg PO Q4H PRN PRN Reason: Pain (moderate 4-6) Last Admin: 05/02/21 20:12 Dose: 7.5 mg Documented by: Pantoprazole Sodium (Pantoprazole 40 Mg Tab.Cr) 40 mg PO BIDAC [facility] Last Admin: 05/03/21 08:08 Dose: 40 mg Documented by: Prochlorperazine Maleate (Prochlorperazine 10 Mg Tab) 10 mg PO Q6H PRN PRN Reason: Nausea Last Admin: 05/01/21 16:19 Dose: 10 mg Documented by: Propranolol HCl (Propranolol 80 Mg Cap.Er) 80 mg PO BEDTIME [facility] Last Admin: 05/02/21 20:14 Dose: 80 mg Documented by: Scopolamine (Scopolamine 1.5 Mg Transdermal Patch) 1.5 mg TRDERM Q72H [facility] Last Admin: 05/02/21 15:15 Dose: 1.5 mg Documented by: Senna/Docusate Sodium (Docusate Sodium/Sennosides 50-8.6 Mg Tab) 1 tab PO BID PRN PRN Reason: Constipation Last Admin: 05/02/21 20:23 Dose: 1 tab Documented by: Sertraline HCl (Sertraline 25 Mg Tab) 25 mg PO DAILY [facility] Last Admin: 05/03/21 08:08 Dose: 25 mg Documented by: Sodium Chloride (Sodium Chloride 0.9% 10 Ml Syringe) 10 ml FLUSH ONETIME PRN PRN Reason: PER RADIOLOGY PROTOCOL Last Admin: 04/29/21 13:37 Dose: 10 ml Documented by: Sucralfate (Sucralfate 1 Gm Tab) 1 gm PO QIDACANDBED [facility] Last Admin: 05/03/21 08:08 Dose: 1 gm Documented by: Discontinued Medications Droperidol (Droperidol 5 Mg/2 Ml Sdv) 1.25 mg IVPUSH ONETIME ONE Stop: 04/29/21 12:48 Last Admin: 04/29/21 12:54 Dose: 1.25 mg Documented by: Droperidol (Droperidol 5 Mg/2 Ml Sdv) 1.25 mg IVPUSH Q6H PRN PRN Reason: Nausea/Vomiting Last Admin: 05/01/21 21:07 Dose: 1.25 mg Documented by: Famotidine (Famotidine 20 Mg/2 Ml Sdv) 20 mg IVPUSH BID [facility] Last Admin: 04/30/21 08:54 Dose: 20 mg Documented by: Fentanyl (Fentanyl 100 Mcg/2 Ml Sdv) Confirm Administered Dose 100 mcg .ROUTE .STK-MED ONE Stop: 04/30/21 09:52 Hydromorphone HCl (Hydromorphone 1 Mg/Ml Syringe) 0.5 mg IVPUSH Q2H PRN PRN Reason: Pain (severe 7-10) Last Admin: 05/01/21 10:38 Dose: 0.5 mg Documented by: Sodium Chloride (Normal Saline) 1,000 mls @ 999 mls/hr IV ASDIRECTED [facility] Last Admin: 04/29/21 13:45 Dose: 999 mls/hr Documented by: Sodium Chloride (Normal Saline) 70 mls @ 3 mls/sec IV ONETIME ONE Stop: 04/29/21 13:09 Last Admin: 04/29/21 13:37 Dose: 3 mls/sec Documented by: Sodium Chloride (Normal Saline) 1,000 mls @ 125 mls/hr IV ASDIRECTED [facility] Last Admin: 05/01/21 05:21 Dose: 125 mls/hr Documented by: Potassium Chloride 20 meq/Lidocaine HCl 2 ml/ Sodium Chloride 112 mls @ 50 mls/hr IV Q2H [facility] Stop: 04/29/21 20:29 Last Admin: 04/29/21 19:28 Dose: 50 mls/hr Documented by: Potassium Chloride 20 meq/Lidocaine HCl 2 ml/ Sodium Chloride 112 mls @ 56 mls/hr IV Q2H [facility] Stop: 04/30/21 12:59 Last Admin: 04/30/21 12:46 Dose: 56 mls/hr Documented by: Magnesium Sulfate 2 gm/ Premix 50 mls @ 25 mls/hr IV ONETIME ONE Stop: 04/30/21 10:59 Last Admin: 04/30/21 08:53 Dose: 25 mls/hr Documented by: Potassium Chloride 20 meq/Lidocaine HCl 2 ml/ Sodium Chloride 112 mls @ 56 mls/hr IV Q2H [facility] Stop: 05/01/21 11:59 Last Admin: 05/01/21 10:50 Dose: 56 mls/hr Documented by: Potassium Chloride/Sodium Chloride (1/2 Ns With 20 Meq Kcl) 1,000 mls @ 75 mls/hr IV ASDIRECTED [facility] Last Admin: 05/03/21 08:05 Dose: 75 mls/hr Documented by: Iopamidol (Iopamidol 612 Mg/Ml 100 Ml Bottle) 74 ml IV . DIRECTED PRN PRN Reason: RADIOLOGY EXAM Last Admin: 04/29/21 13:37 Dose: 74 ml Documented by: Lorazepam (Lorazepam 2 Mg/Ml Sdv) 0.5 mg IVPUSH ONETIME ONE Stop: 04/29/21 14:53 Last Admin: 04/29/21 14:57 Dose: 0.5 mg Documented by: Metformin HCl (Metformin 500 Mg Tab) 500 mg PO BIDMEALS [facility] Last Admin: 05/01/21 08:11 Dose: 500 mg Documented by: Metoclopramide HCl (Metoclopramide 10 Mg/2 Ml Sdv) 10 mg IVPUSH Q8H PRN PRN Reason: Nausea/Vomiting Last Admin: 04/30/21 06:45 Dose: 10 mg Documented by: Metoclopramide HCl (Metoclopramide 10 Mg/2 Ml Sdv) 10 mg IVPUSH Q6H PRN PRN Reason: Nausea/Vomiting Last Admin: 05/01/21 16:42 Dose: 10 mg Documented by: Midazolam HCl (Midazolam 1 Mg/Ml 2 Ml Sdv) Confirm Administered Dose 2 mg .ROUTE .STK-MED ONE Stop: 04/30/21 09:52 Ondansetron HCl (Ondansetron 4 Mg/2 Ml Sdv) 4 mg IV Q6H PRN PRN Reason: Nausea/Vomiting Pantoprazole Sodium (Pantoprazole 40 Mg Vial) 40 mg IVPUSH Q12H [facility] Stop: 05/01/21 05:01 Last Admin: 05/01/21 04:40 Dose: 40 mg Documented by: Potassium Chloride (Potassium Chloride 20 Meq Tab.Er) 40 meq PO ONETIME ONE Stop: 05/01/21 09:01 Last Admin: 05/01/21 08:13 Dose: 40 meq Documented by: Propofol (Propofol 200 Mg/20 Ml Sdv) Confirm Administered Dose 200 mg .ROUTE .STK-MED ONE Stop: 04/30/21 09:52 - Exam Quality Assessment: No: Supplemental Oxygen General: Alert, Oriented, Cooperative, No Acute Distress Lungs: Normal Respiratory Effort GI/Abdominal Exam: Soft, No Distention Extremities: No Pedal Edema Skin: Warm, Dry Psy/Mental Status: Alert, Normal Affect - Patient Data Lab Results Last 24 hrs: Laboratory Results - last 24 hr 05/02/21 05/02/21 05/02/21 Range/Units 11:20 16:33 21:35 Sodium (140-148) mmol/L Potassium (3.6-5.2) mmol/L Chloride (100-108) mmol/L Carbon Dioxide (21-32) mmol/L Anion Gap (5.0-14.0) mmol/L BUN (7-18) mg/dL Creatinine (0.6-1.0) mg/dL Est Cr Clr Drug Dosing mL/min Estimated GFR (MDRD) (>60) Glucose (74-106) mg/dL POC Glucose 127 H 191 H 120 H (74-106) mg/dL Calcium (8.5-10.1) mg/dL 05/03/21 05/03/21 Range/Units 04:25 07:21 Sodium 137 L (140-148) mmol/L Potassium 4.5 (3.6-5.2) mmol/L Chloride 103 (100-108) mmol/L Carbon Dioxide 23 (21-32) mmol/L Anion Gap 15.5 H (5.0-14.0) mmol/L BUN 13 D (7-18) mg/dL Creatinine 0.8 (0.6-1.0) mg/dL Est Cr Clr Drug Dosing 46.33 mL/min Estimated GFR (MDRD) > 60 (>60) Glucose 161 H (74-106) mg/dL POC Glucose 152 H (74-106) mg/dL Calcium 7.7 L (8.5-10.1) mg/dL Result Diagrams: 05/02/21 04:15 05/03/21 04:25 Sepsis Event Note - Evaluation Sepsis Screening Result: No Definite Risk - Focused Exam Vital Signs: Vital Signs Temp Temp Pulse Resp BP Pulse Ox 05/03/21 08:03 36.1 C 64 14 108/62 100 05/03/21 02:42 36.3 C 67 16 112/59 L 97 05/02/21 23:00 36.1 C 67 16 114/58 L 99 - Problem List & Annotations (1) Intractable nausea and vomiting SNOMED Code(s): 215570922 Code(s): R11.2 - NAUSEA WITH VOMITING, UNSPECIFIED Status: Acute Current Visit: Yes (2) Metastatic malignant neoplasm of unknown primary site SNOMED Code(s): 551433519 Code(s): C79.9 - SECONDARY MALIGNANT NEOPLASM OF UNSPECIFIED SITE; C80.1 - MALIGNANT (PRIMARY) NEOPLASM, UNSPECIFIED Status: Chronic Current Visit: Yes Annotation/Comment:: Unknown primary with metastases to the lung and multiple bony sites - Problem List Review Problem List Initiated/Reviewed/Updated: Yes - My Orders Last 24 Hours: My Active Orders 05/02/21 09:55 HYDROmorphone [Dilaudid] 0.5 mg IVPUSH Q2H PRN 05/02/21 10:00 Non-Formulary Medication [NF Drug] 0 each TOP BID Non-Formulary Medication [NF Drug] 0 each TOP DAILY 05/03/21 10:50 LORazepam [Ativan] 0.5 mg PO Q4H PRN Convert IV to Saline Lock [OM.PC] Routine 05/03/21 11:30 GLUCOSE POC LAB TO COLLECT JPM [POC] QIDACANDBED 05/03/21 16:30 GLUCOSE POC LAB TO COLLECT JPM [POC] QIDACANDBED 05/03/21 21:00 GLUCOSE POC LAB TO COLLECT JPM [POC] QIDACANDBED 05/04/21 07:30 GLUCOSE POC LAB TO COLLECT JPM [POC] QIDACANDBED 05/04/21 11:30 GLUCOSE POC LAB TO COLLECT JPM [POC] QIDACANDBED 05/04/21 16:30 GLUCOSE POC LAB TO COLLECT JPM [POC] QIDACANDBED 05/04/21 21:00 GLUCOSE POC LAB TO COLLECT JPM [POC] QIDACANDBED - Plan Plan:: ASSESSMENT AND PLAN - Intractable nausea with vomiting-worsening despite several attempts for outpatient management. EGD showed erosive gastritis. CLOtest negative. Symptoms seem to be slowly improving. This is the best that she has been but still nearly constantly nauseated. -Discontinuing Metformin -Continue dexamethasone -Add dronabinol twice daily -Continue PPI and Carafate -Symptomatic management of pain and nausea (lorazepam, ondansetron and scopolamine patch along with dronabinol and steroids) -Saline lock IV -Follow-up pathology from the EGD Hypokalemia-potassium level has remained normal. 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 Most recent chemotherapy was in October, 6 months ago. Most recent follow-up was in early April. No chemotherapy planned at this time. -Outpatient oncology follow-up Type 2 diabetes mellitus-discontinuing Metformin with small possibility that it may be contributing to her nausea. -Sliding scale insulin -Discontinue Metformin Maintenance issues - -DVT prophylaxis-mechanical -GI prophylaxis-H2 radha -Nutrition-diet as tolerated Disposition -I anticipate discharge home after the hospital stay Primary care physician -Dr. Gila Mena M.D.
[2021-05-03] MEDS: Ondansetron 4 MG Tab.DIS PO PRN (10:52)
[2021-05-03] MEDS: Dexamethasone 4 MG/ML SDV IVPUSH SCH ×2 (10:52→21:13)
[2021-05-03] MEDS: LORazepam 0.5 MG Tab PO PRN ×2 (11:25→15:37)
[2021-05-03] MEDS: oxyCODONE 5 MG Tab PO PRN ×2 (15:36→21:03)
[2021-05-03] MEDS: fentaNYL 25 MCG/HR Transdermal Patch TRDERM SCH (21:10)
[2021-05-03] MEDS: Propranolol 80 MG Cap.ER PO SCH (21:11)
[2021-05-04] MEDS: Insulin Lispro 100 Unit/ML 3 ML KwikPen SUBCUT SCH ×4 (07:43→21:20)
[2021-05-04] MEDS: Sucralfate 1 GM Tab PO SCH ×4 (07:44→20:23)
[2021-05-04] MEDS: Pantoprazole 40 MG Tab.CR PO SCH (07:44)
[2021-05-04] MEDS: Sertraline 25 MG Tab PO SCH (09:13)
[2021-05-04] MEDS: Dexamethasone 4 MG/ML SDV IVPUSH SCH (09:13)
[2021-05-04] MEDS: VERIFY FENTANYL PATCH TOP SCH ×2 (09:14→20:26)
[2021-05-04] MEDS: VERIFY SCOP PATCH TOP SCH (09:14)
[2021-05-04] MEDS: Dronabinol 2.5 MG Cap PO SCH ×2 (09:17→21:19)
[2021-05-04] MEDS: Ondansetron 4 MG Tab.DIS PO PRN (10:01)
[2021-05-04] MEDS: Famotidine 20 MG Tab PO SCH ×2 (11:26→20:25)
--- NOTE | 2021-05-04 16:51 | PCM.PN ---
- General Info Date of Service: 05/04/21 Subjective Update: Ms. Claudio has experienced improvement in her symptoms of nausea over the past few days. This morning she continued to experience some mild nausea but much better than what she had been previously experiencing. She is tolerating current diet without significant difficulty. Functional Status: Reports: Tolerating Diet, Ambulating, Urinating - Review of Systems General: Reports: Weakness, Fatigue. Denies: Fever, Chills Pulmonary: Reports: No Symptoms Cardiovascular: Reports: No Symptoms Gastrointestinal: Reports: Nausea. Denies: Abdominal Pain, Constipation, Decreased Appetite, Diarrhea, Difficulty Swallowing, Vomiting Genitourinary: Reports: No Symptoms - Patient Data Vitals - Most Recent: Last Vital Signs Temp 96.6 F L 05/04/21 15:20 Pulse 64 05/04/21 15:20 Resp 16 05/04/21 15:20 BP 133/62 05/04/21 15:20 Pulse Ox 97 05/04/21 15:20 Weight - Most Recent: 110 lb 3.698 oz I&O - Last 24 Hours: Intake & Output 05/04/21 05/04/21 05/04/21 06:59 14:59 22:59 Intake Total 485 Output Total 800 600 Balance -800 -115 Lab Results Last 24 Hours: Laboratory Results - last 24 hr 05/03/21 05/04/21 05/04/21 Range/Units 21:02 07:42 11:17 POC Glucose 223 H 141 H 113 H (74-106) mg/dL Med Orders - Current: Current Medications Acetaminophen (Acetaminophen 325 Mg Tab) 650 mg PO Q4H PRN PRN Reason: Pain (Mild 1-3)/fever Dronabinol (Dronabinol 2.5 Mg Cap) 2.5 mg PO BID [facility] Last Admin: 05/04/21 09:17 Dose: 2.5 mg Documented by: Droperidol (Droperidol 5 Mg/2 Ml Sdv) 2.5 mg IVPUSH Q6H PRN PRN Reason: Nausea/Vomiting Famotidine (Famotidine 20 Mg Tab) 20 mg PO BID [facility] Last Admin: 05/04/21 11:26 Dose: 20 mg Documented by: Fentanyl (Fentanyl 25 Mcg/Hr Transdermal Patch) 25 mcg TRDERM Q72H [facility] Last Admin: 05/03/21 21:10 Dose: Not Given Documented by: Heparin Sodium (Porcine) (Heparin Sodium 100 Units/Ml 5 Ml Syringe) 500 units FLUSH ASDIRECTED PRN PRN Reason: Other Last Admin: 05/03/21 11:25 Dose: 500 units Documented by: Hydromorphone HCl (Hydromorphone 0.5 Mg/0.5 Ml Syringe) 0.5 mg IVPUSH Q2H PRN PRN Reason: Pain (severe 7-10) Insulin Glargine (Insulin Glargine,Human Rec. Analog 100 Units/Ml 3 Ml Pen) 8 units SUBCUT BEDTIME [facility] Insulin Human Lispro (Insulin Lispro 100 Unit/Ml 3 Ml Kwikpen) 0 unit SUBCUT QIDACANDBED [facility]; Protocol Last Admin: 05/04/21 11:23 Dose: Not Given Documented by: Lorazepam (Lorazepam 2 Mg/Ml Sdv) 0.5 mg IVPUSH Q4H PRN PRN Reason: Nausea/Vomiting Last Admin: 05/03/21 05:04 Dose: 0.5 mg Documented by: Lorazepam (Lorazepam 0.5 Mg Tab) 0.5 mg PO Q4H PRN PRN Reason: nausea able to take PO Last Admin: 05/03/21 15:37 Dose: 0.5 mg Documented by: Melatonin (Melatonin 3 Mg Tab) 9 mg PO BEDTIME PRN PRN Reason: Sleep Verify Fentanyl (Patch) 0 each TOP BID [facility] Last Admin: 05/04/21 09:14 Dose: Not Given Documented by: Verify Scop Patch 0 each TOP DAILY [facility] Last Admin: 05/04/21 09:14 Dose: Not Given Documented by: Ondansetron HCl (Ondansetron 4 Mg Tab.Dis) 4 mg PO Q6H PRN PRN Reason: Nausea able to take PO Last Admin: 05/04/21 10:01 Dose: 4 mg Documented by: Ondansetron HCl (Ondansetron 4 Mg/2 Ml Sdv) 8 mg IV Q6H PRN PRN Reason: Nausea/Vomiting Last Admin: 05/02/21 07:54 Dose: 8 mg Documented by: Oxycodone HCl (Oxycodone 5 Mg Tab) 7.5 mg PO Q4H PRN PRN Reason: Pain (moderate 4-6) Last Admin: 05/03/21 21:03 Dose: 7.5 mg Documented by: Prochlorperazine Maleate (Prochlorperazine 10 Mg Tab) 10 mg PO Q6H PRN PRN Reason: Nausea Last Admin: 05/01/21 16:19 Dose: 10 mg Documented by: Propranolol HCl (Propranolol 80 Mg Cap.Er) 80 mg PO BEDTIME [facility] Last Admin: 05/03/21 21:11 Dose: 80 mg Documented by: Scopolamine (Scopolamine 1.5 Mg Transdermal Patch) 1.5 mg TRDERM Q72H [facility] Last Admin: 05/02/21 15:15 Dose: 1.5 mg Documented by: Senna/Docusate Sodium (Docusate Sodium/Sennosides 50-8.6 Mg Tab) 1 tab PO BID PRN PRN Reason: Constipation Last Admin: 05/02/21 20:23 Dose: 1 tab Documented by: Sertraline HCl (Sertraline 25 Mg Tab) 25 mg PO DAILY [facility] Last Admin: 05/04/21 09:13 Dose: 25 mg Documented by: Sodium Chloride (Sodium Chloride 0.9% 10 Ml Syringe) 10 ml FLUSH ONETIME PRN PRN Reason: PER RADIOLOGY PROTOCOL Last Admin: 04/29/21 13:37 Dose: 10 ml Documented by: Sucralfate (Sucralfate 1 Gm Tab) 1 gm PO QIDACANDBED [facility] Last Admin: 05/04/21 11:26 Dose: 1 gm Documented by: Discontinued Medications Dexamethasone (Dexamethasone 4 Mg/Ml Sdv) 4 mg IVPUSH Q12H [facility] Last Admin: 05/04/21 09:13 Dose: 4 mg Documented by: Droperidol (Droperidol 5 Mg/2 Ml Sdv) 1.25 mg IVPUSH ONETIME ONE Stop: 04/29/21 12:48 Last Admin: 04/29/21 12:54 Dose: 1.25 mg Documented by: Droperidol (Droperidol 5 Mg/2 Ml Sdv) 1.25 mg IVPUSH Q6H PRN PRN Reason: Nausea/Vomiting Last Admin: 05/01/21 21:07 Dose: 1.25 mg Documented by: Famotidine (Famotidine 20 Mg/2 Ml Sdv) 20 mg IVPUSH BID [facility] Last Admin: 04/30/21 08:54 Dose: 20 mg Documented by: Fentanyl (Fentanyl 100 Mcg/2 Ml Sdv) Confirm Administered Dose 100 mcg .ROUTE .STK-MED ONE Stop: 04/30/21 09:52 Hydromorphone HCl (Hydromorphone 1 Mg/Ml Syringe) 0.5 mg IVPUSH Q2H PRN PRN Reason: Pain (severe 7-10) Last Admin: 05/01/21 10:38 Dose: 0.5 mg Documented by: Sodium Chloride (Normal Saline) 1,000 mls @ 999 mls/hr IV ASDIRECTED [facility] Last Admin: 04/29/21 13:45 Dose: 999 mls/hr Documented by: Sodium Chloride (Normal Saline) 70 mls @ 3 mls/sec IV ONETIME ONE Stop: 04/29/21 13:09 Last Admin: 04/29/21 13:37 Dose: 3 mls/sec Documented by: Sodium Chloride (Normal Saline) 1,000 mls @ 125 mls/hr IV ASDIRECTED [facility] Last Admin: 05/01/21 05:21 Dose: 125 mls/hr Documented by: Potassium Chloride 20 meq/Lidocaine HCl 2 ml/ Sodium Chloride 112 mls @ 50 mls/hr IV Q2H [facility] Stop: 04/29/21 20:29 Last Admin: 04/29/21 19:28 Dose: 50 mls/hr Documented by: Potassium Chloride 20 meq/Lidocaine HCl 2 ml/ Sodium Chloride 112 mls @ 56 mls/hr IV Q2H [facility] Stop: 04/30/21 12:59 Last Admin: 04/30/21 12:46 Dose: 56 mls/hr Documented by: Magnesium Sulfate 2 gm/ Premix 50 mls @ 25 mls/hr IV ONETIME ONE Stop: 04/30/21 10:59 Last Admin: 04/30/21 08:53 Dose: 25 mls/hr Documented by: Potassium Chloride 20 meq/Lidocaine HCl 2 ml/ Sodium Chloride 112 mls @ 56 mls/hr IV Q2H [facility] Stop: 05/01/21 11:59 Last Admin: 05/01/21 10:50 Dose: 56 mls/hr Documented by: Potassium Chloride/Sodium Chloride (1/2 Ns With 20 Meq Kcl) 1,000 mls @ 75 mls/hr IV ASDIRECTED [facility] Last Admin: 05/03/21 08:05 Dose: 75 mls/hr Documented by: Iopamidol (Iopamidol 612 Mg/Ml 100 Ml Bottle) 74 ml IV . DIRECTED PRN PRN Reason: RADIOLOGY EXAM Last Admin: 04/29/21 13:37 Dose: 74 ml Documented by: Lorazepam (Lorazepam 2 Mg/Ml Sdv) 0.5 mg IVPUSH ONETIME ONE Stop: 04/29/21 14:53 Last Admin: 04/29/21 14:57 Dose: 0.5 mg Documented by: Metformin HCl (Metformin 500 Mg Tab) 500 mg PO BIDMEALS [facility] Last Admin: 05/01/21 08:11 Dose: 500 mg Documented by: Metoclopramide HCl (Metoclopramide 10 Mg/2 Ml Sdv) 10 mg IVPUSH Q8H PRN PRN Reason: Nausea/Vomiting Last Admin: 04/30/21 06:45 Dose: 10 mg Documented by: Metoclopramide HCl (Metoclopramide 10 Mg/2 Ml Sdv) 10 mg IVPUSH Q6H PRN PRN Reason: Nausea/Vomiting Last Admin: 05/01/21 16:42 Dose: 10 mg Documented by: Midazolam HCl (Midazolam 1 Mg/Ml 2 Ml Sdv) Confirm Administered Dose 2 mg .ROUTE .STK-MED ONE Stop: 04/30/21 09:52 Ondansetron HCl (Ondansetron 4 Mg/2 Ml Sdv) 4 mg IV Q6H PRN PRN Reason: Nausea/Vomiting Pantoprazole Sodium (Pantoprazole 40 Mg Vial) 40 mg IVPUSH Q12H [facility] Stop: 05/01/21 05:01 Last Admin: 05/01/21 04:40 Dose: 40 mg Documented by: Pantoprazole Sodium (Pantoprazole 40 Mg Tab.Cr) 40 mg PO BIDAC [facility] Last Admin: 05/04/21 07:44 Dose: 40 mg Documented by: Potassium Chloride (Potassium Chloride 20 Meq Tab.Er) 40 meq PO ONETIME ONE Stop: 05/01/21 09:01 Last Admin: 05/01/21 08:13 Dose: 40 meq Documented by: Propofol (Propofol 200 Mg/20 Ml Sdv) Confirm Administered Dose 200 mg .ROUTE .STK-MED ONE Stop: 04/30/21 09:52 - Exam General: Alert, Oriented, Cooperative, Mild Distress Lungs: Clear to Auscultation, Normal Respiratory Effort Cardiovascular: Regular Rate, Regular Rhythm, No Murmurs GI/Abdominal Exam: Soft, Non-Tender, No Organomegaly, No Distention Extremities: Non-Tender, No Pedal Edema - Patient Data Lab Results Last 24 hrs: Laboratory Results - last 24 hr 05/03/21 05/04/21 05/04/21 Range/Units 21:02 07:42 11:17 POC Glucose 223 H 141 H 113 H (74-106) mg/dL Result Diagrams: 05/02/21 04:15 05/03/21 04:25 Sepsis Event Note - Evaluation Sepsis Screening Result: Possible Sepsis Risk - Focused Exam Vital Signs: Vital Signs Temp Temp Pulse Resp BP Pulse Ox 05/04/21 15:20 96.6 F L 64 16 133/62 97 05/04/21 10:00 96.3 F L 51 L 15 135/64 99 05/04/21 06:00 96.2 F L 55 L 15 109/59 L 96 - Problem List Review Problem List Initiated/Reviewed/Updated: Yes - My Orders Last 24 Hours: My Active Orders 05/04/21 11:15 Famotidine [Pepcid] 20 mg PO BID 05/04/21 21:00 Insulin Glarg,Human.Rec.Analog [LantUS Solostar] 8 units SUBCUT BEDTIME - Plan Plan:: ASSESSMENT AND PLAN - Intractable nausea with vomiting-worsening despite several attempts for ou tpatient management. EGD showed erosive gastritis. Improved over the past few days, only mild nausea this morning -Discontinuing Metformin -Add dronabinol twice daily -Continue PPI and Carafate -Pepcid 20 mg p.o. twice daily -Symptomatic management of pain and nausea -Saline lock IV -Follow-up pathology from the EGD Hypokalemia-potassium level has remained normal. 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 Most recent chemotherapy was in October, 6 months ago. Most recent follow-up was in early April. No chemotherapy planned at this time. -Outpatient oncology follow-up Type 2 diabetes mellitus-discontinuing Metformin with small possibility that it may be contributing to her nausea. -Sliding scale insulin -Lantus 8 units subcu at at bedtime -Discontinue Metformin Maintenance issues - -DVT prophylaxis-mechanical -GI prophylaxis-H2 radha -Nutrition-diet as tolerated Disposition -I anticipate discharge home after the hospital stay Primary care physician -Dr. Gila Chavez
[2021-05-04] MEDS: Propranolol 80 MG Cap.ER PO SCH (20:24)
[2021-05-04] MEDS ORDERED: Insulin Glargine,Human Rec. Analog 100 Units/ML 3 ML Pen SUBCUT SCH (21:00)
[2021-05-05] MEDS: Insulin Lispro 100 Unit/ML 3 ML KwikPen SUBCUT SCH ×2 (08:09→12:52)
[2021-05-05] MEDS: Sucralfate 1 GM Tab PO SCH ×2 (08:14→12:51)
[2021-05-05] MEDS: Dronabinol 2.5 MG Cap PO SCH (08:14)
[2021-05-05] MEDS: Famotidine 20 MG Tab PO SCH (08:15)
[2021-05-05] MEDS: Sertraline 25 MG Tab PO SCH (08:15)
[2021-05-05] MEDS: VERIFY SCOP PATCH TOP SCH (08:18)
[2021-05-05] MEDS: VERIFY FENTANYL PATCH TOP SCH (08:18)
--- NOTE | 2021-05-05 13:21 | PCM.DCSUM1 ---
Discharge Summary - Hospital Course Brief History: Ms. Claudio is a 70-year-old woman who was admitted through the emergency department with persistent nausea and vomiting, having failed extensive outpatient management. 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 SNOMED Code(s): 975620701 ICD Code: C79.9 - SECONDARY MALIGNANT NEOPLASM OF UNSPECIFIED SITE; C80.1 - MALIGNANT (PRIMARY) NEOPLASM, UNSPECIFIED Status: Chronic Current Visit: Yes Problem Details: Unknown primary with metastases to the lung and multiple bony sites (3) Gastritis SNOMED Code(s): 4398289 ICD Code: K29.70 - GASTRITIS, UNSPECIFIED, WITHOUT BLEEDING Status: Acute Current Visit: Yes - Patient Summary/Data Consults: Consultations 04/29/21 15:51 Consult to Physician [CONS] Routine Consulting Provider: Enmanuel Gomez Call Completed to Consulting Physician: Yes Reason for Consult: intractable N/V Person Notified: ESTRADA Date Notified: 04/29/21 Special Instructions: EGD in am Hospital Course: Ms. Claudio presented to the emergency room with persistent nausea as well as vomiting. She had recent dose escalations of antiemetics and was seen in the emergency room yesterday and received additional antiemetic therapy. Despite these adjustments she has had ongoing nausea with vomiting. She has not been able to keep down any food or fluid in 24 hours. She reports very mild upper abdominal discomfort that she does not call pain. No obvious sick contacts though she does report that her daughter had a fever and "the flu" today. She is getting worse despite several attempts at outpatient management. She has a history of metastatic carcinoma with unknown primary. She was last seen in oncology 1 week ago. Last chemotherapy was several months ago. Work-up in the emergency room included laboratory studies and a CT scan of the abdomen and pelvis. There is evidence for dehydration, hypokalemia and mild leukocytosis. CT scan did not show any acute pathology. She will be admitted for symptomatic management as well as upper endoscopy. On admission she was given IV fluids for hydration as well as additional antiemetic therapy. She was seen and evaluated on the day after admission by Dr. Gomez and EGD was performed. EGD documented evidence of erosive gastritis. She does have a history of intolerance to all of the proton pump inhibitors. She was started on Carafate in addition to her usual H2 radha therapy. She was started on additional therapy for ongoing management of her nausea including Marinol and scopolamine patch. Over the course of the next few days her nausea and vomiting essentially resolved and she was eating well prior to discharge. She will be discharged home with ongoing use of scopolamine and Marinol as well as lorazepam for management of her nausea. She also will remain on H2 radha therapy as well as Carafate for management of her gastritis. Metformin was discontinued during hospitalization because of potential cause of nausea. She was transitioned to low-dose long- acting insulin with Lantus 8 units at bedtime. She will be on a soft low residue diet and activity will be as tolerated. Follow-up appointments will be scheduled with her primary care provider, dietitian, and vegetable grower. - Patient Instructions Diet: GI Soft/Low Residue/Low Fiber Activity: As Tolerated Other/Special Instructions: Please schedule follow-up appointment with primary care provider within 1 week. - Discharge Plan *PRESCRIPTION DRUG MONITORING PROGRAM REVIEWED*: Not Applicable *COPY OF PRESCRIPTION DRUG MONITORING REPORT IN PATIENT SULAIMAN: Not Applicable Prescriptions/Med Rec: LORazepam [Ativan] 0.5 mg PO Q4H PRN #30 tablet PRN Reason: Nausea Sucralfate [Carafate] 1 gm PO QIDACANDBED #120 tablet Insulin Glarg,Human.Rec.Analog [Lantus Solostar] 8 units SUBCUT BEDTIME #1 pen dronabinoL [Marinol] 2.5 mg PO BID #60 cap Scopolamine [Transderm-Scop] 1.5 mg TRDERM Q72H #6 patch Home Medications: Home Meds Calcium Carbonate [Calcium] 600 mg PO BID 12/24/13 [History] Multivitamin with Minerals [Multiple Vitamin] 1 tab PO DAILY 12/24/13 [History] Propranolol [Inderal LA] 80 mg PO BEDTIME 12/24/13 [History] amLODIPine [Norvasc] 2.5 mg PO BEDTIME 11/09/18 [History] atorvaSTATin [Lipitor] 40 mg PO BEDTIME 11/09/18 [History] Cholecalciferol (Vitamin D3) [Vitamin D3] 2,000 unit PO DAILY 08/17/19 [History] Famotidine [Pepcid] 40 mg PO BID 11/22/19 [History] fentaNYL [Duragesic] 100 mcg TRDERM Q72H 08/18/20 [History] oxyCODONE 15 mg PO Q6H PRN 08/18/20 [History] Ondansetron [Zofran ODT] 4 mg PO Q8H PRN 09/03/20 [History] Prochlorperazine [Compazine] 10 mg PO Q6H PRN 04/29/21 [History] Sertraline HCl 25 mg PO DAILY 04/29/21 [History] Insulin Glarg,Human.Rec.Analog [Lantus Solostar] 8 units SUBCUT BEDTIME #1 pen 05/05/21 [Rx] LORazepam [Ativan] 0.5 mg PO Q4H PRN #30 tablet 05/05/21 [Rx] Scopolamine [Transderm-Scop] 1.5 mg TRDERM Q72H #6 patch 05/05/21 [Rx] Sucralfate [Carafate] 1 gm PO QIDACANDBED #120 tablet 05/05/21 [Rx] dronabinoL [Marinol] 2.5 mg PO BID #60 cap 05/05/21 [Rx] Patient Handouts: Gastritis, Adult, [id number] Referrals: Chelle Jasso [Registered Dietitian] - 05/21/21 3:00 pm Ashley Lobato CNM [Primary Care Provider] - 05/11/21 1:30 pm (Please arrive 15 minutes early to register for your appointment.) - Discharge Summary/Plan Comment DC Time >30 min.: No Total # of Minutes for Discharge Time: 20 - Patient Data Vitals - Most Recent: Last Vital Signs Temp 96.3 F L 05/05/21 08:08 Pulse 55 L 05/05/21 08:08 Resp 16 05/05/21 08:08 BP 164/77 H 05/05/21 08:08 Pulse Ox 100 05/05/21 08:08 Weight - Most Recent: 110 lb 3.698 oz I&O - Last 24 hours: Intake & Output 05/04/21 05/05/21 05/05/21 22:59 06:59 14:59 Intake Total 200 Output Total 900 600 Balance -900 -600 200 Lab Results - Last 24 hrs: Laboratory Results - last 24 hr 05/04/21 05/04/21 05/05/21 Range/Units 16:20 21:08 07:20 POC Glucose 245 H 97 84 (74-106) mg/dL 05/05/21 Range/Units 11:18 POC Glucose 123 H (74-106) mg/dL Med Orders - Current: Current Medications Acetaminophen (Acetaminophen 325 Mg Tab) 650 mg PO Q4H PRN PRN Reason: Pain (Mild 1-3)/fever Dronabinol (Dronabinol 2.5 Mg Cap) 2.5 mg PO BID [facility] Last Admin: 05/05/21 08:14 Dose: 2.5 mg Documented by: Droperidol (Droperidol 5 Mg/2 Ml Sdv) 2.5 mg IVPUSH Q6H PRN PRN Reason: Nausea/Vomiting Famotidine (Famotidine 20 Mg Tab) 20 mg PO BID [facility] Last Admin: 05/05/21 08:15 Dose: 20 mg Documented by: Fentanyl (Fentanyl 25 Mcg/Hr Transdermal Patch) 25 mcg TRDERM Q72H [facility] Last Admin: 05/03/21 21:10 Dose: Not Given Documented by: Heparin Sodium (Porcine) (Heparin Sodium 100 Units/Ml 5 Ml Syringe) 500 units FLUSH ASDIRECTED PRN PRN Reason: Other Last Admin: 05/04/21 21:21 Dose: 500 units Documented by: Hydromorphone HCl (Hydromorphone 0.5 Mg/0.5 Ml Syringe) 0.5 mg IVPUSH Q2H PRN PRN Reason: Pain (severe 7-10) Insulin Glargine (Insulin Glargine,Human Rec. Analog 100 Units/Ml 3 Ml Pen) 8 units SUBCUT BEDTIME [facility] Last Admin: 05/04/21 21:21 Dose: 8 units Documented by: Insulin Human Lispro (Insulin Lispro 100 Unit/Ml 3 Ml Kwikpen) 0 unit SUBCUT QIDACANDBED [facility]; Protocol Last Admin: 05/05/21 12:52 Dose: Not Given Documented by: Lorazepam (Lorazepam 2 Mg/Ml Sdv) 0.5 mg IVPUSH Q4H PRN PRN Reason: Nausea/Vomiting Last Admin: 05/03/21 05:04 Dose: 0.5 mg Documented by: Lorazepam (Lorazepam 0.5 Mg Tab) 0.5 mg PO Q4H PRN PRN Reason: nausea able to take PO Last Admin: 05/03/21 15:37 Dose: 0.5 mg Documented by: Melatonin (Melatonin 3 Mg Tab) 9 mg PO BEDTIME PRN PRN Reason: Sleep Last Admin: 05/04/21 21:26 Dose: 9 mg Documented by: Verify Fentanyl (Patch) 0 each TOP BID [facility] Last Admin: 05/05/21 08:18 Dose: Not Given Documented by: Verify Scop Patch 0 each TOP DAILY [facility] Last Admin: 05/05/21 08:18 Dose: Not Given Documented by: Ondansetron HCl (Ondansetron 4 Mg Tab.Dis) 4 mg PO Q6H PRN PRN Reason: Nausea able to take PO Last Admin: 05/04/21 10:01 Dose: 4 mg Documented by: Ondansetron HCl (Ondansetron 4 Mg/2 Ml Sdv) 8 mg IV Q6H PRN PRN Reason: Nausea/Vomiting Last Admin: 05/02/21 07:54 Dose: 8 mg Documented by: Oxycodone HCl (Oxycodone 5 Mg Tab) 7.5 mg PO Q4H PRN PRN Reason: Pain (moderate 4-6) Last Admin: 05/03/21 21:03 Dose: 7.5 mg Documented by: Prochlorperazine Maleate (Prochlorperazine 10 Mg Tab) 10 mg PO Q6H PRN PRN Reason: Nausea Last Admin: 05/01/21 16:19 Dose: 10 mg Documented by: Propranolol HCl (Propranolol 80 Mg Cap.Er) 80 mg PO BEDTIME [facility] Last Admin: 05/04/21 20:24 Dose: 80 mg Documented by: Scopolamine (Scopolamine 1.5 Mg Transdermal Patch) 1.5 mg TRDERM Q72H [facility] Last Admin: 05/02/21 15:15 Dose: 1.5 mg Documented by: Senna/Docusate Sodium (Docusate Sodium/Sennosides 50-8.6 Mg Tab) 1 tab PO BID PRN PRN Reason: Constipation Last Admin: 05/02/21 20:23 Dose: 1 tab Documented by: Sertraline HCl (Sertraline 25 Mg Tab) 25 mg PO DAILY [facility] Last Admin: 05/05/21 08:15 Dose: 25 mg Documented by: Sodium Chloride (Sodium Chloride 0.9% 10 Ml Syringe) 10 ml FLUSH ONETIME PRN PRN Reason: PER RADIOLOGY PROTOCOL Last Admin: 04/29/21 13:37 Dose: 10 ml Documented by: Sucralfate (Sucralfate 1 Gm Tab) 1 gm PO QIDACANDBED [facility] Last Admin: 05/05/21 12:51 Dose: 1 gm Documented by: Discontinued Medications Dexamethasone (Dexamethasone 4 Mg/Ml Sdv) 4 mg IVPUSH Q12H [facility] Last Admin: 05/04/21 09:13 Dose: 4 mg Documented by: Droperidol (Droperidol 5 Mg/2 Ml Sdv) 1.25 mg IVPUSH ONETIME ONE Stop: 04/29/21 12:48 Last Admin: 04/29/21 12:54 Dose: 1.25 mg Documented by: Droperidol (Droperidol 5 Mg/2 Ml Sdv) 1.25 mg IVPUSH Q6H PRN PRN Reason: Nausea/Vomiting Last Admin: 05/01/21 21:07 Dose: 1.25 mg Documented by: Famotidine (Famotidine 20 Mg/2 Ml Sdv) 20 mg IVPUSH BID [facility] Last Admin: 04/30/21 08:54 Dose: 20 mg Documented by: Fentanyl (Fentanyl 100 Mcg/2 Ml Sdv) Confirm Administered Dose 100 mcg .ROUTE .STK-MED ONE Stop: 04/30/21 09:52 Hydromorphone HCl (Hydromorphone 1 Mg/Ml Syringe) 0.5 mg IVPUSH Q2H PRN PRN Reason: Pain (severe 7-10) Last Admin: 05/01/21 10:38 Dose: 0.5 mg Documented by: Sodium Chloride (Normal Saline) 1,000 mls @ 999 mls/hr IV ASDIRECTED [facility] Last Admin: 04/29/21 13:45 Dose: 999 mls/hr Documented by: Sodium Chloride (Normal Saline) 70 mls @ 3 mls/sec IV ONETIME ONE Stop: 04/29/21 13:09 Last Admin: 04/29/21 13:37 Dose: 3 mls/sec Documented by: Sodium Chloride (Normal Saline) 1,000 mls @ 125 mls/hr IV ASDIRECTED [facility] Last Admin: 05/01/21 05:21 Dose: 125 mls/hr Documented by: Potassium Chloride 20 meq/Lidocaine HCl 2 ml/ Sodium Chloride 112 mls @ 50 mls/hr IV Q2H [facility] Stop: 04/29/21 20:29 Last Admin: 04/29/21 19:28 Dose: 50 mls/hr Documented by: Potassium Chloride 20 meq/Lidocaine HCl 2 ml/ Sodium Chloride 112 mls @ 56 mls/hr IV Q2H [facility] Stop: 04/30/21 12:59 Last Admin: 04/30/21 12:46 Dose: 56 mls/hr Documented by: Magnesium Sulfate 2 gm/ Premix 50 mls @ 25 mls/hr IV ONETIME ONE Stop: 04/30/21 10:59 Last Admin: 04/30/21 08:53 Dose: 25 mls/hr Documented by: Potassium Chloride 20 meq/Lidocaine HCl 2 ml/ Sodium Chloride 112 mls @ 56 mls/hr IV Q2H [facility] Stop: 05/01/21 11:59 Last Admin: 05/01/21 10:50 Dose: 56 mls/hr Documented by: Potassium Chloride/Sodium Chloride (1/2 Ns With 20 Meq Kcl) 1,000 mls @ 75 mls/hr IV ASDIRECTED [facility] Last Admin: 05/03/21 08:05 Dose: 75 mls/hr Documented by: Iopamidol (Iopamidol 612 Mg/Ml 100 Ml Bottle) 74 ml IV . DIRECTED PRN PRN Reason: RADIOLOGY EXAM Last Admin: 04/29/21 13:37 Dose: 74 ml Documented by: Lorazepam (Lorazepam 2 Mg/Ml Sdv) 0.5 mg IVPUSH ONETIME ONE Stop: 04/29/21 14:53 Last Admin: 04/29/21 14:57 Dose: 0.5 mg Documented by: Metformin HCl (Metformin 500 Mg Tab) 500 mg PO BIDMEALS [facility] Last Admin: 05/01/21 08:11 Dose: 500 mg Documented by: Metoclopramide HCl (Metoclopramide 10 Mg/2 Ml Sdv) 10 mg IVPUSH Q8H PRN PRN Reason: Nausea/Vomiting Last Admin: 04/30/21 06:45 Dose: 10 mg Documented by: Metoclopramide HCl (Metoclopramide 10 Mg/2 Ml Sdv) 10 mg IVPUSH Q6H PRN PRN Reason: Nausea/Vomiting Last Admin: 05/01/21 16:42 Dose: 10 mg Documented by: Midazolam HCl (Midazolam 1 Mg/Ml 2 Ml Sdv) Confirm Administered Dose 2 mg .ROUTE .STK-MED ONE Stop: 04/30/21 09:52 Ondansetron HCl (Ondansetron 4 Mg/2 Ml Sdv) 4 mg IV Q6H PRN PRN Reason: Nausea/Vomiting Pantoprazole Sodium (Pantoprazole 40 Mg Vial) 40 mg IVPUSH Q12H [facility] Stop: 05/01/21 05:01 Last Admin: 05/01/21 04:40 Dose: 40 mg Documented by: Pantoprazole Sodium (Pantoprazole 40 Mg Tab.Cr) 40 mg PO BIDAC [facility]O Last Admin: 05/04/21 07:44 Dose: 40 mg Documented by: Potassium Chloride (Potassium Chloride 20 Meq Tab.Er) 40 meq PO ONETIME ONE Stop: 05/01/21 09:01 Last Admin: 05/01/21 08:13 Dose: 40 meq Documented by: Propofol (Propofol 200 Mg/20 Ml Sdv) Confirm Administered Dose 200 mg .ROUTE .STK-MED ONE Stop: 04/30/21 09:52 - Exam Quality Assessment: Reports: DVT Prophylaxis General: Reports: Alert, Oriented, Cooperative, No Acute Distress Lungs: Reports: Clear to Auscultation, Normal Respiratory Effort Cardiovascular: Reports: Regular Rate, Regular Rhythm, No Murmurs GI/Abdominal Exam: Soft, Non-Tender, No Organomegaly, No Distention
[2021-05-05] MEDS: Scopolamine 1.5 MG Transdermal Patch TRDERM SCH (14:07)
== END 2021-05-05 14:45 | disposition home or self-care (01) | DRG 392 ==
LOC: JP.ED 12:23 → JP.MS 14:54
PROVIDERS: ADMIT Internal Medicine; ATTEND Hospitalist
DX: R11.2 Nausea with vomiting, unspecified (principal); C79.9 Secondary malignant neoplasm of unspecified site; K29.70 Gastritis, unspecified, without bleeding; C79.51 Secondary malignant neoplasm of bone; C78.00 Secondary malignant neoplasm of unspecified lung; E86.0 Dehydration; E87.6 Hypokalemia; D72.828 Other elevated white blood cell count; C80.1 Malignant (primary) neoplasm, unspecified; Z85.118 Personal history of other malignant neoplasm of bronchus and lung; Z85.830 Personal history of malignant neoplasm of bone; Z88.6 Allergy status to analgesic agent; H54.7 Unspecified visual loss; E78.00 Pure hypercholesterolemia, unspecified; Z79.84 Long term (current) use of oral hypoglycemic drugs; K21.9 Gastro-esophageal reflux disease without esophagitis; K44.9 Diaphragmatic hernia without obstruction or gangrene; Z20.822 Contact with and (suspected) exposure to COVID-19; I10 Essential (primary) hypertension; M19.90 Unspecified osteoarthritis, unspecified site; G43.909 Migraine, unspecified, not intractable, without status migrainosus; E11.9 Type 2 diabetes mellitus without complications; Z90.49 Acquired absence of other specified parts of digestive tract; Z79.4 Long term (current) use of insulin; Z79.899 Other long term (current) drug therapy; Z88.5 Allergy status to narcotic agent; Z88.8 Allergy status to other drugs, medicaments and biological substances; Z98.890 Other specified postprocedural states
CPT/HCPCS: 36415; 74177 ×2; 80048; 85025; 96374; 99285; J1790; J7030; Q9967; 82947; 83735; 84132; 85027; 87081; A9270-GY; C9113; J1100; J1170; J1642; J1815; J1815-GY; J2060; J2250; J2405; J2704; J2765; J3010; J3475; J3480; J3490; Q0164; U0002

== ENCOUNTER 2022-01-08 16:47 | Emergency (ER) | payer MEDICARE, OTHER | END 2022-01-08 18:47 | disposition home or self-care (01) | LOC: JP.ED 16:47 | DX: M79.661 Pain in right lower leg (principal); M79.662 Pain in left lower leg; E78.00 Pure hypercholesterolemia, unspecified; I10 Essential (primary) hypertension; M19.90 Unspecified osteoarthritis, unspecified site; E11.9 Type 2 diabetes mellitus without complications | CPT/HCPCS: 36415; 80048; 82550; 93971-26-LT; 93971-LT; 99283; 99284-25 ==

== ENCOUNTER 2022-04-14 18:12 | Emergency (ER) | payer MEDICARE, OTHER ==
[2022-04-14] MEDS ORDERED: Sodium Chloride 0.9% 1,000 ML IV SCH (18:45)
[2022-04-14] MEDS ORDERED: Haloperidol Lactate 5 MG/ML SDV IVPUSH ONE (18:45)
[2022-04-14 19:26] LABS: ESTIMATED GFR 68 mL/min (>60)
== END 2022-04-14 21:15 | disposition home or self-care (01) ==
LOC: JP.ED 18:12
DX: R11.2 Nausea with vomiting, unspecified (principal); C80.1 Malignant (primary) neoplasm, unspecified; C79.89 Secondary malignant neoplasm of other specified sites; E78.00 Pure hypercholesterolemia, unspecified; I10 Essential (primary) hypertension; K21.9 Gastro-esophageal reflux disease without esophagitis; E11.9 Type 2 diabetes mellitus without complications; M19.90 Unspecified osteoarthritis, unspecified site; Z88.5 Allergy status to narcotic agent; Z88.8 Allergy status to other drugs, medicaments and biological substances; Z79.4 Long term (current) use of insulin; Z79.899 Other long term (current) drug therapy; Z20.822 Contact with and (suspected) exposure to COVID-19
CPT/HCPCS: 36415; 80053; 85025; 96361; 96374; 99284; J1630; J7030; U0002; 99283

== ENCOUNTER 2022-04-16 08:35 | Emergency (ER) | payer MEDICARE, OTHER ==
[2022-04-16] MEDS ORDERED: Sodium Chloride 0.9% 10 ML Syringe FLUSH PRN ×2 (09:12)
[2022-04-16] MEDS ORDERED: Ondansetron 4 MG/2 ML SDV IVPUSH PRN (09:12)
[2022-04-16] MEDS ORDERED: Famotidine 20 MG/2 ML SDV IVPUSH ONE (09:14)
[2022-04-16] MEDS ORDERED: Sodium Chloride 0.9% 1,000 ML IV SCH ×2 (09:15→11:15)
[2022-04-16] MEDS ORDERED: Prochlorperazine 10 MG/2 ML SDV IVPUSH PRN (09:15)
[2022-04-16 09:54] LABS: ESTIMATED GFR 68 mL/min (>60)
[2022-04-16] MEDS ORDERED: Potassium Chloride 10 MEQ in Premix Bag 1 BAG IV ONE (10:27)
[2022-04-16] MEDS ORDERED: Sodium Chloride 0.9% 10 ML Syringe FLUSH ONE (11:54)
[2022-04-16] MEDS ORDERED: Sodium Chloride 0.9% 50 ML IV SCH (12:00)
[2022-04-16] MEDS ORDERED: Iopamidol 612 MG/ML 100 ML Bottle IV SCH (12:00)
[2022-04-16] MEDS ORDERED: Prochlorperazine 10 MG/2 ML SDV IVPUSH ONE (14:05)
== END 2022-04-16 14:30 | disposition home or self-care (01) ==
LOC: JP.ED 08:35
DX: R11.2 Nausea with vomiting, unspecified (principal); C79.9 Secondary malignant neoplasm of unspecified site; E87.6 Hypokalemia; E86.0 Dehydration; E87.1 Hypo-osmolality and hyponatremia; E78.00 Pure hypercholesterolemia, unspecified; I10 Essential (primary) hypertension; K21.9 Gastro-esophageal reflux disease without esophagitis; E11.9 Type 2 diabetes mellitus without complications; M19.90 Unspecified osteoarthritis, unspecified site; Z88.5 Allergy status to narcotic agent; Z88.8 Allergy status to other drugs, medicaments and biological substances; Z79.4 Long term (current) use of insulin; Z79.899 Other long term (current) drug therapy
CPT/HCPCS: 36415; 74178; 80053; 81001; 82150; 83690; 83735; 85025; 96361; 96365; 96375; 96376; 99283; 99284; J0780; J1642; J2405; J3480; J3490; J7030; Q9967

== ENCOUNTER 2022-05-19 17:39 | Emergency (ER) | payer MEDICARE, OTHER ==
[2022-05-19] MEDS: Sodium Chloride 0.9% 1,000 ML IV SCH ×2 (19:09→21:12)
[2022-05-19] MEDS: Ondansetron 4 MG/2 ML SDV IVPUSH ONE (19:12)
[2022-05-19 19:29] LABS: ESTIMATED GFR 78 mL/min (>60)
[2022-05-19] MEDS: Potassium Chloride 20 MEQ in Premix Bag 1 BAG IV ONE (19:38)
[2022-05-19] MEDS: Loperamide 2 MG Cap PO ONE (22:01)
== END 2022-05-19 22:16 | disposition home or self-care (01) ==
LOC: JP.ED 17:39
DX: E86.0 Dehydration (principal); E87.6 Hypokalemia; C76.3 Malignant neoplasm of pelvis; I10 Essential (primary) hypertension; E11.9 Type 2 diabetes mellitus without complications; Z88.5 Allergy status to narcotic agent; Z88.6 Allergy status to analgesic agent; Z88.8 Allergy status to other drugs, medicaments and biological substances; Z79.899 Other long term (current) drug therapy; Z90.49 Acquired absence of other specified parts of digestive tract
CPT/HCPCS: 36415; 80053; 83605; 85025; 96361; 96365; 96366; 96375; 99284; A9270; J1642; J2405; J3480; J7030

== ENCOUNTER 2022-10-10 08:49 | Emergency (ER) | payer MEDICARE, OTHER ==
[2022-10-10] MEDS ORDERED: methylPREDNISolone Sodium Succinate 125 MG/2 ML SDV IVPUSH ONE (09:31)
[2022-10-10] MEDS ORDERED: Bupivacaine 0.5% 10 ML SDV INJECT ONE (09:31)
[2022-10-10] MEDS ORDERED: Triamcinolone Acetonide 40 MG/ML 1 ML SDV INJECT PRN (09:31)
[2022-10-10] MEDS ORDERED: Ketorolac 15 MG/ML SDV IVPUSH ONE (09:32)
== END 2022-10-10 10:22 | disposition home or self-care (01) ==
LOC: JP.ED 08:49
DX: M70.62 Trochanteric bursitis, left hip (principal); I10 Essential (primary) hypertension; E78.00 Pure hypercholesterolemia, unspecified; K21.9 Gastro-esophageal reflux disease without esophagitis; M19.90 Unspecified osteoarthritis, unspecified site; E11.9 Type 2 diabetes mellitus without complications; Z88.8 Allergy status to other drugs, medicaments and biological substances; Z88.5 Allergy status to narcotic agent; Z79.899 Other long term (current) drug therapy; Z79.4 Long term (current) use of insulin
CPT/HCPCS: 96374; 96375; 99283; 99283-25; J1885; J2930; J3301; J3490

== ENCOUNTER 2022-10-11 17:28 | Inpatient (IN) | payer MEDICARE, OTHER ==
[2022-10-11] MEDS ORDERED: Sodium Chloride 0.9% 10 ML Syringe FLUSH PRN (18:12)
[2022-10-11 18:35] LABS: ESTIMATED GFR 68 mL/min (>60)
[2022-10-11] MEDS ORDERED: Cefepime 2 GM in Sodium Chloride 0.9% 50 ML IV ONE (18:50)
[2022-10-11] MEDS ORDERED: Sodium Chloride 0.9% 75 ML IV SCH (19:00)
[2022-10-11] MEDS ORDERED: Iopamidol 612 MG/ML 100 ML Bottle IV SCH (19:00)
[2022-10-11] MEDS ORDERED: Lactated Ringers 1,000 ML IV SCH (19:00)
[2022-10-11 19:24] LABS: CORONAVIRUS COVID-19 NAA NEGATIVE (NEGATIVE)
[2022-10-11] MEDS ORDERED: Potassium Chloride 10 MEQ in Premix Bag 1 BAG IV ONE ×8 (19:36→23:31)
[2022-10-11] MEDS: Ibuprofen 800 MG Tab PO PRN (20:26)
[2022-10-11] MEDS: Ondansetron 4 MG/2 ML SDV IVPUSH SCH (20:27)
[2022-10-11] MEDS ORDERED: Melatonin 3 MG Tab PO PRN (22:09)
[2022-10-11] MEDS ORDERED: Insulin Lispro 100 Unit/ML 3 ML KwikPen SUBCUT SCH (22:15)
[2022-10-11] MEDS: Scopolamine 1.5 MG Transdermal Patch TRDERM SCH (22:36)
[2022-10-11] MEDS: Lactated Ringers 1,000 ML IV SCH (22:37)
[2022-10-11] MEDS ORDERED: Potassium Chloride 100 ML ONE (23:24)
[2022-10-12] MEDS: Ondansetron 4 MG/2 ML SDV IVPUSH SCH ×4 (03:34→21:03)
[2022-10-12] MEDS: Acetaminophen 325 MG Tab PO PRN (03:47)
[2022-10-12] MEDS: oxyCODONE 5 MG Tab PO PRN ×3 (03:48→12:19)
[2022-10-12] MEDS: Prochlorperazine 10 MG Tab PO PRN ×2 (05:35→23:55)
[2022-10-12] MEDS ORDERED: Pantoprazole 40 MG Tab.CR PO SCH (07:30)
[2022-10-12] MEDS: Lactated Ringers 1,000 ML IV SCH ×2 (07:30→21:35)
[2022-10-12] MEDS: Insulin Lispro 100 Unit/ML 3 ML KwikPen SUBCUT SCH ×4 (08:25→21:05)
[2022-10-12] MEDS ORDERED: amLODIPine 5 MG Tab PO SCH (09:00)
[2022-10-12] MEDS ORDERED: Non-Formulary Medication 1 Each (Famotidine [Pepcid] 40 MG Tablet) PO SCH (09:15)
[2022-10-12] MEDS ORDERED: OXYCODONE 10 MG PO SCH (09:15)
[2022-10-12] MEDS: Potassium Chloride 10 MEQ in Premix Bag 1 BAG IV SCH ×4 (09:30→14:38)
[2022-10-12] MEDS: Propranolol 80 MG Cap.ER PO SCH (09:31)
[2022-10-12] MEDS: Famotidine 20 MG Tab PO SCH ×2 (09:35→21:08)
[2022-10-12] MEDS ORDERED: OXYCONTIN 20 MG PO SCH (11:30)
[2022-10-12] MEDS: Ibuprofen 800 MG Tab PO PRN (14:46)
[2022-10-12] MEDS: Insulin Glargine,Human Rec. Analog 100 Units/ML 3 ML Pen SUBCUT SCH (21:07)
[2022-10-12] MEDS: atorvaSTATin 20 MG Tab PO SCH (21:08)
[2022-10-12] MEDS: OXYCONTIN 20 MG PO SCH (21:09)
[2022-10-12] MEDS: Sertraline 25 MG Tab PO SCH (21:09)
[2022-10-13] MEDS: Ondansetron 4 MG/2 ML SDV IVPUSH SCH ×4 (02:36→19:52)
[2022-10-13] MEDS: oxyCODONE 5 MG Tab PO PRN ×3 (02:48→16:45)
[2022-10-13] MEDS: Ibuprofen 800 MG Tab PO PRN ×2 (02:49→12:41)
[2022-10-13] MEDS: OXYCONTIN 20 MG PO SCH ×3 (05:39→22:02)
[2022-10-13] MEDS: Lactated Ringers 1,000 ML IV SCH ×2 (07:55→11:06)
[2022-10-13] MEDS: Insulin Lispro 100 Unit/ML 3 ML KwikPen SUBCUT SCH ×4 (08:34→21:10)
[2022-10-13] MEDS: Potassium Chloride 10 MEQ in Premix Bag 1 BAG IV SCH ×4 (08:34→12:35)
[2022-10-13] MEDS: Propranolol 80 MG Cap.ER PO SCH (08:36)
[2022-10-13] MEDS: Famotidine 20 MG Tab PO SCH ×2 (08:36→21:50)
[2022-10-13] MEDS: amLODIPine 5 MG Tab PO SCH (08:44)
[2022-10-13] MEDS: Prochlorperazine 10 MG Tab PO PRN ×3 (11:02→22:06)
[2022-10-13] MEDS: Sertraline 25 MG Tab PO SCH (21:50)
[2022-10-13] MEDS: atorvaSTATin 20 MG Tab PO SCH (21:50)
[2022-10-13] MEDS: Insulin Glargine,Human Rec. Analog 100 Units/ML 3 ML Pen SUBCUT SCH (21:51)
[2022-10-14] MEDS: oxyCODONE 5 MG Tab PO PRN ×4 (00:21→20:30)
[2022-10-14] MEDS: LORazepam 2 MG/ML SDV IVPUSH PRN (00:21)
[2022-10-14] MEDS: Ondansetron 4 MG/2 ML SDV IVPUSH SCH ×4 (02:42→20:03)
[2022-10-14] MEDS: OXYCONTIN 20 MG PO SCH ×3 (05:20→21:36)
[2022-10-14] MEDS: Prochlorperazine 10 MG Tab PO PRN (07:09)
[2022-10-14] MEDS: Lactated Ringers 1,000 ML IV SCH (07:10)
[2022-10-14] MEDS: Insulin Lispro 100 Unit/ML 3 ML KwikPen SUBCUT SCH ×4 (07:52→21:28)
[2022-10-14] MEDS: Propranolol 80 MG Cap.ER PO SCH (08:51)
[2022-10-14] MEDS: amLODIPine 5 MG Tab PO SCH (08:51)
[2022-10-14] MEDS: Famotidine 20 MG Tab PO SCH ×2 (08:52→21:32)
[2022-10-14] MEDS: Ibuprofen 800 MG Tab PO PRN ×2 (09:50→23:51)
[2022-10-14] MEDS: Potassium Chloride 10 MEQ in Premix Bag 1 BAG IV SCH ×4 (09:51→13:15)
[2022-10-14] MEDS: Insulin Glargine,Human Rec. Analog 100 Units/ML 3 ML Pen SUBCUT SCH (21:31)
[2022-10-14] MEDS: atorvaSTATin 20 MG Tab PO SCH (21:32)
[2022-10-14] MEDS: Sertraline 25 MG Tab PO SCH (21:32)
[2022-10-14] MEDS: Scopolamine 1.5 MG Transdermal Patch TRDERM SCH (21:36)
[2022-10-15] MEDS: Ondansetron 4 MG/2 ML SDV IVPUSH SCH ×4 (03:19→21:03)
[2022-10-15] MEDS: Lactated Ringers 1,000 ML IV SCH ×2 (03:52→23:51)
[2022-10-15] MEDS: OXYCONTIN 20 MG PO SCH ×3 (05:24→21:08)
[2022-10-15] MEDS: Insulin Lispro 100 Unit/ML 3 ML KwikPen SUBCUT SCH ×4 (08:25→21:05)
[2022-10-15] MEDS: oxyCODONE 5 MG Tab PO PRN ×2 (08:26→16:29)
[2022-10-15] MEDS: Propranolol 80 MG Cap.ER PO SCH (08:50)
[2022-10-15] MEDS: amLODIPine 5 MG Tab PO SCH (08:51)
[2022-10-15] MEDS: Famotidine 20 MG Tab PO SCH ×2 (08:52→21:03)
[2022-10-15] MEDS: Ibuprofen 800 MG Tab PO PRN (11:07)
[2022-10-15] MEDS ORDERED: OLANZapine 5 MG Tab PO PRN (12:00)
[2022-10-15] MEDS ORDERED: Dexamethasone 4 MG/ML SDV IVPUSH ONE (12:30)
[2022-10-15] MEDS: Prochlorperazine 10 MG Tab PO PRN (15:30)
[2022-10-15] MEDS: atorvaSTATin 20 MG Tab PO SCH (21:03)
[2022-10-15] MEDS: Sertraline 25 MG Tab PO SCH (21:04)
[2022-10-15] MEDS: Insulin Glargine,Human Rec. Analog 100 Units/ML 3 ML Pen SUBCUT SCH (21:04)
[2022-10-16] MEDS: Ondansetron 4 MG/2 ML SDV IVPUSH SCH ×4 (03:08→21:22)
[2022-10-16] MEDS: oxyCODONE 5 MG Tab PO PRN ×2 (04:24→09:22)
[2022-10-16] MEDS: OXYCONTIN 20 MG PO SCH ×3 (05:42→21:22)
[2022-10-16] MEDS: Insulin Lispro 100 Unit/ML 3 ML KwikPen SUBCUT SCH ×4 (07:20→21:15)
[2022-10-16] MEDS: Ibuprofen 800 MG Tab PO PRN ×2 (07:23→13:33)
[2022-10-16] MEDS: Famotidine 20 MG Tab PO SCH ×2 (09:19→21:23)
[2022-10-16] MEDS: Propranolol 80 MG Cap.ER PO SCH (09:19)
[2022-10-16] MEDS: amLODIPine 5 MG Tab PO SCH (09:19)
[2022-10-16] MEDS: Lactated Ringers 1,000 ML IV SCH (20:35)
[2022-10-16] MEDS: Insulin Glargine,Human Rec. Analog 100 Units/ML 3 ML Pen SUBCUT SCH (21:22)
[2022-10-16] MEDS: Sertraline 25 MG Tab PO SCH (21:23)
[2022-10-16] MEDS: atorvaSTATin 20 MG Tab PO SCH (21:23)
[2022-10-17] MEDS: oxyCODONE 5 MG Tab PO PRN ×2 (01:38→12:41)
[2022-10-17] MEDS: Ondansetron 4 MG/2 ML SDV IVPUSH SCH ×3 (01:39→14:20)
[2022-10-17] MEDS: OXYCONTIN 20 MG PO SCH ×3 (05:44→21:06)
[2022-10-17] MEDS: Ibuprofen 800 MG Tab PO PRN (08:31)
[2022-10-17] MEDS: Propranolol 80 MG Cap.ER PO SCH (08:32)
[2022-10-17] MEDS: amLODIPine 5 MG Tab PO SCH (08:32)
[2022-10-17] MEDS: Famotidine 20 MG Tab PO SCH ×2 (08:32→21:07)
[2022-10-17] MEDS: Insulin Lispro 100 Unit/ML 3 ML KwikPen SUBCUT SCH ×4 (08:33→21:05)
[2022-10-17] MEDS: Potassium Chloride 10 MEQ in Premix Bag 1 BAG IV SCH ×4 (12:35→16:56)
[2022-10-17] MEDS: Prochlorperazine 10 MG Tab PO PRN (16:10)
[2022-10-17] MEDS: Insulin Glargine,Human Rec. Analog 100 Units/ML 3 ML Pen SUBCUT SCH (21:06)
[2022-10-17] MEDS: Ondansetron 4 MG Tab.DIS PO SCH (21:06)
[2022-10-17] MEDS: Sertraline 25 MG Tab PO SCH (21:06)
[2022-10-17] MEDS: atorvaSTATin 20 MG Tab PO SCH (21:07)
[2022-10-18] MEDS: Acetaminophen 325 MG Tab PO PRN (00:07)
[2022-10-18] MEDS: Sodium Chloride 0.9% 1,000 ML IV SCH ×2 (01:12→09:16)
[2022-10-18] MEDS: Ondansetron 4 MG Tab.DIS PO SCH ×4 (01:57→20:40)
[2022-10-18] MEDS: OXYCONTIN 20 MG PO SCH ×3 (05:47→22:16)
[2022-10-18] MEDS: Insulin Lispro 100 Unit/ML 3 ML KwikPen SUBCUT SCH ×4 (08:34→19:20)
[2022-10-18] MEDS: oxyCODONE 5 MG Tab PO PRN (08:35)
[2022-10-18] MEDS: Famotidine 20 MG Tab PO SCH ×2 (08:35→20:40)
[2022-10-18] MEDS: amLODIPine 5 MG Tab PO SCH (08:38)
[2022-10-18] MEDS: Propranolol 80 MG Cap.ER PO SCH (08:39)
[2022-10-18] MEDS ORDERED: Potassium Chloride 20 MEQ Tab.ER PO ONE (09:00)
[2022-10-18] MEDS ORDERED: oxyCODONE 5 MG Tab PO ONE (10:42)
[2022-10-18] MEDS: LORazepam 2 MG/ML SDV IVPUSH PRN ×2 (10:55→16:05)
[2022-10-18] MEDS ORDERED: OXYCONTIN 20 MG PO ONE (11:00)
[2022-10-18] MEDS: Insulin Glargine,Human Rec. Analog 100 Units/ML 3 ML Pen SUBCUT SCH (20:40)
[2022-10-18] MEDS: atorvaSTATin 20 MG Tab PO SCH (20:40)
[2022-10-18] MEDS: Sertraline 25 MG Tab PO SCH (20:40)
[2022-10-19] MEDS: OXYCONTIN 20 MG PO SCH ×3 (01:24→09:23)
[2022-10-19] MEDS: Ondansetron 4 MG Tab.DIS PO SCH ×4 (01:31→20:52)
[2022-10-19] MEDS: LORazepam 2 MG/ML SDV IVPUSH PRN (07:29)
[2022-10-19] MEDS: Insulin Lispro 100 Unit/ML 3 ML KwikPen SUBCUT SCH ×4 (08:30→20:51)
[2022-10-19] MEDS: oxyCODONE 5 MG Tab PO PRN ×3 (11:55→18:38)
[2022-10-19] MEDS: amLODIPine 5 MG Tab PO SCH (12:26)
[2022-10-19] MEDS: Propranolol 80 MG Cap.ER PO SCH (12:26)
[2022-10-19] MEDS: Famotidine 20 MG Tab PO SCH ×2 (12:26→20:55)
[2022-10-19] MEDS: Methadone Oral Concentrate 10 MG/1 ML ML 30 ML Bottle PO SCH (20:48)
[2022-10-19] MEDS: Insulin Glargine,Human Rec. Analog 100 Units/ML 3 ML Pen SUBCUT SCH (20:54)
[2022-10-19] MEDS: Sertraline 25 MG Tab PO SCH (20:55)
[2022-10-19] MEDS: atorvaSTATin 20 MG Tab PO SCH (20:55)
[2022-10-20] MEDS: Ondansetron 4 MG Tab.DIS PO SCH ×4 (02:10→21:39)
[2022-10-20] MEDS: oxyCODONE 5 MG Tab PO PRN ×4 (02:10→11:56)
[2022-10-20] MEDS: Methadone Oral Concentrate 10 MG/1 ML ML 30 ML Bottle PO SCH ×3 (07:29→21:39)
[2022-10-20] MEDS: Insulin Lispro 100 Unit/ML 3 ML KwikPen SUBCUT SCH ×2 (07:58→11:36)
[2022-10-20] MEDS: Propranolol 80 MG Cap.ER PO SCH (09:18)
[2022-10-20] MEDS: Famotidine 20 MG Tab PO SCH ×2 (09:19→20:44)
[2022-10-20] MEDS: amLODIPine 5 MG Tab PO SCH (09:19)
[2022-10-20] MEDS: Ibuprofen 800 MG Tab PO PRN (17:10)
[2022-10-20] MEDS: Insulin Glargine,Human Rec. Analog 100 Units/ML 3 ML Pen SUBCUT SCH (20:44)
[2022-10-20] MEDS: Sertraline 25 MG Tab PO SCH (20:44)
[2022-10-20] MEDS: atorvaSTATin 20 MG Tab PO SCH (20:44)
[2022-10-21] MEDS: Ondansetron 4 MG Tab.DIS PO SCH ×5 (02:19→21:32)
[2022-10-21] MEDS: Ibuprofen 800 MG Tab PO PRN ×3 (03:06→17:11)
[2022-10-21] MEDS: oxyCODONE 5 MG Tab PO PRN ×5 (03:06→19:36)
[2022-10-21] MEDS: Methadone Oral Concentrate 10 MG/1 ML ML 30 ML Bottle PO SCH ×3 (05:29→21:26)
[2022-10-21] MEDS: amLODIPine 5 MG Tab PO SCH (09:38)
[2022-10-21] MEDS: Propranolol 80 MG Cap.ER PO SCH (09:38)
[2022-10-21] MEDS: Famotidine 20 MG Tab PO SCH ×3 (09:52→21:33)
[2022-10-21] MEDS: atorvaSTATin 20 MG Tab PO SCH ×2 (21:29→21:31)
[2022-10-21] MEDS: Sertraline 25 MG Tab PO SCH (21:30)
[2022-10-21] MEDS: Insulin Glargine,Human Rec. Analog 100 Units/ML 3 ML Pen SUBCUT SCH (21:31)
[2022-10-22] MEDS: Ondansetron 4 MG Tab.DIS PO SCH ×3 (03:06→07:42)
[2022-10-22] MEDS: Methadone Oral Concentrate 10 MG/1 ML ML 30 ML Bottle PO SCH (05:15)
[2022-10-22] MEDS: oxyCODONE 5 MG Tab PO PRN (07:16)
[2022-10-22] MEDS: Propranolol 80 MG Cap.ER PO SCH (08:29)
[2022-10-22] MEDS: Famotidine 20 MG Tab PO SCH (08:29)
[2022-10-22] MEDS: amLODIPine 5 MG Tab PO SCH (08:29)
[2022-10-22] MEDS: LORazepam 2 MG/ML SDV IVPUSH PRN (09:03)
== END 2022-10-22 10:43 | disposition hospice, home (50) | DRG 394 ==
LOC: JP.ED 17:28 → JP.ICU 21:56 → JP.MS 10-13 16:34
PROVIDERS: ADMIT Internal Medicine; ATTEND Internal Medicine
DX: K52.1 Toxic gastroenteritis and colitis (principal); C78.00 Secondary malignant neoplasm of unspecified lung; A41.9 Sepsis, unspecified organism; C79.51 Secondary malignant neoplasm of bone; D84.9 Immunodeficiency, unspecified; R11.2 Nausea with vomiting, unspecified; E87.6 Hypokalemia; E86.0 Dehydration; Z51.5 Encounter for palliative care; Z66 Do not resuscitate; C80.1 Malignant (primary) neoplasm, unspecified; Z20.822 Contact with and (suspected) exposure to COVID-19; K44.9 Diaphragmatic hernia without obstruction or gangrene; T45.1X5A Adverse effect of antineoplastic and immunosuppressive drugs, initial encounter; I10 Essential (primary) hypertension; M19.90 Unspecified osteoarthritis, unspecified site; E78.5 Hyperlipidemia, unspecified; I25.10 Atherosclerotic heart disease of native coronary artery without angina pectoris; Z88.5 Allergy status to narcotic agent; Z88.8 Allergy status to other drugs, medicaments and biological substances; E78.00 Pure hypercholesterolemia, unspecified; K21.9 Gastro-esophageal reflux disease without esophagitis; Z90.49 Acquired absence of other specified parts of digestive tract; E11.9 Type 2 diabetes mellitus without complications; Z79.4 Long term (current) use of insulin; Z79.899 Other long term (current) drug therapy
CPT/HCPCS: 0241U; 36415; 51702; 71046; 71046-26; 74177; 80048; 80053; 81001; 82947; 83605; 83735; 84132; 84145; 85025; 85027; 86140; 87040; 96365; 96366; 96367; 97116-GP; 97162-GP; 97165-GO; 97530-GP; 99222; 99232; 99233; 99238; 99285; 99285-25; A9270-GY; J0692; J1100; J1815; J1815-GY; J2060; J2405; J3480; J3490; J7030; J7120; Q0162; Q0164; Q9967